=== PATIENT | male | born 1940 | race Caucasian/White ===

== ENCOUNTER 2018-06-17 09:58 | Inpatient (IN) ==
[2018-06-17] MEDS ORDERED: IPRATROPIUM/ALBUTEROL 3 ML AMPUL.NEB NEB ONE (10:28)
[2018-06-17] MEDS ORDERED: methylPREDNISolone SOD SUCC 125 MG/2 ML VIAL IV ONE (10:29)
[2018-06-17] MEDS ORDERED: PIPERACILLIN SODIUM/TAZOBACTAM 3.375 GM in DEXTROSE 5% IN WATER 50 ML IV ONE (10:29)
--- NOTE | 2018-06-17 10:46 | XRay Report ---
HISTORY: Shortness of breath, hypoxia and fever FINDINGS: Right diaphragm is moderately elevated. There is an ill-defined alveolar opacity in the lower half of the right lung. The pulmonary vessels are mildly engorged. The heart is moderately enlarged. There has been a prior sternotomy performed in the patient has a prosthetic cardiac valve. No pleural effusion is present. Comparison with the prior exam from 02/03/18 shows the pulmonary vessels, best seen in the left lung are less engorged today. The infiltrate above the right diaphragm is slightly worse. IMPRESSION: Chronic or recurrent congestive heart failure Possible superimposed pneumonia in the right lower lobe Interpreted and Authenticated by: Rickey Cota 06/17/18
[2018-06-17] MEDS ORDERED: 0.9 % SODIUM CHLORIDE 1,000 ML IV ONE (10:55)
[2018-06-17 10:57] LABS: Basophils # (Auto) 0 K/mcL (0.0-0.3); Basophils % (Auto) 0.4 % (0.0-2.0); Eosinophils # (Auto) 0.3 K/mcL (0.0-0.7); Eosinophils % (Auto) 2.8 % (0.0-7.0); Granulocytes % (Auto) 71.2 % (38.0-78.0); Lymphocytes % (Auto) 18.2 % (15.5-49.0); Mean Cell Volume 93.3 fL (80.0-100.0); Mean Corpuscular HGB Conc 31.2 g/dL (31.0-36.0); Monocytes # (Auto) 0.8 K/mcL (0.1-0.9); Monocytes % (Auto) 7.4 % (1.0-12.0); Platelet Count 222 K/mcL (140-440); RBC 3.89 M/mcL (4.50-5.90); Red Cell Distribution Width 15.5 % (11.5-14.5)
--- NOTE | 2018-06-17 11:03 | Emergency Department Note ---
SOB HPI - General Chief Complaint: Shortness of Breath/Dyspnea Stated Complaint: short of breath,weakness, fever Time Seen by Provider: 06/17/18 10:09 Source: patient Mode of arrival: ambulatory Limitations: no limitations - History of Present Illness 78-year-old male with a several day history of worsening shortness of breath chills but no fever. 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 he is wheezing and requiring significant amount of oxygen. He is on 4 L now to keep sats above 90 whereas at home he is normally on 2 L [id number]. He does have swelling in his feet which is chronic. Denies belly pain nausea vomiting diarrhea. No chest pain. Reports feeling shaky and weak - Related Data Home Medications Medication Instructions Recorded Confirmed Furosemide [Lasix] 40 mg PO DAILY 03/30/15 06/17/18 HYDROcodone/APAP 10/325MG [[place] 1 tab PO BID 03/30/15 06/17/18 10/325Mg] sitaGLIPtin PHOS/metFORMIN HCL 1 tab PO BID 03/30/15 06/17/18 [Janumet 50-1,000 mg Tablet] Diltiazem HCl [Diltiazem 24Hr Cd] 120 mg PO HS 06/17/18 06/17/18 Fluticasone Propionate [Flonase] 1 spray MANUEL DAILY 06/17/18 06/17/18 Spironolactone 50 mg PO DAILY 06/17/18 06/17/18 Allergies Allergy/AdvReac Type Severity Reaction Status Date / Time No Known Intolerances Allergy Unknown NKA Verified 02/03/18 15:02 [NO KNOWN INTOLERANCES] Review of Systems All systems ED: reviewed and negative except as stated. Past Medical History - Past Medical History Attestation: Yes: The following information was validated with the patient. Medical history: Reports: aortic aneurysm, atrial fibrillation, CHF, COPD, coronary artery disease, DM, hyperlipidemia, hypertension, valvular heart disease Surgical history ED: Reports: angioplasty/stent, coronary bypass (CABG), orthopedic, other, vascular surgery - Social History smoking status: Former smoker Alcohol use: Reports: Recent (has a shot of whiskey every night) Physical Exam Working hard to breathe. Normocephalic atraumatic. Conjunctive are mildly injected bilaterally without icterus. No nasal discharge or congestion but he is wearing nasal cannula oxygen. Oropharynx is pink and moist. Posterior pharynx is clear. Neck is supple without lymphadenopathy thyromegaly or carotid bruit. Heart is tachycardic. Lungs with significant bilateral wheezes but some rales lower right lung field. Abdomen is protuberant but soft nontender nondistended. +1-2 pedal edema bilaterally with chronic skin changes. +2 radial pulse. Alert oriented. Able to answer questions appropriately and cooperate for exam Limitations: no limitations Course Vital Signs Temperature 98.7 F 06/17/18 10:01 Pulse Rate 80 06/17/18 10:01 Respiratory Rate 26 H 06/17/18 10:01 Blood Pressure 180/80 06/17/18 10:01 Pulse Oximetry (%) 84 L 06/17/18 10:01 Temperature 99.6 F H 06/17/18 13:01 Pulse Rate 78 06/17/18 14:06 Respiratory Rate 25 H 06/17/18 14:06 Blood Pressure 146/71 06/17/18 14:06 Pulse Oximetry (%) 93 06/17/18 14:06 Shortness of Breath/Dyspnea - Lab Data Lab results reviewed: Yes I reviewed the patient's lab results. Result diagrams: 06/17/18 10:22 06/17/18 10:22 Lab Results 06/17/18 06/17/18 06/17/18 Range/Units 10:22 10:22 10:22 WBC 11.0 (4.5-11.0) K/mcL RBC 3.89 L (4.50-5.90) M/mcL Hgb 11.3 L (13.5-16.5) g/dL Hct 36.3 L (41.0-55.0) % POC Hct 38.0 L (41.0-55.0) % MCV 93.3 (80.0-100.0) fL MCH 29.1 (26.0-34.0) pg MCHC 31.2 (31.0-36.0) g/dL RDW 15.5 H (11.5-14.5) % Plt Count 222 (140-440) K/mcL MPV 8.6 (7.4-10.4) fL Gran % 71.2 (38.0-78.0) % Lymph % (Auto) 18.2 (15.5-49.0) % Laurel % (Auto) 7.4 (1.0-12.0) % Eos % (Auto) 2.8 (0.0-7.0) % Baso % (Auto) 0.4 (0.0-2.0) % Gran # 7.9 (1.8-8.0) K/mcL Lymph # (Auto) 2.0 (1.5-4.8) K/mcL Laurel # (Auto) 0.8 (0.1-0.9) K/mcL Eos # (Auto) 0.3 (0.0-0.7) K/mcL Baso # (Auto) 0 (0.0-0.3) K/mcL D-Dimer 1.12 H (0.00-0.40) ug/ml VBG Lactic Acid (0.5-2.0) mmol/L POC Sodium 142 (133-145) mmol/L Sodium 141 (133-145) mmol/L POC Potassium 4.6 (3.3-5.1) mmol/L Potassium 4.8 (3.3-5.1) mmol/L POC Chloride 96 (96-108) mmol/L Chloride 97 (96-108) mmol/L Carbon Dioxide 41 H* (22-30) mmol/L POC Total CO2 36 H (22-30) mmol/L Anion Gap 3.0 L (8-16) POC BUN 21 (8-23) mg/dl BUN 19 (8-23) mg/dl Creatinine 0.8 (0.7-1.2) mg/dl POC Creatinine 0.8 (0.7-1.2) mg/dl GFR Calculation 85 Glucose 125 H (70-105) mg/dL POC Glucose 129 H (70-105) mg/dL Calcium 9.4 (8.6-10.4) mg/dl POC WB Ioniz Calcium 1.20 (1.16-1.32) mmol/L Magnesium 2.1 (1.6-2.5) mg/dL Total Bilirubin 0.5 (0.0-1.0) mg/dL AST 21 (0-37) U/l ALT 20 (0-40) U/l Alkaline Phosphatase 67 (39-117) U/L Troponin T (0-0.03) ng/ml NT-Pro-B Natriuret Pep 261.6 (0-450) pg/ml Total Protein 7.1 (5.9-8.4) gm/dL Albumin 4.1 (3.2-5.2) gm/dL Globulin 3.0 (2.2-3.7) gm/dL Albumin/Globulin Ratio 1.4 (1.0-2.3) Lipase 26 (7-60) U/L Procalcitonin (<0.10) ng/mL TSH (0.27-5.01) uIU/ml 06/17/18 06/17/18 06/17/18 Range/Units 10:22 10:22 10:23 WBC (4.5-11.0) K/mcL RBC (4.50-5.90) M/mcL Hgb (13.5-16.5) g/dL Hct (41.0-55.0) % POC Hct (41.0-55.0) % MCV (80.0-100.0) fL MCH (26.0-34.0) pg MCHC (31.0-36.0) g/dL RDW (11.5-14.5) % Plt Count (140-440) K/mcL MPV (7.4-10.4) fL Gran % (38.0-78.0) % Lymph % (Auto) (15.5-49.0) % Laurel % (Auto) (1.0-12.0) % Eos % (Auto) (0.0-7.0) % Baso % (Auto) (0.0-2.0) % Gran # (1.8-8.0) K/mcL Lymph # (Auto) (1.5-4.8) K/mcL Laurel # (Auto) (0.1-0.9) K/mcL Eos # (Auto) (0.0-0.7) K/mcL Baso # (Auto) (0.0-0.3) K/mcL D-Dimer (0.00-0.40) ug/ml VBG Lactic Acid 1.0 (0.5-2.0) mmol/L POC Sodium (133-145) mmol/L Sodium (133-145) mmol/L POC Potassium (3.3-5.1) mmol/L Potassium (3.3-5.1) mmol/L POC Chloride (96-108) mmol/L Chloride (96-108) mmol/L Carbon Dioxide (22-30) mmol/L POC Total CO2 (22-30) mmol/L Anion Gap (8-16) POC BUN (8-23) mg/dl BUN (8-23) mg/dl Creatinine (0.7-1.2) mg/dl POC Creatinine (0.7-1.2) mg/dl GFR Calculation Glucose (70-105) mg/dL POC Glucose (70-105) mg/dL Calcium (8.6-10.4) mg/dl POC WB Ioniz Calcium (1.16-1.32) mmol/L Magnesium (1.6-2.5) mg/dL Total Bilirubin (0.0-1.0) mg/dL AST (0-37) U/l ALT (0-40) U/l Alkaline Phosphatase (39-117) U/L Troponin T < 0.01 (0-0.03) ng/ml NT-Pro-B Natriuret Pep (0-450) pg/ml Total Protein (5.9-8.4) gm/dL Albumin (3.2-5.2) gm/dL Globulin (2.2-3.7) gm/dL Albumin/Globulin Ratio (1.0-2.3) Lipase (7-60) U/L Procalcitonin < 0.05 (<0.10) ng/mL TSH (0.27-5.01) uIU/ml 06/17/18 Range/Units 10:40 WBC (4.5-11.0) K/mcL RBC (4.50-5.90) M/mcL Hgb (13.5-16.5) g/dL Hct (41.0-55.0) % POC Hct (41.0-55.0) % MCV (80.0-100.0) fL MCH (26.0-34.0) pg MCHC (31.0-36.0) g/dL RDW (11.5-14.5) % Plt Count (140-440) K/mcL MPV (7.4-10.4) fL Gran % (38.0-78.0) % Lymph % (Auto) (15.5-49.0) % Laurel % (Auto) (1.0-12.0) % Eos % (Auto) (0.0-7.0) % Baso % (Auto) (0.0-2.0) % Gran # (1.8-8.0) K/mcL Lymph # (Auto) (1.5-4.8) K/mcL Laurel # (Auto) (0.1-0.9) K/mcL Eos # (Auto) (0.0-0.7) K/mcL Baso # (Auto) (0.0-0.3) K/mcL D-Dimer (0.00-0.40) ug/ml VBG Lactic Acid (0.5-2.0) mmol/L POC Sodium (133-145) mmol/L Sodium (133-145) mmol/L POC Potassium (3.3-5.1) mmol/L Potassium (3.3-5.1) mmol/L POC Chloride (96-108) mmol/L Chloride (96-108) mmol/L Carbon Dioxide (22-30) mmol/L POC Total CO2 (22-30) mmol/L Anion Gap (8-16) POC BUN (8-23) mg/dl BUN (8-23) mg/dl Creatinine (0.7-1.2) mg/dl POC Creatinine (0.7-1.2) mg/dl GFR Calculation Glucose (70-105) mg/dL POC Glucose (70-105) mg/dL Calcium (8.6-10.4) mg/dl POC WB Ioniz Calcium (1.16-1.32) mmol/L Magnesium (1.6-2.5) mg/dL Total Bilirubin (0.0-1.0) mg/dL AST (0-37) U/l ALT (0-40) U/l Alkaline Phosphatase (39-117) U/L Troponin T (0-0.03) ng/ml NT-Pro-B Natriuret Pep (0-450) pg/ml Total Protein (5.9-8.4) gm/dL Albumin (3.2-5.2) gm/dL Globulin (2.2-3.7) gm/dL Albumin/Globulin Ratio (1.0-2.3) Lipase (7-60) U/L Procalcitonin (<0.10) ng/mL TSH 0.69 (0.27-5.01) uIU/ml Arterial blood gas shows pH 7.25 PCO2 104 PO2 of 75 - Radiology Data Radiology results reviewed: Yes I reviewed the patient's radiology results. Chest x-ray shows right lower lobe pneumonia with chronically elevated right hemidiaphragm. Pulmonary vascular congestion also noted consistent with history of CHF. On comparison to previous chest x-ray right lower lobe infiltrate is new - EKG Data EKG attestation: Yes I reviewed and interpreted this EKG. EKG results narrative: EKG shows a rate of 78 with PVCs. Long AL. Q waves in V1 and V2. No evidence of current ischemia. Disposition Pt seen by LEGAL EDITOR/PA only: No Clinical Impression: Congestive heart failure Qualifiers: Heart failure type: unspecified Heart failure chronicity: unspecified Qualified Code(s): I50.9 - Heart failure, unspecified Pneumonia Qualifiers: Pneumonia type: due to unspecified organism Laterality: right Lung location: lower lobe of lung Qualified Code(s): J18.1 - Lobar pneumonia, unspecified organism Sepsis Qualifiers: Sepsis type: sepsis due to unspecified organism Qualified Code(s): A41.9 - Sepsis, unspecified organism Respiratory failure with hypoxia and hypercapnia Qualifiers: Chronicity: acute Qualified Code(s): J96.01 - Acute respiratory failure with hypoxia Summary: Seen and evaluated. Found to have right lower lobe pneumonia on chest x-ray with possible superimposed CHF. Acidotic hypoxic and hypercarbic with respiratory failure. Did breathing treatment with DuoNeb start Solu-Medrol and Zosyn after blood cultures. Then transition to BiPAP Patient will need an ICU bed for sepsis from pneumonia with respiratory failure. I discussed the case with Dr. Mon, our hospitalist, who agreed to accept the patient for further care and evaluation in the hospital Disposition: Xfer As Inpt ([facility]) Condition: Fair
[2018-06-17 11:14] LABS: proBNP 261.6 pg/ml (0-450)
[2018-06-17 11:18] LABS: ALT/SGPT 20 U/l (0-40); Albumin 4.1 gm/dL (3.2-5.2); Albumin/Globulin Ratio 1.4 (1.0-2.3); Alkaline Phosphatase 67 U/L (39-117); Blood Urea Nitrogen 19 mg/dl (8-23); Lipase 26 U/L (7-60)
--- NOTE | 2018-06-17 11:58 | Internal Med History&Physical ---
Medical - H&P: HPI Patient information: Note initiated : 06/17/18 at 11:53 am Service Date, if different from initiated Date: [] Patient: Owen Van a 78 y/o M admitted on for short of breath,weakness, fever. Chief Complaint: [] History of present illness: Mr. Van is a 78 year old M with history of COPD, congestive heart failure presents to the hospital today for evaluation of shortness of breath. The patient at baseline has COPD, use 3 L of oxygen. The patient notes for the last 2-3 days he has not been feeling well, he gives been feeling shaky chills no fever he has cough with brownish expectoration, denies any hemoptysis. There has been progressive worsening in his shortness of breath. At baseline he is able to carry out activities of daily living but now he is short of breath at rest. He admits to having some increased swelling in his lower extremity as well as shortness of breath when lying down flat he has to sleep on his side or propped up. Given his symptoms are getting progressive worse he decided to come to the hospital for further evaluation. He denies any sick contacts. The patient denies any headache changes in vision difficulty in swallowing, admits to cough shortness of breath denies any chest pain no GI complaints no complaints no new joint pains, or skin rashes. He does have some chronic wounds on his lower extremity. On presentation to the hospital by EMS, he was hypoxic requiring 4 L of oxygen to 5 L of oxygen to maintain his oxygen saturation more than 90%, he was afebrile with a temperature of 98.7 heart rate 79 blood pressure 180 x 80 respirations 26. Labs show a hemoglobin of 13.3, WBC count 11,000, platelets 222, lactic acid 1.0. Sodium 141 potassium 4.8 bicarbonate 41 creatinine 0.8 glucose 125 troponin was negative d-dimer mildly elevated at 1.12. Chest x-ray shows right hemidiaphragm elevation, right basilar pneumonia, chronic versus acute CHF. ABG was done which showed pH of 7.25 PCO2 of 104 PO2 75.4 0.5 L of oxygen. EKG shows sinus rhythm, ectopic atrial beats, QS pattern in V1 to V3 old anteroseptal infarct. Patient was given IV antibiotics after cultures, bronchodilator and Solu-Medrol and patient was placed on BiPAP and admitted to the hospital for further management. Last echo that I can see was in 2017 which showed his left ventricular ejection fraction around 50%, grade 2 diastolic dysfunction, moderate mitral stenosis and moderate aortic stenosis All systems: reviewed and no additional remarkable complaints except as stated Medical - H&P: PMH Medical history: Medical History Acute exacerbation of chronic obstructive airways disease (Acute) Orthostatic hypotension (Acute) DM HTN HLD CAD s/p CABG COPD Chr resp failure on 3 L oxygen Mitral stenosis Aortic stenosis Surgical history: s/p CABG Prostethic Mitral valve repair Pertinent family history: cardiac issues on mothers side Social history: lives at home ex smoker quit 7-8 yrs ago denies heavy etoh use denies recreational drug use. Medical - H&P: Meds Home Medications Medication Instructions Recorded Confirmed Type Furosemide [Lasix] 40 mg PO DAILY 03/30/15 06/17/18 History HYDROcodone/APAP 10/325MG [[place] 1 tab PO BID 03/30/15 06/17/18 History 10/325Mg] sitaGLIPtin PHOS/metFORMIN HCL 1 tab PO BID 03/30/15 06/17/18 History [Janumet 50-1,000 mg Tablet] Diltiazem HCl [Diltiazem 24Hr Cd] 120 mg PO HS 06/17/18 06/17/18 History Fluticasone Propionate [Flonase] 1 spray MANUEL DAILY 06/17/18 06/17/18 History Spironolactone 50 mg PO DAILY 06/17/18 06/17/18 History Allergies Allergy/AdvReac Type Severity Reaction Status Date / Time No Known Intolerances Allergy Unknown NKA Verified 02/03/18 15:02 [NO KNOWN INTOLERANCES] Medical - H&P: Exam - Constitutional Vitals: Temp Pulse Resp BP Pulse Ox 98.7 F 79 23 H 152/62 91 06/17/18 10:01 06/17/18 11:03 06/17/18 11:03 06/17/18 10:31 06/17/18 11:03 Exam: GENERAL: The patient is a well-developed, well-nourished in mild respiratory distress, on bipap. Is alert and oriented x3. Morbidly obese individual VITAL SIGNS: Reviewed and as noted elsewhere. HEENT: Head is normocephalic and atraumatic. Extraocular muscles are intact. Pupils are equal, round, and reactive to light. Nares appeared normal. Mouth appears any without lesions. Mucous membranes are moist. NECK: Normal to inspection, Supple, No lymphadenopathy or thyromegaly. LUNGS: Air entry equal on both sides, no wheezing on my exam, had bibasilar crackles. on bipap. HEART: Regular rate and rhythm normal, S1 and S2 heard, no Gallop, S3 or Rub Noted, systolic murmur aortic and mitral region. ABDOMEN: Soft, nontender, and obese abdomen Positive bowel sounds. No obvious hepatosplenomegaly was noted. EXTREMITIES: No cyanosis, clubbing, rash, lesions, edema ++ NEUROLOGIC: Cranial nerves II through XII are grossly intact. Motor and Sensory System Grossly Intact PSYCHIATRIC: Normal affect, Normal Mood. Appropriate Behavior. SKIN: No ulceratio, left leg wound noted, not infected, No jaundice, No rash noted. Medical - H&P: Reslt - Labs CBC & Chem 7: 06/17/18 10:22 06/17/18 10:22 Labs: Short CBC 06/17/18 Range/Units 10:22 WBC 11.0 (4.5-11.0) K/mcL Hgb 11.3 L (13.5-16.5) g/dL Hct 36.3 L (41.0-55.0) % Plt Count 222 (140-440) K/mcL BMP 06/17/18 10:22 Sodium 141 Potassium 4.8 Chloride 97 Carbon Dioxide 41 H* BUN 19 Creatinine 0.8 Glucose 125 H Calcium 9.4 Cardiac Enzymes 06/17/18 Range/Units 10:22 Troponin T < 0.01 (0-0.03) ng/ml Liver Function 06/17/18 Range/Units 10:22 Total Bilirubin 0.5 (0.0-1.0) mg/dL AST 21 (0-37) U/l ALT 20 (0-40) U/l Alkaline Phosphatase 67 (39-117) U/L Albumin 4.1 (3.2-5.2) gm/dL Medical - H&P: A/P - Narrative A/P Narrative: A/P Acute on chr resp failure, hypercapnic and hypoxic -due to pna/chf/copd, and baseline patient is on 3 L of oxygen, presently requiring BiPAP to maintain oxygen saturation as well as to maintain adequate ventilation. PCO2 was 104 on admission ABG. His bicarb is 41 so I believe he i s a chronic CO2 retainer Pneumonia -Community acquired versus aspiration, on Zosyn as well as azithromycin for now, culture sent get sputum cultures mycoplasma urine strep as well as Legionella antigen de-escalate antibiotics per microbiology Congestive heart failure -Reported on chest x-ray, clinically has crackles and lower extremity edema however his BNP is normal. He received 700 cc of fluid in the ED I am not giving any IV Lasix at this time we will get an echocardiogram, will resume home dose of Lasix and Aldactone. Consider IV Lasix if blood pressure remains stable Aortic stenosis & mitral stenosis -Previous echo shows moderate aortic and mitral stenosis, repeat echocardiogram ordered Diabetes -On oral medications, sliding scale insulin for now hold oral medications while inpatient Hypertension -Resume diuretic regimen for now, monitor blood pressure, will resume Cardi zem blood pressure remained stable over 24 hours DVT hep sq Diet Cardiac/ Carb consistent Full code.
--- NOTE | 2018-06-17 13:18 | Internal Med Progress Note ---
Medical - PN: Subj Patient information: Note initiated : 06/17/18 at 1:12 pm Service Date, if different from initiated Date: [] Patient: Owen Van a 78 y/o M admitted on 06/17/18 for short of breath,weakness, fever. Chief Complaint: [] Interval history: Mr. Van is a 78 year old M with history of COPD, congestive heart failure presents to the hospital today for evaluation of shortness of breath. The patient at baseline has COPD, use 3 L of oxygen. The patient notes for the last 2-3 days he has not been feeling well, he gives been feeling shaky chills no fever he has cough with brownish expectoration, denies any hemoptysis. There has been progressive worsening in his shortness of breath. At baseline he is able to carry out activities of daily living but now he is short of breath at rest. He admits to having some increased swelling in his lower extremity as well as shortness of breath when lying down flat he has to sleep on his side or propped up. Given his symptoms are getting progressive worse he decided to come to the hospital for further evaluation. He denies any sick contacts. The patient denies any headache changes in vision difficulty in swallowing, admits to cough shortness of breath denies any chest pain no GI complaints no complaints no new joint pains, or skin rashes. He does have some chronic wounds on his lower extremity. On presentation to the hospital by EMS, he was hypoxic requiring 4 L of oxygen to 5 L of oxygen to maintain his oxygen saturation more than 90%, he was afebrile with a temperature of 98.7 heart rate 79 blood pressure 180 x 80 respirations 26. Labs show a hemoglobin of 13.3, WBC count 11,000, platelets 222, lactic acid 1.0. Sodium 141 potassium 4.8 bicarbonate 41 creatinine 0.8 glucose 125 troponin was negative d-dimer mildly elevated at 1.12. Chest x-ray shows right hemidiaphragm elevation, right basilar pneumonia, chronic versus acute CHF. ABG was done which showed pH of 7.25 PCO2 of 104 PO2 75.4 0.5 L of oxygen. EKG shows sinus rhythm, ectopic atrial beats, QS pattern in V1 to V3 old anteroseptal infarct. Patient was given IV antibiotics after cultures, bronchodilator and Solu-Medrol and patient was placed on BiPAP and admitted to the hospital for further management. Last echo that I can see was in 2017 which showed his left ventricular ejection fraction around 50%, grade 2 diastolic dysfunction, moderate mitral stenosis and moderate aortic stenosis 06/18 - Constitutional Vitals: Vital Signs Temp Pulse Resp BP Pulse Ox 98.7 F 79 23 H 152/62 91 06/17/18 10:01 06/17/18 11:03 06/17/18 11:03 06/17/18 10:31 06/17/18 11:03 Period Temp Pulse Resp BP Sys/Rodriguez Pulse Ox Last 24 Hr 98.7 F 78-82 20-30 152-180/62-80 84-93 Intake and Output 06/16/18 06/17/18 06/17/18 21:59 05:59 13:59 Intake Total 417 Balance 417 Weight 127.006 kg Patient Weight 06/18/18 05:59 Weight 127.006 kg Intake & Output: Intake & Output 06/16/18 06/17/18 06/17/18 21:59 05:59 13:59 Intake Total 417 Balance 417 Weight 127.006 kg Intake: IV 417 Sodium Chloride 0.9% 1,000 ml @ 417 Wide Open IV BOLUS ONE Rx#: [id number] Exam: General: Alert, Awake, No acute Distress, obese Eyes/N/T: EOMI, Head/Neck: neck supple CV: RRR, Pulm: bibase rales, no wheezing Abd: soft, nontender, +BS x4 Ext: no clubbing/cyanosis, b/l LE edema 2+ Neuro: Alert, no focal deficits, moves all extremities, Skin: warm/dry Medical - PN: Obj Da - Labs CBC & Chem 7: 06/17/18 10:22 06/17/18 10:22 Labs: Abnormal Lab Results 06/17/18 06/17/18 06/17/18 10:22 10:22 10:22 RBC 3.89 L Hgb 11.3 L Hct 36.3 L POC Hct 38.0 L RDW 15.5 H D-Dimer 1.12 H Carbon Dioxide 41 H* POC Total CO2 36 H Anion Gap 3.0 L Glucose 125 H POC Glucose 129 H Medical - PN: A/P - Time Spent With Patient Total time spent is greater than 50% in coordination of care (as documented) at patient's floor/unit and/or counseling patient: - Narrative A/P Narrative: A: *Acute on chronic hypercapnic/hypoxic respiratory failure: -2/2 pna/chf/copd, and baseline patient is on 3 L of oxygen -presently requiring BiPAP to maintain oxygen saturation as well as to maintain adequate ventilation *PNA, CAP vs Aspiration: -viral panel neg *COPD (3L NC@home): as above *Acute on Chronic systolic/diastolic CHF: -echo EF 50-55%, *Aortic stenosis & mitral stenosis: Previous echo shows moderate aortic and mitral stenosis, repeat echocardiogram ordered -mild MS on updated echo, moderate *DM *HTN: * P: -O2 support, wean -Zosyn/Azithromycin for now -pending BC/SC/mycoplasma/urine strep/Legionella. de-escalate antibiotics per microbiology -will resume home dose of Lasix and Aldactone. Consider IV Lasix if blood pressure remains stable -pending echo -cont coreg - -SSI and lantus -pt/ot -ppx: heparin Full code
[2018-06-17] MEDS ORDERED: ACETAMINOPHEN 325 MG TABLET PO PRN (13:21)
[2018-06-17] MEDS ORDERED: HYDROmorphone 2 MG/ML VIAL IV PRN (13:21)
[2018-06-17] MEDS ORDERED: DEXTROSE 31 GM ORAL.SUSP PO PRN (13:21)
[2018-06-17] MEDS ORDERED: ONDANSETRON 4 MG/2 ML VIAL IV PRN (13:21)
[2018-06-17] MEDS ORDERED: DEXTROSE 50% 50 ML VIAL IV PRN (13:21)
[2018-06-17] MEDS ORDERED: NALOXONE HCL 0.4 MG/ML VIAL IV PRN (13:21)
[2018-06-17] MEDS: AZITHROMYCIN 500 MG in DEXTROSE 5% IN WATER 250 ML IV SCH (13:44)
[2018-06-17] MEDS: IPRATROPIUM/ALBUTEROL 3 ML AMPUL.NEB NEB SCH ×3 (15:14→23:16)
[2018-06-17] MEDS: 0.9 % SODIUM CHLORIDE 10 ML SYRINGE IV SCH ×2 (15:59→22:00)
[2018-06-17] MEDS: INSULIN LISPRO 1 UNIT/0.01 ML UNIT SQ SCH ×2 (17:26→21:29)
[2018-06-17] MEDS: PIPERACILLIN SODIUM/TAZOBACTAM 3.375 GM in DEXTROSE 5% IN WATER 50 ML IV SCH (18:07)
[2018-06-17] MEDS ORDERED: LORazepam 2 MG/ML VIAL ONE (20:33)
[2018-06-17] MEDS: LORazepam 2 MG/ML VIAL IV PRN (20:36)
[2018-06-17] MEDS: HEPARIN 5,000 UNIT/ML VIAL SQ SCH (21:07)
[2018-06-17] MEDS: FAMOTIDINE/PF 20 MG/2 ML VIAL IV SCH (21:08)
[2018-06-17] MEDS ORDERED: LORazepam 2 MG/ML VIAL IV ONE (22:40)
[2018-06-17] MEDS ORDERED: DILTIAZEM 120 MG CAP.XL.24H PO ONE (22:47)
[2018-06-17] MEDS: DILTIAZEM 120 MG CAP.XL.24H PO SCH (22:59)
[2018-06-18] MEDS: PIPERACILLIN SODIUM/TAZOBACTAM 3.375 GM in DEXTROSE 5% IN WATER 50 ML IV SCH ×4 (00:27→17:35)
[2018-06-18] MEDS: IPRATROPIUM/ALBUTEROL 3 ML AMPUL.NEB NEB SCH ×6 (03:00→22:59)
[2018-06-18 05:41] LABS: Basophils # (Auto) 0 K/mcL (0.0-0.3); Basophils % (Auto) 0 % (0.0-2.0); Eosinophils # (Auto) 0 K/mcL (0.0-0.7); Eosinophils % (Auto) 0 % (0.0-7.0); Granulocytes % (Auto) 83.2 % (38.0-78.0); Lymphocytes # (Auto) 1.1 K/mcL (1.5-4.8); Lymphocytes % (Auto) 10.9 % (15.5-49.0); Mean Cell Volume 92.8 fL (80.0-100.0); Mean Corpuscular HGB Conc 31.7 g/dL (31.0-36.0); Monocytes # (Auto) 0.6 K/mcL (0.1-0.9); Monocytes % (Auto) 5.9 % (1.0-12.0); Platelet Count 213 K/mcL (140-440); Red Cell Distribution Width 15.9 % (11.5-14.5)
[2018-06-18] MEDS: 0.9 % SODIUM CHLORIDE 10 ML SYRINGE IV SCH ×4 (06:01→17:35)
[2018-06-18 06:09] LABS: ALT/SGPT 17 U/l (0-40); Albumin 3.8 gm/dL (3.2-5.2); Albumin/Globulin Ratio 1.3 (1.0-2.3); Alkaline Phosphatase 59 U/L (39-117); Bilirubin,Direct < 0.2 mg/dL (0.0-0.3); Blood Urea Nitrogen 21 mg/dl (8-23); Gamma Glutamyl Transpeptidase 48 U/L (8-61); Uric Acid 4.3 mg/dL (2.5-8.0)
--- NOTE | 2018-06-18 07:17 | Internal Med Progress Note ---
Medical - PN: Subj Patient information: Note initiated : 06/18/18 at 7:10 am Service Date, if different from initiated Date: [] Patient: Owen Van a 78 y/o M admitted on 06/17/18 for short of breath,weakness, fever. Chief Complaint: [] Interval history: Mr. Van is a 78 year old M with history of COPD, congestive heart failure presents to the hospital today for evaluation of shortness of breath. The patient at baseline has COPD, use 3 L of oxygen. The patient notes for the last 2-3 days he has not been feeling well, he gives been feeling shaky chills no fever he has cough with brownish expectoration, denies any hemoptysis. There has been progressive worsening in his shortness of breath. At baseline he is able to carry out activities of daily living but now he is short of breath at rest. He admits to having some increased swelling in his lower extremity as well as shortness of breath when lying down flat he has to sleep on his side or propped up. Given his symptoms are getting progressive worse he decided to come to the hospital for further evaluation. He denies any sick contacts. The patient denies any headache changes in vision difficulty in swallowing, admits to cough shortness of breath denies any chest pain no GI complaints no complaints no new joint pains, or skin rashes. He does have some chronic wounds on his lower extremity. On presentation to the hospital by EMS, he was hypoxic requiring 4 L of oxygen to 5 L of oxygen to maintain his oxygen saturation more than 90%, he was afebrile with a temperature of 98.7 heart rate 79 blood pressure 180 x 80 respirations 26. Labs show a hemoglobin of 13.3, WBC count 11,000, platelets 222, lactic acid 1.0. Sodium 141 potassium 4.8 bicarbonate 41 creatinine 0.8 glucose 125 troponin was negative d-dimer mildly elevated at 1.12. Chest x-ray shows right hemidiaphragm elevation, right basilar pneumonia, chronic versus acute CHF. ABG was done which showed pH of 7.25 PCO2 of 104 PO2 75.4 0.5 L of oxygen. EKG shows sinus rhythm, ectopic atrial beats, QS pattern in V1 to V3 old anteroseptal infarct. Patient was given IV antibiotics after cultures, bronchodilator and Solu-Medrol and patient was placed on BiPAP and admitted to the hospital for further management. Last echo that I can see was in 2017 which showed his left ventricular ejection fraction around 50%, grade 2 diastolic dysfunction, moderate mitral stenosis and moderate aortic stenosis 06/18 Did have some agitation on the BiPAP yesterday with the subsequent air going into his belly causing him some nausea and vomiting last night. Finally was able to get some rest and comfortable on the BiPAP. States he drinks 2 drinks of black velvet daily. Clarify home medication started on diltiazem. States he does not have a cough this morning no shortness of breath is improved from yesterday. Improved ABG this morning Review of Systems: denies headache/fever/chills/nausea/vomiting/chest or abdominal pain/diarrhea. Otherwise see above. - Constitutional Vitals: Vital Signs Temp Pulse Resp BP Pulse Ox 99.3 F H 81 25 H 142/70 93 06/18/18 04:00 06/18/18 06:01 06/18/18 06:01 06/18/18 06:01 06/18/18 06:01 Period Temp Pulse Resp BP Sys/Rodriguez Pulse Ox Last 24 Hr 98.6 F-100.3 F 52-92 19-38 126-180/62-104 84-98 Intake and Output 06/17/18 06/18/18 06/18/18 21:59 05:59 13:59 Intake Total 420 440 50 Output Total 1005 464 39 Balance -585 -24 11 Weight 98.792 kg Intake & Output: Intake & Output 06/17/18 06/18/18 06/18/18 21:59 05:59 13:59 Intake Total 420 440 50 Output Total 1005 464 39 Balance -585 -24 11 Weight 98.792 kg Intake: IV 300 50 50 Zithromax 500 mg In Dextrose 5% 250 in Water 250 ml @ 250 mls/hr IV DAILY [facility] Rx#:[id number] Zosyn 3.375 gm In Dextrose 5% 50 50 50 in Water 50 ml @ 100 mls/hr IV Q6H [facility] Rx#:[id number] Oral 120 390 Output: Urine Catheter Amount 1005 314 39 Emesis 150 Other: Meal Dinner Percent of Meal Consumed Bites 0% Feeding Ability Independent Urine Appearance Clear Cloudy Cloudy Uretheral (Lay) Cloudy Urine Color Straw Dark Yellow Dark Yellow Uretheral (Lay) Dark Yellow Urine Odor Normal Normal Exam: General: Alert, Awake, No acute Distress, obese Eyes/N/T: EOMI, Head/Neck: neck supple CV: RRR, Pulm: bibase rales/rhonchi, no wheezing Abd: soft, nontender, +BS x4 Ext: no clubbing/cyanosis, b/l LE edema 1+ Neuro: Alert, no focal deficits, moves all extremities, Skin: warm/dry Medical - PN: Obj Da - Labs CBC & Chem 7: 06/18/18 03:41 06/18/18 03:41 Labs: Abnormal Lab Results 06/18/18 06/18/18 06/17/18 03:41 03:41 10:22 RBC 3.60 L Hgb 10.6 L Hct 33.4 L POC Hct 38.0 L RDW 15.9 H Gran % 83.2 H Lymph % (Auto) 10.9 L Gran # 8.5 H Lymph # (Auto) 1.1 L D-Dimer Carbon Dioxide 39 H 41 H* POC Total CO2 36 H Anion Gap 4.0 L 3.0 L Glucose 187 H 125 H POC Glucose 129 H 06/17/18 06/17/18 10:22 10:22 RBC 3.89 L Hgb 11.3 L Hct 36.3 L POC Hct RDW 15.5 H Gran % Lymph % (Auto) Gran # Lymph # (Auto) D-Dimer 1.12 H Carbon Dioxide POC Total CO2 Anion Gap Glucose POC Glucose Meds: Medications Acetaminophen (Tylenol) 650 mg PO Q4-6HP PRN PRN Reason: PAIN/FEVER > 101 Hydrocodone Bitart/Acetaminophen ([place] 10/325mg) 1 tab PO BIDP PRN PRN Reason: PAIN LEVEL 3-6 Albuterol/Ipratropium (Duoneb) 3 ml NEB Q4HRT [facility] Last Admin: 06/18/18 03:00 Dose: 3 ml Documented by: Dextrose (Dextrose 50%) 0 ml IV UD PRN PRN Reason: Hypoglycemia Diagnostic Test (Pha) (Accu-Chek) 1 each FS ACHS [facility] Last Admin: 06/17/18 21:21 Dose: 1 each Documented by: Diltiazem HCl (Cardizem Cd) 120 mg PO HS [facility] Last Admin: 06/17/18 22:59 Dose: 120 mg Documented by: Famotidine (Pepcid) 20 mg IV Q12 [facility] Last Admin: 06/17/18 21:08 Dose: 20 mg Documented by: Furosemide (Lasix) 40 mg PO DAILY [facility] Glucose (Insta-Glucose) 15 gm PO PRN PRN PRN Reason: Hypoglycemia Heparin Sodium (Porcine) (Heparin) 5,000 unit SQ Q12 [facility] Last Admin: 06/17/18 21:07 Dose: 5,000 unit Documented by: Hydromorphone HCl (Dilaudid) 0.5 mg IV Q2HP PRN PRN Reason: PAIN LEVEL > 6 Azithromycin 500 mg/ Dextrose 250 mls @ 250 mls/hr IV DAILY [facility] Stop: 06/19/18 09:59 Last Infusion: 06/17/18 15:58 Dose: Infused Documented by: Piperacillin Sod/Tazobactam (Sod 3.375 gm/ Dextrose) 50 mls @ 100 mls/hr IV Q6H [facility] Last Infusion: 06/18/18 06:40 Dose: Infused Documented by: Insulin Glargine (Lantus) 26 unit SQ 0900 [facility] Insulin Human Lispro (Humalog) 0 unit SQ ACHS [facility]; Protocol Last Admin: 06/17/18 21:29 Dose: 3 units Documented by: Lorazepam (Ativan) 0.5 mg IV Q6HP PRN PRN Reason: ANXIETY/SEDATION Last Admin: 06/17/18 20:36 Dose: 0.5 mg Documented by: Naloxone HCl (Narcan) 0.1 mg IV Q2MIN PRN PRN Reason: Opiate Reversal Ondansetron HCl (Zofran) 4 mg IV Q4-6HP PRN PRN Reason: Nausea And Vomiting Last Admin: 06/17/18 21:08 Dose: 4 mg Documented by: Prednisone (Prednisone) 60 mg PO [facility] Sodium Chloride (Saline Flush) 10 ml IV Q8 [facility] Last Admin: 06/18/18 06:01 Dose: 10 ml Documented by: Spironolactone (Aldactone) 50 mg PO DAILY [facility] Medical - PN: A/P - Time Spent With Patient Total time spent is greater than 50% in coordination of care (as documented) at patient's floor/unit and/or counseling patient: - Narrative A/P Narrative: A: *Acute on chronic hypercapnic/hypoxic respiratory failure: improving -2/2 pna/chf/copd, and baseline patient is on 3 L of oxygen -presently requiring BiPAP to maintain oxygen saturation as well as to maintain adequate ventilation *PNA, CAP vs Aspiration: -viral panel neg, myco/strep ur neg *COPD (3L NC@home): as above *Acute on Chronic systolic/diastolic CHF: -echo EF 50-55%, *Aortic stenosis & Prosthetic Mitral valve: Previous echo shows moderate aortic and mitral stenosis -updated Echo with mild MS & moderate *CAD s/cabg: do not see ASA/statin on home meds, is on dilt *DM: *HTN: on diltiazem, lasix/aldactone *Oropharyngeal Dysphagia, mild: P: -bipap O2 support, wean. f/u ABG -Zosyn/Azithromycin for now -pending BC/SC /Legionella. de-escalate antibiotics per microbiology -steroids (wean), IS/Acapella -will resume home dose of Lasix and Aldactone. Consider IV Lasix if blood pressure remains stable -cont diltiazem, start ASA/statin -dysphagia diet per ST -SSI and dre -LYNN -pt/ot -PCP records -ppx: heparin Full code Medical - PN: Qual - Stroke Symptom Onset Unknown: No - VTE Deep Vein Thrombosis/Pulmonary Embolism Present on Admission: No
[2018-06-18] MEDS: INSULIN LISPRO 1 UNIT/0.01 ML UNIT SQ SCH ×4 (07:31→21:28)
[2018-06-18] MEDS: predniSONE 20 MG TABLET PO SCH (08:21)
[2018-06-18] MEDS: INSULIN GLARGINE, HUMAN 1 UNIT/0.01 ML SQ SCH (08:21)
[2018-06-18] MEDS: HEPARIN 5,000 UNIT/ML VIAL SQ SCH ×2 (08:21→21:28)
[2018-06-18] MEDS: AZITHROMYCIN 500 MG in DEXTROSE 5% IN WATER 250 ML IV SCH (08:22)
[2018-06-18] MEDS: FAMOTIDINE/PF 20 MG/2 ML VIAL IV SCH ×2 (08:22→21:27)
--- NOTE | 2018-06-18 08:35 | XRay Report ---
HISTORY: Shortness of breath fever and weakness FINDINGS: Right diaphragm is moderately elevated. This causing crowding of the pulmonary vascular markings in the right lung base. This is a chronic finding, unchanged from the prior chest CT done on 02/03/18. The left lung is clear. The heart remains mild to moderately enlarged. There is a prosthetic mitral valve and sternal wires. No pleural effusion is present. Comparison with recent chest x-ray done on 06/17/18 shows improved aeration of the right lower lobe and the pulmonary vascular congestion has resolved. IMPRESSION: Resolved congestive heart failure. Resolving small infiltrate at the right lung base which could have been related to the congestive heart failure or a superimposed pneumonia Interpreted and Authenticated by: Rickey Cota 06/18/18
[2018-06-18] MEDS ORDERED: SPIRONOLACTONE 25 MG TABLET PO SCH (09:00)
[2018-06-18] MEDS ORDERED: FUROSEMIDE 40 MG TABLET PO SCH (09:00)
[2018-06-18] MEDS: ASPIRIN 81 MG TAB.CHEW PO SCH (10:21)
[2018-06-18] MEDS ORDERED: POLYETHYLENE GLYCOL 3350 17 GM PACKET PO PRN (14:50)
[2018-06-18] MEDS ORDERED: SENNOSIDES 1 TABLET PO PRN (14:50)
[2018-06-18] MEDS ORDERED: BISACODYL 10 MG SUPP.RECT PR PRN (14:51)
[2018-06-18] MEDS: HYDROcodone/APAP 10/325MG TABLET PO PRN (14:54)
[2018-06-18] MEDS: MAGNESIUM HYDROXIDE 30 ML ORAL.SUSP PO PRN (15:15)
[2018-06-18] MEDS ORDERED: DILTIAZEM 120 MG CAP.XL.24H PO SCH ×2 (21:00)
[2018-06-18] MEDS ORDERED: ATORVASTATIN 20 MG TABLET PO SCH (21:00)
[2018-06-18] MEDS: ATORVASTATIN 20 MG TABLET PO SCH (21:26)
[2018-06-18] MEDS: DILTIAZEM 120 MG CAP.XL.24H PO SCH (21:27)
[2018-06-19] MEDS: PIPERACILLIN SODIUM/TAZOBACTAM 3.375 GM in DEXTROSE 5% IN WATER 50 ML IV SCH ×4 (00:21→17:52)
[2018-06-19] MEDS: 0.9 % SODIUM CHLORIDE 10 ML SYRINGE IV SCH ×4 (00:55→20:45)
[2018-06-19] MEDS: IPRATROPIUM/ALBUTEROL 3 ML AMPUL.NEB NEB SCH ×6 (03:41→22:37)
[2018-06-19 06:56] LABS: ALT/SGPT 16 U/l (0-40); Albumin 3.5 gm/dL (3.2-5.2); Albumin/Globulin Ratio 1.1 (1.0-2.3); Alkaline Phosphatase 57 U/L (39-117); Bilirubin,Direct < 0.2 mg/dL (0.0-0.3); Blood Urea Nitrogen 19 mg/dl (8-23); Gamma Glutamyl Transpeptidase 44 U/L (8-61); Uric Acid 3.3 mg/dL (2.5-8.0)
--- NOTE | 2018-06-19 07:20 | Internal Med Progress Note ---
Medical - PN: Subj Patient information: Note initiated : 06/19/18 at 7:14 am Service Date, if different from initiated Date: [] Patient: Owen Van a 78 y/o M admitted on 06/17/18 for short of breath,weakness, fever. Chief Complaint: [] Interval history: Mr. Van is a 78 year old M with history of COPD, congestive heart failure presents to the hospital today for evaluation of shortness of breath. The patient at baseline has COPD, use 3 L of oxygen. The patient notes for the last 2-3 days he has not been feeling well, he gives been feeling shaky chills no fever he has cough with brownish expectoration, denies any hemoptysis. There has been progressive worsening in his shortness of breath. At baseline he is able to carry out activities of daily living but now he is short of breath at rest. He admits to having some increased swelling in his lower extremity as well as shortness of breath when lying down flat he has to sleep on his side or propped up. Given his symptoms are getting progressive worse he decided to come to the hospital for further evaluation. He denies any sick contacts. The patient denies any headache changes in vision difficulty in swallowing, admits to cough shortness of breath denies any chest pain no GI complaints no complaints no new joint pains, or skin rashes. He does have some chronic wounds on his lower extremity. On presentation to the hospital by EMS, he was hypoxic requiring 4 L of oxygen to 5 L of oxygen to maintain his oxygen saturation more than 90%, he was afebrile with a temperature of 98.7 heart rate 79 blood pressure 180 x 80 respirations 26. Labs show a hemoglobin of 13.3, WBC count 11,000, platelets 222, lactic acid 1.0. Sodium 141 potassium 4.8 bicarbonate 41 creatinine 0.8 glucose 125 troponin was negative d-dimer mildly elevated at 1.12. Chest x-ray shows right hemidiaphragm elevation, right basilar pneumonia, chronic versus acute CHF. ABG was done which showed pH of 7.25 PCO2 of 104 PO2 75.4 0.5 L of oxygen. EKG shows sinus rhythm, ectopic atrial beats, QS pattern in V1 to V3 old anteroseptal infarct. Patient was given IV antibiotics after cultures, bronchodilator and Solu-Medrol and patient was placed on BiPAP and admitted to the hospital for further management. Last echo that I can see was in 2017 which showed his left ventricular ejection fraction around 50%, grade 2 diastolic dysfunction, moderate mitral stenosis and moderate aortic stenosis 06/18 Did have some agitation on the BiPAP yesterday with the subsequent air going into his belly causing him some nausea and vomiting last night. Finally was able to get some rest and comfortable on the BiPAP. States he drinks 2 drinks of black velvet daily. Clarify home medication started on diltiazem. States he does not have a cough this morning no shortness of breath is improved from yesterday. Improved ABG this morning 06/19 Was put on BiPAP last night just for short period of time. Tolerating nasal cannula otherwise. Does have a cough but not really productive at this point. Does have shortness of breath but says it is much improved and states hannah roximately 60% back to baseline. Says he needs a follow-up with cardiology after I talked to him about the TAVR and anticoagulation, still just wants to stay on aspirin and follow-up with cardiology. Poor sleep at night, patient states he takes melatonin and meclizine for sleep at night At home. Review of Systems: denies headache/fever/chills/nausea/vomiting/chest or abdominal pain/diarrhea. Otherwise see above. - Constitutional Vitals: Vital Signs Temp Pulse Resp BP Pulse Ox 98.8 F 85 27 H 127/86 96 06/19/18 04:00 06/19/18 06:01 06/19/18 06:01 06/19/18 06:01 06/19/18 06:01 Period Temp Pulse Resp BP Sys/Rodriguez Pulse Ox Last 24 Hr 98.2 F-99.4 F 71-100 18-38 106-153/52-86 84-98 Intake and Output 06/18/18 06/19/18 06/19/18 21:59 05:59 13:59 Intake Total 950 370 50 Output Total 884 553 40 Balance 66 -183 10 Weight 97.114 kg Intake & Output: Intake & Output 06/18/18 06/19/18 06/19/18 21:59 05:59 13:59 Intake Total 950 370 50 Output Total 884 553 40 Balance 66 -183 10 Weight 97.114 kg Intake: Nourishment/Supplement quantity 240 (ml) IV 50 50 50 Zosyn 3.375 gm In Dextrose 5% 50 50 50 in Water 50 ml @ 100 mls/hr IV Q6H [facility] Rx#:[id number] Oral 660 320 Output: Urine Catheter Amount 884 453 40 Void Amount 100 Other: Meal Dinner Percent of Meal Consumed 100% Feeding Ability Assist with Tray Set Up Nourishment/Supplement name Glucerna Urine Appearance Clear Clear Clear Uretheral (Lay) Clear Clear Urine Color Dark Yellow Blood Tinged Blood Tinged Uretheral (Lay) Dark Yellow Blood Tinged Blood Tinged Urine Odor Normal Exam: General: Alert, Awake, No acute Distress, obese Eyes/N/T: EOMI, Head/Neck: neck supple CV: RRR, 2/6 SM Pulm: milf fine rales right base, mild diminshed b/l, a few scattered wheezes b/l Abd: soft, nontender, +BS x4 Ext: no clubbing/cyanosis, b/l LE trace edema Neuro: Alert, no focal deficits, moves all extremities, Skin: warm/dry Medical - PN: Obj Da - Labs CBC & Chem 7: 06/18/18 03:41 06/19/18 04:17 Labs: Abnormal Lab Results 06/19/18 06/18/18 06/18/18 04:17 03:41 03:41 RBC 3.60 L Hgb 10.6 L Hct 33.4 L POC Hct RDW 15.9 H Gran % 83.2 H Lymph % (Auto) 10.9 L Gran # 8.5 H Lymph # (Auto) 1.1 L D-Dimer Chloride 93 L Carbon Dioxide 40 H 39 H POC Total CO2 Anion Gap 6.0 L 4.0 L Glucose 136 H 187 H POC Glucose Phosphorus 2.3 L 06/17/18 06/17/18 06/17/18 10:22 10:22 10:22 RBC 3.89 L Hgb 11.3 L Hct 36.3 L POC Hct 38.0 L RDW 15.5 H Gran % Lymph % (Auto) Gran # Lymph # (Auto) D-Dimer 1.12 H Chloride Carbon Dioxide 41 H* POC Total CO2 36 H Anion Gap 3.0 L Glucose 125 H POC Glucose 129 H Phosphorus Meds: Medications Acetaminophen (Tylenol) 650 mg PO Q4-6HP PRN PRN Reason: PAIN/FEVER > 101 Hydrocodone Bitart/Acetaminophen ([place] 10/325mg) 1 tab PO BIDP PRN PRN Reason: PAIN LEVEL 3-6 Last Admin: 06/18/18 14:54 Dose: 1 tab Documented by: Albuterol/Ipratropium (Duoneb) 3 ml NEB Q4HRT [facility] Last Admin: 06/19/18 03:41 Dose: 3 ml Documented by: Aspirin (Aspirin) 81 mg PO DAILY [facility] Last Admin: 06/18/18 10:21 Dose: 81 mg Documented by: Atorvastatin Calcium (Lipitor) 20 mg PO HS [facility] Last Admin: 06/18/18 21:26 Dose: 20 mg Documented by: Bisacodyl (Dulcolax) 10 mg OH DAILYP PRN PRN Reason: Constipation Dextrose (Dextrose 50%) 0 ml IV UD PRN PRN Reason: Hypoglycemia Diagnostic Test (Pha) (Accu-Chek) 1 each FS ACHS [facility] Last Admin: 06/18/18 20:30 Dose: 1 each Documented by: Diltiazem HCl (Cardizem Cd) 120 mg PO HS [facility] Last Admin: 06/18/18 21:27 Dose: 120 mg Documented by: Famotidine (Pepcid) 20 mg IV Q12 [facility] Last Admin: 06/18/18 21:27 Dose: 20 mg Documented by: Furosemide (Lasix) 40 mg PO DAILY [facility] Last Admin: 06/18/18 08:29 Dose: 40 mg Documented by: Glucose (Insta-Glucose) 15 gm PO PRN PRN PRN Reason: Hypoglycemia Heparin Sodium (Porcine) (Heparin) 5,000 unit SQ Q12 [facility] Last Admin: 06/18/18 21:28 Dose: 5,000 unit Documented by: Hydromorphone HCl (Dilaudid) 0.5 mg IV Q2HP PRN PRN Reason: PAIN LEVEL > 6 Azithromycin 500 mg/ Dextrose 250 mls @ 250 mls/hr IV DAILY [facility] Stop: 06/19/18 09:59 Last Infusion: 06/18/18 10:30 Dose: Infused Documented by: Piperacillin Sod/Tazobactam (Sod 3.375 gm/ Dextrose) 50 mls @ 100 mls/hr IV Q6H [facility] Last Infusion: 06/19/18 06:46 Dose: Infused Documented by: Insulin Glargine (Lantus) 26 unit SQ 0900 [facility] Last Admin: 06/18/18 08:21 Dose: 26 units Documented by: Insulin Human Lispro (Humalog) 0 unit SQ [facility]; Protocol Last Admin: 06/18/18 21:28 Dose: 4 units Documented by: Lorazepam (Ativan) 0.5 mg IV Q6HP PRN PRN Reason: ANXIETY/SEDATION Last Admin: 06/17/18 20:36 Dose: 0.5 mg Documented by: Magnesium Hydroxide (Milk Of Magnesia) 30 ml PO DAILYP PRN PRN Reason: Constipation Last Admin: 06/18/18 15:15 Dose: 30 ml Documented by: Naloxone HCl (Narcan) 0.1 mg IV Q2MIN PRN PRN Reason: Opiate Reversal Ondansetron HCl (Zofran) 4 mg IV Q4-6HP PRN PRN Reason: Nausea And Vomiting Last Admin: 06/17/18 21:08 Dose: 4 mg Documented by: Polyethylene Glycol (Miralax) 17 gm PO DAILYP PRN PRN Reason: Constipation Last Admin: 06/18/18 22:39 Dose: 17 gm Documented by: Prednisone (Prednisone) 60 mg PO [facility] Last Admin: 06/18/18 08:21 Dose: 60 mg Documented by: Senna (Senokot) 1 tab PO HSP PRN PRN Reason: Constipation Sodium Chloride (Saline Flush) 10 ml IV Q8 [facility] Last Admin: 06/19/18 06:10 Dose: 10 ml Documented by: Spironolactone (Aldactone) 50 mg PO DAILY [facility] Last Admin: 06/18/18 08:21 Dose: 50 mg Documented by: Medical - PN: A/P - Time Spent With Patient Total time spent is greater than 50% in coordination of care (as documented) at patient's floor/unit and/or counseling patient: - Narrative A/P Narrative: A: *Acute on chronic hypercapnic/hypoxic respiratory failure: improving -2/2 pna/chf/copd, and baseline patient is on 3L of oxygen -initially required BiPAP to maintain oxygen saturation as well as to maintain adequate ventilation now only intermittent at night -f/u VBG with good pH and CO2 *PNA, CAP vs Aspiration: -viral panel neg, myco/strep ur neg *COPD (3L NC@home): as above *Acute on Chronic systolic/diastolic CHF: -echo EF 50%, -f/u CXR improved *Aortic stenosis & Prosthetic Mitral valve: Previous echo shows moderate aortic and mitral stenosis -updated Echo with mild MS & moderate -has been following with [facility], discussion regarding referral for TAVR evaluation took place but pt not interested at that time. *CAD w/cabg: do not see ASA/statin on home meds, is on dilt *PAF: old records from [facility] state he is on ASA and did not want to consider Anticoagulation as discussed on several occasions. *DM: *HTN: on diltiazem, lasix/aldactone *Oropharyngeal Dysphagia, mild: P: -prn bipap O2 support, wean. f/u ABG -Zosyn/Azithromycin for now -pending BC/SC /Legionella. de-escalate antibiotics per microbiology -steroids (wean), IS/Acapella -cont Lasix and Aldactone (held today). Consider IV Lasix if blood pressure remains stable -cont diltiazem, ASA/statin -dysphagia diet per ST -SSI and lantus -CIWA -pt/ot -ppx: heparin Full code Medical - PN: Qual - Stroke Symptom Onset Unknown: No - VTE Deep Vein Thrombosis/Pulmonary Embolism Present on Admission: No
[2018-06-19] MEDS: predniSONE 20 MG TABLET PO SCH (07:58)
[2018-06-19] MEDS: HEPARIN 5,000 UNIT/ML VIAL SQ SCH ×2 (07:58→20:43)
[2018-06-19] MEDS: ASPIRIN 81 MG TAB.CHEW PO SCH (07:58)
[2018-06-19] MEDS: FAMOTIDINE/PF 20 MG/2 ML VIAL IV SCH ×2 (07:58→20:43)
[2018-06-19] MEDS: INSULIN LISPRO 1 UNIT/0.01 ML UNIT SQ SCH ×4 (07:58→20:44)
[2018-06-19] MEDS: INSULIN GLARGINE, HUMAN 1 UNIT/0.01 ML SQ SCH (07:59)
[2018-06-19] MEDS: AZITHROMYCIN 500 MG in DEXTROSE 5% IN WATER 250 ML IV SCH (09:47)
[2018-06-19] MEDS ORDERED: diphenhydrAMINE 25 MG CAPSULE PO PRN (11:12)
[2018-06-19] MEDS ORDERED: MELATONIN 3 MG TABLET PO SCH (11:15)
[2018-06-19] MEDS: HYDROcodone/APAP 10/325MG TABLET PO PRN (19:43)
[2018-06-19] MEDS: ATORVASTATIN 20 MG TABLET PO SCH (20:43)
[2018-06-19] MEDS: DILTIAZEM 120 MG CAP.XL.24H PO SCH (20:45)
[2018-06-20] MEDS: LORazepam 2 MG/ML VIAL IV PRN ×2 (00:03→06:46)
[2018-06-20] MEDS: PIPERACILLIN SODIUM/TAZOBACTAM 3.375 GM in DEXTROSE 5% IN WATER 50 ML IV SCH ×5 (00:03→23:59)
[2018-06-20] MEDS: IPRATROPIUM/ALBUTEROL 3 ML AMPUL.NEB NEB SCH ×6 (02:27→23:23)
[2018-06-20] MEDS ORDERED: HALOPERIDOL LACTATE 5 MG/ML VIAL ONE ×2 (03:13→04:05)
[2018-06-20] MEDS ORDERED: HALOPERIDOL LACTATE 5 MG/ML VIAL IV ONE ×2 (03:14→04:09)
[2018-06-20] MEDS ORDERED: hydrOXYzine 25 MG TABLET PO ONE (03:14)
[2018-06-20] MEDS: 0.9 % SODIUM CHLORIDE 10 ML SYRINGE IV SCH ×3 (05:37→21:15)
[2018-06-20 06:18] LABS: ALT/SGPT 19 U/l (0-40); Albumin 3.9 gm/dL (3.2-5.2); Albumin/Globulin Ratio 1.2 (1.0-2.3); Alkaline Phosphatase 58 U/L (39-117); Bilirubin,Direct 0.2 mg/dL (0.0-0.3); Blood Urea Nitrogen 18 mg/dl (8-23); Gamma Glutamyl Transpeptidase 45 U/L (8-61); Uric Acid 2.5 mg/dL (2.5-8.0)
--- NOTE | 2018-06-20 07:01 | Internal Med Progress Note ---
Medical - PN: Subj Patient information: Note initiated : 06/20/18 at 6:59 am Service Date, if different from initiated Date: [] Patient: Owen Van a 78 y/o M admitted on 06/17/18 for short of breath,weakness, fever. Chief Complaint: [] Interval history: Mr. Van is a 78 year old M with history of COPD, congestive heart failure presents to the hospital today for evaluation of shortness of breath. The patient at baseline has COPD, use 3 L of oxygen. The patient notes for the last 2-3 days he has not been feeling well, he gives been feeling shaky chills no fever he has cough with brownish expectoration, denies any hemoptysis. There has been progressive worsening in his shortness of breath. At baseline he is able to carry out activities of daily living but now he is short of breath at rest. He admits to having some increased swelling in his lower extremity as well as shortness of breath when lying down flat he has to sleep on his side or propped up. Given his symptoms are getting progressive worse he decided to come to the hospital for further evaluation. He denies any sick contacts. The patient denies any headache changes in vision difficulty in swallowing, admits to cough shortness of breath denies any chest pain no GI complaints no complaints no new joint pains, or skin rashes. He does have some chronic wounds on his lower extremity. On presentation to the hospital by EMS, he was hypoxic requiring 4 L of oxygen to 5 L of oxygen to maintain his oxygen saturation more than 90%, he was afebrile with a temperature of 98.7 heart rate 79 blood pressure 180 x 80 respirations 26. Labs show a hemoglobin of 13.3, WBC count 11,000, platelets 222, lactic acid 1.0. Sodium 141 potassium 4.8 bicarbonate 41 creatinine 0.8 glucose 125 troponin was negative d-dimer mildly elevated at 1.12. Chest x-ray shows right hemidiaphragm elevation, right basilar pneumonia, chronic versus acute CHF. ABG was done which showed pH of 7.25 PCO2 of 104 PO2 75.4 0.5 L of oxygen. EKG shows sinus rhythm, ectopic atrial beats, QS pattern in V1 to V3 old anteroseptal infarct. Patient was given IV antibiotics after cultures, bronchodilator and Solu-Medrol and patient was placed on BiPAP and admitted to the hospital for further management. Last echo that I can see was in 2017 which showed his left ventricular ejection fraction around 50%, grade 2 diastolic dysfunction, moderate mitral stenosis and moderate aortic stenosis 06/18 Did have some agitation on the BiPAP yesterday with the subsequent air going into his belly causing him some nausea and vomiting last night. Finally was able to get some rest and comfortable on the BiPAP. States he drinks 2 drinks of black velvet daily. Clarify home medication started on diltiazem. States he does not have a cough this morning no shortness of breath is improved from yesterday. Improved ABG this morning 06/19 Was put on BiPAP last night just for short period of time. Tolerating nasal cannula otherwise. Does have a cough but not really productive at this point. Does have shortness of breath but says it is much improved and states hannah roximately 60% back to baseline. Says he needs a follow-up with cardiology after I talked to him about the TAVR and anticoagulation, still just wants to stay on aspirin and follow-up with cardiology. Poor sleep at night, patient states he takes melatonin and meclizine for sleep at night At home. 06/20 Becomes quite agitated in the evenings, with confusion, especially last night. Last night needed to give Haldol. Darby was removed yesterday day and had to be put back in last night for retention. Now sleeping after given some sedation for CT brain. Review of Systems: Unable to obtain as patient is sleeping - Constitutional Vitals: Vital Signs Temp Pulse Resp BP Pulse Ox 98.8 F 99 H 24 H 159/85 96 06/19/18 20:00 06/20/18 05:00 06/20/18 06:01 06/20/18 06:01 06/20/18 06:01 Period Temp Pulse Resp BP Sys/Rodriguez Pulse Ox Last 24 Hr 98.2 F-98.8 F 70-99 2-38 133-184/71-115 88-98 Intake and Output 06/19/18 06/20/18 06/20/18 21:59 05:59 13:59 Intake Total 770 560 50 Output Total 1525 810 80 Balance -755 -250 -30 Weight 96.615 kg Intake & Output: Intake & Output 06/19/18 06/20/1806/20/19 21:59 05:59 13:59 Intake Total 770 560 50 Output Total 1525 810 80 Balance -755 -250 -30 Weight 96.615 kg Intake: IV 50 50 50 Zosyn 3.375 gm In Dextrose 5% 50 50 50 in Water 50 ml @ 100 mls/hr IV Q6H [facility] Rx#:[id number] Oral 720 510 Output: Urine Catheter Amount 1285 810 80 Void Amount 240 0 Other: Meal Nourishment/Supplement Percent of Meal Consumed 100% Feeding Ability Assist with Tray Set Up Urine Appearance Small Blood Clots Small Blood Clots Uretheral (Darby) Hematuria Clear Small Blood Clots Small Blood Clots Urine Color Blood Tinged [place] Blood Tinged Blood Tinged [place] Uretheral (Darby) [place] Dup[place]er Blood Tinged Blood Tinged Exam: General: Sleeping, No acute Distress, obese Eyes/N/T: Pupils pinpoint but reactive to light, Head/Neck: neck supple CV: RRR, 236 SM Pulm: mild diminshed b/l, no wheezes today and clear laterally. Abd: soft, protuberant, +BS x4 Ext: no clubbing/cyanosis, b/l LE trace edema Neuro: Alert, no focal deficits, moves all extremities, Skin: warm/dry Medical - PN: Obj Da - Labs CBC & Chem 7: 06/18/18 03:41 06/20/18 04:06 Labs: Abnormal Lab Results 06/20/18 06/19/18 06/18/18 04:06 04:17 03:41 RBC Hgb Hct POC Hct RDW Gran % Lymph % (Auto) Gran # Lymph # (Auto) D-Dimer Chloride 93 L Carbon Dioxide 34 H 40 H 39 H POC Total CO2 Anion Gap 6.0 L 4.0 L Glucose 117 H 136 H 187 H POC Glucose Phosphorus 2.3 L 06/18/18 06/17/18 06/17/18 03:41 10:22 10:22 RBC 3.60 L Hgb 10.6 L Hct 33.4 L POC Hct 38.0 L RDW 15.9 H Gran % 83.2 H Lymph % (Auto) 10.9 L Gran # 8.5 H Lymph # (Auto) 1.1 L D-Dimer 1.12 H Chloride Carbon Dioxide 41 H* POC Total CO2 36 H Anion Gap 3.0 L Glucose 125 H POC Glucose 129 H Phosphorus 06/17/18 10:22 RBC 3.89 L Hgb 11.3 L Hct 36.3 L POC Hct RDW 15.5 H Gran % Lymph % (Auto) Gran # Lymph # (Auto) D-Dimer Chloride Carbon Dioxide POC Total CO2 Anion Gap Glucose POC Glucose Phosphorus Meds: Medications Acetaminophen (Tylenol) 650 mg PO Q4-6HP PRN PRN Reason: PAIN/FEVER > 101 Hydrocodone Bitart/Acetaminophen ([place] 10/325mg) 1 tab PO BIDP PRN PRN Reason: PAIN LEVEL 3-6 Last Admin: 06/19/18 19:43 Dose: 1 tab Documented by: Albuterol/Ipratropium (Duoneb) 3 ml NEB Q4HRT [facility] Last Admin: 06/20/18 02:27 Dose: 3 ml Documented by: Aspirin (Aspirin) 81 mg PO DAILY [facility] Last Admin: 06/19/18 07:58 Dose: 81 mg Documented by: Atorvastatin Calcium (Lipitor) 20 mg PO HS [facility] Last Admin: 06/19/18 20:43 Dose: 20 mg Documented by: Bisacodyl (Dulcolax) 10 mg CO DAILYP PRN PRN Reason: Constipation Dextrose (Dextrose 50%) 0 ml IV UD PRN PRN Reason: Hypoglycemia Diagnostic Test (Pha) (Accu-Chek) 1 each FS ACHS [facility] Last Admin: 06/19/18 20:44 Dose: 1 each Documented by: Diltiazem HCl (Cardizem Cd) 120 mg PO HS [facility] Last Admin: 06/19/18 20:45 Dose: 120 mg Documented by: Diphenhydramine HCl (Benadryl) 25 mg PO HSP PRN PRN Reason: Insomnia Last Admin: 06/20/18 02:26 Dose: 25 mg Documented by: Famotidine (Pepcid) 20 mg IV Q12 [facility] Last Admin: 06/19/18 20:43 Dose: 20 mg Documented by: Furosemide (Lasix) 40 mg PO DAILY [facility] Glucose (Insta-Glucose) 15 gm PO PRN PRN PRN Reason: Hypoglycemia Heparin Sodium (Porcine) (Heparin) 5,000 unit SQ Q12 [facility] Last Admin: 06/19/18 20:43 Dose: 5,000 unit Documented by: Hydromorphone HCl (Dilaudid) 0.5 mg IV Q2HP PRN PRN Reason: PAIN LEVEL > 6 Piperacillin Sod/Tazobactam (Sod 3.375 gm/ Dextrose) 50 mls @ 100 mls/hr IV Q6H [facility] Last Infusion: 06/20/18 06:10 Dose: Infused Documented by: Insulin Glargine (Lantus) 26 unit SQ 0900 [facility] Last Admin: 06/19/18 07:59 Dose: 26 units Documented by: Insulin Human Lispro (Humalog) 0 unit SQ ACHS [facility]; Protocol Last Admin: 06/19/18 20:44 Dose: 4 units Documented by: Lorazepam (Ativan) 0.5 mg IV Q6HP PRN PRN Reason: ANXIETY/SEDATION Last Admin: 06/20/18 06:46 Dose: 0.5 mg Documented by: Magnesium Hydroxide (Milk Of Magnesia) 30 ml PO DAILYP PRN PRN Reason: Constipation Last Admin: 06/18/18 15:15 Dose: 30 ml Documented by: Melatonin (Melatonin 3mg Tablet) 3 mg PO [facility] Naloxone HCl (Narcan) 0.1 mg IV Q2MIN PRN PRN Reason: Opiate Reversal Ondansetron HCl (Zofran) 4 mg IV Q4-6HP PRN PRN Reason: Nausea And Vomiting Last Admin: 06/17/18 21:08 Dose: 4 mg Documented by: Polyethylene Glycol (Miralax) 17 gm PO DAILYP PRN PRN Reason: Constipation Last Admin: 06/18/18 22:39 Dose: 17 gm Documented by: Prednisone (Prednisone) 60 mg PO [facility] Last Admin: 06/19/18 07:58 Dose: 60 mg Documented by: Senna (Senokot) 1 tab PO HSP PRN PRN Reason: Constipation Sodium Chloride (Saline Flush) 10 ml IV Q8 [facility] Last Admin: 06/20/18 05:37 Dose: 10 ml Documented by: Spironolactone (Aldactone) 50 mg PO DAILY [facility] Medical - PN: A/P - Time Spent With Patient Total time spent is greater than 50% in coordination of care (as documented) at patient's floor/unit and/or counseling patient: - Narrative A/P Narrative: A: *Acute on chronic hypercapnic/hypoxic respiratory failure: improving -2/2 copd/chf/?pna, and baseline patient is on 3L of oxygen -initially required BiPAP to maintain oxygen saturation as well as to maintain adequate ventilation now only intermittent at night -f/u VBG with good pH and CO2 *?PNA, CAP vs Aspiration: -viral panel neg, myco/strep ur neg *AECOPD (3L NC@home): as above *Acute on Chronic systolic/diastolic CHF: -echo EF 50%, -f/u CXR improved s/p IV lasix *Aortic stenosis & Prosthetic Mitral valve: Previous echo shows moderate aortic and mitral stenosis -updated Echo with mild MS & moderate -has been following with [facility] Cardiology, discussion regarding referral for TAVR evaluation took place but pt not interested at that time. *CAD w/cabg: do not see ASA/statin on home meds, is on dilt *PAF: old records from communication spec state he is on ASA and did not want to consider Anticoagulation as discussed on several occasions. *DM: *HTN: on diltiazem, lasix/aldactone *Oropharyngeal Dysphagia, mild: *Urinary retention: *Agitation/Confusion @ night: Likely has some underlying dementia w/ =/- ?etoh (a couple of "stiff" drinks/night per nursing): P: -O2 support, wean. f/u ABG -Zosyn/Azithromycin for now -steroids (wean), IS/Acapella -cont Lasix and Aldactone (held today). Consider IV Lasix if blood pressure remains stable -cont diltiazem, ASA/statin -dysphagia diet per ST -SSI and lantus -CIWA -pt/ot -f/u with Cardio outpt -darby, removed yesterday yesterday and replaced last night, flomax, f/u with urology -CM for placement -ppx: heparin Full code Medical - PN: Qual - Stroke Symptom Onset Unknown: No - VTE Deep Vein Thrombosis/Pulmonary Embolism Present on Admission: No
[2018-06-20] MEDS: FAMOTIDINE/PF 20 MG/2 ML VIAL IV SCH ×2 (08:25→21:14)
--- NOTE | 2018-06-20 09:14 | Cat Scan Report ---
CLINICAL INFORMATION: Confusion and decreased mental status and agitation and fever COMPARISON: None. TECHNIQUE: 2.5 mm helical slices were obtained in the skull base to vertex. Following reconstruction, axial reformatted images were reviewed at bone and parenchymal windows. The exam was performed using radiation dose optimization techniques including, but not limited to, automated exposure control, adjustment of the mA and/or kV according to patient size and use of iterative reconstruction technique. FINDINGS: The ventricles, sulci, fissures, and cisterns are symmetrically large compatible with mild age-related atrophy - no extra-axial fluid collection or masses appreciated. Mild patchy chronic ischemic changes in the cerebral white matter are expected for age. There is no intracerebral hemorrhage, mass effect, edema or other acute finding. Bone windows show no osseous abnormality. IMPRESSION: Mild atrophy and chronic ischemic changes in the the cerebral white matter - expected for age. No acute findings. Interpreted and Authenticated by: Abner Weems 06/20/18
[2018-06-20] MEDS: SPIRONOLACTONE 25 MG TABLET PO SCH (11:00)
[2018-06-20] MEDS: INSULIN LISPRO 1 UNIT/0.01 ML UNIT SQ SCH ×4 (11:00→21:15)
[2018-06-20] MEDS: predniSONE 20 MG TABLET PO SCH (11:00)
[2018-06-20] MEDS: ASPIRIN 81 MG TAB.CHEW PO SCH (11:00)
[2018-06-20] MEDS: HEPARIN 5,000 UNIT/ML VIAL SQ SCH ×2 (11:01→21:14)
[2018-06-20] MEDS: INSULIN GLARGINE, HUMAN 1 UNIT/0.01 ML SQ SCH (11:01)
[2018-06-20] MEDS: FUROSEMIDE 40 MG TABLET PO SCH (11:02)
[2018-06-20] MEDS ORDERED: OLANZapine 5 MG TABLET PO SCH (21:00)
[2018-06-20] MEDS ORDERED: TAMSULOSIN 0.4 MG CAPSULE PO SCH (21:00)
[2018-06-20] MEDS: ATORVASTATIN 20 MG TABLET PO SCH (21:14)
[2018-06-20] MEDS: DILTIAZEM 120 MG CAP.XL.24H PO SCH (21:14)
[2018-06-21] MEDS: IPRATROPIUM/ALBUTEROL 3 ML AMPUL.NEB NEB SCH ×6 (03:06→23:08)
[2018-06-21] MEDS: 0.9 % SODIUM CHLORIDE 10 ML SYRINGE IV SCH ×3 (05:18→21:05)
[2018-06-21] MEDS: PIPERACILLIN SODIUM/TAZOBACTAM 3.375 GM in DEXTROSE 5% IN WATER 50 ML IV SCH ×3 (05:18→16:57)
[2018-06-21 05:44] LABS: Basophils # (Auto) 0 K/mcL (0.0-0.3); Basophils % (Auto) 0.1 % (0.0-2.0); Eosinophils # (Auto) 0.6 K/mcL (0.0-0.7); Eosinophils % (Auto) 7.2 % (0.0-7.0); Lymphocytes # (Auto) 1.8 K/mcL (1.5-4.8); Lymphocytes % (Auto) 19.8 % (15.5-49.0); Mean Cell Volume 92.3 fL (80.0-100.0); Mean Corpuscular HGB Conc 32.1 g/dL (31.0-36.0); Monocytes # (Auto) 0.8 K/mcL (0.1-0.9); Monocytes % (Auto) 8.9 % (1.0-12.0); Platelet Count 199 K/mcL (140-440); RBC 3.77 M/mcL (4.50-5.90); Red Cell Distribution Width 15.9 % (11.5-14.5)
[2018-06-21 06:08] LABS: ALT/SGPT 22 U/l (0-40); Albumin 3.5 gm/dL (3.2-5.2); Albumin/Globulin Ratio 1.1 (1.0-2.3); Alkaline Phosphatase 59 U/L (39-117); Bilirubin,Direct 0.3 mg/dL (0.0-0.3); Blood Urea Nitrogen 18 mg/dl (8-23); Gamma Glutamyl Transpeptidase 43 U/L (8-61); Uric Acid 3.1 mg/dL (2.5-8.0)
[2018-06-21] MEDS: INSULIN LISPRO 1 UNIT/0.01 ML UNIT SQ SCH ×4 (07:25→23:09)
[2018-06-21] MEDS: MAGNESIUM HYDROXIDE 30 ML ORAL.SUSP PO PRN (07:30)
[2018-06-21] MEDS: predniSONE 20 MG TABLET PO SCH (07:31)
--- NOTE | 2018-06-21 07:48 | Internal Med Progress Note ---
Medical - PN: Subj Patient information: Note initiated : 06/21/18 at 7:43 am Service Date, if different from initiated Date: [] Patient: Owen Van a 78 y/o M admitted on 06/17/18 for short of breath,weakness, fever. Chief Complaint: [] Interval history: Mr. Van is a 78 year old M with history of COPD, congestive heart failure presents to the hospital today for evaluation of shortness of breath. The patient at baseline has COPD, use 3 L of oxygen. The patient notes for the last 2-3 days he has not been feeling well, he gives been feeling shaky chills no fever he has cough with brownish expectoration, denies any hemoptysis. There has been progressive worsening in his shortness of breath. At baseline he is able to carry out activities of daily living but now he is short of breath at rest. He admits to having some increased swelling in his lower extremity as well as shortness of breath when lying down flat he has to sleep on his side or propped up. Given his symptoms are getting progressive worse he decided to come to the hospital for further evaluation. He denies any sick contacts. The patient denies any headache changes in vision difficulty in swallowing, admits to cough shortness of breath denies any chest pain no GI complaints no complaints no new joint pains, or skin rashes. He does have some chronic wounds on his lower extremity. On presentation to the hospital by EMS, he was hypoxic requiring 4 L of oxygen to 5 L of oxygen to maintain his oxygen saturation more than 90%, he was afebrile with a temperature of 98.7 heart rate 79 blood pressure 180 x 80 respirations 26. Labs show a hemoglobin of 13.3, WBC count 11,000, platelets 222, lactic acid 1.0. Sodium 141 potassium 4.8 bicarbonate 41 creatinine 0.8 glucose 125 troponin was negative d-dimer mildly elevated at 1.12. Chest x-ray shows right hemidiaphragm elevation, right basilar pneumonia, chronic versus acute CHF. ABG was done which showed pH of 7.25 PCO2 of 104 PO2 75.4 0.5 L of oxygen. EKG shows sinus rhythm, ectopic atrial beats, QS pattern in V1 to V3 old anteroseptal infarct. Patient was given IV antibiotics after cultures, bronchodilator and Solu-Medrol and patient was placed on BiPAP and admitted to the hospital for further management. Last echo that I can see was in 2016 which showed his left ventricular ejection fraction around 50%, grade 2 diastolic dysfunction, moderate mitral stenosis and moderate aortic stenosis 06/18 Did have some agitation on the BiPAP yesterday with the subsequent air going into his belly causing him some nausea and vomiting last night. Finally was able to get some rest and comfortable on the BiPAP. States he drinks 2 drinks of black velvet daily. Clarify home medication started on diltiazem. States he does not have a cough this morning no shortness of breath is improved from yesterday. Improved ABG this morning 06/19 Was put on BiPAP last night just for short period of time. Tolerating nasal cannula otherwise. Does have a cough but not really productive at this point. Does have shortness of breath but says it is much improved and states hannah roximately 60% back to baseline. Says he needs a follow-up with cardiology after I talked to him about the TAVR and anticoagulation, still just wants to stay on aspirin and follow-up with cardiology. Poor sleep at night, patient states he takes melatonin and meclizine for sleep at night At home. 06/20 Becomes quite agitated in the evenings, with confusion, especially last night. Last night needed to give Haldol. Darby was removed yesterday day and had to be put back in last night for retention. Now sleeping after given some sedation for CT brain. 06/21 slept well last night, no agitation. given zyprexa at bedtime last night. After he got up with nursing this morning went back to bed and has been drowsy since then. I am able to wake him and is able to answer questions but definite ly appears drowsy. Has a cough and shortness of breath which he states is improving. No other new complaints Review of Systems: denies headache/fever/chills/nausea/vomiting/chest or abdominal pain/diarrhea. Otherwise see above. - Constitutional Vitals: Vital Signs Temp Pulse Resp BP Pulse Ox 98.3 F 80 25 H 119/67 94 06/21/18 07:01 06/21/18 07:01 06/21/18 07:02 06/21/18 07:01 06/21/18 07:01 Period Temp Pulse Resp BP Sys/Rodriguez Pulse Ox Last 24 Hr 98.2 F-98.9 F 65-101 7-32 98-221/60-130 90-98 Intake and Output 06/20/18 06/21/18 06/21/18 21:59 05:59 13:59 Intake Total 350 150 Output Total 830 750 120 Balance -480 -600 -120 Weight 93.213 kg Intake & Output: Intake & Output 06/20/18 06/21/18 06/21/18 21:59 05:59 13:59 Intake Total 350 150 Output Total 830 750 120 Balance -480 -600 -120 Weight 93.213 kg Intake: IV 50 50 Zosyn 3.375 gm In Dextrose 5% 50 50 in Water 50 ml @ 100 mls/hr IV Q6H [facility] Rx#:[id number] Oral 300 100 Output: Urine Catheter Amount 830 750 120 Other: Meal Dinner Percent of Meal Consumed 75% Urine Appearance Clear Clear Clear Uretheral (Darby) Clear Clear Clear Small Blood Clots Small Blood Clots Urine Color Bright Yellow Dark Yellow Dark Yellow Uretheral (Darby) Bright Yellow Bright Yellow Dark Yellow Blood Tinged Blood Tinged Urine Odor Normal Exam: General: Sleeping but awakens, No acute Distress, obese Eyes/N/T: Pupils pinpoint but reactive to light, Head/Neck: neck supple CV: RRR, 2/6 SM Pulm: mild diminshed b/l, no wheezing Abd: soft, protuberant, +BS x4 Ext: no clubbing/cyanosis, b/l LE trace edema Neuro: sleeping but awakens, drowsy, no focal deficits, moves all extremities, follows commands Skin: warm/dry Medical - PN: Obj Da - Labs CBC & Chem 7: 06/21/18 04:00 06/21/18 04:00 Labs: Abnormal Lab Results 06/21/18 06/21/18 06/20/18 04:00 04:00 04:06 RBC 3.77 L Hgb 11.2 L Hct 34.8 L RDW 15.9 H Eos % (Auto) 7.2 H Chloride Carbon Dioxide 34 H 34 H Anion Gap 7.0 L Glucose 120 H 117 H Phosphorus 06/19/18 04:17 RBC Hgb Hct RDW Eos % (Auto) Chloride 93 L Carbon Dioxide 40 H Anion Gap 6.0 L Glucose 136 H Phosphorus 2.3 L Meds: Medications Acetaminophen (Tylenol) 650 mg PO Q4-6HP PRN PRN Reason: PAIN/FEVER > 101 Hydrocodone Bitart/Acetaminophen ([place] 10/325mg) 1 tab PO BIDP PRN PRN Reason: PAIN LEVEL 3-6 Last Admin: 06/19/18 19:43 Dose: 1 tab Documented by: Albuterol/Ipratropium (Duoneb) 3 ml NEB Q4HRT [facility] Last Admin: 06/21/18 03:06 Dose: 3 ml Documented by: Aspirin (Aspirin) 81 mg PO DAILY [facility] Last Admin: 06/20/18 11:00 Dose: Not Given Documented by: Atorvastatin Calcium (Lipitor) 20 mg PO HS [facility] Last Admin: 06/20/18 21:14 Dose: 20 mg Documented by: Bisacodyl (Dulcolax) 10 mg ME DAILYP PRN PRN Reason: Constipation Dextrose (Dextrose 50%) 0 ml IV UD PRN PRN Reason: Hypoglycemia Diagnostic Test (Pha) (Accu-Chek) 1 each FS ACHS [facility] Last Admin: 06/21/18 07:24 Dose: 1 each Documented by: Diltiazem HCl (Cardizem Cd) 120 mg PO HS [facility] Last Admin: 06/20/18 21:14 Dose: 120 mg Documented by: Diphenhydramine HCl (Benadryl) 25 mg PO HSP PRN PRN Reason: Insomnia Last Admin: 06/20/18 02:26 Dose: 25 mg Documented by: Famotidine (Pepcid) 20 mg IV Q12 [facility] Last Admin: 06/20/18 21:14 Dose: 20 mg Documented by: Furosemide (Lasix) 40 mg PO DAILY [facility] Last Admin: 06/20/18 11:02 Dose: Not Given Documented by: Glucose (Insta-Glucose) 15 gm PO PRN PRN PRN Reason: Hypoglycemia Heparin Sodium (Porcine) (Heparin) 5,000 unit SQ Q12 [facility] Last Admin: 06/20/18 21:14 Dose: 5,000 unit Documented by: Hydromorphone HCl (Dilaudid) 0.5 mg IV Q2HP PRN PRN Reason: PAIN LEVEL > 6 Last Admin: 06/20/18 08:24 Dose: 0.5 mg Documented by: Piperacillin Sod/Tazobactam (Sod 3.375 gm/ Dextrose) 50 mls @ 100 mls/hr IV Q6H [facility] Last Admin: 06/21/18 05:18 Dose: 100 mls/hr Documented by: Insulin Glargine (Lantus) 26 unit SQ 0900 [facility] Last Admin: 06/20/18 11:01 Dose: Not Given Documented by: Insulin Human Lispro (Humalog) 0 unit SQ ACHS [facility]; Protocol Last Admin: 06/21/18 07:25 Dose: Not Given Documented by: Lorazepam (Ativan) 0.5 mg IV Q6HP PRN PRN Reason: ANXIETY/SEDATION Last Admin: 06/20/18 06:46 Dose: 0.5 mg Documented by: Magnesium Hydroxide (Milk Of Magnesia) 30 ml PO DAILYP PRN PRN Reason: Constipation Last Admin: 06/21/18 07:30 Dose: 30 ml Documented by: Melatonin (Melatonin 3mg Tablet) 3 mg PO [facility] Naloxone HCl (Narcan) 0.1 mg IV Q2MIN PRN PRN Reason: Opiate Reversal Olanzapine (Zyprexa) 5 mg PO [facility] Last Admin: 06/20/18 21:14 Dose: 5 mg Documented by: Ondansetron HCl (Zofran) 4 mg IV Q4-6HP PRN PRN Reason: Nausea And Vomiting Last Admin: 06/17/18 21:08 Dose: 4 mg Documented by: Polyethylene Glycol (Miralax) 17 gm PO DAILYP PRN PRN Reason: Constipation Last Admin: 06/18/18 22:39 Dose: 17 gm Documented by: Prednisone (Prednisone) 60 mg PO [facility] Last Admin: 06/21/18 07:31 Dose: 60 mg Documented by: Renetta (Senokot) 1 tab PO HSP PRN PRN Reason: Constipation Last Admin: 06/21/18 07:30 Dose: 1 tab Documented by: Sodium Chloride (Saline Flush) 10 ml IV Q8 [facility] Last Admin: 06/21/18 05:18 Dose: 10 ml Documented by: Spironolactone (Aldactone) 50 mg PO DAILY [facility] Last Admin: 06/20/18 11:00 Dose: Not Given Documented by: Tamsulosin HCl (Flomax) 0.4 mg PO [facility] Last Admin: 06/20/18 21:14 Dose: 0.4 mg Documented by: Medical - PN: A/P - Time Spent With Patient Total time spent is greater than 50% in coordination of care (as documented) at patient's floor/unit and/or counseling patient: - Narrative A/P Narrative: A: *Acute on chronic hypercapnic/hypoxic respiratory failure: improving -2/2 copd/chf/?pna, and baseline patient is on 3L of oxygen -initially required BiPAP to maintain oxygen saturation as well as to maintain adequate ventilation now only intermittent at night -f/u VBG with good pH and CO2 *?PNA, CAP vs Aspiration: -viral panel neg, myco/strep ur neg *AECOPD (3L NC@home): as above, improving *Acute on Chronic systolic/diastolic CHF: resolved -echo EF 50%, -f/u CXR improved s/p IV lasix *Aortic stenosis & Prosthetic Mitral valve: Previous echo shows moderate aortic and mitral stenosis -updated Echo with mild MS & moderate -has been following with [facility] Cardiology, discussion regarding referral for TAVR evaluation took place but pt not interested at that time. *CAD w/cabg: do not see ASA/statin on home meds, is on dilt *PAF: old records from [employer] state he is on ASA and did not want to consider Anticoagulation as discussed on several occasions. *DM: *HTN: on diltiazem, lasix/aldactone *Oropharyngeal Dysphagia, mild: *Urinary retention: *Agitation/Confusion @ night: Likely has some underlying dementia w/ =/- ?etoh (a couple of "stiff" drinks/night per nursing): -better night last night with zyprexa P: -check ABG -Zosyn/Azithromycin -steroids (wean), IS/Acapella -cont home Lasix and Aldactone -cont diltiazem, ASA/statin -dysphagia diet per ST -SSI and lantus -CIWA -pt/ot -f/u with Cardio outpt -darby, flomichi, f/u with urology -CM for placement -ppx: heparin Full code Medical - PN: Qual - Stroke Symptom Onset Unknown: No - VTE Deep Vein Thrombosis/Pulmonary Embolism Present on Admission: No
[2018-06-21] MEDS ORDERED: predniSONE 20 MG TABLET PO SCH (08:00)
[2018-06-21] MEDS: INSULIN GLARGINE, HUMAN 1 UNIT/0.01 ML SQ SCH ×2 (08:39→21:04)
[2018-06-21] MEDS: FUROSEMIDE 40 MG TABLET PO SCH (08:40)
[2018-06-21] MEDS: SPIRONOLACTONE 25 MG TABLET PO SCH (08:40)
[2018-06-21] MEDS: FAMOTIDINE/PF 20 MG/2 ML VIAL IV SCH ×2 (08:40→21:04)
[2018-06-21] MEDS: HEPARIN 5,000 UNIT/ML VIAL SQ SCH ×2 (08:41→21:05)
[2018-06-21] MEDS: ASPIRIN 81 MG TAB.CHEW PO SCH (08:41)
[2018-06-21] MEDS ORDERED: DEXTROSE 50% 50 ML VIAL IV PRN ×2 (15:10→17:16)
[2018-06-21] MEDS ORDERED: LORazepam 2 MG/ML VIAL IV PRN (15:10)
[2018-06-21] MEDS ORDERED: ACETAMINOPHEN 325 MG TABLET PO PRN (15:10)
[2018-06-21] MEDS ORDERED: ONDANSETRON 4 MG/2 ML VIAL IV PRN (15:10)
[2018-06-21] MEDS ORDERED: BISACODYL 10 MG SUPP.RECT PR PRN (15:10)
[2018-06-21] MEDS ORDERED: HYDROcodone/APAP 10/325MG TABLET PO PRN (15:10)
[2018-06-21] MEDS ORDERED: HYDROmorphone 2 MG/ML VIAL IV PRN (15:10)
[2018-06-21] MEDS ORDERED: DEXTROSE 31 GM ORAL.SUSP PO PRN ×2 (15:10→17:16)
[2018-06-21] MEDS ORDERED: MAGNESIUM HYDROXIDE 30 ML ORAL.SUSP PO PRN (15:10)
[2018-06-21] MEDS ORDERED: POLYETHYLENE GLYCOL 3350 17 GM PACKET PO PRN (15:10)
[2018-06-21] MEDS ORDERED: NALOXONE HCL 0.4 MG/ML VIAL IV PRN (15:10)
[2018-06-21] MEDS ORDERED: INSULIN LISPRO 1 UNIT/0.01 ML UNIT SQ SCH ×2 (17:00→20:00)
[2018-06-21] MEDS ORDERED: SENNOSIDES 1 TABLET PO PRN (21:00)
[2018-06-21] MEDS ORDERED: diphenhydrAMINE 25 MG CAPSULE PO PRN (21:00)
[2018-06-21] MEDS ORDERED: MELATONIN 3 MG TABLET PO SCH (21:00)
[2018-06-21] MEDS: ATORVASTATIN 20 MG TABLET PO SCH (21:03)
[2018-06-21] MEDS: TAMSULOSIN 0.4 MG CAPSULE PO SCH (21:03)
[2018-06-21] MEDS: OLANZapine 5 MG TABLET PO SCH (21:03)
[2018-06-21] MEDS: DILTIAZEM 120 MG CAP.XL.24H PO SCH (21:04)
[2018-06-22] MEDS: PIPERACILLIN SODIUM/TAZOBACTAM 3.375 GM in DEXTROSE 5% IN WATER 50 ML IV SCH ×5 (00:31→23:52)
[2018-06-22] MEDS: INSULIN LISPRO 1 UNIT/0.01 ML UNIT SQ SCH ×6 (02:31→21:05)
[2018-06-22] MEDS: IPRATROPIUM/ALBUTEROL 3 ML AMPUL.NEB NEB SCH ×6 (04:08→23:14)
[2018-06-22 05:50] LABS: Mean Cell Volume 92.1 fL (80.0-100.0); Mean Corpuscular HGB Conc 31.8 g/dL (31.0-36.0); Platelet Count 202 K/mcL (140-440); RBC 3.81 M/mcL (4.50-5.90); Red Cell Distribution Width 15.3 % (11.5-14.5)
[2018-06-22] MEDS: 0.9 % SODIUM CHLORIDE 10 ML SYRINGE IV SCH ×3 (05:57→21:05)
[2018-06-22 05:58] LABS: ALT/SGPT 21 U/l (0-40); Albumin 3.6 gm/dL (3.2-5.2); Albumin/Globulin Ratio 1.2 (1.0-2.3); Alkaline Phosphatase 67 U/L (39-117); Bilirubin,Direct < 0.2 mg/dL (0.0-0.3); Blood Urea Nitrogen 28 mg/dl (8-23); Gamma Glutamyl Transpeptidase 48 U/L (8-61); Uric Acid 3.6 mg/dL (2.5-8.0)
[2018-06-22 06:15] LABS: Eosinophils % (Manual) 1 % (0-7); Lymphocytes % 16 % (15-49); Monocytes % (Manual) 10 % (1-12); Platelet Estimate NORMAL (NORMAL); RBC Morphology NORMAL (NORMAL); Segmented Neutrophils % 71 % (38-78)
[2018-06-22] MEDS ORDERED: predniSONE 20 MG TABLET PO SCH (08:00)
[2018-06-22] MEDS: INSULIN GLARGINE, HUMAN 1 UNIT/0.01 ML SQ SCH ×2 (09:18→21:05)
[2018-06-22] MEDS: predniSONE 20 MG TABLET PO SCH (09:19)
[2018-06-22] MEDS: SPIRONOLACTONE 25 MG TABLET PO SCH (09:19)
[2018-06-22] MEDS: FAMOTIDINE/PF 20 MG/2 ML VIAL IV SCH ×2 (09:19→21:04)
[2018-06-22] MEDS: HEPARIN 5,000 UNIT/ML VIAL SQ SCH ×2 (09:19→21:04)
[2018-06-22] MEDS: ASPIRIN 81 MG TAB.CHEW PO SCH (09:19)
[2018-06-22] MEDS: FUROSEMIDE 40 MG TABLET PO SCH (09:25)
--- NOTE | 2018-06-22 10:27 | Internal Med Progress Note ---
Medical - PN: Subj Patient information: Note initiated : 06/22/18 at 10:25 am Service Date, if different from initiated Date: [] Patient: Owen Van a 78 y/o M admitted on 06/17/18 for short of breath,weakness, fever. Chief Complaint: [] Interval history: Mr. Van is a 78 year old M with history of COPD, congestive heart failure presents to the hospital today for evaluation of shortness of breath. The patient at baseline has COPD, use 3 L of oxygen. The patient notes for the last 2-3 days he has not been feeling well, he gives been feeling shaky chills no fever he has cough with brownish expectoration, denies any hemoptysis. There has been progressive worsening in his shortness of breath. At baseline he is able to carry out activities of daily living but now he is short of breath at rest. He admits to having some increased swelling in his lower extremity as well as shortness of breath when lying down flat he has to sleep on his side or propped up. Given his symptoms are getting progressive worse he decided to come to the hospital for further evaluation. He denies any sick contacts. The patient denies any headache changes in vision difficulty in swallowing, admits to cough shortness of breath denies any chest pain no GI complaints no complaints no new joint pains, or skin rashes. He does have some chronic wounds on his lower extremity. On presentation to the hospital by EMS, he was hypoxic requiring 4 L of oxygen to 5 L of oxygen to maintain his oxygen saturation more than 90%, he was afebrile with a temperature of 98.7 heart rate 79 blood pressure 180 x 80 respirations 26. Labs show a hemoglobin of 13.3, WBC count 11,000, platelets 222, lactic acid 1.0. Sodium 141 potassium 4.8 bicarbonate 41 creatinine 0.8 glucose 125 troponin was negative d-dimer mildly elevated at 1.12. Chest x-ray shows right hemidiaphragm elevation, right basilar pneumonia, chronic versus acute CHF. ABG was done which showed pH of 7.25 PCO2 of 104 PO2 75.4 0.5 L of oxygen. EKG shows sinus rhythm, ectopic atrial beats, QS pattern in V1 to V3 old anteroseptal infarct. Patient was given IV antibiotics after cultures, bronchodilator and Solu-Medrol and patient was placed on BiPAP and admitted to the hospital for further management. Last echo that I can see was in 2016 which showed his left ventricular ejection fraction around 50%, grade 2 diastolic dysfunction, moderate mitral stenosis and moderate aortic stenosis 06/18 Did have some agitation on the BiPAP yesterday with the subsequent air going into his belly causing him some nausea and vomiting last night. Finally was able to get some rest and comfortable on the BiPAP. States he drinks 2 drinks of black velvet daily. Clarify home medication started on diltiazem. States he does not have a cough this morning no shortness of breath is improved from yesterday. Improved ABG this morning 06/19 Was put on BiPAP last night just for short period of time. Tolerating nasal cannula otherwise. Does have a cough but not really productive at this point. Does have shortness of breath but says it is much improved and states a pproximately 60% back to baseline. Says he needs a follow-up with cardiology after I talked to him about the TAVR and anticoagulation, still just wants to stay on aspirin and follow-up with cardiology. Poor sleep at night, patient states he takes melatonin and meclizine for sleep at night At home. 06/20 Becomes quite agitated in the evenings, with confusion, especially last night. Last night needed to give Haldol. Lay was removed yesterday day and had to be put back in last night for retention. Now sleeping after given some sedation for CT brain. 06/21 slept well last night, no agitation. given zyprexa at bedtime last night. After he got up with nursing this morning went back to bed and has been drowsy since then. I am able to wake him and is able to answer questions but ellen prater appears drowsy. 06/22-patient doing well. Much alert. Sitting on chair. Complains of no bowel movement since admission. Discontinue Lay's catheter today. No significant telemetry events. Stable labs. Currently on 2.5 L home oxygen, afebrile - Constitutional Vitals: Vital Signs Temp Pulse Resp BP Pulse Ox 99.1 F H 70 20 120/72 96 06/22/18 04:00 06/22/18 07:36 06/22/18 07:36 06/22/18 04:00 06/22/18 04:00 Period Temp Pulse Resp BP Sys/Rodriguez Pulse Ox Last 24 Hr 98.5 F-99.2 F 68-99 18-29 120-157/59-91 91-98 Intake and Output 06/21/18 06/22/18 06/22/18 21:59 05:59 13:59 Intake Total 970 770 50 Output Total 770 600 Balance 200 170 50 Weight 202 lb Intake & Output: Intake & Output 06/21/18 06/22/18 06/22/18 21:59 05:59 13:59 Intake Total 970 770 50 Output Total 770 600 Balance 200 170 50 Weight 202 lb Intake: IV 50 50 50 Zosyn 3.375 gm In Dextrose 5% 50 50 50 in Water 50 ml @ 100 mls/hr IV Q6H [facility] Rx#:[id number] Oral 920 720 Output: Urine Catheter Amount 770 600 Other: Meal Dinner Percent of Meal Consumed 100% Urine Appearance Clear Uretheral (Lay) Clear Urine Color Pale Bright Yellow Uretheral (Lay) Pale Urine Odor Strong General appearance: no acute distress Exam: Alert and nondistressed No anxiety Nonlabored breathing on 2.5 L oxygen Foleys draining clear urine Lymphedema Medical - PN: Obj Da - Labs CBC & Chem 7: 06/22/18 03:48 06/22/18 03:48 Labs: Abnormal Lab Results 06/22/18 06/22/18 06/21/18 03:48 03:48 04:00 RBC 3.81 L 3.77 L Hgb 11.2 L 11.2 L Hct 35.1 L 34.8 L RDW 15.3 H 15.9 H Eos % (Auto) 7.2 H Carbon Dioxide 34 H Anion Gap BUN 28 H Glucose Phosphorus 4.8 H Lactate Dehydrogenase 267 H 06/21/18 06/20/18 04:00 04:06 RBC Hgb Hct RDW Eos % (Auto) Carbon Dioxide 34 H 34 H Anion Gap 7.0 L BUN Glucose 120 H 117 H Phosphorus Lactate Dehydrogenase Meds: Medications Acetaminophen (Tylenol) 650 mg PO Q4-6HP PRN PRN Reason: PAIN/FEVER > 101 Hydrocodone Bitart/Acetaminophen ([place] 10/325mg) 1 tab PO BIDP PRN PRN Reason: PAIN LEVEL 3-6 Albuterol/Ipratropium (Duoneb) 3 ml NEB Q4HRT YOU Last Admin: 06/22/18 07:36 Dose: 3 ml Documented by: Aspirin (Aspirin) 81 mg PO DAILY [facility] Last Admin: 06/22/18 09:19 Dose: 81 mg Documented by: Atorvastatin Calcium (Lipitor) 20 mg PO HS [facility] Last Admin: 06/21/18 21:03 Dose: 20 mg Documented by: Bisacodyl (Dulcolax) 10 mg NE DAILYP PRN PRN Reason: Constipation Dextrose (Dextrose 50%) 0 ml IV UD PRN PRN Reason: Hypoglycemia Dextrose (Dextrose 50%) 0 ml IV UD PRN PRN Reason: Hypoglycemia Diagnostic Test (Pha) (Accu-Chek) 1 each FS ACHS [facility] Last Admin: 06/22/18 08:21 Dose: 1 each Documented by: Diltiazem HCl (Cardizem Cd) 120 mg PO HS [facility] Last Admin: 06/21/18 21:04 Dose: 120 mg Documented by: Diphenhydramine HCl (Benadryl) 25 mg PO HSP PRN PRN Reason: Insomnia Famotidine (Pepcid) 20 mg IV Q12 [facility] Last Admin: 06/22/18 09:19 Dose: 20 mg Documented by: Furosemide (Lasix) 40 mg PO DAILY [facility] Last Admin: 06/22/18 09:25 Dose: 40 mg Documented by: Glucose (Insta-Glucose) 15 gm PO PRN PRN PRN Reason: Hypoglycemia Glucose (Insta-Glucose) 15 gm PO PRN PRN PRN Reason: Hypoglycemia Heparin Sodium (Porcine) (Heparin) 5,000 unit SQ Q12 [facility] Last Admin: 06/22/18 09:19 Dose: 5,000 unit Documented by: Hydromorphone HCl (Dilaudid) 0.5 mg IV Q2HP PRN PRN Reason: PAIN LEVEL > 6 Piperacillin Sod/Tazobactam (Sod 3.375 gm/ Dextrose) 50 mls @ 100 mls/hr IV Q6H [facility] Last Infusion: 06/22/18 06:30 Dose: Infused Documented by: Insulin Glargine (Lantus) 26 unit SQ 0900 [facility] Last Admin: 06/22/18 09:18 Dose: 26 unit Documented by: Insulin Glargine (Lantus) 30 unit SQ [facility] Last Admin: 06/21/18 21:04 Dose: 30 unit Documented by: Insulin Human Lispro (Humalog) 0 unit SQ Q3H [facility]; Protocol Last Admin: 06/22/18 08:21 Dose: Not Given Documented by: Lorazepam (Ativan) 0.5 mg IV Q6HP PRN PRN Reason: ANXIETY/SEDATION Magnesium Hydroxide (Milk Of Magnesia) 30 ml PO DAILYP PRN PRN Reason: Constipation Last Admin: 06/22/18 09:58 Dose: 30 ml Documented by: Melatonin (Melatonin 3mg Tablet) 3 mg PO [facility] Naloxone HCl (Narcan) 0.1 mg IV Q2MIN PRN PRN Reason: Opiate Reversal Olanzapine (Zyprexa) 5 mg PO [facility] Last Admin: 06/21/18 21:03 Dose: 5 mg Documented by: Ondansetron HCl (Zofran) 4 mg IV Q4-6HP PRN PRN Reason: Nausea And Vomiting Polyethylene Glycol (Miralax) 17 gm PO DAILYP PRN PRN Reason: Constipation Last Admin: 06/22/18 09:58 Dose: 17 gm Documented by: Prednisone (Prednisone) 40 mg PO [facility] Last Admin: 06/22/18 09:19 Dose: 40 mg Documented by: Senna (Senokot) 1 tab PO [facility] PRN PRN Reason: Constipation Sodium Chloride (Saline Flush) 10 ml IV Q8 [facility] Last Admin: 06/22/18 05:57 Dose: 10 ml Documented by: Spironolactone (Aldactone) 50 mg PO DAILY [facility] Last Admin: 06/22/18 09:19 Dose: 50 mg Documented by: Tamsulosin HCl (Flomax) 0.4 mg PO [facility] Last Admin: 06/21/18 21:03 Dose: 0.4 mg Documented by: Medical - PN: A/P - Time Spent With Patient Total time spent is greater than 50% in coordination of care (as documented) at patient's floor/unit and/or counseling patient: 25 - 35 minutes (1) Respiratory failure with hypoxia and hypercapnia Status: Acute Assessment and plan: * Acute respiratory failure with hypoxia and hypercapnia secondary to COPD exacerbation. Clinically improved. Off noninvasive ventilation. Now on home oxygen * Acute decompensated heart failure clinically resolved.-EF 50% on echo. Chest x-ray improved. * Basilar pneumonia possibly aspiration on Zosyn. Transition to oral antibiotics through 06/25 * COPD exacerbation greatly improved. Now on home oxygen. Continue bronchod ilators /prednisone for additional 24 hours * History of a stenosis/posterior mitral valve-continue follow-up outpatient with [facility] * History of CAD/CABG-continue statin/aspirin * Paroxysmal atrial fibrillation-patient is on aspirin but has refused anticoagulation on several occasions per documentation * History of hypertension on diltiazem/Lasix/Aldactone * DM type II on basal prandial insulin * Urinary retention-discontinued Foleys catheter today. Voiding trials, continue tamsulosin * Full code * Prophylaxis heparin Plan * Continue PT OT/nutrition support * Bronchodilators * DC prednisone and 24 hours * Antibiotics through 06/25 * DC Lay's cathete * URO f/u OP * Discharge planning Current Visit: Yes Medical - PN: Qual - Stroke Symptom Onset Unknown: No - VTE Deep Vein Thrombosis/Pulmonary Embolism Present on Admission: No
[2018-06-22] MEDS: OLANZapine 5 MG TABLET PO SCH (21:04)
[2018-06-22] MEDS: ATORVASTATIN 20 MG TABLET PO SCH (21:04)
[2018-06-22] MEDS: DILTIAZEM 120 MG CAP.XL.24H PO SCH (21:04)
[2018-06-22] MEDS: TAMSULOSIN 0.4 MG CAPSULE PO SCH (21:04)
[2018-06-23] MEDS: IPRATROPIUM/ALBUTEROL 3 ML AMPUL.NEB NEB SCH ×3 (03:42→12:04)
[2018-06-23 05:07] LABS: Mean Cell Volume 92.6 fL (80.0-100.0); Mean Corpuscular HGB Conc 31.9 g/dL (31.0-36.0); Platelet Count 217 K/mcL (140-440); RBC 3.86 M/mcL (4.50-5.90)
[2018-06-23 05:23] LABS: ALT/SGPT 24 U/l (0-40); Albumin 3.6 gm/dL (3.2-5.2); Albumin/Globulin Ratio 1.2 (1.0-2.3); Alkaline Phosphatase 59 U/L (39-117); Bilirubin,Direct < 0.2 mg/dL (0.0-0.3); Blood Urea Nitrogen 32 mg/dl (8-23); Gamma Glutamyl Transpeptidase 51 U/L (8-61); Uric Acid 3.5 mg/dL (2.5-8.0)
[2018-06-23] MEDS: PIPERACILLIN SODIUM/TAZOBACTAM 3.375 GM in DEXTROSE 5% IN WATER 50 ML IV SCH (05:48)
[2018-06-23 05:49] LABS: Eosinophils % (Manual) 1 % (0-7); Lymphocytes % 18 % (15-49); Monocytes % (Manual) 7 % (1-12); Platelet Estimate NORMAL (NORMAL); RBC Morphology NORMAL (NORMAL); Segmented Neutrophils % 74 % (38-78)
[2018-06-23] MEDS: 0.9 % SODIUM CHLORIDE 10 ML SYRINGE IV SCH (05:49)
[2018-06-23] MEDS: INSULIN LISPRO 1 UNIT/0.01 ML UNIT SQ SCH ×2 (08:15→11:27)
[2018-06-23] MEDS: INSULIN GLARGINE, HUMAN 1 UNIT/0.01 ML SQ SCH (08:16)
[2018-06-23] MEDS: SPIRONOLACTONE 25 MG TABLET PO SCH (08:26)
[2018-06-23] MEDS: FAMOTIDINE/PF 20 MG/2 ML VIAL IV SCH (08:26)
[2018-06-23] MEDS: ASPIRIN 81 MG TAB.CHEW PO SCH (08:26)
[2018-06-23] MEDS: HEPARIN 5,000 UNIT/ML VIAL SQ SCH (08:26)
[2018-06-23] MEDS: predniSONE 20 MG TABLET PO SCH (08:27)
[2018-06-23] MEDS: FUROSEMIDE 40 MG TABLET PO SCH (08:29)
--- NOTE | 2018-06-23 09:18 | Discharge Summary ---
Medical - DS: Prov Patient information: Note initiated : 06/23/18 at 9:16 am Service Date, if different from initiated Date: [] Patient: Owen Van 78 y/o M admitted on 06/17/18 for short of breath,weakness, fever. Chief Complaint: [] Date of admission: 06/17/18 13:02 Discharge date: 06/23/18 Primary care physician: Radha Braun Consults: 06/18/18 08:01 Consult to Physician [CONS] Routine Comment: Consulting Provider: Carlo Mon Reason For Exam: Physician to Consult Medical - DS: Meds - Discharge Medications Prescriptions: Amoxicillin/Potassium Clav [Augmentin] 875 mg PO Q12H #6 tablet Tamsulosin [Flomax] 0.4 mg PO HS #14 capsule Active and Home Medications: Home Medications Furosemide [Lasix] 40 mg PO BID 03/30/15 [History Confirmed 06/18/18 Last Taken 06/16/18 10:00] HYDROcodone/APAP 10/325MG [[place] 10-325Mg] 1 tab PO TIDP PRN 03/30/15 [History Confirmed 06/17/18 Last Taken 06/16/18 10:00] Diltiazem HCl [Diltiazem 24Hr Cd] 120 mg PO HS 06/17/18 [History Confirmed 06/17/18 Last Taken 06/16/18 10:00] Fluticasone Propionate [Flonase] 1 spray MANUEL DAILY 06/17/18 [History Confirmed 06/17/18 Last Taken 06/16/18 10:00] Insulin Glargine, Human [Lantus] 26 unit SQ 0900 06/17/18 [History Confirmed 06/17/18 Last Taken 06/16/18 10:00] Insulin Glargine, Human [Lantus] 40 unit SQ HS 06/17/18 [History Confirmed 06/17/18 Last Taken 06/16/18 21:00] Meclizine [Antivert] 25 mg PO QIDP PRN 06/17/18 [History Confirmed 06/17/18 Last Taken Unknown] Spironolactone 50 mg PO DAILY 06/17/18 [History Confirmed 06/17/18 Last Taken Unknown] Aspirin [Lo-Dose Aspirin EC] 81 mg PO DAILY 06/18/18 [History Confirmed 06/18/18 Last Taken Unknown] Atorvastatin [Lipitor] 40 mg PO HS 06/18/18 [History Confirmed 06/18/18 Last Ta inocente Unknown] Gabapentin [Neurontin] 600 mg PO TID 06/18/18 [History Confirmed 06/18/18 Last Taken Unknown] Icosapent Ethyl [Vascepa] 2 cap PO BID 06/18/18 [History Confirmed 06/18/18 Last Taken Unknown] Janumet 50-1,000 mg Tablet 50 - 1,000 mg PO BID 06/18/18 [History Confirmed 06/18/18 Last Taken Unknown] Magnesium Oxide [Mag-Oxide Magnesium] 400 mg PO DAILY 06/18/18 [History Confirmed 06/18/18 Last Taken Unknown] Multivitamin with Minerals/Lut [Pub Multivitamin 50 Plus Tab] 1 tab PO DAILY 06/18/18 [History Confirmed 06/18/18 Last Taken Unknown] Pramipexole [Mirapex] 0.25 mg PO DAILYP PRN 06/18/18 [History Confirmed 06/18/18 Last Taken Unknown] Ramipril [Altace] 10 mg PO BID 06/18/18 [History Confirmed 06/18/18 Last Taken Unknown] Amoxicillin/Potassium Clav [Augmentin] 875 mg PO Q12H #6 tablet 06/23/18 [Rx Last Taken Unknown] Medical - DS: Hosp Hospital course: Discharge diagnosis * Acute respiratory failure with hypoxia and hypercapnia secondary to COPD exacerbation. Clinically resolved off noninvasive ventilation. Now on home oxygen * Acute decompensated heart failure clinically resolved.-EF 50% on echo. * Basilar pneumonia possibly aspiration. Continue Augmentin through 06/25 * COPD exacerbation greatly improved. Now on home oxygen. * History of a aortic stenosis/prostatic mitral valve-continue follow-up outpatient with [facility] cardiology * History of CAD/CABG-continue statin/aspirin * Paroxysmal atrial fibrillation-patient is on aspirin but has refused anticoagulation on several occasions per documentation * History of hypertension on diltiazem/Lasix/Aldactone * DM type II on basal prandial insulin * Urinary retention-continue tamsulosin Brief hospital course Mr. Van is a 78 year old M with history of COPD, congestive heart failure presents to the hospital today for evaluation of shortness of breath. The patient at baseline has COPD, use 3 L of oxygen. The patient notes for the last 2-3 days he has not been feeling well, he gives been feeling shaky chills no fever he has cough with brownish expectoration, denies any hemoptysis. There has been progressive worsening in his shortness of breath. At baseline he is able to carry out activities of daily living but now he is short of breath at rest. He admits to having some increased swelling in his lower extremity as well as shortness of breath when lying down flat he has to sleep on his side or propped up. Given his symptoms are getting progressive worse he decided to come to the hospital for further evaluation. He denies any sick contacts. The patient denies any headache changes in vision difficulty in swallowing, admits to cough shortness of breath denies any chest pain no GI complaints no complaints no new joint pains, or skin rashes. He does have some chronic wounds on his lower extremity. On presentation to the hospital by EMS, he was hypoxic requiring 4 L of oxygen to 5 L of oxygen to maintain his oxygen saturation more than 90%, he was afebrile with a temperature of 98.7 heart rate 79 blood pressure 180 x 80 respirations 26. Labs show a hemoglobin of 13.3, WBC count 11,000, platelets 222, lactic acid 1.0. Sodium 141 potassium 4.8 bicarbonate 41 creatinine 0.8 glucose 125 troponin was negative d-dimer mildly elevated at 1.12. Chest x-ray shows right hemidiaphragm elevation, right basilar pneumonia, chronic versus acute CHF. ABG was done which showed pH of 7.25 PCO2 of 104 PO2 75.4 0.5 L of oxygen. EKG shows sinus rhythm, ectopic atrial beats, QS pattern in V1 to V3 old anteroseptal infarct. Patient was given IV antibiotics after cultures, bronchodilator and Solu-Medrol and patient was placed on BiPAP and admitted to the hospital for further management. Last echo that I can see was in 2017 which showed his left ventricular ejection fraction around 50%, grade 2 diastolic dysfunction, moderate mitral stenosis and moderate aortic stenosis 06/18 Did have some agitation on the BiPAP yesterday with the subsequent air going into his belly causing him some nausea and vomiting last night. Finally was able to get some rest and comfortable on the BiPAP. States he drinks 2 drinks of black velvet daily. Clarify home medication started on diltiazem. States he does not have a cough this morning no shortness of breath is improved from yesterday. Improved ABG this morning 06/19 Was put on BiPAP last night just for short period of time. Tolerating nasal cannula otherwise. Does have a cough but not really productive at this point. Does have shortness of breath but says it is much improved and states approximately 60% back to baseline. Says he needs a follow-up with cardiology after I talked to him about the TAVR and anticoagulation, still just wants to stay on aspirin and follow-up with cardiology. Poor sleep at night, patient states he takes melatonin and meclizine for sleep at night At home. 06/20 Becomes quite agitated in the evenings, with confusion, especially last night. Last night needed to give Haldol. Lay was removed yesterday day and had to be put back in last night for retention. Now sleeping after given some sedation for CT brain. 06/21 slept well last night, no agitation. given zyprexa at bedtime last night. After he got up with nursing this morning went back to bed and has been drowsy since then. I am able to wake him and is able to answer questions but definitely appears drowsy. 06/22-patient doing well. Much alert. Sitting on chair. Complains of no bowel movement since admission. Discontinue Lay's catheter today. No significant telemetry events. Stable labs. Currently on 2.5 L home oxygen, afebrile 06/23-patient doing well. No overnight events. No concerns per staff. Patient baseline. Discharging an additional 3 days oral antibiotics. Follow with primary care physician in 5 days. Discharge instructions as below Discharge diagnosis: . - Time Spent with Patient Total time spent providing and/or coordinating discharge services: Greater than 30 minutes Medical - DS: Exam - Constitutional Vitals: Vital Signs Temp Pulse Pulse Resp BP Pulse Ox 06/23/18 07:54 71 20 06/23/18 04:00 98.8 F 78 18 128/66 94 06/23/18 00:00 97.4 F 87 18 95 06/22/18 23:15 88 18 06/22/18 20:00 97.8 F 90 20 94 06/22/18 19:52 96 H 20 94 06/22/18 19:15 99 H 20 06/22/18 16:00 97.3 F 89 20 152/82 95 06/22/18 15:15 78 20 06/22/18 12:00 97.3 F 82 19 141/82 95 06/22/18 11:22 73 20 Intake and Output 06/22/18 06/23/18 06/23/18 21:59 05:59 13:59 Intake Total 50 50 Balance 50 50 Intake: IV 50 50 Zosyn 3.375 gm In Dextrose 5% 50 50 in Water 50 ml @ 100 mls/hr IV Q6H [facility] Rx#:[id number] Other: # Voids 2 1 # Bowel Movements 1 Weight 200 lb Medical - DS: Data Labs on day of discharge: Labs from last 24 hours 06/23/18 06/23/18 03:24 03:24 WBC 11.7 H RBC 3.86 L Hgb 11.4 L Hct 35.7 L MCV 92.6 MCH 29.5 MCHC 31.9 RDW 16.0 H Plt Count 217 MPV 8.8 Total Counted 100 Seg Neutrophils % 74 Band Neutrophils % Not Reportable Lymphocytes % 18 Monocytes % (Manual) 7 Eosinophils % (Manual) 1 Platelet Estimate Normal RBC Morphology Normal Sodium 143 Potassium 4.3 Chloride 100 Carbon Dioxide 34 H Anion Gap 9.0 BUN 32 H Creatinine 1.2 GFR Calculation 57 Glucose 178 H Uric Acid 3.5 Calcium 9.6 Phosphorus 4.4 Magnesium 2.3 Total Bilirubin 0.4 Direct Bilirubin < 0.2 GGT 51 AST 21 ALT 24 Alkaline Phosphatase 59 Lactate Dehydrogenase 207 Total Protein 6.6 Albumin 3.6 Globulin 3.0 Albumin/Globulin Ratio 1.2 Triglycerides 89 Medical - DS: A/P - Patient/Caregiver Discharge Instructions Activity: increase activity as tolerated Diet: Regular Diet Additional Instructions: Follow-up PCP in 5 days Continue antibiotics for additional 3 days Return to ER if worsening shortness of breath fever chills noted Prescriptions: Amoxicillin/Potassium Clav [Augmentin] 875 mg PO Q12H #6 tablet Tamsulosin [Flomax] 0.4 mg PO HS #14 capsule - Follow up Plan Follow up with: Rdaha Braun ARNP [Primary Care Provider] - Disposition: Home, Self-Care Prognosis: Fair Rehab Potential: Fair I certify that the patient requires SNF services: No Overall status at discharge: patient is progressing back to baseline Medical - DS: Qual - VTE Deep Vein Thrombosis/Pulmonary Embolism Present on Admission: No
== END 2018-06-23 12:30 | disposition home or self-care (01) | DRG 190 ==
LOC: ED 09:58 → ICU 13:02
PROVIDERS: ADMIT Internal Medicine; ATTEND Internal Medicine

== ENCOUNTER 2019-05-17 22:18 | Observation (INO) ==
[2019-05-17] MEDS ORDERED: LACTATED RINGERS 1,000 ML IV ONE (22:48)
[2019-05-17] MEDS ORDERED: ONDANSETRON 4 MG/2 ML VIAL IV ONE (22:48)
--- NOTE | 2019-05-17 22:50 | Emergency Department Note ---
Abdominal Pain HPI - General Chief Complaint: Abdominal Pain Stated Complaint: RLQ abd pain Time Seen by Provider: 05/17/19 22:44 Mode of arrival: ambulatory - History of Present Illness HPI Narrative: This patient has had lower right lower quadrant pain for 2 days. He does have signs of peritoneal irritation with pain with cough and sneeze coming over bumps in the road and trying to move his legs around. No nausea but has lost his appetite. - Related Data Home Medications Medication Instructions Recorded Confirmed Furosemide [Lasix] 40 mg PO DAILY 03/30/15 05/18/19 Diltiazem HCl [Diltiazem 24Hr Cd] 120 mg PO HS 06/17/18 05/18/19 Spironolactone 50 mg PO DAILY 06/17/18 05/18/19 Aspirin [Lo-Dose Aspirin EC] 162 mg PO DAILY 06/18/18 05/18/19 Multivit with Minerals/Lutein [Pub 1 tab PO DAILY 06/18/18 05/18/19 Multivitamin 50 Plus Tab] 4 wheeled walker MISCELLANE 11/01/18 05/15/19 albuterol sulfate 90 mcg/actuation 2 puff INHALATION Q4-6HP PRN 11/01/18 05/18/19 aerosol inhaler atorvastatin 40 mg tablet 40 mg PO HS 11/01/18 05/18/19 icosapent ethyl 1 gram capsule 2 g PO BID 11/01/18 05/18/19 magnesium oxide 400 mg PO HS tab 11/01/18 05/18/19 metformin 500 mg tablet,extended 1,000 mg PO BID tab 11/01/18 05/18/19 release 24 hr ramipril 10 mg capsule 10 mg PO BID 11/01/18 05/18/19 Fluticasone Propionate [Flonase] 1 spray NARES DAILY 05/18/19 05/18/19 Gabapentin [Neurontin] 600 mg PO BID 05/18/19 05/18/19 HYDROcodone/ACETAMINOPHEN [Seltzer 1 tab PO Q6HP PRN 05/18/19 05/18/19 5-325 Tablet] Insulin Glargine, Human [Lantus] 40 units SUBCUT HS 05/18/19 05/18/19 Insulin Glargine,Hum.rec.anlog 26 unit SUBCUT DAILY 05/18/19 05/18/19 [Lantus Solostar U-100 Insulin] Meclizine [Antivert] 25 mg PO QIDP PRN 05/18/19 05/18/19 [place]-3 Acid Ethyl Esters [Triklo] 1 gm PO TID 05/18/19 05/18/19 Pramipexole [Mirapex] 0.25 mg PO HS 05/18/19 05/18/19 Trelegy Ellipta 100-62.5-25 Mcg/Inh 1 puff INH DAILY 05/18/19 05/18/19 Zolpidem [Ambien] 5 mg PO HSP PRN 05/18/19 05/18/19 Previous Rx's Medication Instructions Recorded pen needle, diabetic 31 gauge x See Rx Instructions .ROUTE 04/03/1909/05" .MEDSUPPLY #90 each Allergies Allergy/AdvReac Type Severity Reaction Status Date / Time No Known Drug Allergies Allergy Verified 05/17/19 22:25 Review of Systems All systems ED: reviewed and negative except as stated. 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) Back pain (Chronic) AAA (abdominal aortic aneurysm) (Chronic) Restless leg syndrome (Chronic) Vertigo (Chronic) Diabetic neuropathy (Chronic) Heart murmur (Chronic) Acute exacerbation of chronic obstructive airways disease (Chronic) COPD (chronic obstructive pulmonary disease) (Chronic) Erectile dysfunction (Chronic) CHF (congestive heart failure) (Chronic) Atrial flutter (Chronic) Mitral valve prolapse (Chronic) Rhinorrhea (Chronic) Dizziness (Chronic) Chronic radicular pain of lower back (Chronic) Neck pain (Chronic) Shoulder pain, right (Chronic) CAD (coronary artery disease) (Chronic) Other hypertrophic cardiomyopathy (Chronic) Cellulitis (Chronic) Foot callus (Chronic) Constipation (Chronic) Anemia (Chronic) Cervical radiculopathy (Chronic) Seborrheic keratosis (Chronic) Obstructive sleep apnea of adult (Chronic) Diastolic dysfunction (Chronic) Peripheral edema (Chronic) Other specified metabolic disorders (Chronic) Daytime somnolence (Chronic) Insomnia (Chronic) Acute exacerbation of chronic obstructive airways disease (Acute) Orthostatic hypotension (Chronic) Past Surgical History (Last Reviewed 05/15/19 @ 11:00 by Wander Saucedo CMA) History of mitral valve repair (Chronic) History of surgery (Chronic ~06/2013) Family History (Last Reviewed 05/15/19 @ 11:00 by Wander Saucedo CMA) Mother Heart disease Coronary heart disease Heart attack Daughter Drug abuse Type I diabetes mellitus Father Elevated PSA Medical history: Reports: aortic aneurysm, atrial fibrillation, CHF, COPD, CAD ( coronary artery disease), DM, hyperlipidemia, hypertension, valvular heart disease - Social History Smoking status: Former smoker Alcohol use: Reports: Recent (has a shot of whiskey every night) Physical Exam Limitations: no limitations General appearance: alert Head: atraumatic Eye: Present: normal appearance ENT: Present: normal exam Neck: Present: normal inspection Chest: Present: normal inspection Respiratory: Present: normal lung sounds bilaterally Cardiovascular: Present: regular rate, normal rhythm, normal heart sounds Abdominal: Present: soft, tenderness, guarding, rebound, diminished bowel sounds. Absent: distention Abdominal tenderness: Present: RLQ, moderate Neurological: Present: alert Psychiatric: Present: normal affect Skin: Present: warm, dry Course Vital Signs Temperature 102.5 F H 05/17/19 22:20 Pulse Rate 111 H 05/17/19 22:20 Respiratory Rate 22 05/17/19 22:20 Blood Pressure 104/61 05/17/19 22:20 Pulse Oximetry (%) 90 05/17/19 22:20 Temperature 100.4 F H 05/18/19 06:11 Pulse Rate 73 05/18/19 07:25 Respiratory Rate 26 H 05/18/19 07:25 Blood Pressure 117/66 05/18/19 06:11 Pulse Oximetry (%) 92 05/18/19 07:25 Abdominal Pain - MDM Narrative Medical decision making narrative: CT scan confirmed appendicitis and he was admitted to the hospital for Dr. Braun. - Lab Data Lab results reviewed: Yes I reviewed the patient's lab results. Result diagrams: 05/17/19 23:00 05/17/19 23:00 Lab Results 05/17/19 05/17/19 05/18/19 Range/Units 23:00 23:00 01:35 WBC 14.8 H (4.50-11.00) K/mcL RBC 3.95 L (4.63-6.08) M/mcL Hgb 9.8 L (13.7-17.5) g/dL Hct 32.8 L (40.1-51.0) % MCV 83.0 (80.0-100.0) fL MCH 24.8 L (26.0-34.0) pg MCHC 29.9 L (31.0-36.0) g/dL RDW 17.2 H (11.5-14.5) % Plt Count 285 (140-440) K/mcL MPV 10.2 (7.4-10.4) fL Gran % 87.9 H (38.0-78.0) % Lymph % (Auto) 5.3 L (15.5-49.0) % Hill % (Auto) 6.5 (1.0-12.0) % Eos % (Auto) 0.1 (0.0-7.0) % Baso % (Auto) 0.2 (0.0-2.0) % Gran # 12.98 H (1.80-8.00) K/mcL Lymph # (Auto) 0.79 L (1.50-4.80) K/mcL Hill # (Auto) 0.96 H (0.10-0.90) K/mcL Eos # (Auto) 0.01 (0.00-0.70) K/mcL Baso # (Auto) 0.03 (0.00-0.30) K/mcL Sodium 139 (133-145) mmol/L Potassium 4.4 (3.3-5.1) mmol/L Chloride 98 (96-108) mmol/L Carbon Dioxide 30 (22-30) mmol/L Anion Gap 11.0 (8-16) BUN 24 H (8-23) mg/dl Creatinine 1.0 (0.7-1.2) mg/dl GFR Calculation 71 Glucose 241 H (70-105) mg/dL Calcium 10.5 H (8.6-10.4) mg/dl Total Bilirubin 0.7 (0.0-1.0) mg/dL AST 14 (0-37) U/l ALT 13 (0-40) U/l Alkaline Phosphatase 78 (39-117) U/L Total Protein 7.7 (5.9-8.4) gm/dL Albumin 3.9 (3.2-5.2) gm/dL Globulin 3.8 H (2.2-3.7) gm/dL Albumin/Globulin Ratio 1.0 (1.0-2.3) Urine Color Yellow Urine Appearance Clear Urine pH 5.0 (5.0-9.0) Ur Specific [place] 1.021 (1.000-1.035) Urine Protein 100 A (NEG) mg/dL Urine Glucose (UA) >=500 A (NEG) mg/dL Urine Ketones Neg (NEG) mg/dL Urine Occult Blood Neg (<0.03) mg/dL Urine Nitrate Neg (NEG) Urine Bilirubin Neg (NEG) mg/dL Urine Urobilinogen Neg (NEG) mg/dL Ur Leukocyte Esterase Neg (NEG) /uL Urine RBC 1 (0-1) /hpf Urine WBC 1 (0-4) /hpf Ur Squamous Epith Cells < 1 (0-4) /hpf Urine Bacteria 0 (0) /hpf Hyaline Casts 18 H (0-2) /lpf Urine Mucus Few (0) /hpf Ur Culture Indicated? No - Radiology Data Radiology results reviewed: Yes I reviewed the patient's radiology results. Disposition Pt seen by SOFT METALS ENGRAVER HAND/PA only: No Clinical Impression: Acute appendicitis Disposition: Xfer As Outpt/Obs ([facility]) Time of Disposition: 03:23
[2019-05-17] MEDS ORDERED: HYDROmorphone 2 MG/ML VIAL IV SCH (23:00)
[2019-05-17 23:47] LABS: Basophils # (Auto) 0.03 K/mcL (0.00-0.30); Basophils % (Auto) 0.2 % (0.0-2.0); Eosinophils # (Auto) 0.01 K/mcL (0.00-0.70); Eosinophils % (Auto) 0.1 % (0.0-7.0); Granulocytes % (Auto) 87.9 % (38.0-78.0); Hematocrit 32.8 % (40.1-51.0); Hemoglobin 9.8 g/dL (13.7-17.5); Lymphocytes # (Auto) 0.79 K/mcL (1.50-4.80); Lymphocytes % (Auto) 5.3 % (15.5-49.0); Mean Corpuscular HGB Conc 29.9 g/dL (31.0-36.0); Mean Platelet Volume 10.2 fL (7.4-10.4); Monocytes # (Auto) 0.96 K/mcL (0.10-0.90); Monocytes % (Auto) 6.5 % (1.0-12.0); Platelet Count 285 K/mcL (140-440); RBC 3.95 M/mcL (4.63-6.08); Red Cell Distribution Width 17.2 % (11.5-14.5); WBC 14.8 K/mcL (4.50-11.00)
[2019-05-18 00:01] LABS: ALT/SGPT 13 U/l (0-40); AST/SGOT 14 U/l (0-37); Albumin 3.9 gm/dL (3.2-5.2); Alkaline Phosphatase 78 U/L (39-117); Bilirubin,Total 0.7 mg/dL (0.0-1.0); Blood Urea Nitrogen 24 mg/dl (8-23); Calcium 10.5 mg/dl (8.6-10.4); Carbon Dioxide 30 mmol/L (22-30); Chloride 98 mmol/L (96-108); Globulin 3.8 gm/dL (2.2-3.7); Glomerular Filtration Rate 71; Glucose 241 mg/dL (70-105)
[2019-05-18 01:57] LABS: Appearance,Urine CLEAR; Bacteria,Urine 0 /hpf (0); Bilirubin,Urine NEG (NEG); Color,Urine YELLOW; Culture Indicated,Urine NO; Glucose,Urine (UA) >=500 mg/dL (NEG); Ketones,Urine NEG (NEG); Leukocyte Esterase,Urine NEG /uL (NEG); Mucus,Urine FEW /hpf (0); Nitrate,Urine NEG (NEG); Protein,Urine 100 mg/dL (NEG); Specific Gravity,Urine 1.021 (1.000-1.035); Urine Blood NEG mg/dL (<0.03); Urine Hyaline Cast 18 /lpf (0-2); Urine RBC 1 /hpf (0-1); Urine Squamous Epithelial Cell < 1 /hpf (0-4); Urine WBC 1 /hpf (0-4); Urobilinogen,Urine NEG (NEG)
[2019-05-18] MEDS ORDERED: PIPERACILLIN SODIUM/TAZOBACTAM 3.375 GM in DEXTROSE 5% IN WATER 50 ML IV ONE (03:22)
[2019-05-18] MEDS ORDERED: PROMETHAZINE 25 MG/ML VIAL IM PRN (03:23)
--- NOTE | 2019-05-18 07:44 | Cat Scan Report ---
CLINICAL INFORMATION: Right lower quadrant pain COMPARISON: Chest CT 02/03/2018 TECHNIQUE: Following enteric contrast, 80 cc of Isovue-370 were injected intravenously, and 60 seconds later, 0.625 mm helical slices were obtained from the mid heart through the subtrochanteric regions. Following reconstruction, 2.5 mm sagittal, coronal and axial reformatted images were processed and reviewed at bone, lung and soft tissue windows. Five minutes later, 0.625 mm helical slices were obtained from the mid heart through the kidneys and viewed at soft tissue windows.The exam was performed using radiation dose optimization techniques including, but not limited to, automated exposure control, adjustment of the mA and/or kV according to patient size and use of iterative reconstruction technique. FINDINGS: Moderate chronic elevation right diaphragm is unchanged. Moderate patchy airspace disease in the inferior right lower and middle lobes has progressed and likely represents a combination of scarring and atelectasis. No effusions. Heart is moderately enlarged with calcification in aortic and mitral valves. There is also calcification in coronary arteries - as previously seen Abdominal images show the liver is normal in size and configuration. 3-4 small stones, ranging up to 6 mm, layer dependently within the gallbladder - as previously seen. The intrahepatic and common bile ducts are normal: CBD is 6 mm. The pancreas, both adrenal glands, and spleen are normal in size, configuration and attenuation without focal lesion. Scattered simple cysts seen in both kidneys ranging up to 23 mm in the mid left kidney appreciated - no significant renal lesion. 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 The dissection commences below the renal artery orifices which be unaffected. The CHRIS originates from the false lumen and is not opacified. Pelvic images show mild prostate enlargement. The seminal vesicles and urinary bladder are normal. The appendix, located in the lateral pericecal region, is moderately dilated: 12 mm with wall thickening and inflammation in the adjacent mesenteric fat compatible with appendicitis. A 4.1 cm thin-walled fluid collection in the lateral paracolic gutter may represent a developing abscess. No free air or adenopathy. There is abrupt narrowing of the distal ileum on coronal image 70 and axial image 129. This may merely represent focal spasm rather than a stricture: The small bowel above this region is only mildly dilated and there is normal amount of stool within the colon. Bone windows show grade 1 L5 spondylolisthesis with facet hypertrophy and broad disc protrusion resulting in moderate central canal and severe bilateral IV foraminal narrowing. There is also severe central canal IV foraminal narrowing L3-4 and L4-5 disc protrusion with facet arthropathy. No focal osseous lesions IMPRESSION: 1. Appendicitis. The appendix is located in the lateral pericecal region. A 4.1 cm thin-walled fluid collection in the adjacent paracolic gutter may represent a early, developing abscess. Mild inflammation is seen in surrounding mesenteric fat and adjacent Gerotas' fascia. 2. 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 Maximal diameter 3.1 cm. This commences below the renal and mesenteric arteries which are unaffected. 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 3. Cholelithiasis unchanged from [address] Gallbladder and bile ducts are, otherwise, unremarkable 4. Moderate chronic elevation right diaphragm. Moderate patchy airspace disease in the inferior right middle and both lower lobes is likely a combination of atelectasis and fibrosis rather than developing infiltrate. 5. Moderate cardiomegaly with calcific plaque in the coronary arteries and also calcification aortic and mitral valves. 6. Severe central canal IV foraminal stenosis at L2-3, L3-4 and L4-5 due to generation. There is impingement of the L2 L3 L4 and L5 nerve roots. Interpreted and Authenticated by: Abner Weems 05/18/19
--- NOTE | 2019-05-18 11:35 | General Surg History&Physical ---
History of Present Illness Patient information: Note initiated : 05/18/19 at 11:29 am Service Date, if different from initiated Date: [] Patient: Owen Van a 79 y/o M admitted on 05/18/19 for RLQ abd pain. Chief Complaint: [] HPI: Mr. Van is a 79 year old M admitted with acute appendicitis. The patient has a 2 day history of pain in his right lower quadrant. He had fever but no chills or sweats. He denies nausea, vomiting. He came to the emergency room for evaluation because of progressive abdominal pain. CT of the abdomen and pelvis confirms an acutely inflamed appendicitis with. Appendiceal tissue edema and possibly an early lateral fluid collection suggestive of abscess. Patient is admitted and is counseled for appendectomy. However, review of his chart shows that he has extensive medical disease. He has poorly compensated chronic obstructive lung disease and is oxygen dependent at 5 L. He has valvular heart disease and is status post mitral valve replacement in 2013. He also has aortic stenosis with aortic valvular cross-sectional area of 0.93. He is scheduled for TAVR by Dr. Ximena Lozada at [facility] on 12 June. I discussed this with our anesthesia staff and it is their opinion that the patient is too risky to be done at this facility because of lack of specialty support and should be transferred to the hospital for his biophysics teacher, cardiac surgeon are scheduling his valvular replacement. Discussed this with the patient and he is agreeable. Review of Systems - Constitutional fatigue, lethargy, malaise, weakness - EENT Nose, mouth and throat: abnormal hearing - Cardiovascular dyspnea, dyspnea on exertion, irregular heart rhythm, lightheadedness, palpatations, rapid heart rate - Respiratory cough, dyspnea on exertion, snoring, other (shortness of breath) - Gastrointestinal constipation, heartburn - Musculoskeletal arthralgias, stiffness - Neurological dizziness, restless legs, tremor(s) - Psychiatric depression - Endocrine fatigue - Hematologic/Lymphatic no easy bleeding, no easy bruising, no lymphadenopathy - Allergic/Immunologic no tongue swelling, no throat swelling, no uticaria, no wheezing, no lip swelling Past History Past medical history: Aortic stenosis with valvular cross-sectional area of 0.93 cm Chronic atrial fibrillation. Chronic obstructive lung disease, oxygen dependent at 4-5 L. Atherosclerotic heart disease status post two-vessel coronary artery bypass graft, status post two-vessel stenting. Hypertension. Diabetes mellitus with peripheral flow neuropathy. Abdominal aortic aneurysm. Congestive heart failure. Chronic obstructive sleep apnea Past surgical history: Mitral valve replacement and coronary artery bypass graft 2 in 2013 Past family history: Mother due to coronary artery disease and myocardial infarction. Daughter due to drug abuse. She also had diabetes. Father , cause unknown Past social history: Former smoker. Drinks alcohol on a daily basis Medications and Allergies Home Medications Medication Instructions Recorded Confirmed Type Furosemide [Lasix] 40 mg PO DAILY 03/30/15 05/18/19 History Diltiazem HCl [Diltiazem 24Hr Cd] 120 mg PO HS 06/17/18 05/18/19 History Spironolactone 50 mg PO DAILY 06/17/18 05/18/19 History Aspirin [Lo-Dose Aspirin EC] 162 mg PO DAILY 06/18/18 05/18/19 History Multivit with Minerals/Lutein [Pub 1 tab PO DAILY 06/18/18 05/18/19 History Multivitamin 50 Plus Tab] 4 wheeled walker MISCELLANE 11/01/18 05/15/19 History albuterol sulfate 90 mcg/actuation 2 puff INHALATION Q4-6HP PRN 11/01/18 05/18/19 History aerosol inhaler atorvastatin 40 mg tablet 40 mg PO HS 11/01/18 05/18/19 History icosapent ethyl 1 gram capsule 2 g PO BID 11/01/18 05/18/19 History magnesium oxide 400 mg PO HS tab 11/01/18 05/18/19 History metformin 500 mg tablet,extended 1,000 mg PO BID tab 11/01/18 05/18/19 History release 24 hr ramipril 10 mg capsule 10 mg PO BID 11/01/18 05/18/19 History pen needle, diabetic 31 gauge x See Rx Instructions .ROUTE 04/03/19 05/18/19 Rx 5/16" .MEDSUPPLY #90 each Fluticasone Propionate [Flonase] 1 spray NARES DAILY 05/18/19 05/18/19 History Gabapentin [Neurontin] 600 mg PO BID 05/18/19 05/18/19 History HYDROcodone/ACETAMINOPHEN [[place] 1 tab PO Q6HP PRN 05/18/19 05/18/19 History 5-325 Tablet] Insulin Glargine, Human [Lantus] 40 units SUBCUT HS 05/18/19 05/18/19 History Insulin Glargine,Hum.rec.anlog 26 unit SUBCUT DAILY 05/18/19 05/18/19 History [Lantus Solostar U-100 Insulin] Meclizine [Antivert] 25 mg PO QIDP PRN 05/18/19 05/18/19 History [place]-3 Acid Ethyl Esters [Triklo] 1 gm PO TID 05/18/19 05/18/19 History Pramipexole [Mirapex] 0.25 mg PO HS 05/18/19 05/18/19 History Trelegy Ellipta 100-62.5-25 Mcg/Inh 1 puff INH DAILY 05/18/19 05/18/19 History Zolpidem [Ambien] 5 mg PO HSP PRN 05/18/19 05/18/19 History Allergies Allergy/AdvReac Type Severity Reaction Status Date / Time No Known Drug Allergies Allergy Verified 05/17/19 22:25 Exam Temp Pulse Resp BP Pulse Ox 99.2 F H 97 H 22 132/72 96 05/18/19 08:00 05/18/19 08:00 05/18/19 08:00 05/18/19 08:00 05/18/19 08:00 - General physical appearance well developed, well nourished, no distress, moderate pain, chronically ill, obese - Eyes PERRL, normal ocular movement - ENT normal pinna, normal nares, normal mucosa, no congestion, decreased hearing - Head Head exam IM: Present: atraumatic, normocephalic - Neck no masses, no bruits, trachea midline, no lymphadenopathy, no venous distension - Cardiovascular Cardiovascular exam IM: Present: diastolic murmur, irregular rhythm, JVD, +S1, +S2, systolic murmur Type of murmur IM: Present: systolic Intensity IM: 3/6 - Respiratory normal expansion, normal respiratory effort, clear to percussion, clear to auscultation - Abdomen Abdomen: Present: soft, tender (tenderness with guarding in right lower quadrant), bowel sounds, distended (distended with tympany) Hernia: Present: none - Genitourinary Present: normal penis with no external lesions - Integumentary Present: no rash, no growths, no abnormal pigmentation, other (chronic stasis edema bilaterally) - Neurologic Present: normal coordination, normal sensation - Musculoskeletal Present: normal gait, normal posture - Psychiatric Present: oriented to time, oriented to person, oriented to place, speech is normal, memory intact Assessment and Plan (1) Acute appendicitis Patient needs to have laparoscopic appendectomy but because of his aortic stenosis. It is felt that he needs to be done at the facility with cardiology cardiac surgery back up. Status: Acute (2) Aortic stenosis, severe Patient is to have TAVR June 12 Status: Acute (3) Hypertension, essential, benign Status: Chronic (4) Type 2 diabetes mellitus with polyneuropathy Status: Chronic (5) COPD (chronic obstructive pulmonary disease) Status: Chronic (6) Obstructive sleep apnea of adult Status: Chronic (7) Congestive heart failure Status: Acute Qualifiers: Heart failure type: unspecified Heart failure chronicity: unspecified Qualified Code(s): I50.9 - Heart failure, unspecified
--- NOTE | 2019-05-18 13:38 | Discharge Summary ---
Providers - Providers Patient information: Note initiated : 05/18/19 at 1:36 pm Service Date, if different from initiated Date: [] Patient: Owen Van 79 y/o M admitted on 05/18/19 for RLQ abd pain. Chief Complaint: [] Date of admission: 05/17/19 Discharge date: 05/18/19 Attending physician: Jolynn Braun Hospitalization Hospital Course: Mr. Van is a 79 year old M admitted with acute appendicitis. The patient has a 2 day history of pain in his right lower quadrant. He had fever but no chills or sweats. He denies nausea, vomiting. He came to the emergency room for evaluation because of progressive abdominal pain. CT of the abdomen and pelvis confirms an acutely inflamed appendicitis with. Appendiceal tissue edema and possibly an early lateral fluid collection suggestive of abscess. Patient is admitted and is counseled for appendectomy. However, review of his chart shows that he has extensive medical disease. He has poorly compensated chronic obstructive lung disease and is oxygen dependent at 5 L. He has valvular heart disease and is status post mitral valve replacement in 2013. He also has aortic stenosis with aortic valvular cross-sectional area of 0.93. He is scheduled for TAVR by Dr. Ximena Lozada at [facility] on 12 June. I discussed this with our anesthesia staff and it is their opinion that the patient is too risky to be done at this facility because of lack of specialty support and should be transferred to the hospital for his public health technologist, cardiac surgeon are scheduling his valvular replacement. Discussed this with the patient and he is agreeable. Discharge diagnosis: acute appendicitis Secondary discharge diagnosis: Aortic stenosis, moderately severe. Chronic obstructive lung disease, oxygen dependent. Chronic obstructive sleep apnea, moderately severe. Congestive heart failure. Chronic kidney disease stage III Reason for admission: acute appendicitis Procedures: None Pertinent studies/significant findings: CT of abdomen and pelvis with IV contrast Complications: None Exam Temp Pulse Resp BP Pulse Ox 100.2 F H 95 H 22 111/63 90 05/18/19 11:52 05/18/19 11:52 05/18/19 11:52 05/18/19 11:52 05/18/19 11:52 - General physical appearance well developed, well nourished, moderate distress, moderate pain, chronically ill - Eyes PERRL, normal ocular movement - ENT normal pinna, normal nares, normal mucosa, no hearing loss, no congestion - Head Head exam IM: Present: atraumatic, normocephalic - Neck no masses, no bruits, trachea midline, no lymphadenopathy, no venous distension - Cardiovascular Cardiovascular exam IM: Present: normal rate and rhythm, irregular rhythm, JVD, +S1, +S2, systolic murmur. Absent: tachycardia Intensity IM: 3/6 - Respiratory normal expansion, normal respiratory effort, clear to percussion, clear to auscultation - Abdomen Abdomen: Present: soft, non tender, bowel sounds Hernia: Present: none - Genitourinary Present: normal penis with no external lesions - Integumentary Present: no rash, no growths, other (bilateral stasis dermatitis with edema) - Neurologic Present: normal coordination, normal sensation - Musculoskeletal Present: normal gait, normal posture - Psychiatric Present: oriented to time, oriented to person, oriented to place, speech is normal, memory intact Discharge Plan - Patient/Caregiver Discharge Instructions Activity: wear oxygen at all times, wear oxygen at night Diet: NPO - Follow up Plan Follow up with: Radha Bruan ARNP [Primary Care Provider] - Disposition: [facility] Prognosis: Fair Rehab Potential: Fair I certify that the patient requires SNF services.: No Overall status at discharge: patient is not back to baseline Pending Studies Resuscitation Status Full Code
== END 2019-05-18 14:40 | disposition short-term general hospital (02) ==
LOC: MEDSUR 22:18 → ED 22:18 → MEDSUR 05-18 04:59
PROVIDERS: ADMIT Family Medicine Adult Medicine; ATTEND Family Medicine Adult Medicine

== ENCOUNTER 2020-08-09 23:11 | Observation (INO) ==
[2020-08-09] MEDS ORDERED: IOPAMIDOL 100 ML BOTTLE IV ONE (23:12)
[2020-08-10] MEDS ORDERED: LACTATED RINGERS 1,000 ML IV ONE (00:05)
[2020-08-10] MEDS ORDERED: ONDANSETRON 4 MG/2 ML VIAL IV ONE (00:05)
[2020-08-10] MEDS ORDERED: morphine 4 MG/ML VIAL IV ONE ×2 (00:05→00:45)
--- NOTE | 2020-08-10 00:11 | Emergency Department Note ---
Abdominal Pain HPI General Chief Complaint: Abdominal Pain Stated Complaint: RLQ pain Time Seen by Provider: 08/10/20 00:05 Source: patient Mode of arrival: ambulatory Limitations: no limitations History of Present Illness HPI Narrative: Patient is an 80-year-old gentleman who arrives emergency department complaining of abdominal pain. Patient says he has been having gradual onset abdominal pain since early this morning. Is been associated with multiple episodes of nausea and vomiting. He said a few episodes of diarrhea and has been passing gas. He denies any associated fever or chills. Nothing seemed to make his symptoms any better or worse. His history is somewhat limited due to his current level of discomfort providing him from communicating at times. Related Data Home Medications Medication Instructions Recorded Confirmed magnesium oxide 400 mg PO HS tab 11/01/18 08/10/20 meclizine 25 mg PO QIDP PRN 05/18/19 08/10/20 aspirin 162 mg PO QDAY 08/10/20 08/10/20 ik-[id number]-[id number]-ginkgo-S.gins-hrbs 1 tab PO DAILY 08/10/20 08/10/20 [Achieve Mature Adult] sertraline 50 mg PO QDAY 08/10/20 08/10/20 Previous Rx's Medication Instructions Recorded atorvastatin 40 mg tablet 40 mg PO HS #90 tab 05/25/20 furosemide 40 mg tablet 40 mg PO DAILY #30 tab 05/25/20 gabapentin 300 mg capsule 600 mg PO TID #540 cap 05/25/20 icosapent ethyl 1 gram capsule 2 g PO BID #360 cap 05/25/20 ipratropium 0.5 mg-albuterol 3 mg 3 ml INHALATION Q4HP PRN #30 05/25/20 (2.5 mg base)/3 mL nebulization ampul.neb soln metformin 500 mg tablet,extended 1,000 mg PO BID #360 tab 05/25/20 release 24 hr potassium chloride 10 mEq 10 meq PO QAMCC #7 tab 05/25/20 tablet,extended release ramipril 10 mg capsule 10 mg PO BID #180 cap 05/25/20 spironolactone 50 mg tablet 50 mg PO DAILY #90 tab 05/25/20 insulin glargine 100 unit/mL (3 See Rx Instructions SUB-Q QDAY #15 07/13/20 mL) subcutaneous pen ml hydrocodone 5 mg-acetaminophen 325 1 tab PO Q6HP PRN #120 tab 07/14/20 mg tablet diltiazem HCl 300 mg capsule,24 300 mg PO QAM #90 cap 07/28/20 hr,extended release Allergies Allergy/AdvReac Type Severity Reaction Status Date / Time No Known Drug Allergies Allergy Verified 08/09/20 23:12 Review of Systems ROS ROS Narrative: Narrative: All systems ED: reviewed and negative except as stated. Constitutional: Denies fever Neurological: Denies headache PFSH Narrative Patient History Narrative: Patient lives with his . 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) Aortic stenosis, severe (Acute) COPD with exacerbation (Chronic) Shortness of breath (Chronic) Infiltrate of lower lobe of right lung present on imaging study (Chronic ~08/2018) Pulmonary congestion (Chronic ~08/2018) Heart failure (Chronic ~08/2018) PNA (pneumonia) (Chronic) Fatigue (Chronic) Hyperlipidemia, mixed (Chronic) Atherosclerotic cardiovascular disease (Chronic) Hypertension, essential, benign (Chronic) 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) Back pain (Chronic) AAA (abdominal aortic aneurysm) (Chronic) Restless leg syndrome (Chronic) Vertigo (Chronic) Diabetic neuropathy (Chronic) Heart murmur (Chronic) Acute exacerbation of chronic obstructive airways disease (Chronic) COPD (chronic obstructive pulmonary disease) (Chronic) Erectile dysfunction (Chronic) CHF (congestive heart failure) (Chronic) Atrial flutter (Chronic) Mitral valve prolapse (Chronic) Rhinorrhea (Chronic) Dizziness (Chronic) Chronic radicular pain of lower back (Chronic) Neck pain (Chronic) Shoulder pain, right (Chronic) CAD (coronary artery disease) (Chronic) Other hypertrophic cardiomyopathy (Chronic) Cellulitis (Chronic) Foot callus (Chronic) Constipation (Chronic) Anemia (Chronic) Cervical radiculopathy (Chronic) Seborrheic keratosis (Chronic) Obstructive sleep apnea of adult (Chronic) Diastolic dysfunction (Chronic) Peripheral edema (Chronic) Other specified metabolic disorders (Chronic) Daytime somnolence (Chronic) Insomnia (Chronic) Acute exacerbation of chronic obstructive airways disease (Acute) Orthostatic hypotension (Chronic) Community acquired pneumonia (Acute) Congestive heart failure (Acute) Pneumonia (Acute) Sepsis (Acute) Respiratory failure with hypoxia and hypercapnia (Acute) Cervical radiculopathy (Acute) Cervicalgia (Acute) Medical History (Updated 08/10/20 @ 06:06 by Jovanni Ha DO) AAA (abdominal aortic aneurysm) Acute exacerbation of chronic obstructive airways disease Acute exacerbation of chronic obstructive airways disease Anemia Appendicitis (~04/2019) Atherosclerotic cardiovascular disease Atrial flutter Back pain CAD (coronary artery disease) Cellulitis Cervical radiculopathy CHF (congestive heart failure) Chronic radicular pain of lower back Constipation COPD (chronic obstructive pulmonary disease) COPD with exacerbation Daytime somnolence Diabetic neuropathy Diastolic dysfunction Dizziness Erectile dysfunction Fatigue Foot callus Heart failure (~08/2018) Heart murmur Hyperlipidemia, mixed Hypertension, essential, benign Infiltrate of lower lobe of right lung present on imaging study (~08/2018) Insomnia Mitral valve prolapse Neck pain Obstructive sleep apnea of adult Orthostatic hypotension Other hypertrophic cardiomyopathy Other specified metabolic disorders Peripheral edema PNA (pneumonia) Pulmonary congestion (~08/2018) Restless leg syndrome Rhinorrhea Seborrheic keratosis Shortness of breath Shoulder pain, right Type 2 diabetes mellitus with polyneuropathy Vertigo Surgical History History of appendectomy 04/2019 History of mitral valve repair History of surgery (~06/2013) 2 way bypass Family History Mother Heart disease Coronary heart disease Heart attack Daughter Drug abuse Type I diabetes mellitus Father Elevated PSA Social History Smoking Status: Former smoker Alcohol Intake Frequency: a few times a month Exam Narrative Narrative: Gen -patient is awake and alert and appears quite uncomfortable. HEENT -head is atraumatic. There is no conjunctival pallor or scleral icterus. CV -S1-S2 regular rate and rhythm. Peripheral pulses are palpable. Resp -breathing is nonlabored. Lungs are clear to auscultation bilaterally. There is no cyanosis. GI - Abdomen is distended and diffusely tender to palpation. There is moderate guarding without significant rebound tenderness. Patient is actively vomiting bilious emesis. Derm -skin is warm and dry. MSK -present extremities are atraumatic. Psych -patient has appropriate affect. Neuro -patient answers questions appropriately with fluent speech. Patient moves all present extremities equally. General Limitations: no limitations Course Vital Signs Vital signs: Vital Signs Temperature 99.2 F H 08/09/20 23:12 Pulse Rate 90 08/09/20 23:12 Respiratory Rate 16 08/09/20 23:12 Blood Pressure 160/81 08/09/20 23:12 Pulse Oximetry (%) 91 08/09/20 23:12 Temperature 99.2 F H 08/10/20 03:13 Pulse Rate 91 H 08/10/20 03:13 Respiratory Rate 16 08/10/20 03:13 Blood Pressure 137/62 08/10/20 03:13 Pulse Oximetry (%) 95 08/10/20 03:13 MDM MDM Narrative Medical decision making narrative: Patient presents with vomiting and abdominal pain. CT scan was interpreted by the overnight radiologist as demonstrating findings consistent with acute appendicitis with possible pending perforation a nd no abscess. I discussed the patient's previous course with Dr. Braun. He confirmed that the patient was treated for ruptured appendicitis but was lost to follow-up and never had an appendectomy. I discussed patient's history examination and diagnostic findings with Dr. Barcenas. He would like the patient admitted to his service and request a consultation with medicine for medical management. I discussed the patient's history examination and diagnostic findings with Dr. Salamanca who will follow in consultation for medical management. I discussed the diagnosis and plan for admission and likely surgery with the patient. He is agreeable with the plan. With his permission I also discussed this with his granddaughter on the phone. Lab Data Result diagrams: 08/10/20 00:01 08/10/20 00:01 Labs: Lab Results 08/10/20 08/10/20 Range/Units 00:01 00:01 WBC 10.3 (4.5-11.0) K/mcL RBC 4.10 L (4.50-5.90) M/mcL Hgb 12.5 L (13.5-16.5) g/dL Hct 39.5 L (41.0-55.0) % POC Hct 40 L (41-55) % MCV 96.3 (80.0-100.0) fL MCH 30.5 (26.0-34.0) pg MCHC 31.6 (31.0-36.0) g/dL RDW 12.8 (11.5-14.5) % Plt Count 157 (140-440) K/mcL MPV 10.5 H (7.4-10.4) fL Neut % (Auto) 84.1 H (38.0-78.0) % Lymph % (Auto) 9.6 L (15.0-49.0) % [place] % (Auto) 4.8 (1.0-12.0) % Eos % (Auto) 1.2 (0.0-7.0) % Baso % (Auto) 0.3 (0.0-2.0) % Lymph # (Auto) 0.98 L (1.50-4.80) K/mcL [place] # (Auto) 0.49 (0.10-0.90) K/mcL Eos # (Auto) 0.12 (0.00-0.70) K/mcL Baso # (Auto) 0.03 (0.00-0.20) K/mcL Absolute Neutrophils 8.64 H (1.80-8.00) K/mcL POC Sodium 136 (133-145) mEq/L Sodium 132 L (133-145) mmol/L POC Potassium 4.9 (3.3-5.1) mEql/L Potassium 4.8 (3.3-5.1) mmol/L POC Chloride 96 (96-108) mEq/L Chloride 97 (96-108) mmol/L Carbon Dioxide 30 (22-30) mmol/L POC Total CO2 33 H (22-30) mmol/L Anion Gap 5.0 L (8.0-16.0) POC BUN 19 (6-20) mg/dL BUN 16 (8-23) mg/dL Creatinine 0.9 (0.7-1.2) mg/dL POC Creatinine 0.8 (0.6-1.2) mg/dL GFR Calculation 80 Glucose 287 H (70-105) mg/dL POC Glucose 285 H (70-105) mg/dL Calcium 10.6 H (8.6-10.4) mg/dL POC WB Ioniz Calcium 1.35 H (1.16-1.32) mmEq/L Total Bilirubin 0.5 (0.1-1.0) mg/dL AST 19 (<40) U/L ALT 17 (<40) U/L Alkaline Phosphatase 57 (39-117) U/L Total Protein 7.3 (5.9-8.4) gm/dL Albumin 4.2 (3.2-5.2) gm/dL Globulin 3.1 (2.2-3.7) gm/dL Albumin/Globulin Ratio 1.4 (1.0-2.3) Lipase 18 (7-60) U/L ED POC Tests ED POC Tests: [id number] - SARS Antigen Negative Discharge Plan Patient/Caregiver Discharge Instructions Pt seen by INFORMATION ASSURANCE/PA only: No Clinical Impression: Acute appendicitis Patient Disposition: Xfer As Inpt ([facility]) Condition: Fair Discharge Date/Time: 08/10/20 03:02
[2020-08-10 00:20] LABS: POC Blood Urea Nitrogen 19 mg/dL (6-20); POC CO2 33 mmol/L (22-30); POC Calcium, Ionized 1.35 mmEq/L (1.16-1.32); POC Chloride 96 mEq/L (96-108); POC Creatinine 0.8 mg/dL (0.6-1.2); POC Glucose, Random 285 mg/dL (70-105); POC Hematocrit 40 % (41-55); POC Potassium 4.9 mEql/L (3.3-5.1); POC Sodium 136 mEq/L (133-145)
[2020-08-10 00:50] LABS: Basophils # (Auto) 0.03 K/mcL (0.00-0.20); Basophils % (Auto) 0.3 % (0.0-2.0); Eosinophils # (Auto) 0.12 K/mcL (0.00-0.70); Eosinophils % (Auto) 1.2 % (0.0-7.0); Hematocrit 39.5 % (41.0-55.0); Hemoglobin 12.5 g/dL (13.5-16.5); Lymphocytes # (Auto) 0.98 K/mcL (1.50-4.80); Lymphocytes % (Auto) 9.6 % (15.0-49.0); Mean Cell Volume 96.3 fL (80.0-100.0); Mean Corpuscular HGB Conc 31.6 g/dL (31.0-36.0); Mean Platelet Volume 10.5 fL (7.4-10.4); Monocytes # (Auto) 0.49 K/mcL (0.10-0.90); Monocytes % (Auto) 4.8 % (1.0-12.0); Neutrophils % (Auto) 84.1 % (38.0-78.0); Platelet Count 157 K/mcL (140-440); Red Cell Distribution Width 12.8 % (11.5-14.5); WBC 10.3 K/mcL (4.5-11.0)
[2020-08-10 01:07] LABS: ALT/SGPT 17 U/L (<40); AST/SGOT 19 U/L (<40); Albumin 4.2 gm/dL (3.2-5.2); Albumin/Globulin Ratio 1.4 (1.0-2.3); Alkaline Phosphatase 57 U/L (39-117); Bilirubin,Total 0.5 mg/dL (0.1-1.0); Blood Urea Nitrogen 16 mg/dL (8-23); Calcium 10.6 mg/dL (8.6-10.4); Carbon Dioxide 30 mmol/L (22-30); Chloride 97 mmol/L (96-108); Globulin 3.1 gm/dL (2.2-3.7); Glomerular Filtration Rate 80; Glucose 287 mg/dL (70-105)
[2020-08-10] MEDS ORDERED: cefTRIAXone 1 GM VIAL IV ONE (01:58)
[2020-08-10] MEDS ORDERED: metroNIDAZOLE 500 MG/100 ML BAG IV ONE (01:58)
[2020-08-10] MEDS ORDERED: ONDANSETRON 4 MG/2 ML VIAL IV PRN ×4 (02:06→16:29)
[2020-08-10] MEDS ORDERED: morphine 2 MG/ML VIAL IV PRN ×2 (02:06→07:46)
[2020-08-10] MEDS: 0.9 % SODIUM CHLORIDE 1,000 ML IV SCH ×2 (03:17→16:58)
[2020-08-10] MEDS ORDERED: HYDROcodone/APAP 5/325MG TABLET PO PRN (07:53)
[2020-08-10] MEDS ORDERED: IPRATROPIUM/ALBUTEROL 3 ML AMPUL.NEB NEB PRN ×4 (07:53→16:29)
[2020-08-10] MEDS ORDERED: DEXTROSE 50% 50 ML VIAL IV PRN (07:55)
[2020-08-10] MEDS ORDERED: DEXTROSE 31 GM ORAL.SUSP PO PRN (07:55)
[2020-08-10] MEDS ORDERED: MECLIZINE 25 MG TABLET PO PRN ×2 (07:58→16:29)
[2020-08-10] MEDS ORDERED: POTASSIUM CHLORIDE 10 MEQ TABLET PO SCH (08:00)
[2020-08-10] MEDS ORDERED: ACETAMINOPHEN 325 MG TABLET PO PRN (08:08)
--- NOTE | 2020-08-10 08:27 | Internal Medicine Consult Note ---
HPI Data of Consult Primary Care Provider: Radha Braun Consult Narrative Patient Information: Note initiated : 08/10/20 at 8:14 am Service Date, if different from initiated Date: [] Patient: Owen Van 80 y/o M admitted on 08/10/20 for RLQ pain. Chief Complaint: [Abdominal pain] Patient is a 80 years old gentleman history of AAA, type 2 diabetes mellitus on insulin replacement therapy, essential hypertension, mixed dyslipidemia, CHF, history of heart valve replacement, obstructive sleep apnea not on CPAP, presenting with 2-day history of acute onset abdominal pain. He had a similar episode 1 years ago and at that point of time he was being diagnosed with acute appendicitis. He was lost to follow-up enhanced no appendectomy was performed at that time. His symptoms finally resolved until yesterday in the morning when he developed acute onset right lower quadrant abdominal pain with radiations to the left lower quadrants. The pain was graded 9 out of 10 at onset and currently it is 7 out of 10. The pain is to be described as constant and sore in nature. Alleviating factors including hydrocodone p.o., and there is no exacerbating factors. Associated symptoms include nausea, vomiting, diarrhea, and fever with shaking chills. Because of his symptoms, he decided to come to our ED for evaluations and CT of the abdomen and pelvis showed signs of acute appendicitis proved early perforations. cc:: CC: Lev Barcenas MD Constitutional Constitutional: Absent chills, excessive sweating, fatigue, fever(s) and weakness EENT Eyes: Absent blurry vision, change in vision, loss of vision and other visual disturbances Ears: Absent decreased hearing and tinnitus Nose, mouth and throat: Absent abnormal hearing, dry mouth, headache(s), nasal congestion and sore throat Cardiovascular Cardiovascular: Absent chest pain, chest pain at rest, edema, irregular heart rhythm and palpatations Respiratory Respiratory: Absent cough, dyspnea and wheezing Gastrointestinal Gastrointestinal: Present abdominal pain, diarrhea, nausea and vomiting; Absent constipation Musculoskeletal Musculoskeletal: Absent back pain, deformity, limited range of motion, muscle cramps, muscle weakness and numbness Integumentary Integumentary: Absent lesions, rash and wounds Neurological Neurological: Absent focal weakness, headache(s) and numbness Psychiatric Psychiatric: Absent anxiety, depression and hallucinations PFSH PFSH All Active Problems (Updated 08/10/20 @ 06:06 by Jovanni Ha DO) Acute appendicitis (Acute) Depression (Acute) Erectile dysfunction (Acute) Head injury (Acute) Acute appendicitis (Acute) 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) Aortic stenosis, severe (Acute) COPD with exacerbation (Chronic) Shortness of breath (Chronic) Infiltrate of lower lobe of right lung present on imaging study (Chronic ~08/2018) Pulmonary congestion (Chronic ~08/2018) Heart failure (Chronic ~08/2018) PNA (pneumonia) (Chronic) Fatigue (Chronic) Hyperlipidemia, mixed (Chronic) Atherosclerotic cardiovascular disease (Chronic) Hypertension, essential, benign (Chronic) 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) Back pain (Chronic) AAA (abdominal aortic aneurysm) (Chronic) Restless leg syndrome (Chronic) Vertigo (Chronic) Diabetic neuropathy (Chronic) Heart murmur (Chronic) Acute exacerbation of chronic obstructive airways disease (Chronic) COPD (chronic obstructive pulmonary disease) (Chronic) Erectile dysfunction (Chronic) CHF (congestive heart failure) (Chronic) Atrial flutter (Chronic) Mitral valve prolapse (Chronic) Rhinorrhea (Chronic) Dizziness (Chronic) Chronic radicular pain of lower back (Chronic) Neck pain (Chronic) Shoulder pain, right (Chronic) CAD (coronary artery disease) (Chronic) Other hypertrophic cardiomyopathy (Chronic) Cellulitis (Chronic) Foot callus (Chronic) Constipation (Chronic) Anemia (Chronic) Cervical radiculopathy (Chronic) Seborrheic keratosis (Chronic) Obstructive sleep apnea of adult (Chronic) Diastolic dysfunction (Chronic) Peripheral edema (Chronic) Other specified metabolic disorders (Chronic) Daytime somnolence (Chronic) Insomnia (Chronic) Acute exacerbation of chronic obstructive airways disease (Acute) Orthostatic hypotension (Chronic) Community acquired pneumonia (Acute) Congestive heart failure (Acute) Pneumonia (Acute) Sepsis (Acute) Respiratory failure with hypoxia and hypercapnia (Acute) Cervical radiculopathy (Acute) Cervicalgia (Acute) Medical History (Updated 08/10/20 @ 06:06 by Jovanni Ha DO) AAA (abdominal aortic aneurysm) Acute exacerbation of chronic obstructive airways disease Acute exacerbation of chronic obstructive airways disease Anemia Appendicitis (~04/2019) Atherosclerotic cardiovascular disease Atrial flutter Back pain CAD (coronary artery disease) Cellulitis Cervical radiculopathy CHF (congestive heart failure) Chronic radicular pain of lower back Constipation COPD (chronic obstructive pulmonary disease) COPD with exacerbation Daytime somnolence Diabetic neuropathy Diastolic dysfunction Dizziness Erectile dysfunction Fatigue Foot callus Heart failure (~08/2018) Heart murmur Hyperlipidemia, mixed Hypertension, essential, benign Infiltrate of lower lobe of right lung present on imaging study (~08/2018) Insomnia Mitral valve prolapse Neck pain Obstructive sleep apnea of adult Orthostatic hypotension Other hypertrophic cardiomyopathy Other specified metabolic disorders Peripheral edema PNA (pneumonia) Pulmonary congestion (~08/2018) Restless leg syndrome Rhinorrhea Seborrheic keratosis Shortness of breath Shoulder pain, right Type 2 diabetes mellitus with polyneuropathy Vertigo Surgical History History of appendectomy 04/2019 History of mitral valve repair History of surgery (~06/2013) [address] way bypass Family History Mother Heart disease Coronary heart disease Heart attack Daughter Drug abuse Type I diabetes mellitus Father Elevated PSA Social History marital status: alcohol intake frequency: a few times a month seatbelt use: always MEDS/ALLERGIES Home Medications and Allergies Home Medications Medication Instructions Recorded Confirmed Type magnesium oxide 400 mg PO HS tab 11/01/18 08/10/20 History meclizine 25 mg PO QIDP PRN 05/18/19 08/10/20 History atorvastatin 40 mg tablet 40 mg PO HS #90 tab 05/25/20 08/10/20 Rx furosemide 40 mg tablet 40 mg PO DAILY #30 tab 05/25/20 08/10/20 Rx gabapentin 300 mg capsule 600 mg PO TID #540 cap 05/25/20 08/10/20 Rx icosapent ethyl 1 gram capsule 2 g PO BID #360 cap 05/25/20 08/10/20 Rx ipratropium 0.5 mg-albuterol 3 mg 3 ml INHALATION Q4HP PRN #30 05/25/20 08/10/20 Rx (2.5 mg base)/3 mL nebulization ampul.neb soln metformin 500 mg tablet,extended 1,000 mg PO BID #360 tab 05/25/20 08/10/20 Rx release 24 hr potassium chloride 10 mEq 10 meq PO QAMCC #7 tab 05/25/20 08/10/20 Rx tablet,extended release ramipril 10 mg capsule 10 mg PO BID #180 cap 05/25/20 08/10/20 Rx spironolactone 50 mg tablet 50 mg PO DAILY #90 tab 05/25/20 08/10/20 Rx insulin glargine 100 unit/mL (3 See Rx Instructions SUB-Q QDAY #15 07/13/20 08/10/20 Rx mL) subcutaneous pen ml hydrocodone 5 mg-acetaminophen 325 1 tab PO Q6HP PRN #120 tab 07/14/20 08/10/20 Rx mg tablet diltiazem HCl 300 mg capsule,24 300 mg PO QAM #90 cap 07/28/20 08/10/20 Rx hr,extended release aspirin 162 mg PO QDAY 08/10/20 08/10/20 History ky-ewpf-wxj-ginkgo-S.gins-hrbs 1 tab PO DAILY 08/10/20 08/10/20 History [Achieve Mature Adult] sertraline 50 mg PO QDAY 08/10/20 08/10/20 History Allergies Allergy/AdvReac Type Severity Reaction Status Date / Time No Known Drug Allergies Allergy Verified 08/09/20 23:12 EXAM Constitutional Vitals: Temp Pulse Resp BP Pulse Ox 38.4 C H 92 H 22 106/59 92 08/10/20 07:14 08/10/20 07:14 08/10/20 07:14 08/10/20 07:14 08/10/20 07:14 General appearance: cooperative and no acute distress Head Head exam: Present atraumatic and normocephalic Eye Eye exam: Present EOMI and PERRL ENT ENT exam: Present mucous membranes moist, normal exam and normal external ear exam Neck Neck exam: Present normal inspection; Absent lymphadenopathy, tenderness and thyromegaly Respiratory Respiratory exam: Absent accessory muscle use, respiratory distress and wheezes Cardiovascular Cardiovascular exam: Present normal rate and rhythm; Absent JVD GI/Abdominal GI/Abdominal exam: Present normal bowel sounds, soft, guarding and tenderness; Absent distended, organomegaly and rebound Rectal Rectal exam: Present deferred Extremities Exam Extremities exam: Present full ROM, normal capillary refill and normal inspecti on; Absent tenderness Neurological Exam Neurological exam: Present alert, CN II-XII intact and oriented X3; Absent motor sensory deficit Psychiatric Psychiatric exam: Present normal affect and normal mood; Absent anxious and depressed Skin Skin exam: Present dry and intact DATA Data Completed and Pending Labs: Labs from last 24 hours 08/10/20 08/10/20 00:01 00:01 WBC 10.3 RBC 4.10 L Hgb 12.5 L Hct 39.5 L POC Hct 40 L MCV 96.3 MCH 30.5 MCHC 31.6 RDW 12.8 Plt Count 157 MPV 10.5 H Neut % (Auto) 84.1 H Lymph % (Auto) 9.6 L [place] % (Auto) 4.8 Eos % (Auto) 1.2 Baso % (Auto) 0.3 Lymph # (Auto) 0.98 L [place] # (Auto) 0.49 Eos # (Auto) 0.12 Baso # (Auto) 0.03 Absolute Neutrophils 8.64 H POC Sodium 136 Sodium 132 L POC Potassium 4.9 Potassium 4.8 POC Chloride 96 Chloride 97 Carbon Dioxide 30 POC Total CO2 33 H Anion Gap 5.0 L POC BUN 19 BUN 16 Creatinine 0.9 POC Creatinine 0.8 GFR Calculation 80 Glucose 287 H POC Glucose 285 H Calcium 10.6 H POC WB Ioniz Calcium 1.35 H Total Bilirubin 0.5 AST 19 ALT 17 Alkaline Phosphatase 57 Total Protein 7.3 Albumin 4.2 Globulin 3.1 Albumin/Globulin Ratio 1.4 Lipase 18 A/P Narrative A/P Narrative: Assessment and Plans: 1. Acute appendicitis with likely early perforation: Admit to inpatient med surg service attendign Dr. Barcenas, potential appendectomy NPO NS@100cc/hr Serial lactic acid Procalcitonin Blood cultures X2 s/p Rocephin and Flagyl in the ED, to be followed by Zosyn cbc w/ auto diff daily to trend WBC level Tylenol PRN fever Morphine 2mg IV q2hr PRN severe pain [place] PRN moderate pain 2. T2DM: HgA1c Hold oral hypogycemics Hold Scheduled insulin due to NPO status High dose sliding scale insulin Accu Chek AC HS Hypoglycemia protocol NPO status with NS@100cc/hr 3. Essential HTN: Currently normotensive Continue home regimen of oral antihypertensives 4. AAA: Currently normotensive Continue home regimen of oral antihypertensives 5. Mixed dyslipidemia: Continue statin therapy 6. c/o CHF: Continue antihypertensives, JOSE JUAN-i, diuretics 7. PHOEBE not on CPAP: Supplemental oxygen titrate to acheive O2 sat >=92% 8. Anemia, macrocytic: cbc w/ auto diff daily to trend hemoglobin level, pRBC transfusion if hemoglobin <7.0, active bleeding, or symptomatic Thank you for the consultation, I will continue to follow the patient daily. Time Spent With Patient Time: Total time spent is greater than 50% in coordination of care (as documented) at patient's floor/unit and/or counseling patient:
--- NOTE | 2020-08-10 08:59 | Cat Scan Report ---
History: Right lower quadrant pain, nausea, vomiting and status post prior percutaneous drainage of a periappendiceal abscess TECHNIQUE: The patient was imaged following injection of intravenous nonionic contrast scanning during the portal venous phase from the diaphragm through the symphysis pubis. Sagittal and coronal reformats were created. Radiation exposure was limited using dose reduction technology. FINDINGS: The heart is mildly enlarged. There is prosthetic aortic valve. Large amount calcified plaque is present in the coronary arteries. There are bands of scar tissue in both lung bases. No pleural effusion is present. The graft the liver and spleen are normal in size and homogeneous. There is a cluster of small stones layering posteriorly in the fundus of the gallbladder. Gallbladder [place] not thickened or inflamed. Bile ducts are normal in caliber. There is no mass or inflammation the pancreas. The adrenals are normal and symmetric. There are couple simple cysts in both kidneys. Kidneys are otherwise normal without evidence of stone, solid mass or hydronephrosis. 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 There is aneurysmal dilatation at this level and it measures 3.4 x 3.8 cm. This is unchanged from the prior CT done on 06/30/19. The appendix is dilated and inflamed. There is significant inflammation of the surrounding fat. There is fluid, probably pus within the lumen. It measures 2.4 x 2.8 cm in transverse diameter. There may be a small appendicolith. No periappendiceal abscess is present. Small amount of free fluid is seen inferior to the appendix and cecum. Associated with this is a mild ileus in the small intestine. Comparison with the post drainage CT done on 06/30/19 shows the recurrent appendicitis is much worse today than it had been previously. Few scattered noninflamed diverticula are present in the descending and sigmoid colon. No bowel obstruction is present. Prostate is moderately enlarged. Seminal vesicles are asymmetric. Left is larger than the right. Urinary bladder appears normal. 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 No lytic or blastic lesion are seen. IMPRESSION: Severe recurrent appendicitis, but without evidence of an abscess Interpreted and Authenticated by: Rickey Cota 08/10/20
[2020-08-10] MEDS ORDERED: DOCUSATE SODIUM 100 MG CAPSULE PO SCH (09:00)
[2020-08-10] MEDS ORDERED: DILTIAZEM 120 MG CAP.XL.24H PO SCH (09:00)
[2020-08-10] MEDS ORDERED: RAMIPRIL 2.5 MG CAPSULE PO SCH (09:00)
[2020-08-10] MEDS ORDERED: SERTRALINE 50 MG TABLET PO SCH (09:00)
[2020-08-10] MEDS ORDERED: DILTIAZEM 180 MG CAP.XL.24H PO SCH (09:00)
[2020-08-10] MEDS ORDERED: FUROSEMIDE 40 MG TABLET PO SCH (09:00)
[2020-08-10] MEDS ORDERED: MULTIVIT,THER IRON,CA,FA & MIN 1 TABLET PO SCH (09:00)
[2020-08-10] MEDS ORDERED: SPIRONOLACTONE 25 MG TABLET PO SCH (09:00)
[2020-08-10] MEDS: GABAPENTIN 300 MG CAPSULE PO SCH ×3 (11:04→20:10)
[2020-08-10] MEDS: PIPERACILLIN SODIUM/TAZOBACTAM 3.375 GM in DEXTROSE 5% IN WATER 50 ML IV SCH ×4 (11:10→22:45)
[2020-08-10] MEDS ORDERED: INSULIN LISPRO 1 UNIT/0.01 ML UNIT SQ SCH (12:00)
--- NOTE | 2020-08-10 13:44 | General Surg History&Physical ---
HPI History of Present Illness Patient information: Note initiated : 08/10/20 at 1:41 pm Service Date, if different from initiated Date: [] Patient: Owen Van a 80 y/o M admitted on 08/10/20 for RLQ pain. Chief Complaint: [] Chief complaint: Lower quadrant abdominal pain History of present illness: Mr. Van is a 80 year old M who presents with 1 day history of periumbilical pain which localized to the right lower quadrant. Patient has a significant past history of having a perforated appendicitis, he was transferred to [place] where he underwent a percutaneous drainage and followed up here for drain removal. Recommendation at that time was to have a appendectomy, however secondary to Covid that never happened and he really presents with a CT scan done in the emergency room and signs and symptoms most consistent with acute appendicitis. He denies any fevers or chills. He does have mild nausea and right lower quadrant abdominal pain. 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) Aortic stenosis, severe (Acute) COPD with exacerbation (Chronic) Shortness of breath (Chronic) Infiltrate of lower lobe of right lung present on imaging study (Chronic ~08/2018) Pulmonary congestion (Chronic ~08/2018) Heart failure (Chronic ~08/2018) PNA (pneumonia) (Chronic) Fatigue (Chronic) Hyperlipidemia, mixed (Chronic) Atherosclerotic cardiovascular disease (Chronic) Hypertension, essential, benign (Chronic) 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) Back pain (Chronic) AAA (abdominal aortic aneurysm) (Chronic) Restless leg syndrome (Chronic) Vertigo (Chronic) Diabetic neuropathy (Chronic) Heart murmur (Chronic) Acute exacerbation of chronic obstructive airways disease (Chronic) COPD (chronic obstructive pulmonary disease) (Chronic) Erectile dysfunction (Chronic) CHF (congestive heart failure) (Chronic) Atrial flutter (Chronic) Mitral valve prolapse (Chronic) Rhinorrhea (Chronic) Dizziness (Chronic) Chronic radicular pain of lower back (Chronic) Neck pain (Chronic) Shoulder pain, right (Chronic) CAD (coronary artery disease) (Chronic) Other hypertrophic cardiomyopathy (Chronic) Cellulitis (Chronic) Foot callus (Chronic) Constipation (Chronic) Anemia (Chronic) Cervical radiculopathy (Chronic) Seborrheic keratosis (Chronic) Obstructive sleep apnea of adult (Chronic) Diastolic dysfunction (Chronic) Peripheral edema (Chronic) Other specified metabolic disorders (Chronic) Daytime somnolence (Chronic) Insomnia (Chronic) Acute exacerbation of chronic obstructive airways disease (Acute) Orthostatic hypotension (Chronic) Community acquired pneumonia (Acute) Congestive heart failure (Acute) Pneumonia (Acute) Sepsis (Acute) Respiratory failure with hypoxia and hypercapnia (Acute) Cervical radiculopathy (Acute) Cervicalgia (Acute) Medical History AAA (abdominal aortic aneurysm) Acute exacerbation of chronic obstructive airways disease Acute exacerbation of chronic obstructive airways disease Anemia Appendicitis (~04/2019) Atherosclerotic cardiovascular disease Atrial flutter Back pain CAD (coronary artery disease) Cellulitis Cervical radiculopathy CHF (congestive heart failure) Chronic radicular pain of lower back Constipation COPD (chronic obstructive pulmonary disease) COPD with exacerbation Daytime somnolence Diabetic neuropathy Diastolic dysfunction Dizziness Erectile dysfunction Fatigue Foot callus Heart failure (~08/2018) Heart murmur Hyperlipidemia, mixed Hypertension, essential, benign Infiltrate of lower lobe of right lung present on imaging study (~08/2018) Insomnia Mitral valve prolapse Neck pain Obstructive sleep apnea of adult Orthostatic hypotension Other hypertrophic cardiomyopathy Other specified metabolic disorders Peripheral edema PNA (pneumonia) Pulmonary congestion (~08/2018) Restless leg syndrome Rhinorrhea Seborrheic keratosis Shortness of breath Shoulder pain, right Type 2 diabetes mellitus with polyneuropathy Vertigo Surgical History History of appendectomy 04/2019 History of mitral valve repair History of surgery (~06/2013) 2 way bypass Family History Mother Heart disease Coronary heart disease Heart attack Daughter Drug abuse Type I diabetes mellitus Father Elevated PSA Social History marital status: alcohol intake frequency: a few times a month seatbelt use: always MEDS/ALLERGIES Home Medications and Allergies Home Medications Medication Instructions Recorded Confirmed Type magnesium oxide 400 mg PO HS tab 11/01/18 08/10/20 History meclizine 25 mg PO QIDP PRN 05/18/19 08/10/20 History atorvastatin 40 mg tablet 40 mg PO HS #90 tab 05/25/20 08/10/20 Rx furosemide 40 mg tablet 40 mg PO DAILY #30 tab 05/25/20 08/10/20 Rx gabapentin 300 mg capsule 600 mg PO TID #540 cap 05/25/20 08/10/20 Rx icosapent ethyl 1 gram capsule 2 g PO BID #360 cap 05/25/20 08/10/20 Rx ipratropium 0.5 mg-albuterol 3 mg 3 ml INHALATION Q4HP PRN #30 05/25/20 08/10/20 Rx (2.5 mg base)/3 mL nebulization ampul.neb soln metformin 500 mg tablet,extended 1,000 mg PO BID #360 tab 05/25/20 08/10/20 Rx release 24 hr potassium chloride 10 mEq 10 meq PO QAMCC #7 tab 05/25/20 08/10/20 Rx tablet,extended release ramipril 10 mg capsule 10 mg PO BID #180 cap 05/25/20 08/10/20 Rx spironolactone 50 mg tablet 50 mg PO DAILY #90 tab 05/25/20 08/10/20 Rx insulin glargine 100 unit/mL (3 See Rx Instructions SUB-Q QDAY #15 07/13/20 08/10/20 Rx mL) subcutaneous pen ml hydrocodone 5 mg-acetaminophen 325 1 tab PO Q6HP PRN #120 tab 07/14/20 08/10/20 Rx mg tablet diltiazem HCl 300 mg capsule,24 300 mg PO QAM #90 cap 07/28/20 08/10/20 Rx hr,extended release aspirin 162 mg PO QDAY 08/10/20 08/10/20 History qf-mncn-tbu-ginkgo-S.gins-hrbs 1 tab PO DAILY 08/10/20 08/10/20 History [Achieve Mature Adult] sertraline 50 mg PO QDAY 08/10/20 08/10/20 History Allergies Allergy/AdvReac Type Severity Reaction Status Date / Time No Known Drug Allergies Allergy Verified 08/09/20 23:12 Physical Examination Vital Signs Vital signs: Temp Pulse Resp BP Pulse Ox 99.6 F H 87 24 H 134/61 93 08/10/20 12:00 08/10/20 12:00 08/10/20 12:00 08/10/20 12:00 08/10/20 12:00 General physical appearance General physical exam: well developed, well nourished and no distress Eyes Eye exam: PERRL and normal ocular movement ENT ENT exam: normal pinna, normal nares, normal mucosa, no hearing loss and no congestion Head Head exam IM: Present atraumatic and normocephalic Neck Neck exam: no masses, no bruits, trachea midline, no lymphadenopathy and no venous distension Cardiovascular Cardiovascular exam IM: Present normal rate and rhythm Respiratory Respiratory exam: normal expansion, normal respiratory effort, clear to percussion and clear to auscultation Abdomen Abdomen: Present soft, tender (RLQ) and bowel sounds; Absent guarding, rigid and rebound Hernia: Present none; Absent epigastric Genitourinary Genitourinary (Male): Present normal penis with no external lesions Rectum Rectum: Present normal sphincter tone, no hemorrhoids, no tenderness, no masses and no bleeding Integumentary Integumentary: Present no rash, no growths and no abnormal pigmentation Neurologic Neurologic: Present normal coordination and normal sensation Musculoskeletal Musculoskeletal: Present normal gait and normal posture Psychiatric Psychiatric: Present oriented to time, oriented to person, oriented to place, speech is normal and memory intact Results Labs Result diagrams: 08/10/20 00:01 08/10/20 00:01 Labs: Abnormal lab results 08/10/20 08/10/20 08/10/20 Range/Units 00:01 00:01 08:17 RBC 4.10 L (4.50-5.90) M/mcL Hgb 12.5 L (13.5-16.5) g/dL Hct 39.5 L (41.0-55.0) % POC Hct 40 L (41-55) % MPV 10.5 H (7.4-10.4) fL Neut % (Auto) 84.1 H (38.0-78.0) % Lymph % (Auto) 9.6 L (15.0-49.0) % Lymph # (Auto) 0.98 L (1.50-4.80) K/mcL Absolute Neutrophils 8.64 H (1.80-8.00) K/mcL Sodium 132 L (133-145) mmol/L POC Total CO2 33 H (22-30) mmol/L Anion Gap 5.0 L (8.0-16.0) Glucose 287 H (70-105) mg/dL POC Glucose 285 H (70-105) mg/dL Calcium 10.6 H (8.6-10.4) mg/dL POC WB Ioniz Calcium 1.35 H (1.16-1.32) mmEq/L Procalcitonin 1.23 H (<0.10) ng/mL Diabetes panel 08/10/20 Range/Units 00:01 Sodium 132 L (133-145) mmol/L Potassium 4.8 (3.3-5.1) mmol/L Chloride 97 (96-108) mmol/L Carbon Dioxide 30 (22-30) mmol/L BUN 16 (8-23) mg/dL Creatinine 0.9 (0.7-1.2) mg/dL Glucose 287 H (70-105) mg/dL Calcium 10.6 H (8.6-10.4) mg/dL AST 19 (<40) U/L ALT 17 (<40) U/L Alkaline Phosphatase 57 (39-117) U/L Total Protein 7.3 (5.9-8.4) gm/dL Albumin 4.2 (3.2-5.2) gm/dL Calcium panel 08/10/20 Range/Units 00:01 Calcium 10.6 H (8.6-10.4) mg/dL Albumin 4.2 (3.2-5.2) gm/dL Pituitary panel 08/10/20 Range/Units 00:01 Sodium 132 L (133-145) mmol/L Potassium 4.8 (3.3-5.1) mmol/L Chloride 97 (96-108) mmol/L Carbon Dioxide 30 (22-30) mmol/L BUN 16 (8-23) mg/dL Creatinine 0.9 (0.7-1.2) mg/dL Glucose 287 H (70-105) mg/dL Calcium 10.6 H (8.6-10.4) mg/dL Adrenal panel 08/10/20 Range/Units 00:01 Sodium 132 L (133-145) mmol/L Potassium 4.8 (3.3-5.1) mmol/L Chloride 97 (96-108) mmol/L Carbon Dioxide 30 (22-30) mmol/L BUN 16 (8-23) mg/dL Creatinine 0.9 (0.7-1.2) mg/dL Glucose 287 H (70-105) mg/dL Calcium 10.6 H (8.6-10.4) mg/dL Total Bilirubin 0.5 (0.1-1.0) mg/dL AST 19 (<40) U/L ALT 17 (<40) U/L Alkaline Phosphatase 57 (39-117) U/L Total Protein 7.3 (5.9-8.4) gm/dL Albumin 4.2 (3.2-5.2) gm/dL All other labs normal. A/P Narrative A/P Narrative: This is a pleasant 80-year-old gentleman with significant past medical history of COPD, coronary artery disease who presents with signs and symptoms most consistent with acute appendicitis. Risk, benefits, alternatives to procedure including nonoperative management discussed with the patient at length, he verbalizes understanding and desires to continue with surgical repair. Plan: Laparoscopic appendectomy Time Spent With Patient Time: Total time spent is greater than 50% in coordination of care (as documented) at patient's floor/unit and/or counseling patient:
[2020-08-10] MEDS ORDERED: 0.9 % SODIUM CHLORIDE 10 ML SYRINGE IV SCH (14:00)
[2020-08-10] MEDS ORDERED: LIDOCAINE HCL/PF 100 MG/5 ML SYRINGE IV ONE (14:08)
[2020-08-10] MEDS ORDERED: PHENYLEPHRINE 10 MG/ML VIAL ONE (14:08)
[2020-08-10] MEDS ORDERED: DEXAMETHASONE 10 MG/ML VIAL ONE (14:08)
[2020-08-10] MEDS ORDERED: MAGNESIUM SULFATE 2 GM/50 ML BAG IV ONE (14:08)
[2020-08-10] MEDS ORDERED: PROPOFOL 200 MG/20 ML VIAL IV ONE (14:08)
[2020-08-10] MEDS ORDERED: KETAMINE 50 MG/ML ML ONE (14:08)
[2020-08-10] MEDS ORDERED: SUGAMMADEX SODIUM 200 MG/2 ML VIAL IV ONE (14:08)
[2020-08-10] MEDS ORDERED: ROCURONIUM 10 MG/ML ML IV ONE (14:08)
[2020-08-10] MEDS ORDERED: DOXAPRAM HCL 20 MG/ML IV ONE (14:08)
[2020-08-10] MEDS ORDERED: LIDOCAINE W/EPI 1% 20 ML VIAL IJ ONE (14:30)
[2020-08-10] MEDS ORDERED: BUPIVACAINE 0.5% 50 ML VIAL IJ ONE (14:30)
[2020-08-10] MEDS ORDERED: LABETALOL 5 MG/ML ML IV PRN ×2 (15:07→16:29)
[2020-08-10] MEDS ORDERED: fentaNYL 100 MCG/2 ML VIAL IV PRN ×2 (15:07→16:29)
[2020-08-10] MEDS ORDERED: MEPERIDINE 25 MG/ML VIAL IV PRN (15:07)
[2020-08-10] MEDS ORDERED: LACTATED RINGERS 1,000 ML IV SCH (15:15)
--- NOTE | 2020-08-10 15:37 | Operative Note ---
Brief Operative Note Date of procedure: 08/10/20 Pre-op diagnosis: Acute appendicitis Post-op diagnosis: same Procedure: Laparoscopic appendectomy Anesthesia: GETA Findings: Acute on chronic appendicitis Complications: none Surgeon: Lev Barcenas Estimated blood loss (cc): 10 Specimens Removed/Pathology: other (Appendix) Condition: stable Disposition: PACU Operative Note Operative Note: After risk benefits and alternatives to the procedure were discussed with the patient at length he verbalized understanding and desire to continue with the procedure. Patient was taken main operating room placed supine operative table. General anesthesia was induced over endotracheal tube. Patient's prepped and draped in standard sterile surgical fashion. Surgical timeout was taken to verify patient and procedure being performed. 1% lidocaine half percent Marcaine was used for local anesthesia. Left side incision was made and the abdominal cavity was entered under direct vision using a 5 mm Optiview trocar. Abdominal cavity was insufflated with carbon dioxide and visual inspection revealed no injuries. 12 mm supraumbilical and a 5 mm left lower quadrant trochars were then placed under direct vision. Attention was turned to the right lower quadrant where there was small amount of lidya pus identified. This was suctioned free from the abdominal cavity. There was a large amount of chronic inflammation in the right lower quadrant and the appendix was difficult to identify it therefore the white line of Toldt was taken down to mobilize the cecum once this is done a densely adherent chronically inflamed appendix was identified and this was carefully dissected free of the cecum with blunt dissection. The mesoappendix was taken down with a LigaSure device. The appendix was then transected at its base using Endo YANA stapler. Once appendix was fully transected and dissected free it was placed in Endo Catch bag removed through the upper midline incision and passed off the field for surgical pathology. Attention was turned back to the staple lines which were inspected for hemostasis. The right lower quadrant was copiously irrigated and all irrigant was suctioned free from the abdominal cavity. The upper midline fascial defect was then reapproximated with interrupted 0 Vicryl suture. The CO2 and trochars were removed under direct vision. Trocar sites were inspected for hemostasis. The skin incisions were closed with interrupted 4 Monocryl sutures and skin glue dressings were applied. Patient was then awakened from general anesthesia transferred postanesthesia care unit awake alert in good condition.
[2020-08-10] MEDS: HYDROcodone/APAP 5/325MG TABLET PO PRN (17:44)
[2020-08-10] MEDS: morphine 2 MG/ML VIAL IV PRN ×2 (18:43→21:05)
[2020-08-10] MEDS: 0.9 % SODIUM CHLORIDE 10 ML SYRINGE IV SCH ×3 (18:44→22:40)
[2020-08-10] MEDS: ACETAMINOPHEN 325 MG TABLET PO PRN (20:15)
[2020-08-10] MEDS ORDERED: MAGNESIUM OXIDE 400 MG TABLET PO SCH ×2 (21:00)
[2020-08-10] MEDS ORDERED: SENNOSIDES 1 TABLET PO SCH (21:00)
[2020-08-10] MEDS ORDERED: ATORVASTATIN 40 MG TABLET PO SCH ×2 (21:00)
[2020-08-11] MEDS: 0.9 % SODIUM CHLORIDE 10 ML SYRINGE IV SCH ×3 (05:28→18:16)
[2020-08-11] MEDS: PIPERACILLIN SODIUM/TAZOBACTAM 3.375 GM in DEXTROSE 5% IN WATER 50 ML IV SCH ×2 (05:29→14:58)
[2020-08-11] MEDS: HYDROcodone/APAP 5/325MG TABLET PO PRN ×2 (07:32→13:01)
[2020-08-11] MEDS: ACETAMINOPHEN 325 MG TABLET PO PRN ×2 (07:32→13:01)
--- NOTE | 2020-08-11 08:08 | General Surgery Progress Note ---
SUBJECTIVE Subjective Patient information: Note initiated : 08/11/20 at 8:06 am Service Date, if different from initiated Date: [] Patient: Owen Van 80 y/o M admitted on 08/10/20 for RLQ pain. Chief Complaint: [] Interval history: Postop day #1 status post laparoscopic appendectomy, did well overnight, tolerating regular diet and his pain is controlled. Constitutional Vitals: Vital Signs Temp Pulse Resp BP Pulse Ox 97.5 F 84 20 121/70 92 08/11/20 03:40 08/11/20 07:48 08/11/20 07:48 08/11/20 03:40 08/11/20 07:48 Period Temp Pulse Resp BP Sys/Rodriguez Pulse Ox Last 24 Hr 97.5 F-99.6 F 68-102 18-28 121-170/56-75 90-100 Intake and Output 08/10/20 08/11/20 08/11/20 21:59 05:59 13:59 Intake Total 2950 490 50 Output Total 715 25 600 Balance 2235 465 -550 Weight 211 lb 8 oz Intake & Output: Intake & Output 08/10/20 08/11/20 08/11/20 21:59 05:59 13:59 Intake Total 2950 490 50 Output Total 715 25 600 Balance 2235 465 -550 Weight 211 lb 8 oz Intake: IV 1050 50 50 Sodium Chloride 0.9% 1,000 ml @ 1000 100 mls/hr IV .Q10H YOU Rx#: [id number] Zosyn 3.375 gm In Dextrose 5% 50 50 50 in Water 50 ml @ 100 mls/hr IV Q8H YOU Rx#:[id number] Oral 440 IV - Manual Only 1900 Output: Urine Catheter Amount 700 600 Void Amount 25 Estimated Blood Loss 15 Other: Urine Appearance Clear Clear Clear Urine Color Dark Yellow Dark Yellow Dark Yellow Urine Odor Strong General appearance: cooperative and no acute distress GI/Abdominal GI/Abdominal exam: Present soft; Absent distended and tenderness Additional comments: Incisions are clean dry and intact A/P Narrative A/P Narrative: Doing well. Home today. Follow-up with me in 2 to 3 weeks. Time Spent With Patient Time: Total time spent is greater than 50% in coordination of care (as documented) at patient's floor/unit and/or counseling patient:
--- NOTE | 2020-08-11 08:13 | Discharge Plan ---
Discharge Plan Patient/Caregiver Discharge Instructions Activity: increase activity as tolerated Diet: Regular Diet Activity Restrictions/Additional Instructions: Resume normal activity as tolerated. No lifting restrictions Follow-up with me in 2 to 3 weeks. May shower as normal. Prescriptions: New ibuprofen 800 mg tablet 800 mg PO TID PRN (Reason: pain) Qty: 60 RF: 0 oxycodone 5 mg tablet 5 mg PO Q6H PRN (Reason: pain) Qty: 5 RF: 0 acetaminophen [Tylenol 8 Hour] 650 mg tablet extended release 650 mg PO Q8H PRN (Reason: pain) Qty: 60 RF: 0 Continued atorvastatin [Lipitor] 40 mg tablet 40 mg PO HS Qty: 90 RF: 0 furosemide 40 mg tablet 40 mg PO DAILY Qty: 30 RF: 3 gabapentin 300 mg capsule 600 mg PO TID Qty: 540 RF: 3 Vascepa 1 gram capsule 2 g PO BID Qty: 360 RF: 3 metformin 500 mg tablet extended release 24 hr 1,000 mg PO BID Qty: 360 RF: 2 ipratropium-albuterol 0.5 mg-3 mg(2.5 mg base)/3 mL solution for nebulization 3 ml inhalation Q4HP PRN (Reason: Wheezing) Qty: 30 RF: 2 potassium chloride 10 mEq tablet extended release 10 meq PO QAMCC Qty: 7 RF: 0 ramipril [Altace] 10 mg capsule 10 mg PO BID Qty: 180 RF: 2 spironolactone 50 mg tablet 50 mg PO DAILY Qty: 90 RF: 3 Lantus Solostar U-100 Insulin 100 unit/mL (3 mL) insulin pen See Rx Instructions SUB-Q QDAY Qty: 15 RF: 10 magnesium oxide 400 mg magnesium tablet 400 mg PO HS RF: 0 hydrocodone-acetaminophen 5-325 mg tablet 1 tab PO Q6HP PRN (Reason: Pain) Qty: 120 RF: 0 diltiazem HCl 300 mg capsule,extended release 24 hr 300 mg PO QAM Qty: 90 RF: 3 meclizine 25 MG tablet 25 mg PO QIDP PRN (Reason: Vertigo) RF: 0 sertraline 50 mg tablet 50 mg PO QDAY RF: 0 yk-voab-pjs-ginkgo-S.gins-hrbs Tablet 1 tab PO DAILY RF: 0 aspirin 162 mg Tablet,Delayed Release (Dr/Ec) 162 mg PO QDAY RF: 0 Follow Up Plan Follow up with: Lev Barcenas MD [Physician] - Patient Disposition: Home, Self-Care Prognosis: Fair Overall status at discharge: patient is progressing back to baseline Discharge Orders: Discharge Order (Routine); Ordered 08/11/20 Ordered By: Lev Barcenas
--- NOTE | 2020-08-11 08:39 | Internal Med Progress Note ---
SUBJECTIVE Subjective Patient information: Note initiated : 08/11/20 at 8:34 am Service Date, if different from initiated Date: [] Patient: Owen Van 80 y/o M admitted on 08/10/20 for RLQ pain. Chief Complaint: [Perforated appendicitis] Overnight: Passing gas, no bowel movement yet. Afebrile. Tolerating regular diet. Subjective: Moderate sharp constant RLQ abdominal pain. Denies nausea or vomiting. Tolerating regular diet. Constitutional Vitals: Vital Signs Temp Pulse Resp BP Pulse Ox 36.4 C 84 20 121/70 92 08/11/20 03:40 08/11/20 07:48 08/11/20 07:48 08/11/20 03:40 08/11/20 08:16 Period Temp Pulse Resp BP Sys/Rodriguez Pulse Ox Last 24 Hr 36.4 C-37.6 C 68-102 18-28 121-170/56-75 90-100 Intake and Output 08/10/20 08/11/20 08/11/20 21:59 05:59 13:59 Intake Total 2950 490 50 Output Total 715 25 600 Balance 2235 465 -550 Weight 95.935 kg Intake & Output: Intake & Output 08/10/20 08/11/20 08/11/20 21:59 05:59 13:59 Intake Total 2950 490 50 Output Total 715 25 600 Balance 2235 465 -550 Weight 95.935 kg Intake: IV 1050 50 50 Sodium Chloride 0.9% 1,000 ml @ 1000 100 mls/hr IV .Q10H YOU Rx#: [id number] Zosyn 3.375 gm In Dextrose 5% 50 50 50 in Water 50 ml @ 100 mls/hr IV Q8H YOU Rx#:[id number] Oral 440 IV - Manual Only 1900 Output: Urine Catheter Amount 700 600 Void Amount 25 Estimated Blood Loss 15 Other: Urine Appearance Clear Clear Clear Urine Color Dark Yellow Dark Yellow Dark Yellow Urine Odor Strong General appearance: cooperative and no acute distress Head Head exam: Present atraumatic and normocephalic Eye Eye exam: Present EOMI and PERRL ENT ENT exam: Present mucous membranes moist, normal exam and normal external ear exam Additional comments: Nasal cannula oxygen in place. Neck Neck exam: Present normal inspection; Absent lymphadenopathy, tenderness and thyromegaly Respiratory Respiratory exam: Absent accessory muscle use, respiratory distress and wheezes Cardiovascular Cardiovascular exam: Present normal rate and rhythm; Absent JVD GI/Abdominal GI/Abdominal exam: Present normal bowel sounds and soft; Absent organomegaly and tenderness Additional comments: Multiple laparoscopic surgical wounds in place. Rectal Rectal exam: Present deferred Extremities Exam Extremities exam: Present full ROM, normal capillary refill and normal inspection; Absent tenderness Neurological Exam Neurological exam: Present alert, CN II-XII intact and oriented X3; Absent motor sensory deficit Psychiatric Psychiatric exam: Present normal affect and normal mood; Absent anxious and depressed Skin Skin exam: Present dry and intact OBJ DATA Labs CBC & Chem 7: 08/10/20 00:01 08/10/20 00:01 Labs: Abnormal Lab Results 08/10/20 08/10/20 08/10/20 08:17 00:01 00:01 RBC 4.10 L Hgb 12.5 L Hct 39.5 L POC Hct 40 L MPV 10.5 H Neut % (Auto) 84.1 H Lymph % (Auto) 9.6 L Lymph # (Auto) 0.98 L Absolute Neutrophils 8.64 H Sodium 132 L POC Total CO2 33 H Anion Gap 5.0 L Glucose 287 H POC Glucose 285 H Calcium 10.6 H POC WB Ioniz Calcium 1.35 H Procalcitonin 1.23 H Meds: Medications Acetaminophen (Acetaminophen 325 Mg Tablet) 650 mg PO Q6HP PRN; Protocol PRN Reason: Per Pain Protocol/Fever > 101 Last Admin: 08/11/20 07:32 Dose: 325 mg Documented by: Hydrocodone Bitart/Acetaminophen (Hydrocodone/Apap 5/325mg Tablet) 1 tab PO Q6HP PRN; Protocol PRN Reason: Pain Last Admin: 08/11/20 07:32 Dose: 1 tab Documented by: Albuterol/Ipratropium (Ipratropium/Albuterol 3 Ml Ampul.Neb) 3 ml NEB Q4HP PRN PRN Reason: Wheezing Last Admin: 08/11/20 07:46 Dose: 3 ml Documented by: Atorvastatin Calcium (Atorvastatin 40 Mg Tablet) 40 mg PO HS YUO Last Admin: 08/10/20 20:09 Dose: 40 mg Documented by: Furosemide (Furosemide 40 Mg Tablet) 40 mg PO DAILY YOU Gabapentin (Gabapentin 300 Mg Capsule) 600 mg PO TID YOU Last Admin: 08/10/20 20:10 Dose: 600 mg Documented by: Piperacillin Sod/Tazobactam (Sod 3.375 gm/ Dextrose) 50 mls @ 100 mls/hr IV Q8H [facility]; Protocol Last Infusion: 08/11/20 06:11 Dose: Infused Documented by: Magnesium Oxide (Magnesium Oxide 400 Mg Tablet) 400 mg PO HS [facility] Last Admin: 08/10/20 20:09 Dose: 400 mg Documented by: Meclizine HCl (Meclizine 25 Mg Tablet) 25 mg PO QIDP PRN PRN Reason: Vertigo Morphine Sulfate (Morphine 2 Mg/Ml Vial) 2 mg IV Q2HP PRN; Protocol PRN Reason: Per Pain Protocol Last Admin: 08/10/20 21:05 Dose: 2 mg Documented by: Ondansetron HCl (Ondansetron 4 Mg/2 Ml Vial) 4 mg IV Q4HP PRN; Protocol PRN Reason: Nausea And Vomiting Icosapent Ethyl [ Vascepa] 1 Gram Capsule 2 dose PO BID [facility] Last Admin: 08/10/20 22:42 Dose: Not Given Documented by: Sertraline HCl (Sertraline 50 Mg Tablet) 50 mg PO QDAY [facility] Sodium Chloride (0.9 % Sodium Chloride 10 Ml Syringe) 10 ml IV Q8 [facility] Last Admin: 08/11/20 06:11 Dose: 10 ml Documented by: Spironolactone (Spironolactone 25 Mg Tablet) 50 mg PO DAILY [facility] A/P Narrative A/P Narrative: Assessment and Plans: 1. Acute appendicitis with likely early perforation: POD#[address] Barcenas Saline lock, tolerating regular diet Okay to discharge home today with Rx Augmentin, narcotics, Tylenol, Zofran, Colace. Follow up with Dr. Barcenas 2-3 week Follow up with PCP in 2 week 2. T2DM: HgA1c Hold oral hypogycemics Hold Scheduled insulin due to NPO status High dose sliding scale insulin Accu Chek [facility] Hypoglycemia protocol Diabetic diet 3. Essential HTN: Currently normotensive Continue home regimen of oral antihypertensives 4. AAA: Currently normotensive Continue home regimen of oral antihypertensives 5. Mixed dyslipidemia: Continue statin therapy 6. c/o CHF: Continue antihypertensives, JOSE JUAN-i, diuretics 7. PHOEBE not on CPAP: Supplemental oxygen titrate to acheive O2 sat >=92% 8. Anemia, macrocytic: cbc w/ auto diff daily to trend hemoglobin level, pRBC transfusion if hemoglobin <7.0, active bleeding, or symptomatic Time Spent With Patient Time: Total time spent is greater than 50% in coordination of care (as documented) at patient's floor/unit and/or counseling patient: QUALITY Stroke Symptom Onset Unknown: No VTE Deep Vein Thrombosis/Pulmonary Embolism Present on Admission: No
[2020-08-11] MEDS ORDERED: FUROSEMIDE 40 MG TABLET PO SCH (09:00)
[2020-08-11] MEDS ORDERED: SERTRALINE 50 MG TABLET PO SCH (09:00)
[2020-08-11] MEDS ORDERED: SPIRONOLACTONE 25 MG TABLET PO SCH (09:00)
[2020-08-11] MEDS: GABAPENTIN 300 MG CAPSULE PO SCH ×2 (09:50→17:41)
--- NOTE | 2020-08-12 13:17 | Surgical Pathology Report ---
Histology Microscopic Diagnosis Specimen A- APPENDIX, APPENDECTOMY: --- ACUTE APPENDICITIS WITH ACUTE SEROSITIS. (RLF) Procedural Impression Acute appendicitis. Gross Description Received in formalin labeled appendix, is a hatfield-banuelos appendix measuring 4.7 cm in length x 1.2 cm in diameter with up to 2 cm of banuelos attached fat. The margin is stapled; this is inked black. The serosa is hatfield-banuelos with possible hatfield-banuelos exudate. Approximately 1.8 cm from the margin there is an area of possible perforation. Esthetician sections are submitted in three cassettes: A1 - margin and random section; A2 - areas of possible perforation; A3 - sales and marketing representative section of tip. (SCB:adj) Electronically Signed Gisela Arriaga MD, FCAP Electronically Signed 08/12/2020 13:15
== END 2020-08-11 15:50 | disposition home or self-care (01) ==
LOC: MEDSUR 23:11 → ED 23:11 → MEDSUR 08-10 03:02
PROVIDERS: ADMIT Surgery; ATTEND Surgery

== ENCOUNTER 2021-04-27 23:20 | Inpatient (IN) ==
[2021-04-27] MEDS ORDERED: IOPAMIDOL 100 ML BOTTLE IV ONE (23:21)
[2021-04-27] MEDS ORDERED: 0.9 % SODIUM CHLORIDE 1,000 ML IV ONE (23:54)
[2021-04-28] MEDS ORDERED: PANTOPRAZOLE 40 MG VIAL IV ONE (00:09)
[2021-04-28] MEDS ORDERED: 0.9 % SODIUM CHLORIDE 250 ML IV SCH ×3 (00:15→08:45)
[2021-04-28] MEDS ORDERED: ALBUTEROL SULFATE 5 MG/ML NEB SOLUTION BOTTLE NEB ONE (00:18)
[2021-04-28] MEDS ORDERED: INSULIN REGULAR, HUMAN 1 UNIT/0.01 ML UNIT IV ONE (00:18)
[2021-04-28] MEDS ORDERED: DEXTROSE 50% 50 ML VIAL IV ONE (00:18)
[2021-04-28] MEDS ORDERED: CALCIUM GLUCONATE 13.95 MEQ in DEXTROSE 5% IN WATER 50 ML IV ONE (00:18)
[2021-04-28 00:20] LABS: POC Blood Urea Nitrogen 89 mg/dL (6-20); POC CO2 24 mmol/L (22-30); POC Calcium, Ionized 1.19 mmEq/L (1.16-1.32); POC Chloride 98 mEq/L (96-108); POC Creatinine 2.6 mg/dL (0.6-1.2); POC Glucose, Random 157 mg/dL (70-105); POC Hematocrit 19 % (41-55); POC Potassium 5.9 mEql/L (3.3-5.1); POC Sodium 135 mEq/L (133-145)
[2021-04-28] MEDS ORDERED: CALCIUM GLUCONATE 4.65 MEQ in DEXTROSE 5% IN WATER 50 ML IV ONE ×2 (00:23→01:40)
[2021-04-28] MEDS ORDERED: DEXTROSE 50% 50 ML SYRINGE IV ONE (00:58)
[2021-04-28] MEDS ORDERED: fentaNYL 100 MCG/2 ML VIAL IV ONE ×2 (01:05→01:25)
[2021-04-28] MEDS ORDERED: 0.9 % SODIUM CHLORIDE 500 ML IV ONE (01:12)
--- NOTE | 2021-04-28 01:24 | Emergency Department Note ---
HPI General Chief complaint: Fall Stated complaint: fall/blood thinners Time Seen by Provider: 04/27/21 23:25 Source: patient Mode of arrival: ambulatory Limitations: no limitations History of Present Illness HPI Narrative: Narrative: 81-year-old male history of CHF, diabetes, AAA, restless leg, COPD, A-flutter, heart disease presenting to the ED following an episode of possible orthostasis? He was at his nursing facility he was getting up out of his chair when he felt lightheaded and fell. Denies syncope. He had no preceding symptoms other than feeling lightheaded no chest pain no shortness of breath no palpitations no abdominal pain no nausea no vomiting no diarrhea no focal neurologic complaints. Has small contusion to his forehead but has no injuries following the fall has no new pain anywhere. Has some chronic pain and restlessness to his right foot at baseline. Does takes aspirin and Plavix. He does confirm that he is DNR. Of note he says his just this morning of dementia. Has some generalized weakness but no other acute complaints at this time. Does endorse he has had some black tarry stools recently but not today no history of GI bleed no hematemesis and again no abdominal pain Related Data Home Medications Medication Instructions Recorded Confirmed aspirin 162 mg tablet,delayed 162 mg PO QDAY 08/10/20 10/12/20 release Previous Rx's Medication Instructions Recorded hydrocodone 5 mg-acetaminophen 325 1 tab PO Q6HP PRN #120 tab 12/15/20 mg tablet acetaminophen 650 mg See Rx Instructions .ROUTE 04/11/21 tablet,extended release .COMPLEX #90 each atorvastatin 40 mg tablet (Lipitor) 40 mg PO HS #90 tab 04/11/21 clopidogrel 75 mg tablet 75 mg PO QDAY #90 tab 04/11/21 diltiazem HCl 300 mg capsule,24 300 mg PO QAM #90 cap 04/11/21 hr,extended release docusate sodium 100 mg capsule See Rx Instructions .ROUTE 04/11/21 .COMPLEX #60 each furosemide 40 mg tablet 40 mg PO DAILY #30 tab 04/11/21 gabapentin 300 mg capsule 600 mg PO TID #540 cap 04/11/21 ibuprofen 800 mg tablet See Rx Instructions .ROUTE 04/11/21 .COMPLEX #90 each icosapent ethyl 1 gram capsule 2 g PO BID #360 cap 04/11/21 (Vascepa) insulin glargine 100 unit/mL (3 See Rx Instructions SUB-Q QDAY #60 04/11/21 mL) subcutaneous pen (Lantus ml Solostar U-100 Insulin) magnesium oxide 400 mg (241.3 mg See Rx Instructions .ROUTE 04/11/21 magnesium) tablet .COMPLEX #30 each meclizine 25 mg chewable tablet See Rx Instructions .ROUTE 04/11/21 .COMPLEX #60 each metformin 500 mg tablet,extended 1,000 mg PO BID #360 tab 04/11/21 release 24 hr multivitamin-iron 9 mg-folic acid See Rx Instructions .ROUTE 04/11/21 400 mcg-calcium and minerals .COMPLEX #30 each tablet (Therems-M) ondansetron HCl 4 mg tablet See Rx Instructions .ROUTE 04/11/21 .COMPLEX #30 each pen needle, diabetic 31 gauge x #100 ea 04/11/21 3/16" (Unifine Pentips) potassium chloride 10 mEq See Rx Instructions .ROUTE 04/11/21 tablet,extended release(part/cryst) .COMPLEX #30 each sertraline 50 mg tablet See Rx Instructions .ROUTE 04/11/21 .COMPLEX #90 tab spironolactone 50 mg tablet See Rx Instructions .ROUTE 04/11/21 .COMPLEX #90 tab ramipril 10 mg capsule See Rx Instructions .ROUTE 04/25/21 .COMPLEX #180 cap Allergies Allergy/AdvReac Type Severity Reaction Status Date / Time No Known Drug Allergies Allergy Verified 04/27/21 23:21 Review of Systems ROS ROS Narrative: Narrative: At least 10 systems reviewed and otherwise acutely negative except as in the HPI PFSH Narrative Patient History Narrative: Narrative: Medical/Surgical/Family History All Active Problems (Updated 04/28/21 @ 05:13 by Landon Britt DO) GIB (gastrointestinal bleeding) (Acute) Acute blood loss anemia (Acute) MYA (acute kidney injury) (Acute) Acute hyperkalemia (Acute) Arrhythmia (Acute) Near syncope (Acute) Left atrial enlargement (Acute) Bronchitis (Acute) Acute appendicitis (Acute) Depression (Acute) Erectile dysfunction (Acute) Head injury (Acute) Acute appendicitis (Acute) 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) Aortic stenosis, severe (Acute) COPD with exacerbation (Chronic) Shortness of breath (Chronic) Infiltrate of lower lobe of right lung present on imaging study (Chronic ~08/2018) Pulmonary congestion (Chronic ~08/2018) Heart failure (Chronic ~08/2018) PNA (pneumonia) (Chronic) Fatigue (Chronic) Hyperlipidemia, mixed (Chronic) Atherosclerotic cardiovascular disease (Chronic) Hypertension, essential, benign (Chronic) 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) Back pain (Chronic) AAA (abdominal aortic aneurysm) (Chronic) Restless leg syndrome (Chronic) Vertigo (Chronic) Diabetic neuropathy (Chronic) Heart murmur (Chronic) Acute exacerbation of chronic obstructive airways disease (Chronic) COPD (chronic obstructive pulmonary disease) (Chronic) Erectile dysfunction (Chronic) CHF (congestive heart failure) (Chronic) Atrial flutter (Chronic) Mitral valve prolapse (Chronic) Rhinorrhea (Chronic) Dizziness (Chronic) Chronic radicular pain of lower back (Chronic) Neck pain (Chronic) Shoulder pain, right (Chronic) CAD (coronary artery disease) (Chronic) Other hypertrophic cardiomyopathy (Chronic) Cellulitis (Chronic) Foot callus (Chronic) Constipation (Chronic) Anemia (Chronic) Cervical radiculopathy (Chronic) Seborrheic keratosis (Chronic) Obstructive sleep apnea of adult (Chronic) Diastolic dysfunction (Chronic) Peripheral edema (Chronic) Other specified metabolic disorders (Chronic) Daytime somnolence (Chronic) Insomnia (Chronic) Acute exacerbation of chronic obstructive airways disease (Acute) Orthostatic hypotension (Chronic) Community acquired pneumonia (Acute) Congestive heart failure (Acute) Pneumonia (Acute) Sepsis (Acute) Respiratory failure with hypoxia and hypercapnia (Acute) Cervical radiculopathy (Acute) Cervicalgia (Acute) Medical History AAA (abdominal aortic aneurysm) Acute exacerbation of chronic obstructive airways disease Acute exacerbation of chronic obstructive airways disease Anemia Appendicitis (~04/2019) Atherosclerotic cardiovascular disease Atrial flutter Back pain CAD (coronary artery disease) Cellulitis Cervical radiculopathy CHF (congestive heart failure) Chronic radicular pain of lower back Constipation COPD (chronic obstructive pulmonary disease) COPD with exacerbation Daytime somnolence Diabetic neuropathy Diastolic dysfunction Dizziness Erectile dysfunction Fatigue Foot callus Heart failure (~08/2018) Heart murmur Hyperlipidemia, mixed Hypertension, essential, benign Infiltrate of lower lobe of right lung present on imaging study (~08/2018) Insomnia Mitral valve prolapse Neck pain Obstructive sleep apnea of adult Orthostatic hypotension Other hypertrophic cardiomyopathy Other specified metabolic disorders Peripheral edema PNA (pneumonia) Pulmonary congestion (~08/2018) Restless leg syndrome Rhinorrhea Seborrheic keratosis Shortness of breath Shoulder pain, right Type 2 diabetes mellitus with polyneuropathy Vertigo Surgical History History of appendectomy 04/2019 History of laparoscopic appendectomy 08/10/2020 History of mitral valve repair History of surgery (~06/2013) 2 way bypass Family History Mother Heart disease Coronary heart disease Heart attack Daughter Drug abuse Type I diabetes mellitus Father Elevated PSA Social History Smoking Status: Former smoker Alcohol Intake Frequency: a few times a month Exam Narrative Narrative: Narrative: Constitutional: Ill-appearing nondistressed, pale Head: Normocephalic, small contusion to forehead, Eyes: No Icterus,, pallorous conjunctiva ENT: Dry mucus membranes, Neck: Supple, no midline tenderness Cardiac: Bradycardic heart sounds, palpable but diminished peripheral pulses, trace pedal edema Pulmonary: Normal respiratory effort. Breath sounds clear, no wheeze, rhonchi, rales, Gastrointestinal: Abdomen soft, non-distended, non-tender, Musculoskeletal: No gross deformities, atraumatic, nontender, no cyanosis Skin: warm, dry Neuro: Alert and orientedx3. General Limitations: no limitations Course Vital Signs Vital signs: Vital Signs Temperature 36.7 C 04/27/21 23:24 Pulse Rate 45 L 04/27/21 23:24 Respiratory Rate 21 04/27/21 23:24 Blood Pressure 108/35 04/27/21 23:24 Pulse Oximetry (%) 4 L 04/27/21 23:24 Temperature 36.7 C 04/27/21 23:24 Pulse Rate 64 04/28/21 05:03 Respiratory Rate 28 H 04/28/21 05:18 Blood Pressure 118/59 04/28/21 05:16 Pulse Oximetry (%) 96 04/28/21 05:03 [facility] Narrative Medical decision making narrative: Patient presents bradycardic hypotensive ill-appearing after near syncopal event. Work-up initiated Twelve-lead EKG appears to show a bradycardic slightly irregular narrow complex rhythm somewhat difficult to determine as he has diminished P waves throughout, concern for sinus arrhythmia, fib/flutter, heart block. Questionably peaked T waves in V4 V5 V6 Patient was placed on cardiac pads, no indication for immediate pacing at this time as his map is stable will monitor closely, and await electrolytes We will obtain CT of the head C-spine and CT angio chest abdomen pelvis, labs currently pending but given patient's critical status will scan now Concern for GI bleed he is given 80 mg Protonix, crossed for blood. [id number] hematocrit low 19, sodium 135 potassium 5.9 bicarb is 24 BUN of 89 and a new kidney failure creatinine 2.6 baseline 1.0 in February, glucose 157 magnesium within normal 2.5 Given his hyperkalemia and bradycardia/possible heart block we did immediately give him calcium, insulin, D50, albuterol and IV fluids. Reevaluation:awaiting blood, map is around 65, no new complaints was given 500 cc further IV fluid. Awaiting further diagnostic results CT head/c-spine: No acute traumatic injury CTA chest abdomen pelvis shows no acute findings, does show an unchanged infrarenal AAA 3.6 cm CBC: acute anemia hemoglobin 5.7, platelets normal CMP shows a potassium of 6.1, normal bicarb, BUN of 78, creatinine 2.3, glucose 150s Bilirubin AST ALT normal Troponin 0.05, and lactate 3.3. Given overall picture as well as lack of chest pain I suspect these are both secondary to acute blood loss anemia, secondary demand and hypotension, will trend with following resuscitative measures 0130: Appears to have converted into a sinus rhythm after hyperkalemia Tx: HR 80s, BP improved; rpt EKG, K. Repeat twelve-lead EKG appears regular there appears to be consistent P waves before QRS suspect sinus with a mild first-degree AV block and partial right bundle branch block, no STEMI criteria Repeat potassium corrected now normal 5.1. Reevaluation patient is feeling much better, he is receiving his second unit PRBC, blood pressure markedly improved, VSS. I suspect underlying cause of acute GI bleed likely causing hypotension/near syncope with acute kidney injury & secondary hyperkalemia, we will trend electrolytes/lactate/hgb after second unit. Patient is markedly improved, no emergent or surgical process noted on CT, he is DNR, and additionally his just earlier today, he would very much like to stay here and continue with conservative medical management, as opposed to transfer to higher level of care. I have spoken with live in housekeeper, hospitalist, and Dr. Braun surgeon who are all agreeable to this plan, will be admitted to PCU under [facility], Dr. Braun likely plan for endoscopy this morning. Requested Protonix drip which will be started. 0600: transferred to PCU, VSS, feels much better, making urine, finishing 2nd uPRBC, then will rpt labs on the floor Critical Care Time Total CriticalCare time was at least 60 minutes, excluding separately reportable procedures. There was a high probability of clinically significant/life threatening deterioration in the patient's condition which required my urgent intervention. Lab Data Result diagrams: 04/27/21 23:54 04/28/21 23:56 Labs: Lab Results 04/27/21 04/27/21 04/27/21 Range/Units 23:50 23:52 23:53 WBC (4.5-11.0) K/mcL RBC (4.63-6.08) M/mcL Hgb (13.7-17.5) g/dL Hct (40.1-51.0) % POC Hct 19 L* (41-55) % MCV (80.0-100.0) fL MCH (26.0-34.0) pg MCHC (31.0-36.0) g/dL RDW (11.5-14.5) % Plt Count (140-440) K/mcL MPV (7.4-10.4) fL Neut % (Auto) (38.0-78.0) % Lymph % (Auto) (15.5-49.0) % [place] % (Auto) (1.0-12.0) % Eos % (Auto) (0.0-7.0) % Baso % (Auto) (0.0-2.0) % Lymph # (Auto) (1.50-4.80) K/mcL [place] # (Auto) (0.10-0.90) K/mcL Eos # (Auto) (0.00-0.70) K/mcL Baso # (Auto) (0.00-0.30) K/mcL Absolute Neutrophils (1.80-8.00) K/mcL VBG Lactic Acid (0.5-2.0) mmol/L POC Sodium 135 (133-145) mEq/L Sodium 135 (133-145) mmol/L POC Potassium 5.9 H* (3.3-5.1) mEql/L Potassium 6.1 H* (3.3-5.1) mmol/L POC Chloride 98 (96-108) mEq/L Chloride 96 (96-108) mmol/L Carbon Dioxide 26 (22-30) mmol/L POC Total CO2 24 (22-30) mmol/L Anion Gap 13.0 (8.0-16.0) POC BUN 89 H (6-20) mg/dL BUN 78 H (8-23) mg/dL Creatinine 2.3 H (0.7-1.2) mg/dL POC Creatinine 2.6 H (0.6-1.2) mg/dL GFR Calculation 25 Glucose 155 H (70-105) mg/dL POC Glucose 157 H (70-105) mg/dL Calcium 9.1 (8.6-10.4) mg/dL POC WB Ioniz Calcium 1.19 (1.16-1.32) mmEq/L Magnesium 2.5 (1.6-2.5) mg/dL Total Bilirubin < 0.2 (0.1-1.0) mg/dL AST 13 (<40) U/L ALT 9 (<40) U/L Alkaline Phosphatase 48 (39-117) U/L Troponin T 0.05 H* (<0.03) ng/mL Total Protein 6.2 (5.9-8.4) gm/dL Albumin 3.7 (3.2-5.2) gm/dL Globulin 2.5 (2.2-3.7) gm/dL Albumin/Globulin Ratio 1.5 (1.0-2.3) 04/27/21 04/28/21 04/28/21 Range/Units 23:54 01:39 23:56 WBC 10.8 (4.5-11.0) K/mcL RBC 2.26 L (4.63-6.08) M/mcL Hgb 5.7 L* (13.7-17.5) g/dL Hct 19.0 L* (40.1-51.0) % POC Hct (41-55) % MCV 84.1 (80.0-100.0) fL MCH 25.2 L (26.0-34.0) pg MCHC 30.0 L (31.0-36.0) g/dL RDW 19.0 H (11.5-14.5) % Plt Count 259 (140-440) K/mcL MPV 10.9 H (7.4-10.4) fL Neut % (Auto) 74.2 (38.0-78.0) % Lymph % (Auto) 16.0 (15.5-49.0) % [place] % (Auto) 8.9 (1.0-12.0) % Eos % (Auto) 0.6 (0.0-7.0) % Baso % (Auto) 0.3 (0.0-2.0) % Lymph # (Auto) 1.73 (1.50-4.80) K/mcL [place] # (Auto) 0.97 H (0.10-0.90) K/mcL Eos # (Auto) 0.07 (0.00-0.70) K/mcL Baso # (Auto) 0.03 (0.00-0.30) K/mcL Absolute Neutrophils 8.04 H (1.80-8.00) K/mcL VBG Lactic Acid 3.3 H (0.5-2.0) mmol/L POC Sodium (133-145) mEq/L Sodium (133-145) mmol/L POC Potassium (3.3-5.1) mEql/L Potassium 5.1 (3.3-5.1) mmol/L POC Chloride (96-108) mEq/L Chloride (96-108) mmol/L Carbon Dioxide (22-30) mmol/L POC Total CO2 (22-30) mmol/L Anion Gap (8.0-16.0) POC BUN (6-20) mg/dL BUN (8-23) mg/dL Creatinine (0.7-1.2) mg/dL POC Creatinine (0.6-1.2) mg/dL GFR Calculation Glucose (70-105) mg/dL POC Glucose (70-105) mg/dL Calcium (8.6-10.4) mg/dL POC WB Ioniz Calcium (1.16-1.32) mmEq/L Magnesium (1.6-2.5) mg/dL Total Bilirubin (0.1-1.0) mg/dL AST (<40) U/L ALT (<40) U/L Alkaline Phosphatase (39-117) U/L Troponin T (<0.03) ng/mL Total Protein (5.9-8.4) gm/dL Albumin (3.2-5.2) gm/dL Globulin (2.2-3.7) gm/dL Albumin/Globulin Ratio (1.0-2.3) ED POC Tests ED POC Tests: [id number] - SARS Antigen Negative Discharge Plan Patient/Caregiver Discharge Instructions Pt seen by [employer] REP/PA only: No Clinical Impression: GIB (gastrointestinal bleeding), Acute blood loss anemia, MYA (acute kidney injury), Acute hyperkalemia, Arrhythmia, Near syncope Patient Disposition: Xfer As Inpt ([facility]) Condition: Critical Follow up with: Radha Braun ARNP [Primary Care Provider] - Prescriptions: No Action hydrocodone-acetaminophen 5-325 mg tablet 1 tab PO Q6HP PRN (Reason: Pain) Qty: 120 0RF Rx Instructions: can fill sertraline 50 mg tablet See Rx Instructions .ROUTE .COMPLEX Qty: 90 3RF Dose Instruction: TAKE 1 TABLET BY MOUTH EVERY DAY Rx Instructions: TAKE 1 TABLET BY MOUTH EVERY DAY spironolactone 50 mg tablet See Rx Instructions .ROUTE .COMPLEX Qty: 90 3RF Dose Instruction: TAKE 1 TABLET BY MOUTH DAILY Rx Instructions: TAKE 1 TABLET BY MOUTH DAILY metformin 500 mg tablet extended release 24 hr 1,000 mg PO BID Qty: 360 3RF atorvastatin [Lipitor] 40 mg tablet 40 mg PO HS Qty: 90 3RF clopidogrel 75 mg tablet 75 mg PO QDAY Qty: 90 3RF diltiazem HCl 300 mg capsule,extended release 24 hr 300 mg PO QAM Qty: 90 3RF Lantus Solostar U-100 Insulin 100 unit/mL (3 mL) insulin pen See Rx Instructions SUB-Q QDAY Qty: 60 10RF Rx Instructions: 26 units in am and 40 units at night subcut daily; PLEASE PROVIDE 90 DAY SUPPLY AT A TIME. Vascepa 1 gram capsule 2 g PO BID Qty: 360 3RF gabapentin 300 mg capsule 600 mg PO TID Qty: 540 3RF furosemide 40 mg tablet 40 mg PO DAILY Qty: 30 3RF magnesium oxide 400 mg (241.3 mg magnesium) tablet See Rx Instructions .ROUTE .COMPLEX Qty: 30 10RF Dose Instruction: TAKE ONE TABLET BY MOUTH EVERY DAY AT BEDTIME Rx Instructions: TAKE ONE TABLET BY MOUTH EVERY DAY AT BEDTIME (DME) pen needle, diabetic [Unifine Pentips] 31 gauge x 3/16" needle See Rx Instructions .ROUTE .COMPLEX Qty: 100 10RF Dose Instruction: USE WITH LANTUS PEN Rx Instructions: USE WITH LANTUS PEN potassium chloride 10 mEq tablet,ER particles/crystals See Rx Instructions .ROUTE .COMPLEX Qty: 30 10RF Dose Instruction: TAKE ONE TABLET BY MOUTH EVERY DAY IN THE MORNING WITH FOOD Rx Instructions: TAKE ONE TABLET BY MOUTH EVERY DAY IN THE MORNING WITH FOOD acetaminophen 650 mg tablet extended release See Rx Instructions .ROUTE .COMPLEX Qty: 90 10RF Dose Instruction: TAKE ONE TABLET BY MOUTH EVERY 8 HOURS NEEDED * DO NOT EXCEED 3000MG T YLENOL/24HRS Rx Instructions: TAKE ONE TABLET BY MOUTH EVERY 8 HOURS NEEDED * DO NOT EXCEED 3000MG TYLENOL/24HRS docusate sodium 100 mg capsule See Rx Instructions .ROUTE .COMPLEX Qty: 60 10RF Dose Instruction: TAKE ONE CAPSULE BY MOUTH TWO TIMES A DAY Rx Instructions: TAKE ONE CAPSULE BY MOUTH TWO TIMES A DAY ondansetron HCl 4 mg tablet See Rx Instructions .ROUTE .COMPLEX Qty: 30 10RF Dose Instruction: TAKE ONE TABLET BY MOUTH EVERY 8 HOURS NEEDED FOR NAUSEA/VOMITING Rx Instructions: TAKE ONE TABLET BY MOUTH EVERY 8 HOURS NEEDED FOR NAUSEA/VOMITING meclizine 25 mg tablet,chewable See Rx Instructions .ROUTE .COMPLEX Qty: 60 10RF Dose Instruction: TAKE ONE TABLET BY MOUTH FOUR TIMES PER DAY NEEDED VERTIGO Rx Instructions: TAKE ONE TABLET BY MOUTH FOUR TIMES PER DAY NEEDED VERTIGO ibuprofen 800 mg tablet See Rx Instructions .ROUTE .COMPLEX Qty: 90 10RF Dose Instruction: TAKE ONE TABLET BY MOUTH THREE TIMES PER DAY NEEDED FOR PAIN *TAKE WITH FOOD Rx Instructions: TAKE ONE TABLET BY MOUTH THREE TIMES PER DAY NEEDED FOR PAIN *TAKE WITH FOOD Therems-M 9 mg iron-400 mcg tablet See Rx Instructions .ROUTE .COMPLEX Qty: 30 10RF Dose Instruction: TAKE ONE TABLET BY MOUTH EVERY DAY IN THE MORNING WITH FOOD Rx Instructions: TAKE ONE TABLET BY MOUTH EVERY DAY IN THE MORNING WITH FOOD ramipril 10 mg capsule See Rx Instructions .ROUTE .COMPLEX Qty: 180 0RF Dose Instruction: TAKE 1 CAPSULE BY MOUTH TWICE DAILY. GENERIC EQUIVALENT FOR ALTACE Rx Instructions: TAKE 1 CAPSULE BY MOUTH TWICE DAILY. GENERIC EQUIVALENT FOR ALTACE aspirin 162 mg Tablet,Delayed Release (Dr/Ec) 162.5 mg PO QDAY 0RF
[2021-04-28 01:40] LABS: Basophils # (Auto) 0.03 K/mcL (0.00-0.30); Basophils % (Auto) 0.3 % (0.0-2.0); Eosinophils # (Auto) 0.07 K/mcL (0.00-0.70); Eosinophils % (Auto) 0.6 % (0.0-7.0); Hemoglobin 5.7 g/dL (13.7-17.5); Lymphocytes # (Auto) 1.73 K/mcL (1.50-4.80); Mean Cell Volume 84.1 fL (80.0-100.0); Mean Platelet Volume 10.9 fL (7.4-10.4); Monocytes # (Auto) 0.97 K/mcL (0.10-0.90); Monocytes % (Auto) 8.9 % (1.0-12.0); Neutrophils % (Auto) 74.2 % (38.0-78.0); Platelet Count 259 K/mcL (140-440); RBC 2.26 M/mcL (4.63-6.08); WBC 10.8 K/mcL (4.5-11.0)
[2021-04-28 01:41] LABS: ALT/SGPT 9 U/L (<40); AST/SGOT 13 U/L (<40); Albumin 3.7 gm/dL (3.2-5.2); Albumin/Globulin Ratio 1.5 (1.0-2.3); Alkaline Phosphatase 48 U/L (39-117); Bilirubin,Total < 0.2 mg/dL (0.1-1.0); Blood Urea Nitrogen 78 mg/dL (8-23); Calcium 9.1 mg/dL (8.6-10.4); Carbon Dioxide 26 mmol/L (22-30); Chloride 96 mmol/L (96-108); Globulin 2.5 gm/dL (2.2-3.7); Glomerular Filtration Rate 25; Glucose 155 mg/dL (70-105)
[2021-04-28] MEDS ORDERED: LIDOCAINE PATCH TOPICAL ONE (02:25)
[2021-04-28] MEDS ORDERED: morphine 2 MG/ML VIAL IV PRN (04:03)
[2021-04-28] MEDS ORDERED: ONDANSETRON 4 MG/2 ML VIAL IV PRN ×2 (04:03→11:24)
[2021-04-28] MEDS ORDERED: NALOXONE HCL 0.4 MG/ML VIAL IV PRN (04:03)
[2021-04-28] MEDS: PANTOPRAZOLE 80 MG in 0.9 % SODIUM CHLORIDE 100 ML IV SCH ×2 (05:50→15:19)
[2021-04-28 07:39] LABS: Blood Urea Nitrogen 74 mg/dL (8-23); Calcium 9.3 mg/dL (8.6-10.4); Carbon Dioxide 24 mmol/L (22-30); Chloride 99 mmol/L (96-108); Glomerular Filtration Rate 28; Glucose 125 mg/dL (70-105)
--- NOTE | 2021-04-28 07:56 | Internal Med History&Physical ---
HPI History of Present Illness Patient information: Note initiated : 04/28/21 at 7:31 am Service Date, if different from initiated Date: [] Patient: Owen Van 81 y/o M admitted on 04/28/21 for fall/blood thinners. Chief Complaint: [] History of present illness: Mr. Van is a 81 year old M Presented to the ED from care facility because he was nauseous and was weak dizzy lightheaded and fell to the floor. Said some dark tarry stools. Patient with history of CHF diabetes COPD a flutter. Patient did hit his head and is on aspirin and her Plavix. His just yesterday. He had some dark tarry stools, no hematemesis. No abdominal pain. Patient found to have hyperkalemia with peaked T waves and what appeared to be heart block. His hyperkalemia was treated with calcium insulin glucose albuterol IV fluids. With resolution of the hyperkalemia has rhythm returned to sinus. She denies chest pain or shortness of breath. Case discussed with surgeon Dr. Braun as well as myself hospitalist. Patient will undergo endoscopy for evaluation of GI bleed. Patient did get 2 units of blood in the ED as well as 1.5 L of fluid. Review of Systems: Pertinent positives as above. Denies headache/fever/chills/vomiting/chest or abdominal pain/cough/dyspnea/diarrhea. Remaining 10 point review of system reviewed negative PFSH PFSH All Active Problems (Updated 04/28/21 @ 05:13 by Landon Britt DO) GIB (gastrointestinal bleeding) (Acute) Acute blood loss anemia (Acute) MYA (acute kidney injury) (Acute) Acute hyperkalemia (Acute) Arrhythmia (Acute) Near syncope (Acute) Left atrial enlargement (Acute) Bronchitis (Acute) Acute appendicitis (Acute) Depression (Acute) Erectile dysfunction (Acute) Head injury (Acute) Acute appendicitis (Acute) 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) Aortic stenosis, severe (Acute) COPD with exacerbation (Chronic) Shortness of breath (Chronic) Infiltrate of lower lobe of right lung present on imaging study (Chronic ~08/2018) Pulmonary congestion (Chronic ~08/2018) Heart failure (Chronic ~08/2018) PNA (pneumonia) (Chronic) Fatigue (Chronic) Hyperlipidemia, mixed (Chronic) Atherosclerotic cardiovascular disease (Chronic) Hypertension, essential, benign (Chronic) 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) Back pain (Chronic) AAA (abdominal aortic aneurysm) (Chronic) Restless leg syndrome (Chronic) Vertigo (Chronic) Diabetic neuropathy (Chronic) Heart murmur (Chronic) Acute exacerbation of chronic obstructive airways disease (Chronic) COPD (chronic obstructive pulmonary disease) (Chronic) Erectile dysfunction (Chronic) CHF (congestive heart failure) (Chronic) Atrial flutter (Chronic) Mitral valve prolapse (Chronic) Rhinorrhea (Chronic) Dizziness (Chronic) Chronic radicular pain of lower back (Chronic) Neck pain (Chronic) Shoulder pain, right (Chronic) CAD (coronary artery disease) (Chronic) Other hypertrophic cardiomyopathy (Chronic) Cellulitis (Chronic) Foot callus (Chronic) Constipation (Chronic) Anemia (Chronic) Cervical radiculopathy (Chronic) Seborrheic keratosis (Chronic) Obstructive sleep apnea of adult (Chronic) Diastolic dysfunction (Chronic) Peripheral edema (Chronic) Other specified metabolic disorders (Chronic) Daytime somnolence (Chronic) Insomnia (Chronic) Acute exacerbation of chronic obstructive airways disease (Acute) Orthostatic hypotension (Chronic) Community acquired pneumonia (Acute) Congestive heart failure (Acute) Pneumonia (Acute) Sepsis (Acute) Respiratory failure with hypoxia and hypercapnia (Acute) Cervical radiculopathy (Acute) Cervicalgia (Acute) Medical History AAA (abdominal aortic aneurysm) Acute exacerbation of chronic obstructive airways disease Acute exacerbation of chronic obstructive airways disease Anemia Appendicitis (~04/2019) Atherosclerotic cardiovascular disease Atrial flutter Back pain CAD (coronary artery disease) Cellulitis Cervical radiculopathy CHF (congestive heart failure) Chronic radicular pain of lower back Constipation COPD (chronic obstructive pulmonary disease) COPD with exacerbation Daytime somnolence Diabetic neuropathy Diastolic dysfunction Dizziness Erectile dysfunction Fatigue Foot callus Heart failure (~08/2018) Heart murmur Hyperlipidemia, mixed Hypertension, essential, benign Infiltrate of lower lobe of right lung present on imaging study (~08/2018) Insomnia Mitral valve prolapse Neck pain Obstructive sleep apnea of adult Orthostatic hypotension Other hypertrophic cardiomyopathy Other specified metabolic disorders Peripheral edema PNA (pneumonia) Pulmonary congestion (~08/2018) Restless leg syndrome Rhinorrhea Seborrheic keratosis Shortness of breath Shoulder pain, right Type 2 diabetes mellitus with polyneuropathy Vertigo Surgical History History of appendectomy 04/2019 History of laparoscopic appendectomy 08/10/2020 History of mitral valve repair History of surgery (~06/2013) 2 way bypass Family History Mother Heart disease Coronary heart disease Heart attack Daughter Drug abuse Type I diabetes mellitus Father Elevated PSA Social History marital status: alcohol intake frequency: a few times a month seatbelt use: always MEDS/ALLERGIES Home Medications and Allergies Home Medications Medication Instructions Recorded Confirmed Type aspirin 162 mg tablet,delayed 162.5 mg PO QDAY 08/10/20 04/28/21 History release hydrocodone 5 mg-acetaminophen 325 1 tab PO Q6HP PRN #120 tab 12/15/20 04/28/21 Rx mg tablet acetaminophen 650 mg See Rx Instructions .ROUTE 04/11/21 04/28/21 Rx tablet,extended release .COMPLEX #90 each atorvastatin 40 mg tablet (Lipitor) 40 mg PO HS #90 tab 04/11/21 04/28/21 Rx clopidogrel 75 mg tablet 75 mg PO QDAY #90 tab 04/11/21 04/28/21 Rx diltiazem HCl 300 mg capsule,24 300 mg PO QAM #90 cap 04/11/21 04/28/21 Rx hr,extended release docusate sodium 100 mg capsule See Rx Instructions .ROUTE 04/11/21 04/28/21 Rx .COMPLEX #60 each furosemide 40 mg tablet 40 mg PO DAILY #30 tab 04/11/21 04/28/21 Rx gabapentin 300 mg capsule 600 mg PO TID #540 cap 04/11/21 04/28/21 Rx ibuprofen 800 mg tablet See Rx Instructions .ROUTE 04/11/21 04/28/21 Rx .COMPLEX #90 each icosapent ethyl 1 gram capsule 2 g PO BID #360 cap 04/11/21 04/28/21 Rx (Vascepa) insulin glargine 100 unit/mL (3 See Rx Instructions SUB-Q QDAY #60 04/11/21 04/28/21 Rx mL) subcutaneous pen (Lantus ml Solostar U-100 Insulin) magnesium oxide 400 mg (241.3 mg See Rx Instructions .ROUTE 04/11/21 04/28/21 Rx magnesium) tablet .COMPLEX #30 each meclizine 25 mg chewable tablet See Rx Instructions .ROUTE 04/11/21 04/28/21 Rx .COMPLEX #60 each metformin 500 mg tablet,extended 1,000 mg PO BID #360 tab 04/11/21 04/28/21 Rx release 24 hr multivitamin-iron 9 mg-folic acid See Rx Instructions .ROUTE 04/11/21 04/28/21 Rx 400 mcg-calcium and minerals .COMPLEX #30 each tablet (Therems-M) ondansetron HCl 4 mg tablet See Rx Instructions .ROUTE 04/11/21 04/28/21 Rx .COMPLEX #30 each pen needle, diabetic 31 gauge x #100 ea 04/11/21 04/28/21 Rx 3/16" (Unifine Pentips) potassium chloride 10 mEq See Rx Instructions .ROUTE 04/11/21 04/28/21 Rx tablet,extended release(part/cryst) .COMPLEX #30 each sertraline 50 mg tablet See Rx Instructions .ROUTE 04/11/21 04/28/21 Rx .COMPLEX #90 tab spironolactone 50 mg tablet See Rx Instructions .ROUTE 04/11/21 04/28/21 Rx .COMPLEX #90 tab ramipril 10 mg capsule See Rx Instructions .ROUTE 04/25/21 04/28/21 Rx .COMPLEX #180 cap Allergies Allergy/AdvReac Type Severity Reaction Status Date / Time No Known Drug Allergies Allergy Verified 04/27/21 23:21 EXAM Constitutional Vitals: Temp Pulse Resp BP Pulse Ox 98.1 F 64 28 H 106/47 96 04/28/21 06:15 04/28/21 06:15 04/28/21 06:15 04/28/21 06:15 04/28/21 06:15 Exam: General: Alert, Awake, No acute Distress Eyes/N/T: EOMI, PERRL, Head/Neck: neck supple, normocephalic atraumatic CV: RRR, 2-3/6 SM, normal s1/s2 Pulm: Clear b/l, no wheezing/rhonchi/rales Abd: soft, nontender, +BS x4 Ext: no clubbing/cyanosis/edema Neuro: Alert, no focal deficits, moves all extremities, CN 2-12 grossly intact, symmetrical strength b/l upper/lower, sensations intact b/l upper/lower Skin: warm/dry, pale DATA Data Completed and Pending Labs: Labs from last 24 hours 04/28/21 04/28/21 04/28/21 23:56 06:15 06:15 WBC RBC Hgb Hct POC Hct MCV MCH MCHC RDW Plt Count MPV Neut % (Auto) Lymph % (Auto) [place] % (Auto) Eos % (Auto) Baso % (Auto) Lymph # (Auto) [place] # (Auto) Eos # (Auto) Baso # (Auto) Absolute Neutrophils VBG Lactic Acid 2.8 H POC Sodium Sodium POC Potassium Potassium 5.1 POC Chloride Chloride Carbon Dioxide POC Total CO2 Anion Gap POC BUN BUN Creatinine POC Creatinine GFR Calculation Glucose POC Glucose Calcium POC WB Ioniz Calcium Magnesium Total Bilirubin AST ALT Alkaline Phosphatase Troponin T Pending Total Protein Albumin Globulin Albumin/Globulin Ratio 04/28/21 04/28/21 04/28/21 06:15 06:15 01:39 WBC RBC Hgb 6.9 L* Hct POC Hct MCV MCH MCHC RDW Plt Count MPV Neut % (Auto) Lymph % (Auto) [place] % (Auto) Eos % (Auto) Baso % (Auto) Lymph # (Auto) [place] # (Auto) Eos # (Auto) Baso # (Auto) Absolute Neutrophils VBG Lactic Acid 3.3 H POC Sodium Sodium Pending POC Potassium Potassium Pending POC Chloride Chloride Pending Carbon Dioxide Pending POC Total CO2 Anion Gap Pending POC BUN BUN Pending Creatinine Pending POC Creatinine GFR Calculation Pending Glucose Pending POC Glucose Calcium Pending POC WB Ioniz Calcium Magnesium Total Bilirubin AST ALT Alkaline Phosphatase Troponin T Total Protein Albumin Globulin Albumin/Globulin Ratio 04/27/21 04/27/21 04/27/21 23:54 23:53 23:52 WBC 10.8 RBC 2.26 L Hgb 5.7 L* Hct 19.0 L* POC Hct 19 L* MCV 84.1 MCH 25.2 L MCHC 30.0 L RDW 19.0 H Plt Count 259 MPV 10.9 H Neut % (Auto) 74.2 Lymph % (Auto) 16.0 Pre[place] % (Auto) 8.9 Eos % (Auto) 0.6 Baso % (Auto) 0.3 Lymph # (Auto) 1.73 [place] # (Auto) 0.97 H Eos # (Auto) 0.07 Baso # (Auto) 0.03 Absolute Neutrophils 8.04 H VBG Lactic Acid POC Sodium 135 Sodium POC Potassium 5.9 H* Potassium POC Chloride 98 Chloride Carbon Dioxide POC Total CO2 24 Anion Gap POC BUN 89 H BUN Creatinine POC Creatinine 2.6 H GFR Calculation Glucose POC Glucose 157 H Calcium POC WB Ioniz Calcium 1.19 Magnesium 2.5 Total Bilirubin AST ALT Alkaline Phosphatase Troponin T 0.05 H* Total Protein Albumin Globulin Albumin/Globulin Ratio 04/27/21 23:50 WBC RBC Hgb Hct POC Hct MCV MCH MCHC RDW Plt Count MPV Neut % (Auto) Lymph % (Auto) [place] % (Auto) Eos % (Auto) Baso % (Auto) Lymph # (Auto) [place] # (Auto) Eos # (Auto) Baso # (Auto) Absolute Neutrophils VBG Lactic Acid POC Sodium Sodium 135 POC Potassium Potassium 6.1 H* POC Chloride Chloride 96 Carbon Dioxide 26 POC Total CO2 Anion Gap 13.0 POC BUN BUN 78 H Creatinine 2.3 H POC Creatinine GFR Calculation 25 Glucose 155 H POC Glucose Calcium 9.1 POC WB Ioniz Calcium Magnesium Total Bilirubin < 0.2 AST 13 ALT 9 Alkaline Phosphatase 48 Troponin T Total Protein 6.2 Albumin 3.7 Globulin 2.5 Albumin/Globulin Ratio 1.5 A/P Narrative A/P Narrative: A: *GI bleed: *Acute blood loss anemia on chronic anemia: -4PRBC on admit *Hypotension from volume loss primarily blood loss: resolved my EMS *Lactic 2/2 hypoperfusion from hypotension/blood loss *Hyperkalemia w/associated Arrhythmia(resolved): Resolved, pt on potassium raising meds + 2/2 MYA *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 -pt on ASA/Plavix/Dilt *h/o systolic(50%)/diastolic CHF: on lasix/Aldactone/ACEI *h/o & Prosthetic Mitral valve: -follows at [facility] Cardiology, has had discussion regarding TAVR, pt was not interested *CAD w/cabg: *DM: *HTN/HLD: *COPD (3L@home): *PHOEBE: not on cpap *Oropharyngeal Dysphagia, mild: *Dementia: *Depression: P: -Endoscopy per surgery -s/p IVF and PRBC;s, hold on further IVF given h/o CHF/, monitor fluid balance closely -Hold ASA/Plavix, cont statin -Monitor electrolytes, especially potassium -cont Dilt -stop home potassium supp and aldactone -Hold ACEI for low BP and MYA -restart lasix in morning -bladder scan given h/o UR -SSI, hold metformin -ST eval -pt/ot -ppx: SCD DNR Time Spent With Patient Time: Total time spent is greater than 50% in coordination of care (as documented) at patient's floor/unit and/or counseling patient:
--- NOTE | 2021-04-28 08:06 | Cat Scan Report ---
History: Fell, hit forehead, anticoagulated TECHNIQUE: The brain was imaged without contrast in axial plane at 2.5 mm intervals. Some of the images had to be repeated due to the patient's inability to remain motionless. Radiation exposure was limited using dose reduction technology. FINDINGS: There are couple small old lacunar infarct with encephalomalacia. One is in the head of the left caudate nucleus and measures 3 x 4 mm. There are others along the inferior border of both left and right putamen. These measure approximately 5 mm in size. These are chronic findings, unchanged from 06/20/18. No new infarct has developed. There is no hemorrhage or cerebral edema. Mild generalized atrophy is present. Ventricles are normal in size. No abnormal extra-axial fluid collection is present. Bone windows show no skull fracture. Mucosal thickening is seen along the tomlinson of many of the ethmoid air cells and in the inferior recesses of both frontal sinuses. Visualized portions of the orbits are normal. 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
--- NOTE | 2021-04-28 08:13 | Cat Scan Report ---
History: Fell, neck injury, anticoagulated TECHNIQUE: The neck was imaged without contrast in axial plane at 2.5 mm intervals. Sagittal, coronal and reformatted axial images were created. The radiation exposure was limited using dose reduction technology. FINDINGS: The cervico-occipital junction is normal. There is no fracture. 4 mm grade 1 spondylolisthesis is present at C4-5 there is a moderate size posterior bulge at that level. There is severe arthritis in the right facet. These degenerative changes are causing moderate central canal stenosis. There is severe stenosis of the right-side neural foramen. There is severe disc space narrowing is present at C5-6 and C6-7 and there are medium-size spurs along the posterior borders of the posterior disc space, causing mild to moderate spinal canal stenosis. There is severe stenosis of the neural foramina bilaterally at those two levels. Moderate disc space narrowing is present at C3-4 and there is also severe disc space narrowing at C7-T1 No paraspinal hematoma or mass are present. Large densely calcified plaques are present in the carotid bifurcations bilaterally. Patient's had a prior sternotomy. Allowing for differences in technique there has been little change from the prior cervical MRI done on 09/20/18. IMPRESSION: No fracture Chronic severe degenerative disc disease and arthritis at multiple levels causing spinal canal and neural foraminal stenosis Interpreted and Authenticated by: Rickey Cota 04/28/21
--- NOTE | 2021-04-28 08:25 | Cat Scan Report ---
History: Fell, chest abdomen and pelvic injuries, anticoagulated TECHNIQUE: Following injection of intravenous nonionic contrast the patient was imaged from the thoracic inlet through the symphysis pubis. Sagittal and coronal reformats were created along with MIPS images of the chest. Dose reduction technology. FINDINGS: CHEST: The heart is mildly enlarged. There has been a prior sternotomy. Patient has a prosthetic aortic valve. Densely calcified plaques are present in the coronary arteries. No pericardial or pleural effusion are present. There is no pneumothorax. Mild centrilobular emphysema is present in both upper lobes. There are several bands of scar atelectasis in the lung bases, predominantly on the right side. There is no consolidating infiltrate. No enlarged lymph nodes are present. Bone windows show no fracture.1 Abdomen and pelvis: The abdominal organs are normal without evidence of laceration. There is no intra-abdominal hemorrhage. The liver and spleen are normal in size. The gallbladder contains two calcified stones. The larger is 8 mm. Gallbladder tomlinson not thickened or inflamed and the bile ducts are nondilated. The pancreas is normal. The adrenals are normal and symmetric. There is an exophytic 2 cm cyst along the medial side of left kidney. Laterally in the upper third of left kidney there is an exophytic 6 x 7 mm high attenuation nodule. This is probably a complex cyst containing proteinaceous debris. This is unchanged from 08/10/20. The bowel pattern is normal. No enlarged lymph nodes or ascites are present. There is severe atherosclerotic disease throughout the abdomen pelvis and upper thighs. There is a 3.6 cm aneurysm in the mid to distal abdominal aorta. There is an old dissection at this level. No retroperitoneal hemorrhage is present. 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 Left common femoral artery is also dilated and there is evidence of an old dissection at this level. The aneurysm measures 2.1 cm. Prostate is mildly enlarged and contains multiple calcifications. The bladder is unopacified but appears normal. Bone windows show no spinal or pelvic fracture. There is severe degenerative disc disease and arthritis from T12-L1 through L5-S1. Grade 1 spondylolisthesis is present at L4-5. Severe spinal canal stenosis is present at L3-4 and L4-5 and there is moderate central canal stenosis at L2-3. 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 These are unchanged from 08/10/20. Scar versus atelectasis in the lung bases Cholelithiasis Interpreted and Authenticated by: Rickey Cota 04/28/21
[2021-04-28 10:23] LABS: Appearance,Urine Clear (Clear); Bilirubin,Urine Negative (Negative); Color,Urine Yellow; Culture Indicated,Urine No; Glucose,Urine (UA) Negative (Negative); Ketones,Urine Negative (Negative); Leukocyte Esterase,Urine Negative /uL (Negative); Nitrate,Urine Negative (Negative); PH,Urine 5.5 (5.0-9.0); Protein,Urine Negative (Negative); Specific Gravity,Urine 1.015 (1.000-1.035); Urine Blood Negative ery/mcL (Negative); Urobilinogen,Urine Normal
[2021-04-28] MEDS ORDERED: FUROSEMIDE 20 MG/2 ML VIAL IV ONE (10:28)
[2021-04-28] MEDS ORDERED: MAGNESIUM SULFATE 2 GM/50 ML BAG IV PRN (11:24)
[2021-04-28] MEDS ORDERED: POLYETHYLENE GLYCOL 3350 17 GM PACKET PO PRN (11:24)
[2021-04-28] MEDS ORDERED: IPRATROPIUM/ALBUTEROL 3 ML AMPUL.NEB NEB PRN (11:24)
[2021-04-28] MEDS ORDERED: POTASSIUM CHLORIDE 40 MEQ in DEXTROSE 5% IN WATER 500 ML IV PRN (11:24)
[2021-04-28] MEDS ORDERED: POTASSIUM CHLORIDE 20 MEQ TABLET PO PRN ×2 (11:24)
[2021-04-28] MEDS ORDERED: METOCLOPRAMIDE 10 MG/2 ML VIAL IV PRN (11:24)
[2021-04-28] MEDS ORDERED: METOPROLOL TARTRATE 5 MG/5 ML VIAL IV PRN (11:30)
[2021-04-28] MEDS ORDERED: DEXTROSE 31 GM ORAL.SUSP PO PRN (11:30)
[2021-04-28] MEDS ORDERED: DEXTROSE 50% 50 ML VIAL IV PRN (11:30)
--- NOTE | 2021-04-28 11:35 | General Surgery Consult Note ---
HPI Data of Consult Patient: new to practice Consult date: 04/28/21 Requesting physician: Gildardo Ozuna Primary Care Provider: Radha Braun Consult Narrative Patient Information: Note initiated : 04/28/21 at 11:32 am Service Date, if different from initiated Date: [] Patient: Owen Van 81 y/o M admitted on 04/28/21 for fall/blood thinners. Chief Complaint: [] Chief complaint: Rectal bleeding with melena and syncope Reason for consult: Rectal bleeding probably from upper GI source cc:: CC: Gildardo Ozuna 81-year-old male was admitted from the emergency room for severe anemia with history of black stools. Patient resides in a nursing care facility and has had black stools for possibly the past 2 to 3days. He has significant dementia and cannot remember the actual length of time. He was transferred to our facility because of a syncopal episode at the nursing care facility. He states that he felt weak and fell when he stood up. He has not had any abdominal pain that he can remember and he has not had any nausea and vomiting. When seen in the emergency room he had mild hypotension and evidence of black stools. His hemoglobin is 5.7. There is no known history of prior GI bleed. The patient is not taking any nonsteroidal anti-inflammatory drugs by history however his medication list ibuprofen 3 times daily as needed it is not known how much of this he has been taking. He has also been on Plavix. Patient is clinically stable at this time however his hemoglobin is only 6.9. He will be transfused 2 units of packed red cells with plan for hemoglobin of at least 9 prior to taking to have upper endoscopy. Constitutional Constitutional: Present fatigue, lethargy, malaise and weakness EENT Eyes: Present pain Ears: Present decreased hearing Nose, mouth and throat: Present abnormal hearing, disequilibrium, dysphagia, neck pain and sore throat Cardiovascular Cardiovascular: Present dyspnea on exertion, lightheadedness, orthopnea, palpatations, rapid heart rate and syncope; Absent chest pain, chest pain with activity or claudication Respiratory Respiratory: Present dyspnea on exertion; Absent cough or chest congestion Gastrointestinal Gastrointestinal: Present change in bowel habits, change in stool character, constipation, loose stools, melena and nausea; Absent abdominal pain Genitourinary Genitourinary: change in urinary stream, difficulty urinating, urinary frequency, urinary hesitancy and urinary urgency Musculoskeletal Musculoskeletal: Present arthralgias, back pain, muscle weakness, myalgias and neck pain Neurological Neurological: Present abnormal gait, abnormal hearing, dizziness, focal weakness, frequent falls, numbness, restless legs, syncope and tingling Psychiatric Psychiatric: Present confusion, depression, irritability and memory loss Endocrine Endocrine: Present fatigue Hematologic/Lymphatic Hematologic/Lymphatic: Present easy bleeding and easy bruising; Absent lymphadenopathy Allergic/Immunologic Allergic/Immunologic: Absent tongue swelling, throat swelling, uticaria, wheezing or lip swelling PFSH PFSH All Active Problems (Updated 04/28/21 @ 05:13 by Landon Britt DO) GIB (gastrointestinal bleeding) (Acute) Acute blood loss anemia (Acute) MYA (acute kidney injury) (Acute) Acute hyperkalemia (Acute) Arrhythmia (Acute) Near syncope (Acute) Left atrial enlargement (Acute) Bronchitis (Acute) Acute appendicitis (Acute) Depression (Acute) Erectile dysfunction (Acute) Head injury (Acute) Acute appendicitis (Acute) 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) Aortic stenosis, severe (Acute) COPD with exacerbation (Chronic) Shortness of breath (Chronic) Infiltrate of lower lobe of right lung present on imaging study (Chronic ~08/2018) Pulmonary congestion (Chronic ~08/2018) Heart failure (Chronic ~08/2018) PNA (pneumonia) (Chronic) Fatigue (Chronic) Hyperlipidemia, mixed (Chronic) Atherosclerotic cardiovascular disease (Chronic) Hypertension, essential, benign (Chronic) 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) Back pain (Chronic) AAA (abdominal aortic aneurysm) (Chronic) Restless leg syndrome (Chronic) Vertigo (Chronic) Diabetic neuropathy (Chronic) Heart murmur (Chronic) Acute exacerbation of chronic obstructive airways disease (Chronic) COPD (chronic obstructive pulmonary disease) (Chronic) Erectile dysfunction (Chronic) CHF (congestive heart failure) (Chronic) Atrial flutter (Chronic) Mitral valve prolapse (Chronic) Rhinorrhea (Chronic) Dizziness (Chronic) Chronic radicular pain of lower back (Chronic) Neck pain (Chronic) Shoulder pain, right (Chronic) CAD (coronary artery disease) (Chronic) Other hypertrophic cardiomyopathy (Chronic) Cellulitis (Chronic) Foot callus (Chronic) Constipation (Chronic) Anemia (Chronic) Cervical radiculopathy (Chronic) Seborrheic keratosis (Chronic) Obstructive sleep apnea of adult (Chronic) Diastolic dysfunction (Chronic) Peripheral edema (Chronic) Other specified metabolic disorders (Chronic) Daytime somnolence (Chronic) Insomnia (Chronic) Acute exacerbation of chronic obstructive airways disease (Acute) Orthostatic hypotension (Chronic) Community acquired pneumonia (Acute) Congestive heart failure (Acute) Pneumonia (Acute) Sepsis (Acute) Respiratory failure with hypoxia and hypercapnia (Acute) Cervical radiculopathy (Acute) Cervicalgia (Acute) Medical History AAA (abdominal aortic aneurysm) Acute exacerbation of chronic obstructive airways disease Acute exacerbation of chronic obstructive airways disease Anemia Appendicitis (~04/2019) Atherosclerotic cardiovascular disease Atrial flutter Back pain CAD (coronary artery disease) Cellulitis Cervical radiculopathy CHF (congestive heart failure) Chronic radicular pain of lower back Constipation COPD (chronic obstructive pulmonary disease) COPD with exacerbation Daytime somnolence Diabetic neuropathy Diastolic dysfunction Dizziness Erectile dysfunction Fatigue Foot callus Heart failure (~08/2018) Heart murmur Hyperlipidemia, mixed Hypertension, essential, benign Infiltrate of lower lobe of right lung present on imaging study (~08/2018) Insomnia Mitral valve prolapse Neck pain Obstructive sleep apnea of adult Orthostatic hypotension Other hypertrophic cardiomyopathy Other specified metabolic disorders Peripheral edema PNA (pneumonia) Pulmonary congestion (~08/2018) Restless leg syndrome Rhinorrhea Seborrheic keratosis Shortness of breath Shoulder pain, right Type 2 diabetes mellitus with polyneuropathy Vertigo Surgical History History of appendectomy 04/2019 History of laparoscopic appendectomy 08/10/2020 History of mitral valve repair History of surgery (~06/2013) 2 way bypass Family History Mother Heart disease Coronary heart disease Heart attack Daughter Drug abuse Type I diabetes mellitus Father Elevated PSA Social History marital status: alcohol intake frequency: a few times a month seatbelt use: always MEDS/ALLERGIES Home Medications and Allergies Home Medications Medication Instructions Recorded Confirmed Type aspirin 162 mg tablet,delayed 162.5 mg PO QDAY 08/10/20 04/28/21 History release hydrocodone 5 mg-acetaminophen 325 1 tab PO Q6HP PRN #120 tab 12/15/20 04/28/21 Rx mg tablet acetaminophen 650 mg See Rx Instructions .ROUTE 04/11/21 04/28/21 Rx tablet,extended release .COMPLEX #90 each atorvastatin 40 mg tablet (Lipitor) 40 mg PO HS #90 tab 04/11/21 04/28/21 Rx clopidogrel 75 mg tablet 75 mg PO QDAY #90 tab 04/11/21 04/28/21 Rx diltiazem HCl 300 mg capsule,24 300 mg PO QAM #90 cap 04/11/21 04/28/21 Rx hr,extended release docusate sodium 100 mg capsule See Rx Instructions .ROUTE 04/11/21 04/28/21 Rx .COMPLEX #60 each furosemide 40 mg tablet 40 mg PO DAILY #30 tab 04/11/21 04/28/21 Rx gabapentin 300 mg capsule 600 mg PO TID #540 cap 04/11/21 04/28/21 Rx ibuprofen 800 mg tablet See Rx Instructions .ROUTE 04/11/21 04/28/21 Rx .COMPLEX #90 each icosapent ethyl 1 gram capsule 2 g PO BID #360 cap 04/11/21 04/28/21 Rx (Vascepa) insulin glargine 100 unit/mL (3 See Rx Instructions SUB-Q QDAY #60 04/11/21 04/28/21 Rx mL) subcutaneous pen (Lantus ml Solostar U-100 Insulin) magnesium oxide 400 mg (241.3 mg See Rx Instructions .ROUTE 04/11/21 04/28/21 Rx magnesium) tablet .COMPLEX #30 each meclizine 25 mg chewable tablet See Rx Instructions .ROUTE 04/11/21 04/28/21 Rx .COMPLEX #60 each metformin 500 mg tablet,extended 1,000 mg PO BID #360 tab 04/11/21 04/28/21 Rx release 24 hr multivitamin-iron 9 mg-folic acid See Rx Instructions .ROUTE 04/11/21 04/28/21 Rx 400 mcg-calcium and minerals .COMPLEX #30 each tablet (Therems-M) ondansetron HCl 4 mg tablet See Rx Instructions .ROUTE 04/11/21 04/28/21 Rx .COMPLEX #30 each pen needle, diabetic 31 gauge x #100 ea 04/11/21 04/28/21 Rx 3/16" (Unifine Pentips) potassium chloride 10 mEq See Rx Instructions .ROUTE 04/11/21 04/28/21 Rx tablet,extended release(part/cryst) .COMPLEX #30 each sertraline 50 mg tablet See Rx Instructions .ROUTE 04/11/21 04/28/21 Rx .COMPLEX #90 tab spironolactone 50 mg tablet See Rx Instructions .ROUTE 04/11/21 04/28/21 Rx .COMPLEX #90 tab ramipril 10 mg capsule See Rx Instructions .ROUTE 04/25/21 04/28/21 Rx .COMPLEX #180 cap Allergies Allergy/AdvReac Type Severity Reaction Status Date / Time No Known Drug Allergies Allergy Verified 04/27/21 23:21 Physical Examination Vital Signs Vital signs: Temp Pulse Resp BP Pulse Ox 97.2 F 64 15 131/48 97 04/28/21 08:32 04/28/21 08:53 04/28/21 08:53 04/28/21 08:53 04/28/21 08:53 General physical appearance General physical exam: well developed, well nourished, no distress, no pain and obese Eyes Eye exam: PERRL and normal ocular movement ENT ENT exam: normal mucosa and decreased hearing Head Head exam IM: Present atraumatic, normal inspection and normocephalic Neck Neck exam: no masses, no bruits, trachea midline, no lymphadenopathy and no venous distension Cardiovascular Cardiovascular exam IM: Present normal rate and rhythm, RRR, +S1 and +S2; Absent JVD or systolic murmur Type of murmur IM: Present systolic Intensity IM: 3/6 Respiratory Respiratory exam: normal expansion, normal respiratory effort and clear to auscultation Abdomen Abdomen: Present soft and non tender; Absent bowel sounds or organomegaly Rectum Rectum: Present normal sphincter tone, no hemorrhoids, no tenderness and no masses Hemorrhoids: Present mild Integumentary Integumentary: Present no rash, no growths and no abnormal pigmentation Neurologic Neurologic: Present normal coordination and normal sensation Musculoskeletal Musculoskeletal: Present normal gait and normal posture Psychiatric Psychiatric: Present oriented to person and speech is normal; Absent oriented to time or oriented to place Results Labs Result diagrams: 04/28/21 06:15 04/28/21 23:56 Labs: Abnormal lab results 04/27/21 04/27/21 04/27/21 Range/Units 23:50 23:52 23:53 RBC (4.63-6.08) M/mcL Hgb (13.7-17.5) g/dL Hct (40.1-51.0) % POC Hct 19 L* (41-55) % MCH (26.0-34.0) pg MCHC (31.0-36.0) g/dL RDW (11.5-14.5) % MPV (7.4-10.4) fL [place] # (Auto) (0.10-0.90) K/mcL Absolute Neutrophils (1.80-8.00) K/mcL VBG Lactic Acid (0.5-2.0) mmol/L POC Potassium 5.9 H* (3.3-5.1) mEql/L Potassium 6.1 H* (3.3-5.1) mmol/L POC BUN 89 H (6-20) mg/dL BUN 78 H (8-23) mg/dL Creatinine 2.3 H (0.7-1.2) mg/dL POC Creatinine 2.6 H (0.6-1.2) mg/dL Glucose 155 H (70-105) mg/dL POC Glucose 157 H (70-105) mg/dL Troponin T 0.05 H* (<0.03) ng/mL 04/27/21 04/28/21 04/28/21 Range/Units 23:54 01:39 06:15 RBC 2.26 L (4.63-6.08) M/mcL Hgb 5.7 L* 6.9 L* (13.7-17.5) g/dL Hct 19.0 L* (40.1-51.0) % POC Hct (41-55) % MCH 25.2 L (26.0-34.0) pg MCHC 30.0 L (31.0-36.0) g/dL RDW 19.0 H (11.5-14.5) % MPV 10.9 H (7.4-10.4) fL [place] # (Auto) 0.97 H (0.10-0.90) K/mcL Absolute Neutrophils 8.04 H (1.80-8.00) K/mcL VBG Lactic Acid 3.3 H (0.5-2.0) mmol/L POC Potassium (3.3-5.1) mEql/L Potassium (3.3-5.1) mmol/L POC BUN (6-20) mg/dL BUN (8-23) mg/dL Creatinine (0.7-1.2) mg/dL POC Creatinine (0.6-1.2) mg/dL Glucose (70-105) mg/dL POC Glucose (70-105) mg/dL Troponin T (<0.03) ng/mL 04/28/21 04/28/21 04/28/21 Range/Units 06:15 06:15 06:15 RBC (4.63-6.08) M/mcL Hgb (13.7-17.5) g/dL Hct (40.1-51.0) % POC Hct (41-55) % MCH (26.0-34.0) pg MCHC (31.0-36.0) g/dL RDW (11.5-14.5) % MPV (7.4-10.4) fL [place] # (Auto) (0.10-0.90) K/mcL Absolute Neutrophils (1.80-8.00) K/mcL VBG Lactic Acid 2.8 H (0.5-2.0) mmol/L POC Potassium (3.3-5.1) mEql/L Potassium 5.7 H (3.3-5.1) mmol/L POC BUN (6-20) mg/dL BUN 74 H (8-23) mg/dL Creatinine 2.1 H (0.7-1.2) mg/dL POC Creatinine (0.6-1.2) mg/dL Glucose 125 H (70-105) mg/dL POC Glucose (70-105) mg/dL Troponin T 0.03 H (<0.03) ng/mL Diabetes panel 04/27/21 04/28/21 04/28/21 Range/Units 23:50 06:15 23:56 Sodium 135 136 (133-145) mmol/L Potassium 6.1 H* 5.7 H 5.1 (3.3-5.1) mmol/L Chloride 96 99 (96-108) mmol/L Carbon Dioxide 26 24 (22-30) mmol/L BUN 78 H 74 H (8-23) mg/dL Creatinine 2.3 H 2.1 H (0.7-1.2) mg/dL Glucose 155 H 125 H (70-105) mg/dL Calcium 9.1 9.3 (8.6-10.4) mg/dL AST 13 (<40) U/L ALT 9 (<40) U/L Alkaline Phosphatase 48 (39-117) U/L Total Protein 6.2 (5.9-8.4) gm/dL Albumin 3.7 (3.2-5.2) gm/dL Calcium panel 04/27/21 04/28/21 04/28/21 Range/Units 23:50 06:15 06:15 Calcium 9.1 9.3 (8.6-10.4) mg/dL Phosphorus 4.4 (2.5-4.5) mg/dL Albumin 3.7 (3.2-5.2) gm/dL Pituitary panel 04/27/21 04/28/21 04/28/21 Range/Units 23:50 06:15 23:56 Sodium 135 136 (133-145) mmol/L Potassium 6.1 H* 5.7 H 5.1 (3.3-5.1) mmol/L Chloride 96 99 (96-108) mmol/L Carbon Dioxide 26 24 (22-30) mmol/L BUN 78 H 74 H (8-23) mg/dL Creatinine 2.3 H 2.1 H (0.7-1.2) mg/dL Glucose 155 H 125 H (70-105) mg/dL Calcium 9.1 9.3 (8.6-10.4) mg/dL Adrenal panel 04/27/21 04/28/21 04/28/21 Range/Units 23:50 06:15 23:56 Sodium 135 136 (133-145) mmol/L Potassium 6.1 H* 5.7 H 5.1 (3.3-5.1) mmol/L Chloride 96 99 (96-108) mmol/L Carbon Dioxide 26 24 (22-30) mmol/L BUN 78 H 74 H (8-23) mg/dL Creatinine 2.3 H 2.1 H (0.7-1.2) mg/dL Glucose 155 H 125 H (70-105) mg/dL Calcium 9.1 9.3 (8.6-10.4) mg/dL Total Bilirubin < 0.2 (0.1-1.0) mg/dL AST 13 (<40) U/L ALT 9 (<40) U/L Alkaline Phosphatase 48 (39-117) U/L Total Protein 6.2 (5.9-8.4) gm/dL Albumin 3.7 (3.2-5.2) gm/dL All other labs normal. A/P Assessment and plan (1) GIB (gastrointestinal bleeding): Status: Acute (2) Acute blood loss anemia: Status: Acute (3) MYA (acute kidney injury): Status: Acute (4) Near syncope: Status: Acute (5) Aortic stenosis, severe: Status: Acute (6) COPD with exacerbation: Status: Chronic (7) Hypertension, essential, benign: Status: Chronic (8) Type 2 diabetes mellitus with polyneuropathy: Status: Chronic (9) AAA (abdominal aortic aneurysm): Status: Chronic (10) Restless leg syndrome: Status: Chronic (11) Acute exacerbation of chronic obstructive airways disease: Status: Chronic Narrative A/P Narrative: Pantoprazole continuous infusion Sucralfate 1 g 4 times daily Transfuse to hemoglobin above 9 Scheduled for upper endoscopy tomorrow Serial hemoglobin and hematocrit levels Time Spent With Patient Time: Total time spent is greater than 50% in coordination of care (as documented) at patient's floor/unit and/or counseling patient:
[2021-04-28] MEDS ORDERED: HYDROcodone/APAP 5/325MG TABLET PO PRN (11:40)
[2021-04-28] MEDS ORDERED: MECLIZINE 25 MG TABLET PO PRN (11:45)
[2021-04-28] MEDS: INSULIN LISPRO 1 UNIT/0.01 ML UNIT SQ SCH ×3 (12:13→21:10)
[2021-04-28] MEDS: SUCRALFATE 1 GM/10 ML ORAL.SUSP PO SCH ×2 (12:27→17:27)
--- NOTE | 2021-04-28 12:31 | EKG ---
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 Measurements Intervals [place] Rate: 45 P: 0 DC: 244 QRS: 38 QRSD: 104 T: 15 QT: 462 QTc: 400 Interpretive Statements ATRIAL FIBRILLATION RATE, V RATE=45 bpm Electronically Signed On 04-28-2021 12:31:06 PST by Abner Cota M.D. /store/[id number]
--- NOTE | 2021-04-28 12:33 | EKG ---
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 Measurements Intervals [place] Rate: 85 P: 262 [place]: 215 QRS: 42 QRSD: 119 T: -30 QT: 399 QTc: 475 Interpretive Statements Sinus or ectopic atrial rhythm Borderline prolonged [place] interval Incomplete right bundle branch block Lateral ST abnormality Electronically Signed On 04-28-2021 12:32:51 PST by Abner Cota M.D. /store/[email or web address]/[id number]
--- NOTE | 2021-04-28 12:34 | EKG ---
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 Measurements Intervals [place] Rate: 85 P: 266 [place]: 224 QRS: 38 QRSD: 112 T: -19 QT: 400 QTc: 476 Interpretive Statements Sinus or ectopic atrial rhythm Prolonged [place] interval Consider right atrial enlargement Incomplete right bundle branch block ST depr, consider ischemia, anterolateral lds Electronically Signed On 04-28-2021 12:34:10 PST by Abner Cota M.D. [place] [email or web address]/[id number]
[2021-04-28 14:57] LABS: Basophils # (Auto) 0.07 K/mcL (0.00-0.30); Basophils % (Auto) 0.6 % (0.0-2.0); Eosinophils # (Auto) 0.14 K/mcL (0.00-0.70); Eosinophils % (Auto) 1.2 % (0.0-7.0); Hematocrit 29.3 % (40.1-51.0); Hemoglobin 9.4 g/dL (13.7-17.5); Lymphocytes # (Auto) 1.55 K/mcL (1.50-4.80); Lymphocytes % (Auto) 12.9 % (15.5-49.0); Mean Cell Volume 84.9 fL (80.0-100.0); Mean Corpuscular HGB Conc 32.1 g/dL (31.0-36.0); Monocytes # (Auto) 1.18 K/mcL (0.10-0.90); Monocytes % (Auto) 9.8 % (1.0-12.0); Neutrophils % (Auto) 75.5 % (38.0-78.0); Platelet Count 211 K/mcL (140-440); RBC 3.45 M/mcL (4.63-6.08); Red Cell Distribution Width 17.1 % (11.5-14.5)
[2021-04-28 15:08] LABS: ALT/SGPT 9 U/L (<40); AST/SGOT 18 U/L (<40); Albumin 3.8 gm/dL (3.2-5.2); Albumin/Globulin Ratio 1.5 (1.0-2.3); Alkaline Phosphatase 49 U/L (39-117); Bilirubin,Direct 0.2 mg/dL (<0.3); Bilirubin,Total 0.8 mg/dL (0.1-1.0); Blood Urea Nitrogen 61 mg/dL (8-23); Carbon Dioxide 25 mmol/L (22-30); Chloride 96 mmol/L (96-108); Globulin 2.6 gm/dL (2.2-3.7); Glomerular Filtration Rate 32; Glucose 118 mg/dL (70-105); Lactate Dehydrogenase 226 U/L (135-225); Phosphorous 3.9 mg/dL (2.5-4.5); Triglycerides 127 mg/dL (<150); Uric Acid 8.5 mg/dL (2.5-8.0)
[2021-04-28] MEDS: 0.9 % SODIUM CHLORIDE 10 ML SYRINGE IV SCH ×3 (16:31→22:25)
[2021-04-28] MEDS: GABAPENTIN 300 MG CAPSULE PO SCH ×2 (16:51→20:58)
[2021-04-28] MEDS ORDERED: ETHYL ALCOHOL 30 ML ORAL.SOL PO ONE (18:39)
[2021-04-28] MEDS: FOLIC ACID 1 MG TABLET PO SCH (20:58)
[2021-04-28] MEDS: ATORVASTATIN 40 MG TABLET PO SCH (20:58)
[2021-04-28] MEDS: chlordiazePOXIDE 25 MG CAPSULE PO PRN (20:58)
[2021-04-28] MEDS: THIAMINE 100 MG TABLET PO SCH (20:58)
[2021-04-28] MEDS: ACETAMINOPHEN 325 MG TABLET PO PRN (20:59)
[2021-04-28] MEDS ORDERED: INSULIN GLARGINE, HUMAN 1 UNIT/0.01 ML SQ SCH (21:00)
[2021-04-28] MEDS ORDERED: INSULIN GLARGINE, HUMAN 1 UNIT/0.01 ML SQ ONE (21:00)
[2021-04-29] MEDS: 0.9 % SODIUM CHLORIDE 10 ML SYRINGE IV SCH ×6 (00:21→22:08)
[2021-04-29] MEDS: SUCRALFATE 1 GM/10 ML ORAL.SUSP PO SCH ×4 (00:22→17:34)
[2021-04-29] MEDS: PANTOPRAZOLE 80 MG in 0.9 % SODIUM CHLORIDE 100 ML IV SCH ×2 (01:09→14:07)
[2021-04-29 07:06] LABS: Basophils # (Auto) 0.05 K/mcL (0.00-0.30); Basophils % (Auto) 0.6 % (0.0-2.0); Eosinophils # (Auto) 0.56 K/mcL (0.00-0.70); Eosinophils % (Auto) 6.2 % (0.0-7.0); Hematocrit 25.4 % (40.1-51.0); Hemoglobin 8.2 g/dL (13.7-17.5); Lymphocytes # (Auto) 1.94 K/mcL (1.50-4.80); Lymphocytes % (Auto) 21.4 % (15.5-49.0); Mean Cell Volume 86.1 fL (80.0-100.0); Mean Corpuscular HGB Conc 32.3 g/dL (31.0-36.0); Monocytes # (Auto) 1.11 K/mcL (0.10-0.90); Monocytes % (Auto) 12.3 % (1.0-12.0); Neutrophils % (Auto) 59.5 % (38.0-78.0); Platelet Count 204 K/mcL (140-440); RBC 2.95 M/mcL (4.63-6.08); Red Cell Distribution Width 17.5 % (11.5-14.5); WBC 9.1 K/mcL (4.5-11.0)
--- NOTE | 2021-04-29 07:32 | Internal Med Progress Note ---
SUBJECTIVE Subjective Patient information: Note initiated : 04/29/21 at 7:29 am Service Date, if different from initiated Date: [] Patient: Owen Van 81 y/o M admitted on 04/28/21 for fall/blood thinners. Chief Complaint: [] Interval history: History of present illness: Mr. Van is a 81 year old M Presented to the ED from care facility because he was nauseous and was weak dizzy lightheaded and fell to the floor. Said some dark tarry stools. Patient with history of CHF diabetes COPD a flutter. Patient did hit his head and is on aspirin and her Plavix. His just yesterday. He had some dark tarry stools, no hematemesis. No abdominal pain. Patient found to have hyperkalemia with peaked T waves and what appeared to be heart block. His hyperkalemia was treated with calcium insulin glucose albuterol IV fluids. With resolution of the hyperkalemia has rhythm returned to sinus. She denies chest pain or shortness of breath. Case discussed with surgeon Dr. Braun as well as myself hospitalist. Patient will undergo endoscopy for evaluation of GI bleed. Patient did get 2 units of blood in the ED as well as 1.5 L of fluid. 2 more prbc units on floor. 04/29 No overnight event or new complaints. Awaiting endoscopy. Creatinine significantly improved. Lecture lites within normal limits. Review of Systems: denies headache/fever/chills/nausea/vomiting/chest or abdominal pain/cough/dyspnea/diarrhea. Otherwise see above. Constitutional Vitals: Vital Signs Temp Pulse Resp BP Pulse Ox 96.3 F L 72 20 148/70 97 04/29/21 04:02 04/29/21 06:01 04/29/21 06:01 04/29/21 06:01 04/29/21 06:01 Period Temp Pulse Resp BP Sys/Rodriguez Pulse Ox Last 24 Hr 96.3 F-98.6 F 55-117 13-27 108-148/44-75 83-99 Intake and Output 04/28/21 04/29/21 04/29/21 21:59 05:59 13:59 Intake Total 1440 98 Output Total 775 1126 Balance 665 -1028 Weight 86.183 kg Intake & Output: Intake & Output 04/28/21 04/29/21 04/29/21 21:59 05:59 13:59 Intake Total 1440 98 Output Total 775 1126 Balance 665 -1028 Weight 86.183 kg Intake: IV 90 98 Sodium Chloride 0.9% 250 ml @ 0 20 mls/hr IV .[id number] YOU Rx#: [id number] Protonix 80 mg In Sodium 90 98 Chloride 0.9% 100 ml @ 8 MG/HR 10 mls/hr IV Q10H YOU Rx#: [id number] Oral 1350 Output: Void Amount 775 1125 # of times incontinent of urine 1 Other: Meal Dinner Percent of Meal Consumed 75% Feeding Ability Assist with Tray Set Up Urine Appearance Clear Clear Urine Color Bright Yellow Bright Yellow Urine Odor Normal Normal Exam: General: Alert, Awake, No acute Distress Eyes/N/T: EOMI, Head/Neck: neck supple, CV: RRR, 2-3/6 SM, Pulm: Clear b/l, no wheezing/rhonchi/rales Abd: soft, nontender, +BS x4 Ext: no clubbing/cyanosis/edema Neuro: Alert, no focal deficits, moves all extremities, Skin: warm/dry, pale OBJ DATA Labs CBC & Chem 7: 04/29/21 05:00 04/29/21 06:03 Labs: Abnormal Lab Results 04/29/21 04/28/21 04/28/21 05:00 13:45 13:45 WBC RBC 2.95 L Hgb 8.2 L Hct 25.4 L POC Hct MCH MCHC RDW 17.5 H MPV Lymph % (Auto) [place] % (Auto) 12.3 H [place] # (Auto) 1.11 H Absolute Neutrophils VBG Lactic Acid 2.1 H POC Potassium Potassium POC BUN BUN 61 H Creatinine 1.9 H POC Creatinine Glucose 118 H POC Glucose Uric Acid 8.5 H Lactate Dehydrogenase 226 H Troponin T 04/28/21 04/28/21 04/28/21 13:45 06:15 06:15 WBC 12.0 H RBC 3.45 L Hgb 9.4 L Hct 29.3 L POC Hct MCH MCHC RDW 17.1 H MPV Lymph % (Auto) 12.9 L [place] % (Auto) [place] # (Auto) 1.18 H Absolute Neutrophils 9.04 H VBG Lactic Acid 2.8 H POC Potassium Potassium POC BUN BUN Creatinine POC Creatinine Glucose POC Glucose Uric Acid Lactate Dehydrogenase Troponin T 0.03 H 04/28/21 04/28/21 04/28/21 06:15 06:15 01:39 WBC RBC Hgb 6.9 L* Hct POC Hct MCH MCHC RDW MPV Lymph % (Auto) [place] % (Auto) [place] # (Auto) Absolute Neutrophils VBG Lactic Acid 3.3 H POC Potassium Potassium 5.7 H POC BUN BUN 74 H Creatinine 2.1 H POC Creatinine Glucose 125 H POC Glucose Uric Acid Lactate Dehydrogenase Troponin T 04/27/21 04/27/21 04/27/21 23:54 23:53 23:52 WBC RBC 2.26 L Hgb 5.7 L* Hct 19.0 L* POC Hct 19 L* MCH 25.2 L MCHC 30.0 L RDW 19.0 H MPV 10.9 H Lymph % (Auto) [place] % (Auto) [place] # (Auto) 0.97 H Absolute Neutrophils 8.04 H VBG Lactic Acid POC Potassium 5.9 H* Potassium POC BUN 89 H BUN Creatinine POC Creatinine 2.6 H Glucose POC Glucose 157 H Uric Acid Lactate Dehydrogenase Troponin T 0.05 H* 04/27/21 23:50 WBC RBC Hgb Hct POC Hct MCH MCHC RDW MPV Lymph % (Auto) [place] % (Auto) [place] # (Auto) Absolute Neutrophils VBG Lactic Acid POC Potassium Potassium 6.1 H* POC BUN BUN 78 H Creatinine 2.3 H POC Creatinine Glucose 155 H POC Glucose Uric Acid Lactate Dehydrogenase Troponin T Meds: Medications Acetaminophen (Acetaminophen 325 Mg Tablet) 650 mg PO Q6HP PRN; Protocol PRN Reason: Per Pain Protocol/Fever > 101 Last Admin: 04/28/21 20:59 Dose: 650 mg Documented by: Hydrocodone Bitart/Acetaminophen (Hydrocodone/Apap 5/325mg Tablet) 1 tab PO Q6H P PRN PRN Reason: Pain Albuterol/Ipratropium (Ipratropium/Albuterol 3 Ml Ampul.Neb) 3 ml NEB Q4HP PRN PRN Reason: Shortness Of Breath Atorvastatin Calcium (Atorvastatin 40 Mg Tablet) 40 mg PO HS YOU Last Admin: 04/28/21 20:58 Dose: 40 mg Documented by: Chlordiazepoxide HCl (Chlordiazepoxide 25 Mg Capsule) 25 mg PO Q4HP PRN PRN Reason: Alcohol Withdrawal Last Admin: 04/28/21 20:58 Dose: 25 mg Documented by: Dextrose (Dextrose 50% 50 Ml Vial) 0 ml IV UD PRN PRN Reason: Hypoglycemia Diagnostic Test (Pha) (Accu-Chek 1 Each Strip) 1 each FS [facility] Last Admin: 04/28/21 20:57 Dose: 1 each Documented by: Diltiazem HCl (Diltiazem 120 Mg Cap.Xl.24h) 120 mg PO DAILY [facility] Diltiazem HCl (Diltiazem 180 Mg Cap.Xl.24h) 180 mg PO DAILY [facility] Folic Acid (Folic Acid 1 Mg Tablet) 1 mg PO DAILY [facility] Last Admin: 04/28/21 20:58 Dose: 1 mg Documented by: Furosemide (Furosemide 40 Mg Tablet) 40 mg PO DAILY [facility] Gabapentin (Gabapentin 300 Mg Capsule) 600 mg PO TID [facility] Last Admin: 04/28/21 20:58 Dose: 600 mg Documented by: Glucose (Dextrose 31 Gm Oral.Susp) 15 gm PO PRN PRN PRN Reason: Hypoglycemia Pantoprazole Sodium 80 mg/ (Sodium Chloride) 100 mls @ 10 mls/hr IV Q10H [facility] Last Admin: 04/29/21 01:09 Dose: 8 mg/hr, 10 mls/hr Documented by: Potassium Chloride 40 meq/ (Dextrose) 520 mls @ 130 mls/hr IV UD PRN PRN Reason: Potassium < 3 Magnesium Sulfate (Magnesium Sulfate) 2 gm in 50 mls @ 50 mls/hr IV UD PRN PRN Reason: Magnesium </= 1.6 Insulin Glargine (Insulin Glargine, Human 1 Unit/0.01 Ml) 26 unit SQ DAILY [facility] Insulin Glargine (Insulin Glargine, Human 1 Unit/0.01 Ml) 40 unit SQ [facility] Last Admin: 04/28/21 19:47 Dose: Not Given Documented by: Insulin Human Lispro (Insulin Lispro 1 Unit/0.01 Ml Unit) 0 unit SQ [facility]; Protocol Last Admin: 04/28/21 21:10 Dose: 4 unit Documented by: Iron Carb/Multivit/Fitter Helper/Folic Acid (Multivit,Ther Iron,Ca,Fa & Min 1 Tablet) 1 tab PO DAILY [facility] Meclizine HCl (Meclizine 25 Mg Tablet) 25 mg PO QIDP PRN PRN Reason: Vertigo Metoclopramide HCl (Metoclopramide 10 Mg/2 Ml Vial) 10 mg IV Q6HP PRN PRN Reason: Nausea And Vomiting Metoprolol Tartrate (Metoprolol Tartrate 5 Mg/5 Ml Vial) 5 mg IV Q2HP PRN PRN Reason: Tachyarrhythmias HR>110 Morphine Sulfate (Morphine 2 Mg/Ml Vial) 2 mg IV Q1HP PRN; Protocol PRN Reason: Per Pain Protocol Naloxone HCl (Naloxone Hcl 0.4 Mg/Ml Vial) 0.1 mg IV Q2MIN PRN PRN Reason: Opiate Reversal Ondansetron HCl (Ondansetron 4 Mg/2 Ml Vial) 4 mg IV Q4HP PRN PRN Reason: Nausea And Vomiting Icosapent Ethyl [ Vascepa] 1 Gram Capsule 2 dose PO BID [facility] Last Admin: 04/28/21 21:00 Dose: Not Given Documented by: Polyethylene Glycol (Polyethylene Glycol 3350 17 Gm Packet) 17 gm PO DAILYP PRN PRN Reason: Constipation Potassium Chloride (Potassium Chloride 20 Meq Tablet) 40 meq PO UD PRN PRN Reason: Potssium is 3-3.5 Potassium Chloride (Potassium Chloride 20 Meq Tablet) 40 meq PO UD PRN PRN Reason: Potassium < 3 Sertraline HCl (Sertraline 50 Mg Tablet) 50 mg PO DAILY [facility] Sodium Chloride (0.9 % Sodium Chloride 10 Ml Syringe) 10 ml IV Q8 [facility] Last Admin: 04/29/21 05:05 Dose: Not Given Documented by: Sodium Chloride (0.9 % Sodium Chloride 10 Ml Syringe) 10 ml IV Q8 [facility] Last Admin: 04/29/21 05:06 Dose: Not Given Documented by: Sucralfate (Sucralfate 1 Gm/10 Ml Oral.Susp) 1 gm PO Q6 [facility] Last Admin: 04/29/21 05:05 Dose: Not Given Documented by: Thiamine HCl (Thiamine 100 Mg Tablet) 100 mg PO QDAY [facility] Last Admin: 04/28/21 20:58 Dose: 100 mg Documented by: A/P Narrative A/P Narrative: A: *GI bleed: *Acute blood loss anemia on chronic anemia: -4PRBC on admit *Hypotension from volume loss primarily blood loss: resolved my EMS prior to arrival *Lactic 2/2 hypoperfusion from hypotension/blood loss, improved *Hyperkalemia w/associated Arrhythmia(resolved): Resolved, pt on potassium raising meds + 2/2 MYA *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 -improved *h/o PAF: old records from [facility] on ASA & did not want to consider Anticoagulation as discussed on several occasions. -pt on ASA/Plavix/Dilt *h/o systolic(50%)/diastolic CHF: on lasix/Aldactone/ACEI *h/o & Prosthetic Mitral valve: -follows at [facility] Cardiology, has had discussion regarding TAVR, pt was not interested *CAD w/cabg: *DM: *HTN/HLD: *COPD (3L@home): *PHOEBE: not on cpap *Oropharyngeal Dysphagia, mild: *Dementia: *Depression: *UR (h/o same): P: -Endoscopy per surgery -monitor H&H -Hold ASA/Plavix, cont statin -Monitor electrolytes, especially potassium -cont Dilt -stop home potassium supp and aldactone -Hold ACEI for low BP and MYA/k -restart lasix in morning -bladder scan & prn straight cath given h/o UR -basal (decrease while npo status) SSI, hold metformin -ST eval -pt/ot -ppx: SCD DNR Time Spent With Patient Time: Total time spent is greater than 50% in coordination of care (as documented) at patient's floor/unit and/or counseling patient:
[2021-04-29 07:58] LABS: ALT/SGPT 9 U/L (<40); AST/SGOT 17 U/L (<40); Albumin 3.5 gm/dL (3.2-5.2); Albumin/Globulin Ratio 1.5 (1.0-2.3); Alkaline Phosphatase 44 U/L (39-117); Bilirubin,Direct < 0.2 mg/dL (0-0.3); Bilirubin,Total 0.3 mg/dL (0.1-1.0); Blood Urea Nitrogen 66 mg/dL (8-23); Calcium 8.8 mg/dL (8.6-10.4); Carbon Dioxide 29 mmol/L (22-30); Chloride 103 mmol/L (96-108); Globulin 2.3 gm/dL (2.2-3.7); Glomerular Filtration Rate 56; Glucose 100 mg/dL (70-105); Lactate Dehydrogenase 201 U/L (135-225); Phosphorous 2.3 mg/dL (2.5-4.5); Triglycerides 131 mg/dL (<150); Uric Acid 6.9 mg/dL (2.5-8.0)
[2021-04-29] MEDS: INSULIN LISPRO 1 UNIT/0.01 ML UNIT SQ SCH ×4 (08:16→22:07)
[2021-04-29] MEDS ORDERED: NON FORMULARY MEDICATION 1 DOSE MISCELL (Insulin Glargine [Lantus Solostar U-100 Insulin] SUB-Q SCH (09:00)
[2021-04-29] MEDS ORDERED: INSULIN GLARGINE, HUMAN 1 UNIT/0.01 ML SQ SCH (09:00)
[2021-04-29 09:05] LABS: Prothrombin Time 13.7 sec (11.9-14.5)
[2021-04-29] MEDS ORDERED: LORazepam 2 MG/ML VIAL IV ONE (09:51)
[2021-04-29] MEDS ORDERED: FLU VACC QS2021-22(6MOS UP)/PF 60 MCG/0.5 ML SYRINGE IM ONE (10:00)
[2021-04-29] MEDS ORDERED: 0.9 % SODIUM CHLORIDE 250 ML IV SCH (10:30)
[2021-04-29] MEDS ORDERED: KETAMINE 50 MG/ML Syringe (ANEST) IV ONE (12:40)
[2021-04-29] MEDS ORDERED: PROPOFOL 200 MG/20 ML VIAL IV ONE (12:40)
--- NOTE | 2021-04-29 12:45 | Internal Med Progress Note ---
SUBJECTIVE Subjective Patient information: Note initiated : 04/30/21 at 12:39 pm Service Date, if different from initiated Date: [] Patient: Owen Van 81 y/o M admitted on 04/28/21 for fall/blood thinners. Chief Complaint: [] Interval history: History of present illness: Mr. Van is a 81 year old male who presented to the ED from a care facility because he fekt nauseous, weak, and had surffered a ground level fall. The patient reported some recent dark tarry stools but no abdominal pain. He has a history of CHF, diabetes mellitus, COPD, and atrial flutter. The patient did hit his head and was on aspirin and Plavix. His just the day prior to presenting to the ED. In the ED the patient was found to have hyperkale renae with peaked T waves and what appeared to be heart block. His hyperkalemia was treated with calcium insulin glucose albuterol IV fluids. With resolution of the hyperkalemia has rhythm returned to sinus. He denied chest pain or shortness of breath. The patient was discussed with surgeon Dr. Braun as well as hospital medicine and admitted for further workup and management. The patient did get 2 units of blood in the ED as well as 1.5 L of fluid. 2 more prbc units on floor. 04/29 No overnight event or new complaints. Awaiting endoscopy. Creatinine significantly improved. Electrolytes within normal limits.. 04/30 EGD showed a duodenal ulcer per report, continues on protonix infusion. Hemoglo bin stable, no evidence of further bleeding. Review of Systems: positive for fatigue, negative for shortness of breath or chest pain Physical exam Head: Atraumatic, normal inspection. Eyes: normal appearance, no scleral icterus. Neck: full ROM Respiratory: no respiratory distress. Cardiovascular: normal rate and rhythm, S1, S2. GI/Abdominal: soft, nontender, no guarding. Extremities: full range of motion, nontender. Neurological: CN II-XII intact, intact motor, intact sensation. Psychiatric: normal mood. Skin: warm, normal color Constitutional Vitals: Vital Signs Temp Pulse Resp BP Pulse Ox 96.6 F L 98 H 20 127/69 100 04/29/21 12:04/29/21 12:04/29/21 12:04/29/21 12:04/29/21 12:01 Period Temp Pulse Resp BP Sys/Rodriguez Pulse Ox Last 24 Hr 96.3 F-98.6 F 58-117 16-25 108-148/44-70 83-100 Intake and Output 04/28/21 04/29/21 04/29/21 21:59 05:59 13:59 Intake Total 1440 98 Output Total 775 1126 Balance 665 -1028 Weight 86.183 kg Intake & Output: Intake & Output 04/28/21 04/29/21 04/29/21 21:59 05:59 13:59 Intake Total 1440 98 Output Total 775 1126 Balance 665 -1028 Weight 86.183 kg Intake: IV 90 98 Sodium Chloride 0.9% 250 ml @ 0 20 mls/hr IV .[id number] YOU Rx#: [id number] Protonix 80 mg In Sodium 90 98 Chloride 0.9% 100 ml @ 8 MG/HR 10 mls/hr IV Q10H YOU Rx#: [id number] Oral 1350 Output: Void Amount 775 1125 # of times incontinent of urine 1 Other: Meal Dinner Percent of Meal Consumed 75% Feeding Ability Assist with Tray Set Up Urine Appearance Clear Clear Urine Color Bright Yellow Bright Yellow Urine Odor Normal Normal OBJ DATA Labs CBC & Chem 7: 04/30/21 05:48 04/30/21 05:48 Labs: Abnormal Lab Results 04/29/21 04/29/21 04/28/21 06:03 05:00 13:45 WBC RBC 2.95 L Hgb 8.2 L Hct 25.4 L POC Hct MCH MCHC RDW 17.5 H MPV Lymph % (Auto) [place] % (Auto) 12.3 H [place] # (Auto) 1.11 H Absolute Neutrophils VBG Lactic Acid 2.1 H POC Potassium Potassium Anion Gap 7.0 L POC BUN BUN 66 H Creatinine POC Creatinine Glucose POC Glucose Uric Acid Phosphorus 2.3 L Lactate Dehydrogenase Troponin T Total Protein 5.8 L 04/28/21 04/28/21 04/28/21 13:45 13:45 06:15 WBC 12.0 H RBC 3.45 L Hgb 9.4 L Hct 29.3 L POC Hct MCH MCHC RDW 17.1 H MPV Lymph % (Auto) 12.9 L [place] % (Auto) [place] # (Auto) 1.18 H Absolute Neutrophils 9.04 H VBG Lactic Acid POC Potassium Potassium Anion Gap POC BUN BUN 61 H Creatinine 1.9 H POC Creatinine Glucose 118 H POC Glucose Uric Acid 8.5 H Phosphorus Lactate Dehydrogenase 226 H Troponin T 0.03 H Total Protein 04/28/21 04/28/21 04/28/21 06:15 06:15 06:15 WBC RBC Hgb 6.9 L* Hct POC Hct MCH MCHC RDW MPV Lymph % (Auto) [place] % (Auto) [place] # (Auto) Absolute Neutrophils VBG Lactic Acid 2.8 H POC Potassium Potassium 5.7 H Anion Gap POC BUN BUN 74 H Creatinine 2.1 H POC Creatinine Glucose 125 H POC Glucose Uric Acid Phosphorus Lactate Dehydrogenase Troponin T Total Protein 04/28/21 04/27/21 04/27/21 01:39 23:54 23:53 WBC RBC 2.26 L Hgb 5.7 L* Hct 19.0 L* POC Hct MCH 25.2 L MCHC 30.0 L RDW 19.0 H MPV 10.9 H Lymph % (Auto) [place] % (Auto) [place] # (Auto) 0.97 H Absolute Neutrophils 8.04 H VBG Lactic Acid 3.3 H POC Potassium Potassium Anion Gap POC BUN BUN Creatinine POC Creatinine Glucose POC Glucose Uric Acid Phosphorus Lactate Dehydrogenase Troponin T 0.05 H* Total Protein 04/27/21 04/27/21 23:52 23:50 WBC RBC Hgb Hct POC Hct 19 L* MCH MCHC RDW MPV Lymph % (Auto) [place] % (Auto) [place] # (Auto) Absolute Neutrophils VBG Lactic Acid POC Potassium 5.9 H* Potassium 6.1 H* Anion Gap POC BUN 89 H BUN 78 H Creatinine 2.3 H POC Creatinine 2.6 H Glucose 155 H POC Glucose 157 H Uric Acid Phosphorus Lactate Dehydrogenase Troponin T Total Protein Meds: Medications Acetaminophen (Acetaminophen 325 Mg Tablet) 650 mg PO Q6HP PRN; Protocol PRN Reason: Per Pain Protocol/Fever > 101 Last Admin: 04/28/21 20:59 Dose: 650 mg Documented by: Hydrocodone Bitart/Acetaminophen (Hydrocodone/Apap 5/325mg Tablet) 1 tab PO Q6HP PRN PRN Reason: Pain Albuterol/Ipratropium (Ipratropium/Albuterol 3 Ml Ampul.Neb) 3 ml NEB Q4HP PRN PRN Reason: Shortness Of Breath Atorvastatin Calcium (Atorvastatin 40 Mg Tablet) 40 mg PO HS [facility] Last Admin: 04/28/21 20:58 Dose: 40 mg Documented by: Chlordiazepoxide HCl (Chlordiazepoxide 25 Mg Capsule) 25 mg PO Q4HP PRN PRN Reason: Alcohol Withdrawal Last Admin: 04/28/21 20:58 Dose: 25 mg Documented by: Dextrose (Dextrose 50% 50 Ml Vial) 0 ml IV UD PRN PRN Reason: Hypoglycemia Diagnostic Test (Pha) (Accu-Chek 1 Each Strip) 1 each FS ACHS [facility] Last Admin: 04/29/21 12:14 Dose: 1 each Documented by: Diltiazem HCl (Diltiazem 120 Mg Cap.Xl.24h) 120 mg PO DAILY [facility] Diltiazem HCl (Diltiazem 180 Mg Cap.Xl.24h) 180 mg PO DAILY [facility] Folic Acid (Folic Acid 1 Mg Tablet) 1 mg PO DAILY [facility] Last Admin: 04/28/21 20:58 Dose: 1 mg Documented by: Furosemide (Furosemide 40 Mg Tablet) 40 mg PO DAILY [facility] Gabapentin (Gabapentin 300 Mg Capsule) 600 mg PO TID [facility] Last Admin: 04/28/21 20:58 Dose: 600 mg Documented by: Glucose (Dextrose 31 Gm Oral.Susp) 15 gm PO PRN PRN PRN Reason: Hypoglycemia Pantoprazole Sodium 80 mg/ (Sodium Chloride) 100 mls @ 10 mls/hr IV Q10H [facility] Last Admin: 04/29/21 01:09 Dose: 8 mg/hr, 10 mls/hr Documented by: Potassium Chloride 40 meq/ (Dextrose) 520 mls @ 130 mls/hr IV UD PRN PRN Reason: Potassium < 3 Magnesium Sulfate (Magnesium Sulfate) 2 gm in 50 mls @ 50 mls/hr IV UD PRN PRN Reason: Magnesium </= 1.6 Sodium Chloride (Sodium Chloride 0.9%) 250 mls @ 20 mls/hr IV .[id number] [facility] Stop: 04/29/21 22:59 Insulin Glargine (Insulin Glargine, Human 1 Unit/0.01 Ml) 14 unit SQ DAILY [facility] Insulin Glargine (Insulin Glargine, Human 1 Unit/0.01 Ml) 20 unit SQ HS [facility] Insulin Human Lispro (Insulin Lispro 1 Unit/0.01 Ml Unit) 0 unit SQ ACHS [facility]; Protocol Last Admin: 04/29/21 08:16 Dose: Not Given Documented by: Iron Carb/Multivit/Roller Leveler/Folic Acid (Multivit,Ther Iron,Ca,Fa & Min 1 Tablet) 1 tab PO DAILY [facility] Meclizine HCl (Meclizine 25 Mg Tablet) 25 mg PO QIDP PRN PRN Reason: Vertigo Metoclopramide HCl (Metoclopramide 10 Mg/2 Ml Vial) 10 mg IV Q6HP PRN PRN Reason: Nausea And Vomiting Metoprolol Tartrate (Metoprolol Tartrate 5 Mg/5 Ml Vial) 5 mg IV Q2HP PRN PRN Reason: Tachyarrhythmias HR>110 Morphine Sulfate (Morphine 2 Mg/Ml Vial) 2 mg IV Q1HP PRN; Protocol PRN Reason: Per Pain Protocol Naloxone HCl (Naloxone Hcl 0.4 Mg/Ml Vial) 0.1 mg IV Q2MIN PRN PRN Reason: Opiate Reversal Ondansetron HCl (Ondansetron 4 Mg/2 Ml Vial) 4 mg IV Q4HP PRN PRN Reason: Nausea And Vomiting Icosapent Ethyl [ Vascepa] 1 Gram Capsule 2 dose PO BID [facility] Last Admin: 04/28/21 21:00 Dose: Not Given Documented by: Polyethylene Glycol (Polyethylene Glycol 3350 17 Gm Packet) 17 gm PO DAILYP PRN PRN Reason: Constipation Potassium Chloride (Potassium Chloride 20 Meq Tablet) 40 meq PO UD PRN PRN Reason: Potssium is 3-3.5 Potassium Chloride (Potassium Chloride 20 Meq Tablet) 40 meq PO UD PRN PRN Reason: Potassium < 3 Sertraline HCl (Sertraline 50 Mg Tablet) 50 mg PO DAILY [facility] Sodium Chloride (0.9 % Sodium Chloride 10 Ml Syringe) 10 ml IV Q8 [facility] Last Admin: 04/29/21 05:05 Dose: Not Given Documented by: Sodium Chloride (0.9 % Sodium Chloride 10 Ml Syringe) 10 ml IV Q8 [facility] Last Admin: 04/29/21 05:06 Dose: Not Given Documented by: Sucralfate (Sucralfate 1 Gm/10 Ml Oral.Susp) 1 gm PO Q6 [facility] Last Admin: 04/29/21 05:05 Dose: Not Given Documented by: Thiamine HCl (Thiamine 100 Mg Tablet) 100 mg PO QDAY [facility] Last Admin: 04/28/21 20:58 Dose: 100 mg Documented by: A/P Narrative A/P Narrative: A: *Upper GI bleed d/t duodenal ulcer *Acute blood loss anemia on chronic anemia: -4PRBC on admit *Resolved lactic acidosis *Resolved hyperkalemia w/associated Arrhythmia(resolved) *Resolved MYA on CKD *h/o PAF: [facility]SA & did not want to consider Anticoagulation as discussed on several occasions. *h/o systolic(50%)/diastolic CHF: on lasix/Aldactone/ACEI *h/o & Prosthetic Mitral valve: -follows at [facility] Cardiology, has had discussion regarding TAVR, pt was not interested *CAD w/cabg: *DM: *HTN/HLD: *COPD w/ chronic hypoxia (2-3L@home): *PHOEBE: not on cpap *Oropharyngeal Dysphagia, mild: *Dementia: *Depression: *UR (h/o same): P: -Protonix infusion x72 hrs then transition to oral PPI BID for 2-3 months. -Follow hemoglobin. -Hold ASA/Plavix for now, cont statin. -Anticipate resuming Plavix soon but will likely hold Aspirin longer. -Avoid NSAIDs. -Monitor electrolytes, especially potassium -cont Diltiazem -Holding home potassium supp and aldactone -Hold ACEI for low BP and MYA/k -Continue home lasix. -bladder scan & prn straight cath given h/o UR -Lantus and SSI, hold metformin -pt/ot -ppx: SCD DNR Time Spent With Patient Time: Total time spent is greater than 50% in coordination of care (as documented) at patient's floor/unit and/or counseling patient:
[2021-04-29] MEDS: INSULIN GLARGINE, HUMAN 1 UNIT/0.01 ML SQ SCH ×2 (13:25→22:07)
[2021-04-29] MEDS: DILTIAZEM 180 MG CAP.XL.24H PO SCH (13:55)
[2021-04-29] MEDS: THIAMINE 100 MG TABLET PO SCH (13:55)
[2021-04-29] MEDS: DILTIAZEM 120 MG CAP.XL.24H PO SCH (13:55)
[2021-04-29] MEDS: SERTRALINE 50 MG TABLET PO SCH (13:56)
[2021-04-29] MEDS: GABAPENTIN 300 MG CAPSULE PO SCH ×3 (13:56→21:27)
[2021-04-29] MEDS: FOLIC ACID 1 MG TABLET PO SCH (14:10)
[2021-04-29] MEDS: FUROSEMIDE 40 MG TABLET PO SCH (15:51)
[2021-04-29] MEDS: MULTIVIT,THER IRON,CA,FA & MIN 1 TABLET PO SCH (15:51)
[2021-04-29] MEDS: ACETAMINOPHEN 325 MG TABLET PO PRN (18:35)
[2021-04-29] MEDS: chlordiazePOXIDE 25 MG CAPSULE PO PRN (18:35)
[2021-04-29] MEDS: ATORVASTATIN 40 MG TABLET PO SCH (21:27)
[2021-04-30] MEDS: PANTOPRAZOLE 80 MG in 0.9 % SODIUM CHLORIDE 100 ML IV SCH ×4 (00:23→17:08)
[2021-04-30] MEDS: SUCRALFATE 1 GM/10 ML ORAL.SUSP PO SCH ×4 (00:23→17:05)
[2021-04-30] MEDS ORDERED: MAGNESIUM SULFATE 0 GM/0 ML BAG IV ONE (00:57)
[2021-04-30] MEDS: 0.9 % SODIUM CHLORIDE 10 ML SYRINGE IV SCH ×3 (05:42→20:15)
[2021-04-30 06:42] LABS: Basophils # (Auto) 0.08 K/mcL (0.00-0.30); Basophils % (Auto) 0.6 % (0.0-2.0); Eosinophils # (Auto) 0.41 K/mcL (0.00-0.70); Eosinophils % (Auto) 3.2 % (0.0-7.0); Hemoglobin 8.2 g/dL (13.7-17.5); Lymphocytes # (Auto) 2.03 K/mcL (1.50-4.80); Lymphocytes % (Auto) 15.9 % (15.5-49.0); Mean Cell Volume 86.5 fL (80.0-100.0); Mean Corpuscular HGB Conc 32.8 g/dL (31.0-36.0); Mean Platelet Volume 10.1 fL (7.4-10.4); Monocytes # (Auto) 1.39 K/mcL (0.10-0.90); Monocytes % (Auto) 10.9 % (1.0-12.0); Neutrophils % (Auto) 69.4 % (38.0-78.0); Platelet Count 211 K/mcL (140-440); RBC 2.89 M/mcL (4.63-6.08); Red Cell Distribution Width 17.3 % (11.5-14.5); WBC 12.7 K/mcL (4.5-11.0)
[2021-04-30] MEDS: INSULIN LISPRO 1 UNIT/0.01 ML UNIT SQ SCH ×4 (07:20→21:31)
[2021-04-30 07:46] LABS: Blood Urea Nitrogen 60 mg/dL (8-23); Calcium 9.4 mg/dL (8.6-10.4); Carbon Dioxide 28 mmol/L (22-30); Chloride 105 mmol/L (96-108); Glomerular Filtration Rate 56; Glucose 95 mg/dL (70-105)
[2021-04-30] MEDS: INSULIN GLARGINE, HUMAN 1 UNIT/0.01 ML SQ SCH ×2 (08:33→21:32)
[2021-04-30] MEDS: SERTRALINE 50 MG TABLET PO SCH (08:34)
[2021-04-30] MEDS: DILTIAZEM 180 MG CAP.XL.24H PO SCH (08:34)
[2021-04-30] MEDS: MULTIVIT,THER IRON,CA,FA & MIN 1 TABLET PO SCH (08:34)
[2021-04-30] MEDS: THIAMINE 100 MG TABLET PO SCH (08:34)
[2021-04-30] MEDS: GABAPENTIN 300 MG CAPSULE PO SCH ×3 (08:34→21:24)
[2021-04-30] MEDS: FUROSEMIDE 40 MG TABLET PO SCH (08:34)
[2021-04-30] MEDS: DILTIAZEM 120 MG CAP.XL.24H PO SCH (08:34)
[2021-04-30] MEDS: FOLIC ACID 1 MG TABLET PO SCH (08:35)
--- NOTE | 2021-04-30 10:21 | General Surgery Progress Note ---
SUBJECTIVE Subjective Patient information: Note initiated : 04/30/21 at 10:16 am Service Date, if different from initiated Date: [] Patient: Owen Van 81 y/o M admitted on 04/28/21 for fall/blood thinners. Chief Complaint: [] Principal diagnosis: Upper GI bleeding; duodenal ulcer; blood loss anemia Interval history: Patient continues to do well. He has not had any abdominal pain, tenderness,. He has not had any melena for the past 24hours. Hemoglobin is 8.2, white blood count 12.7, BUN 20. Constitutional Vitals: Vital Signs Temp Pulse Resp BP Pulse Ox 97.8 F 63 18 116/67 94 04/30/21 08:01 04/30/21 05:53 04/30/21 08:01 04/30/21 08:01 04/30/21 05:53 Period Temp Pulse Resp BP Sys/Rodriguez Pulse Ox Last 24 Hr 96.6 F-98.4 F 63-102 18-26 105-153/45-103 89-100 Intake and Output 04/29/21 04/30/21 04/30/21 21:59 05:59 13:59 Intake Total 840 340 98 Output Total 604 452 150 Balance 236 -112 -52 Weight 184 lb 14.4 oz Intake & Output: Intake & Output 04/29/21 04/30/21 04/30/21 21:59 05:59 13:59 Intake Total 840 340 98 Output Total 604 452 150 Balance 236 -112 -52 Weight 184 lb 14.4 oz Intake: IV 100 98 Protonix 80 mg In Sodium 100 98 Chloride 0.9% 100 ml @ 8 MG/HR 10 mls/hr IV Q10H [facility] Rx#: [id number] Oral 840 240 Output: Void Amount 600 450 150 # of times incontinent of urine 4 2 Other: Urine Appearance Clear Clear Cloudy Urine Color Bright Yellow Bright Yellow Bright Yellow Urine Odor Normal Normal Normal Stool Size Large Stool Color Black Stool Consistency Soft Formed Head Head exam: Present atraumatic (Mid forehead bruise), normal inspection and normocephalic Eye Eye exam: Present EOMI and PERRL; Absent periorbital swelling or periorbital tenderness ENT ENT exam: Present mucous membranes moist, normal exam and normal oropharynx Neck Neck exam: Present full ROM and normal inspection; Absent lymphadenopathy Respiratory Respiratory exam: Present normal respiratory exam and CTAB; Absent rhonchi or wheezes Cardiovascular Cardiovascular exam: Present normal rate and rhythm, RRR, +S1 and +S2; Absent gallop or JVD GI/Abdominal GI/Abdominal exam: Present normal bowel sounds and soft; Absent distended, guarding or tenderness Extremities Exam Extremities exam: Present full ROM, normal inspection and neurovascular intact Neurological Exam Neurological exam: Present motor sensory deficit Psychiatric Psychiatric exam: Present depressed and flat affect A/P Assessment and plan (1) GIB (gastrointestinal bleeding): Status: Acute (2) Acute duodenal ulcer: Status: Acute (3) Acute blood loss anemia: Status: Acute (4) MYA (acute kidney injury): Status: Acute Narrative A/P Narrative: Patient will be transfused 2 units of packed red cells today CBC and BMP will be checked in the a.m. Time Spent With Patient Time: Total time spent is greater than 50% in coordination of care (as documented) at patient's floor/unit and/or counseling patient:
[2021-04-30] MEDS ORDERED: 0.9 % SODIUM CHLORIDE 250 ML IV SCH (16:45)
[2021-04-30] MEDS: ATORVASTATIN 40 MG TABLET PO SCH (21:24)
[2021-04-30] MEDS: MELATONIN 3 MG TABLET PO PRN (21:32)
[2021-05-01] MEDS: PANTOPRAZOLE 80 MG in 0.9 % SODIUM CHLORIDE 100 ML IV SCH ×3 (01:12→12:49)
[2021-05-01] MEDS: SUCRALFATE 1 GM/10 ML ORAL.SUSP PO SCH ×4 (01:14→17:10)
[2021-05-01] MEDS: 0.9 % SODIUM CHLORIDE 10 ML SYRINGE IV SCH ×3 (05:52→20:01)
[2021-05-01 07:17] LABS: Basophils # (Auto) 0.04 K/mcL (0.00-0.30); Basophils % (Auto) 0.3 % (0.0-2.0); Eosinophils # (Auto) 0.54 K/mcL (0.00-0.70); Eosinophils % (Auto) 4.3 % (0.0-7.0); Hematocrit 27.7 % (40.1-51.0); Hemoglobin 8.9 g/dL (13.7-17.5); Lymphocytes # (Auto) 1.85 K/mcL (1.50-4.80); Lymphocytes % (Auto) 14.7 % (15.5-49.0); Mean Cell Volume 87.7 fL (80.0-100.0); Mean Corpuscular HGB Conc 32.1 g/dL (31.0-36.0); Mean Platelet Volume 10.2 fL (7.4-10.4); Monocytes # (Auto) 1.24 K/mcL (0.10-0.90); Monocytes % (Auto) 9.9 % (1.0-12.0); Neutrophils % (Auto) 70.8 % (38.0-78.0); Platelet Count 172 K/mcL (140-440); RBC 3.16 M/mcL (4.63-6.08); Red Cell Distribution Width 17.1 % (11.5-14.5); WBC 12.6 K/mcL (4.5-11.0)
[2021-05-01 07:32] LABS: ALT/SGPT 10 U/L (<40); AST/SGOT 15 U/L (<40); Albumin 3.4 gm/dL (3.2-5.2); Albumin/Globulin Ratio 1.5 (1.0-2.3); Alkaline Phosphatase 51 U/L (39-117); Bilirubin,Direct < 0.2 mg/dL (0-0.3); Bilirubin,Total 0.5 mg/dL (0.1-1.0); Blood Urea Nitrogen 42 mg/dL (8-23); Calcium 8.7 mg/dL (8.6-10.4); Carbon Dioxide 27 mmol/L (22-30); Chloride 99 mmol/L (96-108); Globulin 2.2 gm/dL (2.2-3.7); Glomerular Filtration Rate 56; Glucose 118 mg/dL (70-105); Lactate Dehydrogenase 247 U/L (135-225); Phosphorous 2.7 mg/dL (2.5-4.5); Triglycerides 118 mg/dL (<150); Uric Acid 6.2 mg/dL (2.5-8.0)
[2021-05-01] MEDS: THIAMINE 100 MG TABLET PO SCH (08:34)
[2021-05-01] MEDS: SERTRALINE 50 MG TABLET PO SCH (08:34)
[2021-05-01] MEDS: FUROSEMIDE 40 MG TABLET PO SCH (08:34)
[2021-05-01] MEDS: MULTIVIT,THER IRON,CA,FA & MIN 1 TABLET PO SCH (08:34)
[2021-05-01] MEDS: DILTIAZEM 180 MG CAP.XL.24H PO SCH (08:34)
[2021-05-01] MEDS: FOLIC ACID 1 MG TABLET PO SCH (08:34)
[2021-05-01] MEDS: GABAPENTIN 300 MG CAPSULE PO SCH ×3 (08:35→20:00)
[2021-05-01] MEDS: INSULIN GLARGINE, HUMAN 1 UNIT/0.01 ML SQ SCH ×2 (08:35→20:01)
[2021-05-01] MEDS: INSULIN LISPRO 1 UNIT/0.01 ML UNIT SQ SCH ×4 (08:36→20:00)
--- NOTE | 2021-05-01 13:45 | General Surgery Progress Note ---
SUBJECTIVE Subjective Patient information: Note initiated : 05/01/21 at 1:39 pm Service Date, if different from initiated Date: [] Patient: Owen Van 81 y/o M admitted on 04/28/21 for fall/blood thinners. Chief Complaint: [] Principal diagnosis: Upper GI bleeding; duodenal ulcer; blood loss anemia Interval history: Patient is clinically stable. Hemoglobin is stable at 8.9. He has not had any melena in the past 24 hours. BUN is trending down. He denies abdominal discomfort. Constitutional Vitals: Vital Signs Temp Pulse Resp BP Pulse Ox 98.2 F 75 20 137/75 95 05/01/21 12:01 05/01/21 12:01 05/01/21 12:01 05/01/21 12:01 05/01/21 12:01 Period Temp Pulse Resp BP Sys/Rodriguez Pulse Ox Last 24 Hr 97.2 F-98.7 F 57-75 16-26 103-145/53-78 92-100 Intake and Output 04/30/21 05/01/21 05/01/21 21:59 05:59 13:59 Intake Total 1079 271 339 Output Total 401 327 Balance 678 -56 339 Weight 188 lb 14.4 oz Intake & Output: Intake & Output 04/30/21 05/01/21 05/01/21 21:59 05:59 13:59 Intake Total 1079 271 339 Output Total 401 327 Balance 678 -56 339 Weight 188 lb 14.4 oz Intake: Nourishment/Supplement quantity 240 (ml) IV 69 31 339 Sodium Chloride 0.9% 250 ml @ 250 20 mls/hr IV .[id number] [facility] Rx#: [id number] Protonix 80 mg In Sodium 69 31 89 Chloride 0.9% 100 ml @ 8 MG/HR 10 mls/hr IV Q10H [facility] Rx#: [id number] Oral 120 240 Blood Product 650 Output: Void Amount 400 325 # of times incontinent of urine 1 2 Other: Meal Dinner Percent of Meal Consumed 100% Nourishment/Supplement name Ensure Urine Appearance Clear Clear Clear Urine Color Pale Bright Yellow Bright Yellow Urine Odor Normal Normal Normal Stool Size Smear Stool Color Dark Red Blood Stool Consistency Soft Liquid # Voids 1 ENT ENT exam: Present mucous membranes moist and normal oropharynx Neck Neck exam: Present full ROM and normal inspection; Absent tenderness Respiratory Respiratory exam: Present normal respiratory exam and CTAB; Absent rales or wheezes Cardiovascular Cardiovascular exam: Present normal rate and rhythm, RRR, +S1 and +S2; Absent JVD GI/Abdominal GI/Abdominal exam: Present normal bowel sounds and soft; Absent distended or tenderness Extremities Exam Extremities exam: Present full ROM and neurovascular intact Neurological Exam Neurological exam: Present alert; Absent motor sensory deficit A/P Assessment and plan (1) Acute duodenal ulcer: Status: Acute (2) GIB (gastrointestinal bleeding): Status: Acute (3) Acute blood loss anemia: Status: Acute (4) MYA (acute kidney injury): Status: Acute Narrative A/P Narrative: Patient is clinically stable If hemoglobin remains stable tomorrow we will consider transfer to [facility] facility Time Spent With Patient Time: Total time spent is greater than 50% in coordination of care (as documented) at patient's floor/unit and/or counseling patient:
--- NOTE | 2021-05-01 16:31 | Internal Med Progress Note ---
SUBJECTIVE Subjective Patient information: Note initiated : 05/01/21 at 4:29 pm Service Date, if different from initiated Date: [] Patient: Owen Van 81 y/o M admitted on 04/28/21 for fall/blood thinners. Chief Complaint: [] Principal diagnosis: Upper GI bleeding; duodenal ulcer; blood loss anemia Interval history: History of present illness: Mr. Van is a 81 year old male who presented to the ED from a care facility because he fekt nauseous, weak, and had surffered a ground level fall. The patient reported some recent dark tarry stools but no abdominal pain. He has a history of CHF, diabetes mellitus, COPD, and atrial flutter. The patient did hit his head and was on aspirin and Plavix. His just the day prior to presenting to the ED. In the ED the patient was found to have hyperkalemia with peaked T waves and what appeared to be heart block. His hyperkalemia was treated with calcium insulin glucose albuterol IV fluids. With resolution of the hyperkalemia has rhythm returned to sinus. He denied chest pain or shortness of breath. The patient was discussed with surgeon Dr. Braun as well as hospital medicine and admitted for further workup and management. The patient did get 2 units of blood in the ED as well as 1.5 L of fluid. 2 more prbc units on floor. 04/29 No overnight event or new complaints. Awaiting endoscopy. Creatinine significantly improved. Electrolytes within normal limits.. 04/30 EGD showed a duodenal ulcer per report, continues on protonix infusion. Received two more units RBC. 05/01 Hemoglobin stable. Started Protonix PO BID, discontinued Protonix infusion. On 1-2 L/min oxygen. Physical exam Head: Atraumatic, normal inspection. Eyes: normal appearance, no scleral icterus. Neck: full ROM Respiratory: nasal canula oxygen, no respiratory distress. Cardiovascular: normal rate and rhythm, S1, S2. GI/Abdominal: soft, nontender, no guarding. Extremities: full range of motion, nontender. Neurological: CN II-XII intact, intact motor, intact sensation. Psychiatric: normal mood. Skin: warm, normal color Constitutional Vitals: Vital Signs Temp Pulse Resp BP Pulse Ox 98.2 F 75 20 137/75 95 05/01/21 12:05/01/21 12:01 05/01/21 12:01 05/01/21 12:01 05/01/21 12:01 Period Temp Pulse Resp BP Sys/Rodriguez Pulse Ox Last 24 Hr 97.2 F-98.7 F 58-75 16-24 116-145/53-78 92-100 Intake and Output 05/01/21 05/01/21 05/01/21 05:59 13:59 21:59 Intake Total 271 339 Output Total 327 Balance -56 339 Intake & Output: Intake & Output 05/01/21 05/01/21 05/01/21 05:59 13:59 21:59 Intake Total 271 339 Output Total 327 Balance -56 339 Intake: IV 31 339 Sodium Chloride 0.9% 250 ml @ 250 20 mls/hr IV .[id number] [facility] Rx#: [id number] Protonix 80 mg In Sodium 31 89 Chloride 0.9% 100 ml @ 8 MG/HR 10 mls/hr IV Q10H [facility] Rx#: [id number] Oral 240 Output: Void Amount 325 # of times incontinent of urine 2 Other: Urine Appearance Clear Clear Urine Color Bright Yellow Bright Yellow Urine Odor Normal Normal Stool Size Smear Stool Color Dark Red Blood Stool Consistency Soft Liquid OBJ DATA Labs CBC & Chem 7: 05/01/21 13:53 05/01/21 06:18 Labs: Abnormal Lab Results 05/01/21 05/01/21 05/01/21 13:53 06:18 06:18 WBC 12.6 H RBC 3.16 L Hgb 9.4 L 8.9 L Hct 27.7 L RDW 17.1 H Lymph % (Auto) 14.7 L [place] % (Auto) [place] # (Auto) 1.24 H Absolute Neutrophils 8.90 H Anion Gap BUN 42 H Glucose 118 H Phosphorus Lactate Dehydrogenase 247 H Total Protein 5.6 L 04/30/21 04/30/21 04/29/21 05:48 05:48 06:03 WBC 12.7 H RBC 2.89 L Hgb 8.2 L Hct 25.0 L RDW 17.3 H Lymph % (Auto) [place] % (Auto) [place] # (Auto) 1.39 H Absolute Neutrophils 8.82 H Anion Gap 7.0 L BUN 60 H 66 H Glucose Phosphorus 2.3 L Lactate Dehydrogenase Total Protein 5.8 L 04/29/21 05:00 WBC RBC 2.95 L Hgb 8.2 L Hct 25.4 L RDW 17.5 H Lymph % (Auto) [place] % (Auto) 12.3 H [place] # (Auto) 1.11 H Absolute Neutrophils Anion Gap BUN Glucose Phosphorus Lactate Dehydrogenase Total Protein Meds: Medications Acetaminophen (Acetaminophen 325 Mg Tablet) 650 mg PO Q6HP PRN; Protocol PRN Reason: Per Pain Protocol/Fever > 101 Last Admin: 04/29/21 18:35 Dose: 650 mg Documented by: Hydrocodone Bitart/Acetaminophen (Hydrocodone/Apap 5/325mg Tablet) 1 tab PO Q6HP PRN PRN Reason: Pain Albuterol/Ipratropium (Ipratropium/Albuterol 3 Ml Ampul.Neb) 3 ml NEB Q4HP PRN PRN Reason: Shortness Of Breath Atorvastatin Calcium (Atorvastatin 40 Mg Tablet) [address] [facility] Last Admin: 04/30/21 21:24 Dose: 40 mg Documented by: Dextrose (Dextrose 50% 50 Ml Vial) 0 ml IV UD PRN PRN Reason: Hypoglycemia Diagnostic Test (Pha) (Accu-Chek 1 Each Strip) [address] [facility] Last Admin: 05/01/21 11:56 Dose: 1 each Documented by: Diltiazem HCl (Diltiazem 180 Mg Cap.Xl.24h) [address] [facility] Last Admin: 05/01/21 08:34 Dose: 180 mg Documented by: Folic Acid (Folic Acid 1 Mg Tablet) [address] [facility] Last Admin: 05/01/21 08:34 Dose: 1 mg Documented by: Furosemide (Furosemide 40 Mg Tablet) [address] [facility] Last Admin: 05/01/21 08:34 Dose: 40 mg Documented by: Gabapentin (Gabapentin 300 Mg Capsule) [address] [facility] Last Admin: 05/01/21 15:35 Dose: 600 mg Documented by: Glucose (Dextrose 31 Gm Oral.Susp) 15 gm PO PRN PRN PRN Reason: Hypoglycemia Pantoprazole Sodium 80 mg/ (Sodium Chloride) 100 mls @ 10 mls/hr IV Q10H [facility] Last Admin: 05/01/21 12:49 Dose: Not Given Documented by: Potassium Chloride 40 meq/ (Dextrose) 520 mls @ 130 mls/hr IV UD PRN PRN Reason: Potassium < 3 Magnesium Sulfate (Magnesium Sulfate) 2 gm in 50 mls @ 50 mls/hr IV UD PRN PRN Reason: Magnesium </= 1.6 Insulin Glargine (Insulin Glargine, Human 1 Unit/0.01 Ml) [address] [facility] Last Admin: 05/01/21 08:35 Dose: 14 units Documented by: Insulin Glargine (Insulin Glargine, Human 1 Unit/0.01 Ml) [address] [facility] Last Admin: 04/30/21 21:32 Dose: 20 unit Documented by: Insulin Human Lispro (Insulin Lispro 1 Unit/0.01 Ml Unit) [address] [facility]; Protocol Last Admin: 05/01/21 11:56 Dose: 10 unit Documented by: Iron Carb/Multivit/[employer]/Folic Acid (Multivit,Ther Iron,Ca,Fa & Min 1 Tablet) [address] [facility] Last Admin: 05/01/21 08:34 Dose: 1 tab Documented by: Meclizine HCl (Meclizine 25 Mg Tablet) 25 mg PO QIDP PRN PRN Reason: Vertigo Melatonin (Melatonin 3 Mg Tablet) 6 mg PO HSP PRN PRN Reason: Insomnia Last Admin: 04/30/21 21:32 Dose: 6 mg Documented by: Metoclopramide HCl (Metoclopramide 10 Mg/2 Ml Vial) 10 mg IV Q6HP PRN PRN Reason: Nausea And Vomiting Metoprolol Tartrate (Metoprolol Tartrate 5 Mg/5 Ml Vial) 5 mg IV Q2HP PRN PRN Reason: Tachyarrhythmias HR>110 Morphine Sulfate (Morphine 2 Mg/Ml Vial) 2 mg IV Q1HP PRN; Protocol PRN Reason: Per Pain Protocol Naloxone HCl (Naloxone Hcl 0.4 Mg/Ml Vial) 0.1 mg IV Q2MIN PRN PRN Reason: Opiate Reversal Ondansetron HCl (Ondansetron 4 Mg/2 Ml Vial) 4 mg IV Q4HP PRN PRN Reason: Nausea And Vomiting Icosapent Ethyl [ Vascepa] 1 Gram Capsule [address] [facility] Last Admin: 05/01/21 08:36 Dose: Not Given Documented by: Polyethylene Glycol (Polyethylene Glycol 3350 17 Gm Packet) 17 gm PO DAILYP PRN PRN Reason: Constipation Potassium Chloride (Potassium Chloride 20 Meq Tablet) 40 meq PO UD PRN PRN Reason: Potssium is 3-3.5 Potassium Chloride (Potassium Chloride 20 Meq Tablet) 40 meq PO UD PRN PRN Reason: Potassium < 3 Sertraline HCl (Sertraline 50 Mg Tablet) [address] [facility] Last Admin: 05/01/21 08:34 Dose: 50 mg Documented by: Sodium Chloride (0.9 % Sodium Chloride 10 Ml Syringe) [address] [facility] Last Admin: 05/01/21 12:49 Dose: Not Given Documented by: Sucralfate (Sucralfate 1 Gm/10 Ml Oral.Susp) [address] [facility] Last Admin: 05/01/21 11:56 Dose: 1 gm Documented by: Thiamine HCl (Thiamine 100 Mg Tablet) [address] 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 *h/o systolic(50%)/diastolic CHF: on lasix/Aldactone/ACEI *h/o & Prosthetic Mitral valve: -follows at [facility] Cardiology, has had discussion regarding TAVR, pt was not interested *CAD w/cabg: *DM: *HTN/HLD: *COPD w/ chronic hypoxia (2-3L@home): *PHOEBE: not on cpap *Oropharyngeal Dysphagia, mild: *Dementia: *Depression: *UR (h/o same): P: -Transition to oral Protonix 40 mg BID and continue for 2-3 months. -Follow hemoglobin. -Hold ASA/Plavix for now, cont statin. -Anticipate resuming Plavix soon but will likely hold Aspirin longer. -Avoid NSAIDs indefinitely. -Monitor electrolytes. -cont Diltiazem at lower than home dose (decrease for bradycardia) -Holding home potassium supp and aldactone -Hold ACEI for low BP and MYA/k -Continue home lasix. -bladder scan & prn straight cath given h/o UR -Lantus and SSI, hold metformin -pt/ot -ppx: SCD DNR Time Spent With Patient Time: Total time spent is greater than 50% in coordination of care (as documented) at patient's floor/unit and/or counseling patient:
[2021-05-01] MEDS: PANTOPRAZOLE 40 MG TABLET PO SCH (20:00)
[2021-05-01] MEDS: ATORVASTATIN 40 MG TABLET PO SCH (20:00)
[2021-05-01] MEDS: MELATONIN 3 MG TABLET PO PRN (20:00)
--- NOTE | 2021-05-01 21:08 | EKG ---
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
--- NOTE | 2021-05-01 21:12 | EKG ---
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
[2021-05-02] MEDS: SUCRALFATE 1 GM/10 ML ORAL.SUSP PO SCH ×3 (00:12→11:32)
[2021-05-02] MEDS: 0.9 % SODIUM CHLORIDE 10 ML SYRINGE IV SCH ×2 (05:30→13:54)
[2021-05-02 06:55] LABS: Basophils # (Auto) 0.05 K/mcL (0.00-0.30); Basophils % (Auto) 0.4 % (0.0-2.0); Eosinophils # (Auto) 0.66 K/mcL (0.00-0.70); Eosinophils % (Auto) 5.6 % (0.0-7.0); Hematocrit 27.8 % (40.1-51.0); Hemoglobin 9.1 g/dL (13.7-17.5); Lymphocytes # (Auto) 1.64 K/mcL (1.50-4.80); Lymphocytes % (Auto) 13.9 % (15.5-49.0); Mean Corpuscular HGB Conc 32.7 g/dL (31.0-36.0); Mean Platelet Volume 10.2 fL (7.4-10.4); Monocytes # (Auto) 1.09 K/mcL (0.10-0.90); Monocytes % (Auto) 9.2 % (1.0-12.0); Neutrophils % (Auto) 70.9 % (38.0-78.0); Platelet Count 186 K/mcL (140-440); RBC 3.16 M/mcL (4.63-6.08); WBC 11.8 K/mcL (4.5-11.0)
[2021-05-02 07:12] LABS: ALT/SGPT 12 U/L (<40); AST/SGOT 16 U/L (<40); Albumin 3.5 gm/dL (3.2-5.2); Albumin/Globulin Ratio 1.3 (1.0-2.3); Alkaline Phosphatase 59 U/L (39-117); Bilirubin,Direct < 0.2 mg/dL (0-0.3); Bilirubin,Total 0.5 mg/dL (0.1-1.0); Blood Urea Nitrogen 26 mg/dL (8-23); Calcium 8.5 mg/dL (8.6-10.4); Carbon Dioxide 29 mmol/L (22-30); Chloride 100 mmol/L (96-108); Globulin 2.6 gm/dL (2.2-3.7); Glomerular Filtration Rate 70; Glucose 128 mg/dL (70-105); Lactate Dehydrogenase 241 U/L (135-225); Triglycerides 108 mg/dL (<150); Uric Acid 6.2 mg/dL (2.5-8.0)
[2021-05-02] MEDS: INSULIN LISPRO 1 UNIT/0.01 ML UNIT SQ SCH ×2 (07:39→11:26)
[2021-05-02] MEDS: PANTOPRAZOLE 40 MG TABLET PO SCH (07:42)
[2021-05-02] MEDS: INSULIN GLARGINE, HUMAN 1 UNIT/0.01 ML SQ SCH (08:52)
[2021-05-02] MEDS: FOLIC ACID 1 MG TABLET PO SCH (08:53)
[2021-05-02] MEDS: GABAPENTIN 300 MG CAPSULE PO SCH ×2 (08:53→15:15)
[2021-05-02] MEDS: DILTIAZEM 180 MG CAP.XL.24H PO SCH (08:53)
[2021-05-02] MEDS: FUROSEMIDE 40 MG TABLET PO SCH (08:54)
[2021-05-02] MEDS: SERTRALINE 50 MG TABLET PO SCH (08:54)
[2021-05-02] MEDS: THIAMINE 100 MG TABLET PO SCH (08:54)
[2021-05-02] MEDS: MULTIVIT,THER IRON,CA,FA & MIN 1 TABLET PO SCH (08:54)
[2021-05-02] MEDS ORDERED: CLOPIDOGREL 75 MG TABLET PO SCH (09:00)
--- NOTE | 2021-05-02 11:54 | Internal Med Progress Note ---
SUBJECTIVE Subjective Patient information: Note initiated : 05/02/21 at 11:52 am Service Date, if different from initiated Date: [] Patient: Owen Van 81 y/o M admitted on 04/28/21 for fall/blood thinners. Chief Complaint: [] Principal diagnosis: Upper GI bleeding; duodenal ulcer; blood loss anemia Interval history: History of present illness: Mr. Van is a 81 year old male who presented to the ED from a care facility because he fekt nauseous, weak, and had surffered a ground level fall. The patient reported some recent dark tarry stools but no abdominal pain. He has a history of CHF, diabetes mellitus, COPD, and atrial flutter. The patient did hit his head and was on aspirin and Plavix. His just the day prior to presenting to the ED. In the ED the patient was found to have hyperkalemia with peaked T waves and what appeared to be heart block. His hyperkalemia was treated with calcium insulin glucose albuterol IV fluids. With resolution of the hyperkalemia has rhythm returned to sinus. He denied chest pain or shortness of breath. The patient was discussed with surgeon Dr. Braun as well as hospital medicine and admitted for further workup and management. The patient did get 2 units of blood in the ED as well as 1.5 L of fluid. 2 more prbc units on floor. 04/29 No overnight event or new complaints. Awaiting endoscopy. Creatinine significantly improved. Electrolytes within normal limits.. 04/30 EGD showed a duodenal ulcer per report, continues on protonix infusion. Received two more units RBC. 05/01 Hemoglobin stable. Started Protonix PO BID, discontinued Protonix infusion. On 1-2 L/min oxygen. 05/[address] Braun ok to resume Plavix now but will continue to hold aspirin. Hemoglobin 9.1 today. On 2 L/min oxygen, no respiratory distress. Chest xray ordered. Otherwise working on placement. Physical exam Head: Atraumatic, normal inspection. Eyes: normal appearance, no scleral icterus. Neck: full ROM Respiratory: nasal canula oxygen, no respiratory distress. Cardiovascular: normal rate and rhythm, S1, S2. GI/Abdominal: soft, nontender, no guarding. Extremities: full range of motion, nontender. Neurological: CN II-XII intact, intact motor, intact sensation. Psychiatric: normal mood. Skin: warm, normal color Constitutional Vitals: Vital Signs Temp Pulse Resp BP Pulse Ox 98.1 F 80 19 139/96 98 05/02/21 08:27 05/02/21 10:04 05/02/21 10:04 05/02/21 10:02 05/02/21 10:04 Period Temp Pulse Resp BP Sys/Rodriguez Pulse Ox Last 24 Hr 96.7 F-99.3 F 36-94 15-24 115-152/48-96 91-100 Intake and Output 05/01/21 05/02/21 05/02/21 21:59 05:59 13:59 Intake Total 1006 540 480 Output Total 376 275 250 Balance 630 265 230 Weight 87.453 kg Intake & Output: Intake & Output 05/01/21 05/02/21 05/02/21 21:59 05:59 13:59 Intake Total 1006 540 480 Output Total 376 275 250 Balance 630 265 230 Weight 87.453 kg Intake: Nourishment/Supplement quantity 240 (ml) IV 86 Protonix 80 mg In Sodium 86 Chloride 0.9% 100 ml @ 8 MG/HR 10 mls/hr IV Q10H [facility] Rx#: [id number] Oral 920 540 240 Output: Void Amount 375 275 250 # of times incontinent of urine 1 Other: Meal Dinner Breakfast Percent of Meal Consumed 100% 100% Feeding Ability Independent Nourishment/Supplement name Ensure [place] Urine Appearance Clear Clear Clear Urine Color Bright Yellow Dark Yellow Bright Yellow Urine Odor Normal Strong Normal # Voids 1 OBJ DATA Labs CBC & Chem 7: 05/02/21 05:58 05/02/21 05:58 Labs: Abnormal Lab Results 05/02/21 05/02/21 05/01/21 05:58 05:58 13:53 WBC 11.8 H RBC 3.16 L Hgb 9.1 L 9.4 L Hct 27.8 L RDW 17.0 H Lymph % (Auto) 13.9 L [place] # (Auto) 1.09 H Absolute Neutrophils 8.35 H BUN 26 H Glucose 128 H Calcium 8.5 L Lactate Dehydrogenase 241 H Total Protein 05/01/21 05/01/21 04/30/21 06:18 06:18 05:48 WBC 12.6 H RBC 3.16 L Hgb 8.9 L Hct 27.7 L RDW 17.1 H Lymph % (Auto) 14.7 L [place] # (Auto) 1.24 H Absolute Neutrophils 8.90 H BUN 42 H 60 H Glucose 118 H Calcium Lactate Dehydrogenase 247 H Total Protein 5.6 L 04/30/21 05:48 WBC 12.7 H RBC 2.89 L Hgb 8.2 L Hct 25.0 L RDW 17.3 H Lymph % (Auto) [place] # (Auto) 1.39 H Absolute Neutrophils 8.82 H BUN Glucose Calcium Lactate Dehydrogenase Total Protein Meds: Medications Acetaminophen (Acetaminophen 325 Mg Tablet) 650 mg PO Q6HP PRN; Protocol PRN Reason: Per Pain Protocol/Fever > 101 Last Admin: 04/29/21 18:35 Dose: 650 mg Documented by: Albuterol/Ipratropium (Ipratropium/Albuterol 3 Ml Ampul.Neb) 3 ml NEB Q4HP PRN PRN Reason: Shortness Of Breath Atorvastatin Calcium (Atorvastatin 40 Mg Tablet) 40 mg PO HS [facility] Last Admin: 05/01/21 20:00 Dose: 40 mg Documented by: Clopidogrel Bisulfate (Clopidogrel 75 Mg Tablet) 75 mg PO QDAY [facility] Last Admin: 05/02/21 08:54 Dose: 75 mg Documented by: Dextrose (Dextrose 50% 50 Ml Vial) 0 ml IV UD PRN PRN Reason: Hypoglycemia Diagnostic Test (Pha) (Accu-Chek 1 Each Strip) 1 each FS ACHS [facility] Last Admin: 05/02/21 11:26 Dose: 1 each Documented by: Diltiazem HCl (Diltiazem 180 Mg Cap.Xl.24h) 180 mg PO DAILY [facility] Last Admin: 05/02/21 08:53 Dose: 180 mg Documented by: Folic Acid (Folic Acid 1 Mg Tablet) 1 mg PO DAILY [facility] Last Admin: 05/02/21 08:53 Dose: 1 mg Documented by: Furosemide (Furosemide 40 Mg Tablet) 40 mg PO DAILY [facility] Last Admin: 05/02/21 08:54 Dose: 40 mg Documented by: Gabapentin (Gabapentin 300 Mg Capsule) 600 mg PO TID [facility] Last Admin: 05/02/21 08:53 Dose: 600 mg Documented by: Glucose (Dextrose 31 Gm Oral.Susp) 15 gm PO PRN PRN PRN Reason: Hypoglycemia Potassium Chloride 40 meq/ (Dextrose) 520 mls @ 130 mls/hr IV UD PRN PRN Reason: Potassium < 3 Magnesium Sulfate (Magnesium Sulfate) 2 gm in 50 mls @ 50 mls/hr IV UD PRN PRN Reason: Magnesium </= 1.6 Insulin Glargine (Insulin Glargine, Human 1 Unit/0.01 Ml) 14 unit SQ DAILY [facility] Last Admin: 05/02/21 08:52 Dose: 14 units Documented by: Insulin Glargine (Insulin Glargine, Human 1 Unit/0.01 Ml) 20 unit SQ [facility] Last Admin: 05/01/21 20:01 Dose: 20 unit Documented by: Insulin Human Lispro (Insulin Lispro 1 Unit/0.01 Ml Unit) 0 unit SQ [facility]; Protocol Last Admin: 05/02/21 11:26 Dose: 12 unit Documented by: Iron Carb/Multivit/[place]/Folic Acid (Multivit,Ther Iron,Ca,Fa & Min 1 Tablet) 1 tab PO DAILY [facility] Last Admin: 05/02/21 08:54 Dose: 1 tab Documented by: Meclizine HCl (Meclizine 25 Mg Tablet) 25 mg PO QIDP PRN PRN Reason: Vertigo Melatonin (Melatonin 3 Mg Tablet) 6 mg PO HSP PRN PRN Reason: Insomnia Last Admin: 05/01/21 20:00 Dose: 6 mg Documented by: Metoclopramide HCl (Metoclopramide 10 Mg/2 Ml Vial) 10 mg IV Q6HP PRN PRN Reason: Nausea And Vomiting Metoprolol Tartrate (Metoprolol Tartrate 5 Mg/5 Ml Vial) 5 mg IV Q2HP PRN PRN Reason: Tachyarrhythmias HR>110 Naloxone HCl (Naloxone Hcl 0.4 Mg/Ml Vial) 0.1 mg IV Q2MIN PRN PRN Reason: Opiate Reversal Ondansetron HCl (Ondansetron 4 Mg/2 Ml Vial) 4 mg IV Q4HP PRN PRN Reason: Nausea And Vomiting Pantoprazole Sodium (Pantoprazole 40 Mg Tablet) 40 mg PO BIDAC [facility] Last Admin: 05/02/21 07:42 Dose: 40 mg Documented by: Icosapent Ethyl [ Vascepa] 1 Gram Capsule 2 dose PO BID [facility] Last Admin: 05/02/21 08:54 Dose: Not Given Documented by: Polyethylene Glycol (Polyethylene Glycol 3350 17 Gm Packet) 17 gm PO DAILYP PRN PRN Reason: Constipation Potassium Chloride (Potassium Chloride 20 Meq Tablet) 40 meq PO UD PRN PRN Reason: Potssium is 3-3.5 Potassium Chloride (Potassium Chloride 20 Meq Tablet) 40 meq PO UD PRN PRN Reason: Potassium < 3 Sertraline HCl (Sertraline 50 Mg Tablet) 50 mg PO DAILY [facility] Last Admin: 05/02/21 08:54 Dose: 50 mg Documented by: Sodium Chloride (0.9 % Sodium Chloride 10 Ml Syringe) 10 ml IV Q8 [facility] Last Admin: 05/02/21 05:30 Dose: 10 ml Documented by: Sucralfate (Sucralfate 1 Gm/10 Ml Oral.Susp) 1 gm PO Q6 [facility] Last Admin: 05/02/21 11:32 Dose: 1 gm Documented by: Thiamine HCl (Thiamine 100 Mg Tablet) 100 mg PO QDAY [facility] Last Admin: 05/02/21 08:54 Dose: 100 mg Documented by: A/P Narrative A/P Narrative: A: *Upper GI bleed d/t duodenal ulcer *Acute blood loss anemia on chronic anemia: -6 units RBC since presentation to the ED *Hypoxia *Resolved lactic acidosis *Resolved hyperkalemia w/associated Arrhythmia(resolved) *Resolved MYA on CKD *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 *h/o systolic(50%)/diastolic CHF: on lasix/Aldactone/ACEI *h/o & Prosthetic Mitral valve: -follows at [facility], has had discussion regarding TAVR, pt was not interested *CAD w/cabg: *DM: *HTN/HLD: *COPD w/ chronic hypoxia (2-3L@home): *PHOEBE: not on cpap *Oropharyngeal Dysphagia, mild: *Dementia: *Depression: *UR (h/o same): P: -Oral Protonix 40 mg BID, continue for 2-3 months. -Follow hemoglobin daily. -Resume Plavix, holding home aspirin. -Avoid NSAIDs. -Monitor electrolytes. -Cont Diltiazem at lower than home dose (decrease for bradycardia) -Holding home potassium supp and aldactone -Hold ACEI for low BP and MYA/k -Continue home lasix. -bladder scan & prn straight cath given h/o UR -Lantus and SSI, hold metformin -pt/ot -ppx: SCD DNR Time Spent With Patient Time: Total time spent is greater than 50% in coordination of care (as documented) at patient's floor/unit and/or counseling patient:
--- NOTE | 2021-05-02 12:54 | XRay Report ---
CLINICAL INFORMATION: Trauma COMPARISON: 09/09/2020 TECHNIQUE: Portable FINDINGS: Moderate cardiomegaly is unchanged. TAVR in stable position without complication The mediastinum and pulmonary vessels are unremarkable. The lungs are clear. There are no effusions. The bones and soft tissues are within normal limits. Moderate elevation right diaphragm seen as before. IMPRESSION: Mild stable cardiomegaly. No acute disease stable Interpreted and Authenticated by: Abner Weems 05/02/21
--- NOTE | 2021-05-02 14:10 | General Surgery Progress Note ---
SUBJECTIVE Subjective Patient information: Note initiated : 05/02/21 at 2:05 pm Service Date, if different from initiated Date: [] Patient: Owen Van 81 y/o M admitted on 04/28/21 for fall/blood thinners. Chief Complaint: [] Principal diagnosis: Upper GI bleeding; duodenal ulcer; blood loss anemia Interval history: Patient is clinically stable. He has no abdominal discomfort and is tolerating diet. He has not had any melena over the past 36 hours. His hemoglobin remained stable. Clinically he is recovered and is stable for discharge home or to nursing care facility. He should remain on pantoprazole for at least 6 months and sucralfate for 3 months. I will follow him up in the office on an as-needed basis. Constitutional Vitals: Vital Signs Temp Pulse Resp BP Pulse Ox 98.5 F 59 L 20 110/71 85 L 05/02/21 11:27 05/02/21 12:02 05/02/21 12:10 05/02/21 12:02 05/02/21 12:02 Period Temp Pulse Resp BP Sys/Rodriguez Pulse Ox Last 24 Hr 96.7 F-99.3 F 36-94 15-24 110-152/48-96 85-100 Intake and Output 05/02/21 05/02/21 05/02/21 05:59 13:59 21:59 Intake Total 540 480 Output Total 275 625 Balance 265 -145 Intake & Output: Intake & Output 05/02/21 05/02/21 05/02/21 05:59 13:59 21:59 Intake Total 540 480 Output Total 275 625 Balance 265 -145 Intake: Nourishment/Supplement quantity 240 (ml) Oral 540 240 Output: Void Amount 275 625 Other: Meal Breakfast Percent of Meal Consumed 100% Feeding Ability Independent Nourishment/Supplement name Ensure Enlive Urine Appearance Clear Clear Urine Color Dark Yellow Bright Yellow Urine Odor Strong Normal # Voids 1 Neck Neck exam: Present full ROM and normal inspection; Absent tenderness Respiratory Respiratory exam: Present normal respiratory exam and CTAB Cardiovascular Cardiovascular exam: Present normal rate and rhythm, +S1 and +S2; Absent RRR GI/Abdominal GI/Abdominal exam: Present normal bowel sounds and soft; Absent distended or tenderness Extremities Exam Extremities exam: Present full ROM, pedal edema (Chronic stasis edema is stable) and neurovascular intact Neurological Exam Neurological exam: Present alert and normal gait; Absent motor sensory deficit Psychiatric Psychiatric exam: Present depressed and flat affect A/P Assessment and plan (1) Acute duodenal ulcer: Status: Acute (2) GIB (gastrointestinal bleeding): Status: Acute (3) Acute blood loss anemia: Status: Acute (4) MYA (acute kidney injury): Status: Acute Narrative A/P Narrative: Patient is clinically stable and can be discharged on pantoprazole and sucralfate. I will follow him up in the office on an as-needed basis. primary follow-up should be by his primary care provider Time Spent With Patient Time: Total time spent is greater than 50% in coordination of care (as documented) at patient's floor/unit and/or counseling patient:
--- NOTE | 2021-05-02 15:16 | Discharge Summary ---
Discharge Provider Provider Patient information: Note initiated : 05/02/21 at 3:09 pm Service Date, if different from initiated Date: [] Patient: Owen Van 81 y/o M admitted on 04/28/21 for fall/blood thinners. Chief Complaint: [] Date of admission: 04/28/21 06:05 Discharge date: 05/02/21 Primary care physician: Radha Braun Consults: 04/28/21 Consult to Physician [CONS] Stat Comment: Consulting Provider: Gildardo Ozuna Reason For Exam: Physician to Consult Consult to Physician [CONS] Stat Comment: Consulting Provider: Jolynn Braun Reason For Exam: Physician to Consult Discharge Meds Discharge Medications Home Medications acetaminophen 650 mg tablet,extended release See Rx Instructions .ROUTE .COMPLEX #90 each 04/11/21 [Rx Confirmed 04/28/21 Last Taken Unknown] atorvastatin 40 mg tablet (Lipitor) 40 mg PO HS #90 tab 04/11/21 [Rx Confirmed 04/28/21 Last Taken Unknown] clopidogrel 75 mg tablet 75 mg PO QDAY #90 tab 04/11/21 [Rx Confirmed 04/28/21 Last Taken Unknown] docusate sodium 100 mg capsule See Rx Instructions .ROUTE .COMPLEX #60 each 04/11/21 [Rx Confirmed 04/28/21 Last Taken Unknown] furosemide 40 mg tablet 40 mg PO DAILY #30 tab 04/11/21 [Rx Confirmed 04/28/21 Last Taken Unknown] gabapentin 300 mg capsule 600 mg PO TID #540 cap 04/11/21 [Rx Confirmed 04/28/21 Last Taken Unknown] icosapent ethyl 1 gram capsule (Vascepa) 2 g PO BID #360 cap 04/11/21 [Rx Confirmed 04/28/21 Last Taken Unknown] magnesium oxide 400 mg (241.3 mg magnesium) tablet See Rx Instructions .ROUTE .COMPLEX #30 each 04/11/21 [Rx Confirmed 04/28/21 Last Taken Unknown] meclizine 25 mg chewable tablet See Rx Instructions .ROUTE .COMPLEX #60 each 04/11/21 [Rx Confirmed 04/28/21 Last Taken Unknown] metformin 500 mg tablet,extended release 24 hr 1,000 mg PO BID #360 tab 04/11/21 [Rx Confirmed 04/28/21 Last Taken Unknown] multivitamin-iron 9 mg-folic acid 400 mcg-calcium and minerals tablet (Therems- M) See Rx Instructions .ROUTE .COMPLEX #30 each 04/11/21 [Rx Confirmed 04/28/21 Last Taken Unknown] ondansetron HCl 4 mg tablet See Rx Instructions .ROUTE .COMPLEX #30 each 04/11/21 [Rx Confirmed 04/28/21 Last Taken Unknown] pen needle, diabetic 31 gauge x 3/16" (Unifine Pentips) #100 ea 04/11/21 [Rx Confirmed 04/28/21 Last Taken Unknown] sertraline 50 mg tablet See Rx Instructions .ROUTE .COMPLEX #90 tab 04/11/21 [Rx Confirmed 04/28/21 Last Taken Unknown] ramipril 10 mg capsule See Rx Instructions .ROUTE .COMPLEX #180 cap 04/25/21 [Rx Confirmed 04/28/21 Last Taken Unknown] diltiazem HCl 180 mg capsule,extended release 24 hr 180 mg PO DAILY #60 cap 05/02/21 [Rx Last Taken Unknown] insulin glargine 100 unit/mL subcutaneous solution (Lantus U-100 Insulin) 14 unit (0.14 mL) SUBCUT .morning #10 ml 05/02/21 [Rx Last Taken Unknown] insulin glargine 100 unit/mL subcutaneous solution (Lantus U-100 Insulin) 20 unit (0.2 mL) SUBCUT HS #10 ml 05/02/21 [Rx Last Taken Unknown] pantoprazole 40 mg tablet,delayed release 40 mg PO BIDAC 90 Days #180 tab 05/02/21 [Rx Last Taken Unknown] polyethylene glycol 3350 17 gram oral powder packet (HealthyLax) 17 g PO DAILYP PRN #30 ea 05/02/21 [Rx Last Taken Unknown] sucralfate 100 mg/mL oral suspension 1 g (10 mL) PO Q6 90 Days #3600 ml 05/02/21 [Rx Last Taken Unknown] thiamine mononitrate (vit B1) 100 mg tablet 100 mg PO QDAY 30 Days #30 tab 05/02/21 [Rx Last Taken Unknown] COURSE Hospital Course Hospital course: Mr. Van is a 81 year old male who presented to the ED from a care facility because he fekt nauseous, weak, and had surffered a ground level fall. The patient reported some recent dark tarry stools but no abdominal pain. He has a history of CHF, diabetes mellitus, COPD, and atrial flutter. The patient did hit his head and was on aspirin and Plavix. His just the day prior to presenting to the ED. In the ED the patient was found to have hyperkalemia with peaked T waves and what appeared to be heart block. His hype rkalemia was treated with calcium insulin glucose albuterol IV fluids. With resolution of the hyperkalemia has rhythm returned to sinus. He denied chest pain or shortness of breath. The patient was discussed with surgeon Dr. Braun as well as hospital medicine and admitted for further workup and management. The patient did get 2 units of blood in the ED as well as 1.5 L of fluid. 2 more prbc units on floor. 04/29 No overnight event or new complaints. Awaiting endoscopy. Creatinine significantly improved. Electrolytes within normal limits.. 04/30 EGD showed a duodenal ulcer per report, continues on protonix infusion. Received two more units RBC. 05/01 Hemoglobin stable. Started Protonix PO BID, discontinued Protonix infusion. On 1-2 L/min oxygen. 05/[address] Braun, ok to resume Plavix now but will continue to hold aspirin. Hemoglobin 9.1 today. On 2 L/min oxygen, no respiratory distress. Chest xray ordered and showed that lungs were clear. Successfully profiled to SNF today for rehab. Discharged on Protonix BID and Sucralfate for duodenal ulcer. Important medication changes at discharge is discontinuation of prior aspirin and ibuprofen for the duodenal ulcer, also on lower dose of Cardizem for bradycardia during the hospitalization, holding spironolactone for recent hyperkalemia, discharged on lower dose of Lantus due to hypoglycemia during the hospital stay. Follow up with Dr. Braun for further management post upper GI bleed. Follow up with PCP for management of multiple medical comorbidities. Physical exam Head: Atraumatic, normal inspection. Eyes: normal appearance, no scleral icterus. Neck: full ROM Respiratory: nasal canula oxygen, no respiratory distress. Cardiovascular: normal rate and rhythm, S1, S2. GI/Abdominal: soft, nontender, no guarding. Extremities: full range of motion, nontender. Neurological: CN II-XII intact, intact motor, intact sensation. Psychiatric: normal mood. Skin: warm, normal color Discharge diagnosis: Upper GI bleed Secondary discharge diagnosis: Duodenal ulcers Time Spent with Patient Time attestation: Total time spent providing and/or coordinating discharge services: EXAM Constitutional Vitals: Temp Pulse Resp BP Pulse Ox 98.5 F 63 21 140/67 100 05/02/21 11:27 05/02/21 14:20 05/02/21 14:20 05/02/21 14:16 05/02/21 14:20 Discharge Data Data Completed and Pending Labs on day of discharge: Labs from last 24 hours 05/02/21 05/02/21 05:58 05:58 WBC 11.8 H RBC 3.16 L Hgb 9.1 L Hct 27.8 L MCV 88.0 MCH 28.8 MCHC 32.7 RDW 17.0 H Plt Count 186 MPV 10.2 Neut % (Auto) 70.9 Lymph % (Auto) 13.9 L Cache % (Auto) 9.2 Eos % (Auto) 5.6 Baso % (Auto) 0.4 Lymph # (Auto) 1.64 Cache # (Auto) 1.09 H Eos # (Auto) 0.66 Baso # (Auto) 0.05 Absolute Neutrophils 8.35 H Sodium 137 Potassium 4.0 Chloride 100 Carbon Dioxide 29 Anion Gap 8.0 BUN 26 H Creatinine 1.0 GFR Calculation 70 Glucose 128 H Uric Acid 6.2 Calcium 8.5 L Phosphorus 3.0 Magnesium 2.0 Total Bilirubin 0.5 Direct Bilirubin < 0.2 GGT 19 AST 16 ALT 12 Alkaline Phosphatase 59 Lactate Dehydrogenase 241 H Total Protein 6.1 Albumin 3.5 Globulin 2.6 Albumin/Globulin Ratio 1.3 Triglycerides 108 Discharge Plan Patient/Caregiver Discharge Instructions Activity: as per physical therapy Diet: Consistent Carbohydrate Prescriptions: New diltiazem HCl 180 mg Capsule,Extended Release 24hr 180 mg PO DAILY Qty: 60 4RF Lantus U-100 Insulin 100 unit/mL Solution 14 unit subcut .morning Qty: 10 6RF Lantus U-100 Insulin 100 unit/mL Solution 20 unit subcut HS Qty: 10 6RF pantoprazole 40 mg Tablet,Delayed Release (Dr/Ec) 40 mg PO BIDAC 90 Days Qty: 180 0RF polyethylene glycol 3350 [HealthyLax] 17 gram Powder In Packet 17 g PO DAILYP PRN (Reason: Constipation) Qty: 30 1RF sucralfate 100 mg/mL Suspension 1 g PO Q6 90 Days Qty: 3600 0RF thiamine mononitrate (vit B1) 100 mg Tablet 100 mg PO QDAY 30 Days Qty: 30 0RF Continued sertraline 50 mg tablet See Rx Instructions .ROUTE .COMPLEX Qty: 90 3RF Dose Instruction: TAKE 1 TABLET BY MOUTH EVERY DAY Rx Instructions: TAKE 1 TABLET BY MOUTH EVERY DAY metformin 500 mg tablet extended release 24 hr 1,000 mg PO BID Qty: 360 3RF atorvastatin [Lipitor] 40 mg tablet 40 mg PO HS Qty: 90 3RF clopidogrel 75 mg tablet 75 mg PO QDAY Qty: 90 3RF Vascepa 1 gram capsule 2 g PO BID Qty: 360 3RF gabapentin 300 mg capsule 600 mg PO TID Qty: 540 3RF furosemide 40 mg tablet 40 mg PO DAILY Qty: 30 3RF magnesium oxide 400 mg (241.3 mg magnesium) tablet See Rx Instructions .ROUTE .COMPLEX Qty: 30 10RF Dose Instruction: TAKE ONE TABLET BY MOUTH EVERY DAY AT BEDTIME Rx Instructions: TAKE ONE TABLET BY MOUTH EVERY DAY AT BEDTIME (DME) pen needle, diabetic [Unifine Pentips] 31 gauge x 3/16" needle See Rx Instructions .ROUTE .COMPLEX Qty: 100 10RF Dose Instruction: USE WITH LANTUS PEN Rx Instructions: USE WITH LANTUS PEN acetaminophen 650 mg tablet extended release See Rx Instructions .ROUTE .COMPLEX Qty: 90 10RF Dose Instruction: TAKE ONE TABLET BY MOUTH EVERY 8 HOURS NEEDED * DO NOT EXCEED 3000MG TYLENOL/24HRS Rx Instructions: TAKE ONE TABLET BY MOUTH EVERY 8 HOURS NEEDED * DO NOT EXCEED 3000MG TYLENOL/24HRS docusate sodium 100 mg capsule See Rx Instructions .ROUTE .COMPLEX Qty: 60 10RF Dose Instruction: TAKE ONE CAPSULE BY MOUTH TWO TIMES A DAY Rx Instructions: TAKE ONE CAPSULE BY MOUTH TWO TIMES A DAY ondansetron HCl 4 mg tablet See Rx Instructions .ROUTE .COMPLEX Qty: 30 10RF Dose Instruction: TAKE ONE TABLET BY MOUTH EVERY 8 HOURS NEEDED FOR NAUSEA/VOMITING Rx Instructions: TAKE ONE TABLET BY MOUTH EVERY 8 HOURS NEEDED FOR NAUSEA/VOMITING meclizine 25 mg tablet,chewable See Rx Instructions .ROUTE .COMPLEX Qty: 60 10RF Dose Instruction: TAKE ONE TABLET BY MOUTH FOUR TIMES PER DAY NEEDED VERTIGO Rx Instructions: TAKE ONE TABLET BY MOUTH FOUR TIMES PER DAY NEEDED VERTIGO Therems-M 9 mg iron-400 mcg tablet See Rx Instructions .ROUTE .COMPLEX Qty: 30 10RF Dose Instruction: TAKE ONE TABLET BY MOUTH EVERY DAY IN THE MORNING WITH FOOD Rx Instructions: TAKE ONE TABLET BY MOUTH EVERY DAY IN THE MORNING WITH FOOD ramipril 10 mg capsule See Rx Instructions .ROUTE .COMPLEX Qty: 180 0RF Dose Instruction: TAKE 1 CAPSULE BY MOUTH TWICE DAILY. GENERIC EQUIVALENT FOR ALTACE Rx Instructions: TAKE 1 CAPSULE BY MOUTH TWICE DAILY. GENERIC EQUIVALENT FOR ALTACE Discontinued hydrocodone-acetaminophen 5-325 mg tablet 1 tab PO Q6HP PRN (Reason: Pain) Qty: 120 0RF Rx Instructions: can fill spironolactone 50 mg tablet See Rx Instructions .ROUTE .COMPLEX Qty: 90 3RF Dose Instruction: TAKE 1 TABLET BY MOUTH DAILY Rx Instructions: TAKE 1 TABLET BY MOUTH DAILY diltiazem HCl 300 mg capsule,extended release 24 hr 300 mg PO QAM Qty: 90 3RF Lantus Solostar U-100 Insulin 100 unit/mL (3 mL) insulin pen See Rx Instructions SUB-Q QDAY Qty: 60 10RF Rx Instructions: 26 units in am and 40 units at night subcut daily; PLEASE PROVIDE 90 DAY SUPPLY AT A TIME. potassium chloride 10 mEq tablet,ER particles/crystals See Rx Instructions .ROUTE .COMPLEX Qty: 30 10RF Dose Instruction: TAKE ONE TABLET BY MOUTH EVERY DAY IN THE MORNING WITH FOOD Rx Instructions: TAKE ONE TABLET BY MOUTH EVERY DAY IN THE MORNING WITH FOOD ibuprofen 800 mg tablet See Rx Instructions .ROUTE .COMPLEX Qty: 90 10RF Dose Instruction: TAKE ONE TABLET BY MOUTH THREE TIMES PER DAY NEEDED FOR PAIN *TAKE WITH FOOD Rx Instructions: TAKE ONE TABLET BY MOUTH THREE TIMES PER DAY NEEDED FOR PAIN *TAKE WITH FOOD aspirin 162 mg Tablet,Delayed Release (Dr/Ec) 162.5 mg PO QDAY 0RF Other Ambulatory Orders: OT Discharge Order (Routine) Location: None Selected Ordered By: Jeff Ruiz Physical Therapy at Discharge - General (Routine) Location: None Selected Ordered By: Jeff Ruiz Follow Up Plan Follow up with: Jolynn Braun MD [Physician] - (Follow-up in the office in 2 weeks) Radha Braun ARNP [Primary Care Provider] - Patient Disposition: Xfer SNF Prognosis: Critical Rehab Potential: Fair I certify that the patient requires SNF services: Yes Overall status at discharge: patient is progressing back to baseline Discharge Orders: Discharge Order (Routine); Ordered 05/02/21 Ordered By: Jeff Ruiz
--- NOTE | 2021-05-03 13:15 | EKG ---
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
--- NOTE | 2021-05-13 13:45 | EGD Procedure Note ---
Date of procedure 04/29/21 PREOPERATIVE DIAGNOSIS: Upper GI bleeding with hemorrhagic anemia. POSTOPERATIVE DIAGNOSES: Large duodenal ulcer in duodenal bulb and mild antral gastritis. PROCEDURE: Esophagogastroduodenoscopy. SURGEON: Jolynn Braun M.D. DESCRIPTION OF PROCEDURE: Under general anesthesia, the patient turned to the left lateral decubitus position. Time-out procedure was carried out as per protocol. Bite block was placed. Scope was introduced through the bite block into the upper esophagus. The esophagus was normal down to the GE junction. There was no gastric web, ring, ulceration or inflammation. There was a small amount of old blood in the stomach. The gastric body and fundus showed mild erythema suggestive of gastritis. In the prepyloric antrum, there was increased erythema with mild friability. The pylorus was deformed. In the duodenal bulb, immediately distal to the pylorus, there was a very large ulcer crater with a forming adherent clot in the depth of the ulcer. There was also moderate edema of the duodenal bulb. In the second and third portions of the duodenum there was some old blood, but there was no evidence of fresh bleeding. It was elected not to treat the area as this bleeding had stopped and there was a definite well-adherent clot. Mild irrigation of the area did not reveal any fresh bleeding. Scope was pulled back and retroflex view was done. No other pathology was noted. Air was suctioned from the stomach and the scope was withdrawn. The patient tolerated the procedure well. He was awakened and transferred to the floor in satisfactory condition. RECOMMENDATION: The patient will continue with Protonix infusion and oral sucralfate. His hemoglobin will be monitored daily. As long as his hemoglobin is stable, he will be monitored for about 2-3 more days and if his hemoglobin continues to rise he will then be discharged home on sucralfate and pantoprazole orally. LCS:kira Job ID: [id number] Doc ID: [id number] Jolynn Braun M.D. MTDD
== END 2021-05-02 15:32 | DRG 378 ==
LOC: ED 23:20 → ICU 04-28 06:05
PROVIDERS: ADMIT Internal Medicine; ATTEND Internal Medicine

== ENCOUNTER 2021-12-27 09:06 | Inpatient (IN) ==
[2021-12-27] MEDS ORDERED: IPRATROPIUM/ALBUTEROL 3 ML AMPUL.NEB NEB ONE (09:38)
[2021-12-27] MEDS ORDERED: morphine 4 MG/ML VIAL IV ONE ×2 (10:19→11:28)
[2021-12-27] MEDS ORDERED: morphine 4 MG/ML VIAL ONE (10:32)
--- NOTE | 2021-12-27 10:46 | XRay Report ---
CLINICAL INFORMATION: Shortness of breath COMPARISON: 05/02/2021 TECHNIQUE: Portable FINDINGS: Heart is moderately enlarged-increased. 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 Mediastinum unremarkable. Pulmonary vessels are mildly distended. Mild patchy basilar infiltrate or atelectasis have developed. No definite effusions. IMPRESSION: Mild CHF or volume overload Mild bibasilar airspace disease: atelectasis or infiltrate Interpreted and Authenticated by: Abner Weems 12/27/21
[2021-12-27 10:49] LABS: Basophils # (Auto) 0.04 K/mcL (0.00-0.30); Basophils % (Auto) 0.6 % (0.0-2.0); Eosinophils # (Auto) 0.19 K/mcL (0.00-0.70); Eosinophils % (Auto) 2.8 % (0.0-7.0); Hematocrit 26.7 % (40.1-51.0); Hemoglobin 7.3 g/dL (13.7-17.5); Lymphocytes # (Auto) 1.05 K/mcL (1.50-4.80); Lymphocytes % (Auto) 15.7 % (15.5-49.0); Mean Cell Volume 75.9 fL (80.0-100.0); Mean Corpuscular HGB Conc 27.3 g/dL (31.0-36.0); Mean Platelet Volume 9.8 fL (7.4-10.4); Monocytes # (Auto) 0.56 K/mcL (0.10-0.90); Monocytes % (Auto) 8.4 % (1.0-12.0); Neutrophils % (Auto) 72.2 % (38.0-78.0); Platelet Count 234 K/mcL (140-440); RBC 3.52 M/mcL (4.63-6.08); Red Cell Distribution Width 20.8 % (11.5-14.5); WBC 6.7 K/mcL (4.5-11.0)
--- NOTE | 2021-12-27 10:52 | Cat Scan Report ---
CLINICAL INFORMATION: Trauma COMPARISON: 04/28/2021 TECHNIQUE: 2.5 mm helical slices were obtained in the skull base to vertex. Following reconstruction, axial reformatted images were reviewed at bone and parenchymal windows. The exam was performed using radiation dose optimization techniques including, but not limited to, automated exposure control, adjustment of the mA and/or kV according to patient size and use of iterative reconstruction technique. FINDINGS: The ventricles, sulci, fissures, and cisterns are symmetrically enlarged compatible with mild age-related atrophy. No extra-axial fluid collections are identified. Mild patchy chronic ischemic changes, in the deep cerebral white matter, are expected for age. 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 There is no hemorrhage, mass effect, or edema. Bone windows show no osseous abnormality. IMPRESSION: Mild atrophy and chronic ischemic changes in the deep cerebral white matter-expected for age. No acute findings Interpreted and Authenticated by: Abner Weems 12/27/21
[2021-12-27 11:06] LABS: Appearance,Urine Cloudy (Clear); Bacteria,Urine MOD /hpf (0); Bilirubin,Urine Negative (Negative); Color,Urine Yellow; Culture Indicated,Urine yes; Glucose,Urine (UA) Negative (Negative); Ketones,Urine Negative (Negative); Leukocyte Esterase,Urine Large /uL (Negative); Mucus,Urine FEW /hpf; Nitrate,Urine Negative (Negative); PH,Urine 5.5 (5.0-9.0); Specific Gravity,Urine 1.025 (1.000-1.035); Urine Blood Moderate ery/mcL (Negative); Urine RBC 22 /hpf (0-3); Urine Squamous Epithelial Cell 0 /hpf (0-4); Urine WBC 180 /hpf (0-4); Urobilinogen,Urine Normal
[2021-12-27 11:22] LABS: Blood Urea Nitrogen 18 mg/dL (8-23); Calcium 9.1 mg/dL (8.6-10.4); Carbon Dioxide 28 mmol/L (22-30); Chloride 107 mmol/L (96-108); Glomerular Filtration Rate 83; Glucose 69 mg/dL (70-105)
--- NOTE | 2021-12-27 11:54 | Cat Scan Report ---
CLINICAL INFORMATION: Abdominal pain COMPARISON: Abdomen and pelvic CT 06/30/2019 Chest abdomen and pelvic CT 04/28/2021 TECHNIQUE: 0.625 mm helical slices were obtained from the mid heart through the subtrochanteric regions. Following reconstruction, 2.5 mm sagittal, coronal and axial reformatted images were processed and reviewed at bone and soft tissue windows.The exam was performed using radiation dose optimization techniques including, but not limited to, automated exposure control, adjustment of the mA and/or kV according to patient size and use of iterative reconstruction technique. Intravenous contrast was withheld due to a current global shortage of intravenous contrast. The lack of intravenous contrast does reduce the sensitivity in pathology detection particularly lesions within solid abdominal organs such as the liver. FINDINGS: The lung bases show mild pulmonary vascular congestion and mild edema suggestive of CHF also noted on accompanying chest x-ray. Tiny right pleural effusion noted.. The visualized heart is moderately enlarged. Abdominal images show 2-3 small stones in the gallbladder neck. Gallbladder is, otherwise, no wall thickening to suggest cholecystitis. Intrahepatic and extrahepatic bile duct are normal caliber CBD is 6 mm. The noncontrasted liver, both kidneys, adrenal glands, spleen, and pancreas are normal in size, configuration and attenuation without focal lesion. Saccular infrarenal abdominal aortic aneurysm with associated dissection is unchanged: diameter 3 cm. Heavy calcific plaque seen throughout the abdominal aorta. Small amount of ascites is seen in the perihepatic and deep true pelvis region is new. There is no free air or adenopathy. Pelvic images show moderate prostate enlargement (transverse dimension 5.3 cm) no change. Lay catheter is properly positioned urinary bladder. The urinary bladder is decompressed. The stomach, small bowel, appendix region and large bowel are grossly normal. Bone windows show severe lumbar degeneration. At L3-4 and L4-5, there is marked broad disc protrusion and facet arthropathy resulting in severe bilateral IV foraminal narrowing. There is impingement of the exiting L5 3 and L4 nerve roots. IMPRESSION: 1. Small amount of ascites in the perihepatic and deep true pelvic regions. Etiology is uncertain. 2. Pulmonary vascular congestion in the lung bases with associated edema supportive of CHF. 3. 3 cm saccular aneurysm of the infrarenal abdominal aortic with associated dissection diameter unchanged.. 4. 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 Moderate prostate enlargement stable Interpreted and Authenticated by: Abner Weems 12/27/21
[2021-12-27] MEDS ORDERED: AZITHROMYCIN 500 MG in DEXTROSE 5% IN WATER 250 ML IV ONE (12:02)
[2021-12-27] MEDS ORDERED: cefTRIAXone 1 GM VIAL IV ONE ×2 (12:02→16:00)
[2021-12-27] MEDS ORDERED: ONDANSETRON 4 MG/2 ML VIAL IV PRN (13:30)
[2021-12-27] MEDS: 0.9 % SODIUM CHLORIDE 10 ML SYRINGE IV SCH ×4 (14:27→22:40)
[2021-12-27] MEDS ORDERED: FUROSEMIDE 20 MG/2 ML VIAL IV PRN (14:36)
[2021-12-27] MEDS ORDERED: PANTOPRAZOLE 40 MG VIAL IV ONE (14:38)
[2021-12-27] MEDS ORDERED: 0.9 % SODIUM CHLORIDE 250 ML IV SCH (14:45)
--- NOTE | 2021-12-27 14:52 | Emergency Department Note ---
HPI General Chief complaint: Trauma Stated complaint: trauma Time Seen by Provider: 12/27/21 09:20 Source: patient Mode of arrival: ambulatory Limitations: no limitations History of Present Illness HPI Narrative: Narrative: Presents emergency department for evaluation after fall. He fell out of bed this morning. He states he was trying to get up and get something he simply fell he is not really sure what happened did not lose consciousness did not strike head. Had a little bit of difficulty with word finding during triage. He appears to have labored breathing on arrival to the emergency department and admits that his breathing does not seem like he is doing well. No fever. No other complaints. Related Data Home Medications Medication Instructions Recorded Confirmed acetaminophen 650 mg 650 mg PO QAM 12/27/21 12/27/21 tablet,extended release meclizine 25 mg chewable tablet 25 mg PO Q6H PRN Dizziness 12/27/21 12/27/21 ondansetron HCl 4 mg tablet 4 mg PO Q8 PRN Nausea 12/27/21 12/27/21 ramipril 10 mg capsule 10 mg PO BID 12/27/21 12/27/21 thiamine mononitrate (vit B1) 100 100 mg PO QDAY 12/27/21 12/27/21 mg tablet Previous Rx's Medication Instructions Recorded multivitamin-iron 9 mg-folic acid See Rx Instructions .Route 04/11/21 400 mcg-calcium and minerals .COMPLEX #30 ea tablet (Therems-M) pen needle, diabetic 31 gauge x #100 ea 04/11/21 3/16" (Unifine Pentips) insulin glargine 100 unit/mL 14 unit (0.14 mL) subcut .morning 05/02/21 subcutaneous solution (Lantus #10 mL U-100 Insulin) insulin glargine 100 unit/mL 20 unit (0.2 mL) subcut HS #10 mL 05/02/21 subcutaneous solution (Lantus U-100 Insulin) polyethylene glycol 3350 17 gram 17 g PO DAILYP PRN Constipation 05/02/21 oral powder packet (HealthyLax) #30 ea metformin 500 mg tablet,extended 1,000 mg PO BID #360 tabs 06/15/21 release 24 hr sertraline 50 mg tablet 100 mg PO QHS #60 tabs 06/16/21 icosapent ethyl 1 gram capsule 2 g PO BID #360 caps 06/24/21 (Vascepa) sucralfate 1 gram tablet 1 g PO QID #120 tabs 09/09/21 pantoprazole 40 mg tablet,delayed 40 mg PO BIDAC #180 tabs 12/07/21 release Allergies Allergy/AdvReac Type Severity Reaction Status Date / Time No Known Drug Allergies Allergy Verified 12/27/21 09:16 Review of Systems ROS ROS Narrative: Narrative: As above, all other systems reviewed and negative. 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) Aortic stenosis, severe (Acute) COPD with exacerbation (Chronic) Shortness of breath (Chronic) Infiltrate of lower lobe of right lung present on imaging study (Chronic ~08/2018) Pulmonary congestion (Chronic ~08/2018) Heart failure (Chronic ~08/2018) PNA (pneumonia) (Chronic) Fatigue (Chronic) Hyperlipidemia, mixed (Chronic) Atherosclerotic cardiovascular disease (Chronic) Hypertension, essential, benign (Chronic) 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) Back pain (Chronic) AAA (abdominal aortic aneurysm) (Chronic) Restless leg syndrome (Chronic) Vertigo (Chronic) Diabetic neuropathy (Chronic) Heart murmur (Chronic) Acute exacerbation of chronic obstructive airways disease (Chronic) COPD (chronic obstructive pulmonary disease) (Chronic) Erectile dysfunction (Chronic) CHF (congestive heart failure) (Chronic) Atrial flutter (Chronic) Mitral valve prolapse (Chronic) Rhinorrhea (Chronic) Dizziness (Chronic) Chronic radicular pain of lower back (Chronic) Neck pain (Chronic) Shoulder pain, right (Chronic) CAD (coronary artery disease) (Chronic) Other hypertrophic cardiomyopathy (Chronic) Cellulitis (Chronic) Foot callus (Chronic) Constipation (Chronic) Anemia (Chronic) Cervical radiculopathy (Chronic) Seborrheic keratosis (Chronic) Obstructive sleep apnea of adult (Chronic) Diastolic dysfunction (Chronic) Peripheral edema (Chronic) Other specified metabolic disorders (Chronic) Daytime somnolence (Chronic) Insomnia (Chronic) Acute exacerbation of chronic obstructive airways disease (Acute) Orthostatic hypotension (Chronic) Community acquired pneumonia (Acute) Congestive heart failure (Acute) Pneumonia (Acute) Sepsis (Acute) Respiratory failure with hypoxia and hypercapnia (Acute) Cervical radiculopathy (Acute) Cervicalgia (Acute) Medical History AAA (abdominal aortic aneurysm) Acute exacerbation of chronic obstructive airways disease Acute exacerbation of chronic obstructive airways disease Anemia Appendicitis (~04/2019) Atherosclerotic cardiovascular disease Atrial flutter Back pain CAD (coronary artery disease) Cellulitis Cervical radiculopathy CHF (congestive heart failure) Chronic radicular pain of lower back Constipation COPD (chronic obstructive pulmonary disease) COPD with exacerbation Daytime somnolence Diabetic neuropathy Diastolic dysfunction Dizziness Erectile dysfunction Fatigue Foot callus Heart failure (~08/2018) Heart murmur Hyperlipidemia, mixed Hypertension, essential, benign Infiltrate of lower lobe of right lung present on imaging study (~08/2018) Insomnia Mitral valve prolapse Neck pain Obstructive sleep apnea of adult Orthostatic hypotension Other hypertrophic cardiomyopathy Other specified metabolic disorders Peripheral edema PNA (pneumonia) Pulmonary congestion (~08/2018) Restless leg syndrome Rhinorrhea Seborrheic keratosis Shortness of breath Shoulder pain, right Type 2 diabetes mellitus with polyneuropathy Vertigo Surgical History History of appendectomy 04/2019 History of laparoscopic appendectomy 08/10/2020 History of mitral valve repair History of surgery (~06/2013) 2 way bypass Family History Mother Heart disease Coronary heart disease Heart attack Daughter Drug abuse Type I diabetes mellitus Father Elevated PSA Social History Smoking Status: Former smoker Alcohol Intake Frequency: a few times a month Exam Narrative Narrative: Narrative: Blood pressure 148/72, respirations 22, temperature 97.2, O2 sat 96% on 3 L. General Limitations: no limitations General appearance: Present alert Head Head: Present atraumatic, normocephalic and normal inspection Eye Eye: Present normal appearance, PERRL and EOMI ENT ENT: Present normal exam Neck Neck: Present normal inspection and full ROM Respiratory Respiratory: Present other (Tachypnea) Extremities Extremities: Present pedal edema Neurological Neurological: Present alert, oriented X3 and CN II-XII intact; Absent motor sensory deficit Psychiatric Psychiatric: Present normal affect and normal mood Skin Skin: Present warm (WNL) and dry Course Vital Signs Vital signs: Vital Signs Temperature 97.9 F 12/27/21 09:12 Pulse Rate 82 12/27/21 09:12 Respiratory Rate 16 12/27/21 09:12 Blood Pressure 158/82 12/27/21 09:12 Pulse Oximetry (%) 89 L 12/27/21 09:12 Oxygen Delivery Method 12/27/21 09:12 Oxygen Flow Rate (L/min) 2 12/27/21 09:12 Temperature 97.2 F 12/27/21 13:15 Pulse Rate 94 H 12/27/21 13:01 Respiratory Rate 22 12/27/21 13:15 Blood Pressure 148/72 12/27/21 13:15 Pulse Oximetry (%) 96 12/27/21 13:15 Oxygen Delivery Method 12/27/21 13:15 Oxygen Flow Rate (L/min) 3 12/27/21 13:15 MDM MDM Narrative Medical decision making narrative: Narrative: Chest x-ray suspicious for infiltrates. EKG showed right bundle branch block, no acute schema changes, reveals otherwise normal. Blood cultures were ordered. Patient is given Rocephin and Zithromax. I spoke with the on- call hospitalist. Case reviewed in detail over phone. Hospitalist agreed with admission. Discussed findings with patient. His questions are answered. He is agreeable to plan Lab Data Result diagrams: 12/27/21 13:45 12/27/21 10:12 Labs: Lab Results 12/27/21 12/27/21 12/27/21 Range/Units 10:12 10:12 10:12 WBC 6.7 (4.5-11.0) K/mcL RBC 3.52 L (4.63-6.08) M/mcL Hgb 7.3 L (13.7-17.5) g/dL Hct 26.7 L (40.1-51.0) % MCV 75.9 L (80.0-100.0) fL MCH 20.7 L (26.0-34.0) pg MCHC 27.3 L (31.0-36.0) g/dL RDW 20.8 H (11.5-14.5) % Plt Count 234 (140-440) K/mcL MPV 9.8 (7.4-10.4) fL Immature Gran % (Auto) 0.3 (0.0-0.5) % Neut % (Auto) 72.2 (38.0-78.0) % Lymph % (Auto) 15.7 (15.5-49.0) % [place] % (Auto) 8.4 (1.0-12.0) % Eos % (Auto) 2.8 (0.0-7.0) % Baso % (Auto) 0.6 (0.0-2.0) % Lymph # (Auto) 1.05 L (1.50-4.80) K/mcL [place] # (Auto) 0.56 (0.10-0.90) K/mcL Eos # (Auto) 0.19 (0.00-0.70) K/mcL Baso # (Auto) 0.04 (0.00-0.30) K/mcL Immature Gran # 0.02 (0.00-0.05) K/mcl Absolute Neutrophils 4.83 (1.80-8.00) K/mcL Sodium 144 (133-145) mmol/L Potassium 4.3 (3.3-5.1) mmol/L Chloride 107 (96-108) mmol/L Carbon Dioxide 28 (22-30) mmol/L Anion Gap 9.0 (8.0-16.0) BUN 18 (8-23) mg/dL Creatinine 0.8 (0.7-1.2) mg/dL GFR Calculation 83 Glucose 69 L (70-105) mg/dL Calcium 9.1 (8.6-10.4) mg/dL Troponin T 0.02 (<0.03) ng/mL NT-Pro-B Natriuret Pep 1021.0 H (<450.0) pg/mL Procalcitonin (<0.10) ng/mL Urine Color Urine Appearance (Clear) Urine pH (5.0-9.0) Ur Specific [place] (1.000-1.035) Urine Protein (Negative) mg/dL Urine Glucose (UA) (Negative) mg/dL Urine Ketones (Negative) mg/dL Urine Occult Blood (Negative) jin/mcL Urine Nitrate (Negative) Urine Bilirubin (Negative) mg/dL Urine Urobilinogen mg/dL Ur Leukocyte Esterase (Negative) /uL Urine RBC (0-3) /hpf Urine WBC (0-4) /hpf Ur Squamous Epith Cells (0-4) /hpf Urine Bacteria (0) /hpf Urine Mucus (None) /hpf Ur Culture Indicated? 12/27/21 12/27/21 Range/Units 10:12 10:12 WBC (4.5-11.0) K/mcL RBC (4.63-6.08) M/mcL Hgb (13.7-17.5) g/dL Hct (40.1-51.0) % MCV (80.0-100.0) fL MCH (26.0-34.0) pg MCHC (31.0-36.0) g/dL RDW (11.5-14.5) % Plt Count (140-440) K/mcL MPV (7.4-10.4) fL Immature Gran % (Auto) (0.0-0.5) % Neut % (Auto) (38.0-78.0) % Lymph % (Auto) (15.5-49.0) % [place] % (Auto) (1.0-12.0) % Eos % (Auto) (0.0-7.0) % Baso % (Auto) (0.0-2.0) % Lymph # (Auto) (1.50-4.80) K/mcL [place] # (Auto) (0.10-0.90) K/mcL Eos # (Auto) (0.00-0.70) K/mcL Baso # (Auto) (0.00-0.30) K/mcL Immature Gran # (0.00-0.05) K/mcl Absolute Neutrophils (1.80-8.00) K/mcL Sodium (133-145) mmol/L Potassium (3.3-5.1) mmol/L Chloride (96-108) mmol/L Carbon Dioxide (22-30) mmol/L Anion Gap (8.0-16.0) BUN (8-23) mg/dL Creatinine (0.7-1.2) mg/dL GFR Calculation Glucose (70-105) mg/dL Calcium (8.6-10.4) mg/dL Troponin T (<0.03) ng/mL NT-Pro-B Natriuret Pep (<450.0) pg/mL Procalcitonin 0.07 (<0.10) ng/mL Urine Color Yellow Urine Appearance Cloudy A (Clear) Urine pH 5.5 (5.0-9.0) Ur Specific [place] 1.025 (1.000-1.035) Urine Protein 100 mg/dl A (Negative) mg/dL Urine Glucose (UA) Negative (Negative) mg/dL Urine Ketones Negative (Negative) mg/dL Urine Occult Blood Moderate A (Negative) jin/mcL Urine Nitrate Negative (Negative) Urine Bilirubin Negative (Negative) mg/dL Urine Urobilinogen Normal mg/dL Ur Leukocyte Esterase Large A (Negative) /uL Urine RBC 22 H (0-3) /hpf Urine WBC 180 H (0-4) /hpf Ur Squamous Epith Cells 0 (0-4) /hpf Urine Bacteria Mod A (0) /hpf Urine Mucus Few A (None) /hpf Ur Culture Indicated? yes Discharge Plan Patient/Caregiver Discharge Instructions Pt seen by OUTSIDE PLANT ENGINEER/PA only: No Clinical Impression: Pneumonia, CHF (congestive heart failure), Acute UTI, Hypoxia Patient Disposition: Xfer As Inpt ([facility]) Discharge Date/Time: 12/27/21 13:15
[2021-12-27] MEDS ORDERED: FUROSEMIDE 40 MG/4 ML VIAL IV ONE (15:16)
[2021-12-27] MEDS ORDERED: DEXTROSE 50% 50 ML VIAL IV PRN (15:20)
--- NOTE | 2021-12-27 15:20 | EKG ---
[facility] Test Date: 2021-12-27 Pat Name: Owen Van Department: ED Room: Gender: Male Manager Training: AW : 1940 Requested By: Justin So Order Number: [id number] Reading MD: Abner Coat M.D. Measurements Intervals [place] Rate: 93 P: -54 CA: 173 QRS: 45 QRSD: 137 T: -50 QT: 399 QTc: 497 Interpretive Statements Sinus or ectopic atrial rhythm Right bundle branch block Borderline ST depression, lateral leads PVCs Electronically Signed On 12-27-2021 15:20:43 PDT by Abner Cota M.D. /store/M0/[id number]
--- NOTE | 2021-12-27 15:22 | Internal Med History&Physical ---
HPI History of Present Illness Patient information: Note initiated : 12/27/21 at 3:19 pm Service Date, if different from initiated Date: [] Patient: Owen Van 81 y/o M admitted on 12/27/21 for trauma. Chief Complaint: [] History of present illness: Mr. Van is a 81 year old male with a history of hypertension, type 2 diabetes mellitus, chronic anemia, heart failure with preserved ejection fraction, severe aortic stenosis status post TAVR, atrial fibrillation, coronary artery disease, abdominal aortic aneurysm, obstructive sleep apnea, prior duodenal ulcer complicated by GI bleed who was brought into the emergency department for a fall. The patient reportedly fell out of his bed this morning. In the emergency department, the patient was tachypneic and had a heart rate in the 90s. The patient had a 2 to 3 L nasal oxygen requirement. Laboratory work-up was notable for acute on chronic anemia, elevated NT proBNP. Chest x- ray was suggestive of congestive heart failure, CT head without contrast did not show any acute changes, CT abdomen pelvis showed a small amount of ascites in the perihepatic and deep to pelvic regions, pulmonary vascular congestion in the lung bases bilaterally, a stable 3 cm saccular aneurysm in the infrarenal abdominal aorta, severe degenerative disc disease in the lumbar spine, moderate prostate enlargement. Patient is somewhat confused and unable to provide a coherent history at this time. Review of systems: Unable to obtain due to altered mental status. Physical exam Head: Atraumatic, normal inspection. Eyes: normal appearance, no scleral icterus. Neck: full ROM Respiratory: Tachypnea, 3 L/min nasal oxygen requirement, bilateral crackles. Cardiovascular: Regular tachycardia, S1, S2. GI/Abdominal: Obesely distended, soft, nontender, no guarding. Extremities: Bilateral Charcot foot deformity, bilateral ankle tenderness, no acute findings on exam. Neurological: CN II-XII intact, intact motor, intact sensation. Psychiatric: Anxious mood. 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) Aortic stenosis, severe (Acute) COPD with exacerbation (Chronic) Shortness of breath (Chronic) Infiltrate of lower lobe of right lung present on imaging study (Chronic ~08/2018) Pulmonary congestion (Chronic ~08/2018) Heart failure (Chronic ~08/2018) PNA (pneumonia) (Chronic) Fatigue (Chronic) Hyperlipidemia, mixed (Chronic) Atherosclerotic cardiovascular disease (Chronic) Hypertension, essential, benign (Chronic) 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) Back pain (Chronic) AAA (abdominal aortic aneurysm) (Chronic) Restless leg syndrome (Chronic) Vertigo (Chronic) Diabetic neuropathy (Chronic) Heart murmur (Chronic) Acute exacerbation of chronic obstructive airways disease (Chronic) COPD (chronic obstructive pulmonary disease) (Chronic) Erectile dysfunction (Chronic) CHF (congestive heart failure) (Chronic) Atrial flutter (Chronic) Mitral valve prolapse (Chronic) Rhinorrhea (Chronic) Dizziness (Chronic) Chronic radicular pain of lower back (Chronic) Neck pain (Chronic) Shoulder pain, right (Chronic) CAD (coronary artery disease) (Chronic) Other hypertrophic cardiomyopathy (Chronic) Cellulitis (Chronic) Foot callus (Chronic) Constipation (Chronic) Anemia (Chronic) Cervical radiculopathy (Chronic) Seborrheic keratosis (Chronic) Obstructive sleep apnea of adult (Chronic) Diastolic dysfunction (Chronic) Peripheral edema (Chronic) Other specified metabolic disorders (Chronic) Daytime somnolence (Chronic) Insomnia (Chronic) Acute exacerbation of chronic obstructive airways disease (Acute) Orthostatic hypotension (Chronic) Community acquired pneumonia (Acute) Congestive heart failure (Acute) Pneumonia (Acute) Sepsis (Acute) Respiratory failure with hypoxia and hypercapnia (Acute) Cervical radiculopathy (Acute) Cervicalgia (Acute) Medical History AAA (abdominal aortic aneurysm) Acute exacerbation of chronic obstructive airways disease Acute exacerbation of chronic obstructive airways disease Anemia Appendicitis (~04/2019) Atherosclerotic cardiovascular disease Atrial flutter Back pain CAD (coronary artery disease) Cellulitis Cervical radiculopathy CHF (congestive heart failure) Chronic radicular pain of lower back Constipation COPD (chronic obstructive pulmonary disease) COPD with exacerbation Daytime somnolence Diabetic neuropathy Diastolic dysfunction Dizziness Erectile dysfunction Fatigue Foot callus Heart failure (~08/2018) Heart murmur Hyperlipidemia, mixed Hypertension, essential, benign Infiltrate of lower lobe of right lung present on imaging study (~08/2018) Insomnia Mitral valve prolapse Neck pain Obstructive sleep apnea of adult Orthostatic hypotension Other hypertrophic cardiomyopathy Other specified metabolic disorders Peripheral edema PNA (pneumonia) Pulmonary congestion (~08/2018) Restless leg syndrome Rhinorrhea Seborrheic keratosis Shortness of breath Shoulder pain, right Type 2 diabetes mellitus with polyneuropathy Vertigo Surgical History History of appendectomy 04/2019 History of laparoscopic appendectomy 08/10/2020 History of mitral valve repair History of surgery (~06/2013) [address] way bypass Family History Mother Heart disease Coronary heart disease Heart attack Daughter Drug abuse Type I diabetes mellitus Father Elevated PSA Social History marital status: smoking status: Former smoker alcohol intake frequency: a few times a month seatbelt use: always MEDS/ALLERGIES Home Medications and Allergies Home Medications Medication Instructions Recorded Confirmed Type multivitamin-iron 9 mg-folic acid See Rx Instructions .Route 04/11/21 12/27/21 Rx 400 mcg-calcium and minerals .COMPLEX #30 ea tablet (Therems-M) pen needle, diabetic 31 gauge x #100 ea 04/11/21 12/27/21 Rx 3/16" (Unifine Pentips) insulin glargine 100 unit/mL 14 unit (0.14 mL) subcut .morning 05/02/21 12/27/21 Rx subcutaneous solution (Lantus #10 mL U-100 Insulin) insulin glargine 100 unit/mL 20 unit (0.2 mL) subcut HS #10 mL 05/02/21 12/27/21 Rx subcutaneous solution (Lantus U-100 Insulin) polyethylene glycol 3350 17 gram 17 g PO DAILYP PRN Constipation 05/02/21 12/27/21 Rx oral powder packet (HealthyLax) #30 ea metformin 500 mg tablet,extended 1,000 mg PO BID #360 tabs 06/15/21 12/27/21 Rx release 24 hr sertraline 50 mg tablet 100 mg PO QHS #60 tabs 06/16/21 12/27/21 Rx icosapent ethyl 1 gram capsule 2 g PO BID #360 caps 06/24/21 12/27/21 Rx (Vascepa) sucralfate 1 gram tablet 1 g PO QID #120 tabs 09/09/21 12/27/21 Rx pantoprazole 40 mg tablet,delayed 40 mg PO BIDAC #180 tabs 12/07/21 12/27/21 Rx release acetaminophen 650 mg 650 mg PO QAM 12/27/21 12/27/21 History tablet,extended release meclizine 25 mg chewable tablet 25 mg PO Q6H PRN Dizziness 12/27/21 12/27/21 History ondansetron HCl 4 mg tablet 4 mg PO Q8 PRN Nausea 12/27/21 12/27/21 History ramipril 10 mg capsule 10 mg PO BID 12/27/21 12/27/21 History thiamine mononitrate (vit B1) 100 100 mg PO QDAY 12/27/21 12/27/21 History mg tablet Allergies Allergy/AdvReac Type Severity Reaction Status Date / Time No Known Drug Allergies Allergy Verified 12/27/21 09:16 EXAM Constitutional Vitals: Temp Pulse Resp BP Pulse Ox O2 Del Method O2 Flow Rate 97.2 F 94 H 22 148/72 96 3 12/27/21 13:15 12/27/21 13:01 12/27/21 13:15 12/27/21 13:15 12/27/21 13:15 12/27/21 13:15 12/27/21 13:15 DATA Data Completed and Pending Labs: Labs from last 24 hours 12/27/21 12/27/21 12/27/21 13:45 10:12 10:12 WBC RBC Hgb 7.0 L* Hct MCV MCH MCHC RDW Plt Count MPV Immature Gran % (Auto) Neut % (Auto) Lymph % (Auto) [place] % (Auto) Eos % (Auto) Baso % (Auto) Lymph # (Auto) [place] # (Auto) Eos # (Auto) Baso # (Auto) Immature Gran # Absolute Neutrophils Sodium Potassium Chloride Carbon Dioxide Anion Gap BUN Creatinine GFR Calculation Glucose Calcium Troponin T NT-Pro-B Natriuret Pep Procalcitonin 0.07 Urine Color Yellow Urine Appearance Cloudy A Urine pH 5.5 Ur Specific [place] 1.025 Urine Protein 100 mg/dl A Urine Glucose (UA) Negative Urine Ketones Negative Urine Occult Blood Moderate A Urine Nitrate Negative Urine Bilirubin Negative Urine Urobilinogen Normal Ur Leukocyte Esterase Large A Urine RBC 22 H Urine WBC 180 H Ur Squamous Epith Cells 0 Urine Bacteria Mod A Urine Mucus Few A Ur Culture Indicated? yes 12/27/21 12/27/21 12/27/21 10:12 10:12 10:12 WBC 6.7 RBC 3.52 L Hgb 7.3 L Hct 26.7 L MCV 75.9 L MCH 20.7 L MCHC 27.3 L RDW 20.8 H Plt Count 234 MPV 9.8 Immature Gran % (Auto) 0.3 Neut % (Auto) 72.2 Lymph % (Auto) 15.7 [place] % (Auto) 8.4 Eos % (Auto) 2.8 Baso % (Auto) 0.6 Lymph # (Auto) 1.05 L [place] # (Auto) 0.56 Eos # (Auto) 0.19 Baso # (Auto) 0.04 Immature Gran # 0.02 Absolute Neutrophils 4.83 Sodium 144 Potassium 4.3 Chloride 107 Carbon Dioxide 28 Anion Gap 9.0 BUN 18 Creatinine 0.8 GFR Calculation 83 Glucose 69 L Calcium 9.1 Troponin T 0.02 NT-Pro-B Natriuret Pep 1021.0 H Procalcitonin Urine Color Urine Appearance Urine pH Ur Specific [place] Urine Protein Urine Glucose (UA) Urine Ketones Urine Occult Blood Urine Nitrate Urine Bilirubin Urine Urobilinogen Ur Leukocyte Esterase Urine RBC Urine WBC Ur Squamous Epith Cells Urine Bacteria Urine Mucus Ur Culture Indicated? A/P Narrative A/P Narrative: Assessment: 81-year-old male with multiple comorbidities per below admitted after a fall and found to have acute hypoxia, acute on chronic diastolic heart failure and acute on chronic anemia concerning for possible GI bleed. Patient has a history of upper GI bleed secondary to a large duodenal bulb ulcer. #Acute hypoxic respiratory failure #Acute on chronic anemia #Concern for upper GI bleed #Acute on chronic diastolic heart failure #Possible UTI #History of large duodenal bulb ulcer complicated by GI bleed #Coronary artery disease #History of atrial fibrillation #Abdominal aortic aneurysm, stable #Type 2 diabetes mellitus #Essential hypertension #Degenerative disc disease Plan -Lasix 40 mg IV twice daily. -Oxygen supplementation as needed. -Transfuse 1 unit RBC now. -Start Protonix infusion. -Trend hemoglobin, transfuse for hemoglobin less than 7 or symptomatic anemia. -Guaiac stool. -INR and PTT -Iron studies. -General surgery consult for possible EGD. -Empiric Ceftriaxone for now for possible UTI, follow urine culture. -Correction Humalog SSI-low. -Home medication reconciliation, continue important meds. -N.p.o. for now. -CODE STATUS: Full -Disposition: TBD Time Spent With Patient Time: Total time spent is greater than 50% in coordination of care (as documented) at patient's floor/unit and/or counseling patient: QUALITY VTE Deep Vein Thrombosis/Pulmonary Embolism Present on Admission: No
[2021-12-27] MEDS: PANTOPRAZOLE 80 MG in 0.9 % SODIUM CHLORIDE 100 ML IV SCH (15:40)
[2021-12-27] MEDS: DEXTROSE 31 GM ORAL.SUSP PO PRN (15:52)
[2021-12-27 16:27] LABS: Partial Thromboplastin Time 31.8 sec (20.0-37.0)
[2021-12-27 16:28] LABS: INR 1.2 (0.9-1.1); Prothrombin Time 15.4 sec (11.9-14.5)
[2021-12-27] MEDS ORDERED: LIDOCAINE 2% URO-JET 10 ML JEL.PF.APP UR ONE (16:48)
[2021-12-27] MEDS: INSULIN LISPRO 1 UNIT/0.01 ML UNIT SQ SCH ×2 (16:48→20:30)
--- NOTE | 2021-12-27 18:28 | General Surgery Consult Note ---
HPI Data of Consult Patient: known to practice within the last 3 years Consult date: 12/27/21 Primary Care Provider: Radha Braun Consult Narrative Patient Information: Note initiated : 12/27/21 at 6:27 pm Service Date, if different from initiated Date: [] Patient: Owen Van 81 y/o M admitted on 12/27/21 for trauma. Mr. Van is a 81 year old male with a history of hypertension, type 2 diabetes mellitus, chronic anemia, heart failure with preserved ejection fr action, severe aortic stenosis status post TAVR, atrial fibrillation, coronary artery disease, abdominal aortic aneurysm, obstructive sleep apnea, prior duodenal ulcer complicated by GI bleed who was brought into the emergency department for a fall. The patient reportedly fell out of his bed this m . In the emergency department, the patient was tachypneic and had a heart rate in the 90s. The patient had a 2 to 3 L nasal oxygen requirement. Laboratory work-up was notable for acute on chronic anemia, elevated NT proBNP. Chest x-ray was suggestive of congestive heart failure, CT head without contrast did not show any acute changes, CT abdomen pelvis showed a small amount of ascites in the perihepatic and deep to pelvic regions, pulmonary vascular congestion in the lung bases bilaterally, a stable 3 cm saccular aneurysm in the infrarenal abdominal aorta, severe degenerative disc disease in the lumbar spine, moderate prostate enlargement. Patient is somewhat confused and unable t o provide a coherent history at this time. I was asked to see the patient for EGD secondary to his anemia and history of duodenal ulcer. Chief Complaint: [] Chief complaint: Anemia Reason for consult: Anemia cc:: CC: Jeff Ruiz MD Review of Systems ROS unobtainable: due to mental status PFSH PFSH All Active Problems Pneumonia (Acute) CHF (congestive heart failure) (Acute) Acute UTI (Acute) Hypoxia (Acute) Acute duodenal ulcer (Acute) GIB (gastrointestinal bleeding) (Acute) Acute blood loss anemia (Acute) MYA (acute kidney injury) (Acute) Acute hyperkalemia (Acute) Arrhythmia (Acute) Near syncope (Acute) Left atrial enlargement (Acute) Bronchitis (Acute) Acute appendicitis (Acute) Depression (Acute) Erectile dysfunction (Acute) Head injury (Acute) Acute appendicitis (Acute) 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) Aortic stenosis, severe (Acute) COPD with exacerbation (Chronic) Shortness of breath (Chronic) Infiltrate of lower lobe of right lung present on imaging study (Chronic ~08/2018) Pulmonary congestion (Chronic ~08/2018) Heart failure (Chronic ~08/2018) PNA (pneumonia) (Chronic) Fatigue (Chronic) Hyperlipidemia, mixed (Chronic) Atherosclerotic cardiovascular disease (Chronic) Hypertension, essential, benign (Chronic) 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) Back pain (Chronic) AAA (abdominal aortic aneurysm) (Chronic) Restless leg syndrome (Chronic) Vertigo (Chronic) Diabetic neuropathy (Chronic) Heart murmur (Chronic) Acute exacerbation of chronic obstructive airways disease (Chronic) COPD (chronic obstructive pulmonary disease) (Chronic) Erectile dysfunction (Chronic) CHF (congestive heart failure) (Chronic) Atrial flutter (Chronic) Mitral valve prolapse (Chronic) Rhinorrhea (Chronic) Dizziness (Chronic) Chronic radicular pain of lower back (Chronic) Neck pain (Chronic) Shoulder pain, right (Chronic) CAD (coronary artery disease) (Chronic) Other hypertrophic cardiomyopathy (Chronic) Cellulitis (Chronic) Foot callus (Chronic) Constipation (Chronic) Anemia (Chronic) Cervical radiculopathy (Chronic) Seborrheic keratosis (Chronic) Obstructive sleep apnea of adult (Chronic) Diastolic dysfunction (Chronic) Peripheral edema (Chronic) Other specified metabolic disorders (Chronic) Daytime somnolence (Chronic) Insomnia (Chronic) Acute exacerbation of chronic obstructive airways disease (Acute) Orthostatic hypotension (Chronic) Community acquired pneumonia (Acute) Congestive heart failure (Acute) Pneumonia (Acute) Sepsis (Acute) Respiratory failure with hypoxia and hypercapnia (Acute) Cervical radiculopathy (Acute) Cervicalgia (Acute) Medical History AAA (abdominal aortic aneurysm) Acute exacerbation of chronic obstructive airways disease Acute exacerbation of chronic obstructive airways disease Anemia Appendicitis (~04/2019) Atherosclerotic cardiovascular disease Atrial flutter Back pain CAD (coronary artery disease) Cellulitis Cervical radiculopathy CHF (congestive heart failure) Chronic radicular pain of lower back Constipation COPD (chronic obstructive pulmonary disease) COPD with exacerbation Daytime somnolence Diabetic neuropathy Diastolic dysfunction Dizziness Erectile dysfunction Fatigue Foot callus Heart failure (~08/2018) Heart murmur Hyperlipidemia, mixed Hypertension, essential, benign Infiltrate of lower lobe of right lung present on imaging study (~08/2018) Insomnia Mitral valve prolapse Neck pain Obstructive sleep apnea of adult Orthostatic hypotension Other hypertrophic cardiomyopathy Other specified metabolic disorders Peripheral edema PNA (pneumonia) Pulmonary congestion (~08/2018) Restless leg syndrome Rhinorrhea Seborrheic keratosis Shortness of breath Shoulder pain, right Type 2 diabetes mellitus with polyneuropathy Vertigo Surgical History History of appendectomy 04/2019 History of laparoscopic appendectomy 08/10/2020 History of mitral valve repair History of surgery (~06/2013) 2 way bypass Family History Mother Heart disease Coronary heart disease Heart attack Daughter Drug abuse Type I diabetes mellitus Father Elevated PSA Social History marital status: smoking status: Former smoker alcohol intake frequency: a few times a month seatbelt use: always MEDS/ALLERGIES Home Medications and Allergies Home Medications Medication Instructions Recorded Confirmed Type pen needle, diabetic 31 gauge x #100 ea 04/11/21 12/27/21 Rx 3/16" (Unifine Pentips) insulin glargine 100 unit/mL 20 unit (0.2 mL) subcut HS #10 mL 05/02/21 12/27/21 Rx subcutaneous solution (Lantus U-100 Insulin) polyethylene glycol 3350 17 gram 17 g PO DAILYP PRN Constipation 05/02/21 12/27/21 Rx oral powder packet (HealthyLax) #30 ea metformin 500 mg tablet,extended 1,000 mg PO BID #360 tabs 06/15/21 12/27/21 Rx release 24 hr sertraline 50 mg tablet 100 mg PO QHS #60 tabs 06/16/21 12/27/21 Rx icosapent ethyl 1 gram capsule 2 g PO BID #360 caps 06/24/21 12/27/21 Rx (Vascepa) pantoprazole 40 mg tablet,delayed 40 mg PO BIDAC #180 tabs 12/07/21 12/27/21 Rx release acetaminophen 650 mg 650 mg PO Q8HP PRN Pain 12/27/21 12/27/21 History tablet,extended release insulin glargine 100 unit/mL 14 unit subcut QAM 12/27/21 12/27/21 History subcutaneous solution (Lantus U-100 Insulin) magnesium hydroxide 400 mg/5 mL 1,200 mg PO Q3D PRN Constipation 12/27/21 12/27/21 History oral suspension (Milk of Magnesia) meclizine 25 mg chewable tablet 25 mg PO Q6H PRN Dizziness 12/27/21 12/27/21 History multivitamin-iron 9 mg-folic acid 1 tab PO QDAY 12/27/21 12/27/21 History 400 mcg-calcium and minerals tablet (Therems-M) ondansetron HCl 4 mg tablet 4 mg PO Q8 PRN Nausea 12/27/21 12/27/21 History ramipril 10 mg capsule 10 mg PO BID 12/27/21 12/27/21 History sucralfate 100 mg/mL oral 10 ml PO Q6H 12/27/21 12/27/21 History suspension thiamine mononitrate (vit B1) 100 100 mg PO QDAY 12/27/21 12/27/21 History mg tablet Allergies Allergy/AdvReac Type Severity Reaction Status Date / Time No Known Drug Allergies Allergy Verified 12/27/21 09:16 Physical Examination Vital Signs Vital signs: Temp Pulse Resp BP Pulse Ox O2 Del Method O2 Flow Rate 98.2 F 95 H 21 131/78 93 2.5 12/27/21 17:31 12/27/21 18:12 12/27/21 18:12 12/27/21 18:12 12/27/21 18:12 12/27/21 18:12 12/27/21 18:12 General physical appearance General physical exam: well developed, well nourished, no distress, no pain and obese Eyes Eye exam: PERRL and normal ocular movement ENT ENT exam: normal mucosa and decreased hearing Head Head exam IM: Present atraumatic, normal inspection and normocephalic Neck Neck exam: no masses, no bruits, trachea midline, no lymphadenopathy and no venous distension Cardiovascular Cardiovascular exam IM: Present normal rate and rhythm, RRR, +S1 and +S2; Absent JVD or systolic murmur Type of murmur IM: Present systolic Intensity IM: 3/6 Respiratory Respiratory exam: normal expansion, normal respiratory effort and clear to auscultation Abdomen Abdomen: Present soft and non tender; Absent bowel sounds or organomegaly Rectum Rectum: Present normal sphincter tone, no hemorrhoids, no tenderness and no masses Hemorrhoids: Present mild Integumentary Integumentary: Present no rash, no growths and no abnormal pigmentation Neurologic Neurologic: Present normal coordination and normal sensation Musculoskeletal Musculoskeletal: Present normal gait and normal posture Psychiatric Psychiatric: Present oriented to person and speech is normal; Absent oriented to time or oriented to place Results Labs Result diagrams: 12/27/21 13:45 12/27/21 10:12 Labs: Abnormal lab results 12/27/21 12/27/21 12/27/21 Range/Units 10:12 10:12 10:12 RBC 3.52 L (4.63-6.08) M/mcL Hgb 7.3 L (13.7-17.5) g/dL Hct 26.7 L (40.1-51.0) % MCV 75.9 L (80.0-100.0) fL MCH 20.7 L (26.0-34.0) pg MCHC 27.3 L (31.0-36.0) g/dL RDW 20.8 H (11.5-14.5) % Lymph # (Auto) 1.05 L (1.50-4.80) K/mcL PT (11.9-14.5) sec INR (0.9-1.1) Glucose 69 L (70-105) mg/dL Iron (61-157) ug/dL Unsat Iron Binding (112-346) mcg/dL Transferrin % Sat (20-50) % NT-Pro-B Natriuret Pep 1021.0 H (<450.0) pg/mL Urine Appearance Cloudy A (Clear) Urine Protein 100 mg/dl A (Negative) mg/dL Urine Occult Blood Moderate A (Negative) jin/mcL Ur Leukocyte Esterase Large A (Negative) /uL Urine RBC 22 H (0-3) /hpf Urine WBC 180 H (0-4) /hpf Urine Bacteria Mod A (0) /hpf Urine Mucus Few A (None) /hpf 12/27/21 12/27/21 12/27/21 Range/Units 13:45 14:59 15:00 RBC (4.63-6.08) M/mcL Hgb 7.0 L* (13.7-17.5) g/dL Hct (40.1-51.0) % MCV (80.0-100.0) fL MCH (26.0-34.0) pg MCHC (31.0-36.0) g/dL RDW (11.5-14.5) % Lymph # (Auto) (1.50-4.80) K/mcL PT 15.4 H (11.9-14.5) sec INR 1.2 H (0.9-1.1) Glucose (70-105) mg/dL Iron 13 L (61-157) ug/dL Unsat Iron Binding 373 H (112-346) mcg/dL Transferrin % Sat 3 L (20-50) % NT-Pro-B Natriuret Pep (<450.0) pg/mL Urine Appearance (Clear) Urine Protein (Negative) mg/dL Urine Occult Blood (Negative) jin/mcL Ur Leukocyte Esterase (Negative) /uL Urine RBC (0-3) /hpf Urine WBC (0-4) /hpf Urine Bacteria (0) /hpf Urine Mucus (None) /hpf Diabetes panel 12/27/21 Range/Units 10:12 Sodium 144 (133-145) mmol/L Potassium 4.3 (3.3-5.1) mmol/L Chloride 107 (96-108) mmol/L Carbon Dioxide 28 (22-30) mmol/L BUN 18 (8-23) mg/dL Creatinine 0.8 (0.7-1.2) mg/dL Glucose 69 L (70-105) mg/dL Calcium 9.1 (8.6-10.4) mg/dL Calcium panel 12/27/21 Range/Units 10:12 Calcium 9.1 (8.6-10.4) mg/dL Pituitary panel 12/27/21 Range/Units 10:12 Sodium 144 (133-145) mmol/L Potassium 4.3 (3.3-5.1) mmol/L Chloride 107 (96-108) mmol/L Carbon Dioxide 28 (22-30) mmol/L BUN 18 (8-23) mg/dL Creatinine 0.8 (0.7-1.2) mg/dL Glucose 69 L (70-105) mg/dL Calcium 9.1 (8.6-10.4) mg/dL Adrenal panel 12/27/21 Range/Units 10:12 Sodium 144 (133-145) mmol/L Potassium 4.3 (3.3-5.1) mmol/L Chloride 107 (96-108) mmol/L Carbon Dioxide 28 (22-30) mmol/L BUN 18 (8-23) mg/dL Creatinine 0.8 (0.7-1.2) mg/dL Glucose 69 L (70-105) mg/dL Calcium 9.1 (8.6-10.4) mg/dL All other labs normal. A/P Assessment and plan (1) CHF (congestive heart failure): Status: Acute (2) GIB (gastrointestinal bleeding): Plan: Patient with history of upper GI bleed. hbg fell from 9 as outpatient to 7 on admission. Plan: EGD Status: Acute Time Spent With Patient Time: Total time spent is greater than 50% in coordination of care (as documented) at patient's floor/unit and/or counseling patient:
[2021-12-27] MEDS: DOCUSATE SODIUM 100 MG CAPSULE PO SCH (20:30)
[2021-12-27] MEDS: SENNOSIDES 1 TABLET PO SCH (20:30)
[2021-12-27] MEDS ORDERED: ACETAMINOPHEN 650 MG/65 ML BAG IV PRN (22:25)
[2021-12-27] MEDS ORDERED: HYDROcodone/APAP 5/325MG TABLET PO PRN (22:26)
[2021-12-27] MEDS ORDERED: HYDROmorphone 0.5 MG/0.5 ML SYRINGE IV PRN (22:27)
[2021-12-27] MEDS ORDERED: HYDROmorphone 0.5 MG/0.5 ML SYRINGE ONE (22:51)
[2021-12-28 06:52] LABS: Basophils # (Auto) 0.04 K/mcL (0.00-0.30); Basophils % (Auto) 0.6 % (0.0-2.0); Eosinophils # (Auto) 0.32 K/mcL (0.00-0.70); Eosinophils % (Auto) 4.9 % (0.0-7.0); Hematocrit 26.8 % (40.1-51.0); Hemoglobin 7.5 g/dL (13.7-17.5); Lymphocytes # (Auto) 1.06 K/mcL (1.50-4.80); Lymphocytes % (Auto) 16.3 % (15.5-49.0); Mean Cell Volume 78.8 fL (80.0-100.0); Mean Platelet Volume 10.4 fL (7.4-10.4); Monocytes # (Auto) 0.57 K/mcL (0.10-0.90); Monocytes % (Auto) 8.7 % (1.0-12.0); Neutrophils % (Auto) 69.3 % (38.0-78.0); Platelet Count 219 K/mcL (140-440); Red Cell Distribution Width 21.4 % (11.5-14.5); WBC 6.5 K/mcL (4.5-11.0)
[2021-12-28 07:02] LABS: ALT/SGPT 13 U/L (<40); AST/SGOT 24 U/L (<40); Albumin 3.8 gm/dL (3.2-5.2); Albumin/Globulin Ratio 1.5 (1.0-2.3); Alkaline Phosphatase 62 U/L (39-117); Bilirubin,Direct 0.2 mg/dL (<0.3); Bilirubin,Total 0.6 mg/dL (0.1-1.0); Blood Urea Nitrogen 13 mg/dL (8-23); Carbon Dioxide 30 mmol/L (22-30); Chloride 103 mmol/L (96-108); Globulin 2.6 gm/dL (2.2-3.7); Glomerular Filtration Rate 69; Glucose 63 mg/dL (70-105); Lactate Dehydrogenase 245 U/L (135-225); Phosphorous 3.5 mg/dL (2.5-4.5); Triglycerides 62 mg/dL (<150); Uric Acid 6.6 mg/dL (2.5-8.0)
[2021-12-28] MEDS: DEXTROSE 31 GM ORAL.SUSP PO PRN (07:26)
[2021-12-28] MEDS ORDERED: KETAMINE 50 MG/ML ML IV PRN ×2 (07:27→14:19)
[2021-12-28] MEDS: 0.9 % SODIUM CHLORIDE 10 ML SYRINGE IV SCH ×3 (07:27→19:50)
[2021-12-28] MEDS: INSULIN LISPRO 1 UNIT/0.01 ML UNIT SQ SCH ×4 (07:27→20:59)
[2021-12-28] MEDS ORDERED: MIDAZOLAM 2 MG/2 ML VIAL IV SCH ×2 (07:30→14:30)
[2021-12-28] MEDS ORDERED: PROPOFOL 200 MG/20 ML VIAL IV SCH ×2 (07:30→14:30)
[2021-12-28] MEDS: DOCUSATE SODIUM 100 MG CAPSULE PO SCH ×2 (08:38→21:47)
[2021-12-28] MEDS: FUROSEMIDE 40 MG/4 ML VIAL IV SCH ×2 (09:17→15:44)
[2021-12-28] MEDS: IRON SUCROSE COMPLEX 100 MG/5 ML VIAL IV SCH (09:17)
[2021-12-28] MEDS: cefTRIAXone 2 GM in DEXTROSE 5% IN WATER 50 ML IV SCH (09:17)
[2021-12-28] MEDS: PANTOPRAZOLE 80 MG in 0.9 % SODIUM CHLORIDE 100 ML IV SCH ×3 (10:36→22:10)
[2021-12-28] MEDS ORDERED: cefTRIAXone 2 GM VIAL IM SCH (11:45)
--- NOTE | 2021-12-28 13:31 | Internal Med Progress Note ---
SUBJECTIVE Subjective Patient information: Note initiated : 12/28/21 at 1:30 pm Service Date, if different from initiated Date: [] Patient: Owen Van 81 y/o M admitted on 12/27/21 for trauma. Chief Complaint: [] Interval history: Mr. Van is a 81 year old male with a history of hypertension, type 2 diabetes mellitus, chronic anemia, heart failure with preserved ejection fraction, severe aortic stenosis status post TAVR, atrial fibrillation, coronary artery disease, abdominal aortic aneurysm, obstructive sleep apnea, prior duodenal ulcer complicated by GI bleed who was brought into the emergency department for a fall. The patient reportedly fell out of his bed this morning. In the emergency department, the patient was tachypneic and had a heart rate in the 90s. The patient had a 2 to 3 L nasal oxygen requirement. Laboratory work-up was notable for acute on chronic anemia, elevated NT proBNP. Chest x-ray was suggestive of congestive heart failure, CT head without contrast did not show any acute changes, CT abdomen pelvis showed a small amount of ascites in the perihepatic and deep to pelvic regions, pulmonary vascular congestion in the lung bases bilaterally, a stable 3 cm saccular aneurysm in the infrarenal abdominal aorta, severe degenerative disc disease in the lumbar spine, moderate prostate enlargement. Patient is somewhat confused and unable to provide a coherent history at this time. 12/28: On 2 L/min nasal cannula oxygen. Patient received 1 unit of red blood cells yesterday for hemoglobin of 7, hemoglobin trend has been stable since transfusion. Iron studies consistent with iron deficiency, started Venofer IV. Tolerating diuresis well. Lay catheter placed for urinary retention. Transthoracic echocardiogram ordered. Awaiting EGD. Physical exam Head: Atraumatic, normal inspection. Eyes: normal appearance, no scleral icterus. Neck: full ROM Respiratory: Respiratory rate in the 20s, 2 L/min nasal oxygen requirement, bilateral crackles. Cardiovascular: Heart rate in the 90s, S1, S2. GI/Abdominal: Obesely distended, soft, nontender, no guarding. Extremities: Bilateral Charcot foot deformity, bilateral ankle tenderness, no acute findings on exam. Neurological: CN II-XII intact, intact motor, intact sensation. Psychiatric: Anxious mood. Skin: warm, normal color Constitutional Vitals: Vital Signs Temp Pulse Resp BP Pulse Ox O2 Del Method O2 Flow Rate 98.4 F 82 20 152/82 93 2 12/28/21 12:01 12/28/21 10:01 12/28/21 12:01 12/28/21 12:01 12/28/21 12:01 12/28/21 12:01 12/28/21 12:01 Period Temp Pulse Resp BP Sys/Rodriguez Pulse Ox O2 Del Method O2 Flow Rate Last 24 Hr 97.3 F-98.7 F 60-96 16-34 113-172/56-101 89-98 Nasal Cannula- Nasal Cannula 2-3 Intake and Output 12/27/21 12/28/21 12/28/21 21:59 05:59 13:59 Intake Total 42 423 150 Output Total 2425 1275 Balance -2383 -852 150 Weight 86.183 kg Intake & Output: Intake & Output 12/27/21 12/28/21 12/28/21 21:59 05:59 13:59 Intake Total 42 423 150 Output Total 2425 1275 Balance -2383 -852 150 Weight 86.183 kg Intake: IV 42 83 150 Sodium Chloride 0.9% 250 ml @ 42 20 mls/hr IV .[id number] YOU Rx#: [id number] Protonix 80 mg In Sodium 83 100 Chloride 0.9% 100 ml @ 8 MG/HR 10 mls/hr IV Q10H YOU Rx#: [id number] Rocephin 2 gm In Dextrose 5% in 50 Water 50 ml @ 100 mls/hr IV DAILY YOU Rx#:[id number] Blood Product 340 Output: Urine Catheter Amount 3093 3975 Other: Urine Appearance Clear Cloudy Urine Color Pale Bright Yellow Uretheral (Lay) Pale Urine Odor Normal OBJ DATA Labs CBC & Chem 7: 12/28/21 12:12 12/28/21 05:54 Labs: Abnormal Lab Results 12/28/21 12/28/21 12/28/21 12:12 05:54 05:54 RBC 3.40 L Hgb 8.0 L 7.5 L Hct 26.8 L MCV 78.8 L MCH 22.1 L MCHC 28.0 L RDW 21.4 H Lymph # (Auto) 1.06 L PT INR Glucose 63 L Iron Unsat Iron Binding Transferrin % Sat Lactate Dehydrogenase 245 H NT-Pro-B Natriuret Pep Urine Appearance Urine Protein Urine Occult Blood Ur Leukocyte Esterase Urine RBC Urine WBC Urine Bacteria Urine Mucus 12/27/21 12/27/21 12/27/21 20:02 15:00 14:59 RBC Hgb 7.6 L Hct MCV MCH MCHC RDW Lymph # (Auto) PT 15.4 H INR 1.2 H Glucose Iron 13 L Unsat Iron Binding 373 H Transferrin % Sat 3 L Lactate Dehydrogenase NT-Pro-B Natriuret Pep Urine Appearance Urine Protein Urine Occult Blood Ur Leukocyte Esterase Urine RBC Urine WBC Urine Bacteria Urine Mucus 12/27/21 12/27/21 12/27/21 13:45 10:12 10:12 RBC Hgb 7.0 L* Hct MCV MCH MCHC RDW Lymph # (Auto) PT INR Glucose 69 L Iron Unsat Iron Binding Transferrin % Sat Lactate Dehydrogenase NT-Pro-B Natriuret Pep 1021.0 H Urine Appearance Cloudy A Urine Protein 100 mg/dl A Urine Occult Blood Moderate A Ur Leukocyte Esterase Large A Urine RBC 22 H Urine WBC 180 H Urine Bacteria Mod A Urine Mucus Few A 12/27/21 10:12 RBC 3.52 L Hgb 7.3 L Hct 26.7 L MCV 75.9 L MCH 20.7 L MCHC 27.3 L RDW 20.8 H Lymph # (Auto) 1.05 L PT INR Glucose Iron Unsat Iron Binding Transferrin % Sat Lactate Dehydrogenase NT-Pro-B Natriuret Pep Urine Appearance Urine Protein Urine Occult Blood Ur Leukocyte Esterase Urine RBC Urine WBC Urine Bacteria Urine Mucus Meds: Medications Hydrocodone Bitart/Acetaminophen (Hydrocodone/Apap 5/325mg Tablet) 1 tab PO Q4HP PRN; Protocol PRN Reason: Per Pain Protocol Dextrose (Dextrose 50% 50 Ml Vial) 0 ml IV UD PRN PRN Reason: Per Sliding Scale Diagnostic Test (Pha) (Accu-Chek 1 Each Strip) 1 each FS ACHS [facility] Last Admin: 12/28/21 11:35 Dose: 1 each Docusate Sodium (Docusate Sodium 100 Mg Capsule) 100 mg PO BID [facility] Last Admin: 12/28/21 08:38 Dose: Not Given Furosemide (Furosemide 20 Mg/2 Ml Vial) 20 mg IV ONCE PRN PRN Reason: other Last Admin: 12/27/21 19:34 Dose: 20 mg Furosemide (Furosemide 40 Mg/4 Ml Vial) 40 mg IV BIDD [facility] Last Admin: 12/28/21 09:17 Dose: 40 mg Glucose (Dextrose 31 Gm Oral.Susp) 15 gm PO PRN PRN PRN Reason: Hypoglycemia Last Admin: 12/28/21 07:26 Dose: 15 gm Hydromorphone HCl (Hydromorphone 0.5 Mg/0.5 Ml Syringe) 0.5 mg IV Q2HP PRN; Protocol PRN Reason: Per Pain Protocol Last Admin: 12/27/21 22:50 Dose: 0.5 mg Pantoprazole Sodium 80 mg/ (Sodium Chloride) 100 mls @ 10 mls/hr IV Q10H YOU Last Admin: 12/28/21 10:36 Dose: 8 mg/hr, 10 mls/hr Ceftriaxone Sodium 2 gm/ (Dextrose) 50 mls @ 100 mls/hr IV DAILY [facility] Last Infusion: 12/28/21 10:00 Dose: Infused Acetaminophen (Ofirmev) 650 mg in 65 mls @ 130 mls/hr IV Q6HP PRN; Protocol PRN Reason: PAIN/FEVER > 101 Insulin Human Lispro (Insulin Lispro 1 Unit/0.01 Ml Unit) 0 unit SQ ACHS [facility]; Protocol Last Admin: 12/28/21 11:36 Dose: Not Given Iron Sucrose (Iron Sucrose Complex 100 Mg/5 Ml Vial) 200 mg IV DAILY [facility] Stop: 01/02/22 08:59 Last Admin: 12/28/21 09:17 Dose: 200 mg Ketamine HCl (Ketamine 50 Mg/Ml Ml) 50 mg IV ONCE PRN PRN Reason: Sedation Stop: 12/28/21 15:27 Midazolam HCl (Midazolam 2 Mg/2 Ml Vial) 0 mg IV ONCE [facility] Stop: 12/28/21 15:27 Ondansetron HCl (Ondansetron 4 Mg/2 Ml Vial) 4 mg IV Q6HP PRN PRN Reason: Nausea And Vomiting Propofol (Propofol 200 Mg/20 Ml Vial) 0 mg IV UD [facility] Stop: 12/28/21 15:27 Senna (Sennosides 1 Tablet) 2 tab PO HS [facility] Last Admin: 12/27/21 20:30 Dose: Not Given Sodium Chloride (0.9 % Sodium Chloride 10 Ml Syringe) 10 ml IV Q8 [facility] Last Admin: 12/28/21 07:27 Dose: 10 ml A/P Narrative A/P Narrative: Assessment: 81-year-old male with multiple comorbidities per below admitted after a fall and found to have acute hypoxia, acute on chronic diastolic heart failure and acute on chronic anemia concerning for possible GI bleed. Patient has a history of upper GI bleed secondary to a large duodenal bulb ulcer. #Acute hypoxic respiratory failure secondary to congestive heart failure #Acute on chronic anemia #Concern for upper GI bleed #Acute on chronic diastolic heart failure #Possible UTI #Iron deficiency #History of large duodenal bulb ulcer complicated by GI bleed #Coronary artery disease #History of atrial fibrillation #Abdominal aortic aneurysm, stable #Type 2 diabetes mellitus #Essential hypertension #Degenerative disc disease Plan -Lasix 40 mg IV twice daily. -Oxygen supplementation as needed. -Protonix infusion. -Trend hemoglobin, transfuse for hemoglobin less than 7 or symptomatic anemia. -General surgery consult for possible EGD. -Empiric Ceftriaxone for for possible UTI, follow urine culture. -Venofer 200 mg IV daily x5. -Correction Humalog SSI-low. -Continue home ramipril, sertraline, Carafate. -Holding home metformin. -N.p.o. for EGD. -CODE STATUS: Full -Disposition: TBD Time Spent With Patient Time: Total time spent is greater than 50% in coordination of care (as documented) at patient's floor/unit and/or counseling patient: QUALITY VTE Deep Vein Thrombosis/Pulmonary Embolism Present on Admission: No
--- NOTE | 2021-12-28 14:36 | EGD Procedure Note ---
EGD Procedure Notes Procedure Information Patient information: Note initiated : 12/28/21 at 2:34 pm Patient: Owen Van 81 y/o M admitted on 12/27/21 for trauma. Date of Procedure: 12/28/21 Pre-Op Diagnosis: Anemia Post-Op Diagnosis: Same Procedure: Esophagogastroduodenoscopy Procedure Narrative: After risk benefits and alternatives to the procedure were discussed with the patient at length he verbalized understanding and desire to continue with the procedure. Patient was taken to endoscopy. Surgical timeout was taken to verify patient an d procedure being performed sedation was administered with 1 mg of Versed and 70 mcg of propofol. An adult gastroscope was entered and advanced under direct vision into the second portion of the duodenum. The antrum was fully inspected, the scope was retroflexed in the stomach. Full examination revealed evidence of healing duodenal ulcer, no active bleed. Large hiatal hernia without evidence of Fabio ulcer or active bleed. The GE junction was at 35 cm and the esophagus was normal on full exam. EBL none. Patient tolerated procedure well. Findings: No evidence of active bleed Complications: none Surgeon: Lev Barcenas Assessment: Clear advance diet as tolerated. Recommend guaiac stools to determine need for possible colonoscopy.
[2021-12-28] MEDS: SUCRALFATE 1 GM/10 ML ORAL.SUSP PO SCH ×2 (15:44→20:59)
[2021-12-28] MEDS: SENNOSIDES 1 TABLET PO SCH (21:47)
[2021-12-28] MEDS: LISINOPRIL 20 MG TABLET PO SCH (21:47)
[2021-12-28] MEDS: SERTRALINE 50 MG TABLET PO SCH (21:47)
[2021-12-29] MEDS: SUCRALFATE 1 GM/10 ML ORAL.SUSP PO SCH ×4 (04:05→20:19)
[2021-12-29 04:56] LABS: Basophils # (Auto) 0.04 K/mcL (0.00-0.30); Basophils % (Auto) 0.5 % (0.0-2.0); Eosinophils # (Auto) 0.47 K/mcL (0.00-0.70); Eosinophils % (Auto) 6.4 % (0.0-7.0); Hematocrit 28.8 % (40.1-51.0); Hemoglobin 8.2 g/dL (13.7-17.5); Lymphocytes # (Auto) 1.13 K/mcL (1.50-4.80); Lymphocytes % (Auto) 15.5 % (15.5-49.0); Mean Cell Volume 76.4 fL (80.0-100.0); Mean Corpuscular HGB Conc 28.5 g/dL (31.0-36.0); Mean Platelet Volume 9.4 fL (7.4-10.4); Monocytes # (Auto) 0.71 K/mcL (0.10-0.90); Monocytes % (Auto) 9.7 % (1.0-12.0); Neutrophils % (Auto) 67.6 % (38.0-78.0); Platelet Count 240 K/mcL (140-440); RBC 3.77 M/mcL (4.63-6.08); Red Cell Distribution Width 21.1 % (11.5-14.5); WBC 7.3 K/mcL (4.5-11.0)
[2021-12-29 05:17] LABS: Blood Urea Nitrogen 15 mg/dL (8-23); Calcium 9.3 mg/dL (8.6-10.4); Carbon Dioxide 32 mmol/L (22-30); Chloride 98 mmol/L (96-108); Glomerular Filtration Rate 62; Glucose 122 mg/dL (70-105)
[2021-12-29] MEDS ORDERED: VANCOMYCIN PER PHARMACY IV SCH (05:23)
[2021-12-29] MEDS: 0.9 % SODIUM CHLORIDE 10 ML SYRINGE IV SCH ×3 (06:00→22:22)
--- NOTE | 2021-12-29 06:37 | XRay Report ---
CLINICAL INFORMATION: Hypoxia following diuresis COMPARISON: 12/27/2021. TECHNIQUE: Portable FINDINGS: Heart is moderately enlarged-increased. 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 Mediastinum unremarkable. Pulmonary vessels show slight decreased, but remain mildly distended. Mild peribronchovascular edema has improved. Atelectasis has resolved. No definite effusion. Right diaphragm elevated as before. IMPRESSION: Mild persistent CHF or volume overload. Slight improvement since predialysis film Interpreted and Authenticated by: Abner Weems 12/29/21
[2021-12-29] MEDS: INSULIN LISPRO 1 UNIT/0.01 ML UNIT SQ SCH ×4 (07:42→20:19)
[2021-12-29] MEDS ORDERED: VANCOMYCIN 1,500 MG in 0.9 % SODIUM CHLORIDE 500 ML IV ONE (08:00)
[2021-12-29] MEDS: PANTOPRAZOLE 80 MG in 0.9 % SODIUM CHLORIDE 100 ML IV SCH (08:18)
[2021-12-29] MEDS: FUROSEMIDE 40 MG/4 ML VIAL IV SCH ×2 (08:22→15:53)
[2021-12-29] MEDS: IRON SUCROSE COMPLEX 100 MG/5 ML VIAL IV SCH (08:23)
[2021-12-29] MEDS: LISINOPRIL 20 MG TABLET PO SCH ×2 (08:50→20:18)
[2021-12-29] MEDS: DOCUSATE SODIUM 100 MG CAPSULE PO SCH ×2 (08:50→20:18)
[2021-12-29] MEDS ORDERED: PNEUMOCOCCAL 23-VAL P-SAC VAC 0.5 ML SYRINGE IM ONE (09:00)
--- NOTE | 2021-12-29 09:05 | Internal Med Progress Note ---
SUBJECTIVE Subjective Patient information: Note initiated : 12/29/21 at 9:00 am Service Date, if different from initiated Date: [] Patient: Owen Van 81 y/o M admitted on 12/27/21 for trauma. Chief Complaint: [] Interval history: Mr. Van is a 81 year old male with a history of hypertension, type 2 diabetes mellitus, chronic anemia, heart failure with preserved ejection fraction, severe aortic stenosis status post TAVR, atrial fibrillation, coronary artery disease, abdominal aortic aneurysm, obstructive sleep apnea, prior duodenal ulcer complicated by GI bleed who was brought into the emergency department for a fall. The patient reportedly fell out of his bed this morning. In the emergency department, the patient was tachypneic and had a heart rate in the 90s. The patient had a 2 to 3 L nasal oxygen requirement. Laboratory work-up was notable for acute on chronic anemia, elevated NT proBNP. Chest x-ray was suggestive of congestive heart failure, CT head without contrast did not show any acute changes, CT abdomen pelvis showed a small amount of ascites in the perihepatic and deep to pelvic regions, pulmonary vascular congestion in the lung bases bilaterally, a stable 3 cm saccular aneurysm in the infrarenal abdominal aorta, severe degenerative disc disease in the lumbar spine, moderate prostate enlargement. Patient is somewhat confused and unable to provide a coherent history at this time. 12/28: On 2 L/min nasal cannula oxygen. Patient received 1 unit of red blood cells yesterday for hemoglobin of 7, hemoglobin trend has been stable since transfusion. Iron studies consistent with iron deficiency, started Venofer IV. Tolerating diuresis well. Lay catheter placed for urinary retention. Transthoracic echocardiogram ordered. Awaiting EGD. 12/29: Patient was on 3 L/min nasal cannula oxygen overnight, vitals otherwise stable. EGD yesterday did not show any source of bleeding, the duodenal ulcer healing well. Hemoglobin 8.2 this morning. Urine culture growing Enterococcus faecalis. Started vancomycin IV for now and until final antibiotic sensitivities available, discontinued ceftriaxone. Continue Lasix IV for diuresis today, possibly transition to oral Lasix tomorrow. Remove Lay catheter. Transthoracic echocardiogram report pending. Transition to MedSur status. Physical exam Head: Atraumatic, normal inspection. Eyes: normal appearance, no scleral icterus. Neck: full ROM Respiratory: 3 L/min nasal oxygen requirement, bilateral crackles. Cardiovascular: Normal heart rate, S1, S2. GI/Abdominal: soft, nontender, no guarding. Extremities: Bilateral Charcot foot deformity, bilateral ankle tenderness, no acute findings on exam. Neurological: CN II-XII intact, intact motor, intact sensation. Psychiatric: Normal mood. Skin: warm, normal color Constitutional Vitals: Vital Signs Temp Pulse Resp BP Pulse Ox O2 Del Method O2 Flow Rate 98.4 F 64 18 149/66 98 3 12/29/21 04:03 12/29/21 06:03 12/29/21 06:03 12/29/21 06:03 12/29/21 06:03 12/29/21 06:47 12/29/21 06:47 Period Temp Pulse Resp BP Sys/Rodriguez Pulse Ox O2 Del Method O2 Flow Rate Last 24 Hr 98.3 F-98.9 F 62-115 16-28 112-168/53-103 90-98 Nasal Cannula- Nasal Cannula 2-6 Intake and Output 12/28/21 12/29/21 12/29/21 21:59 05:59 13:59 Intake Total 537 303 100 Output Total 1999 525 Balance -1463 -222 100 Weight 79.288 kg Intake & Output: Intake & Output 12/28/21 12/29/21 12/29/21 21:59 05:59 13:59 Intake Total 537 303 100 Output Total 2000 525 Balance -1463 -222 100 Weight 79.288 kg Intake: IV 37 63 100 Protonix 80 mg In Sodium 37 63 100 Chloride 0.9% 100 ml @ 8 MG/HR 10 mls/hr IV Q10H [facility] Rx#: [id number] Oral 500 240 Output: Urine Catheter Amount 1999 525 Other: Urine Appearance Clear Sediment Uretheral (Lay) Clear Urine Color Bright Yellow Bright Yellow Uretheral (Lay) Bright Yellow Urine Odor Normal Stool Size Small Stool Color Brown Green Stool Consistency Formed # Bowel Movements 1 OBJ DATA Labs CBC & Chem 7: 12/29/21 04:13 12/29/21 04:12 Labs: Abnormal Lab Results 12/29/21 12/29/21 12/28/21 04:13 04:12 17:55 RBC 3.77 L Hgb 8.2 L 8.4 L Hct 28.8 L MCV 76.4 L MCH 21.8 L MCHC 28.5 L RDW 21.1 H Lymph # (Auto) 1.13 L PT INR Carbon Dioxide 32 H Glucose 122 H Iron Unsat Iron Binding Transferrin % Sat Lactate Dehydrogenase NT-Pro-B Natriuret Pep Urine Appearance Urine Protein Urine Occult Blood Ur Leukocyte Esterase Urine RBC Urine WBC Urine Bacteria Urine Mucus 12/28/21 12/28/21 12/28/21 12:12 05:54 05:54 RBC 3.40 L Hgb 8.0 L 7.5 L Hct 26.8 L MCV 78.8 L MCH 22.1 L MCHC 28.0 L RDW 21.4 H Lymph # (Auto) 1.06 L PT INR Carbon Dioxide Glucose 63 L Iron Unsat Iron Binding Transferrin % Sat Lactate Dehydrogenase 245 H NT-Pro-B Natriuret Pep Urine Appearance Urine Protein Urine Occult Blood Ur Leukocyte Esterase Urine RBC Urine WBC Urine Bacteria Urine Mucus 12/27/21 12/27/21 12/27/21 20:02 15:00 14:59 RBC Hgb 7.6 L Hct MCV MCH MCHC RDW Lymph # (Auto) PT 15.4 H INR 1.2 H Carbon Dioxide Glucose Iron 13 L Unsat Iron Binding 373 H Transferrin % Sat 3 L Lactate Dehydrogenase NT-Pro-B Natriuret Pep Urine Appearance Urine Protein Urine Occult Blood Ur Leukocyte Esterase Urine RBC Urine WBC Urine Bacteria Urine Mucus 12/27/21 12/27/21 12/27/21 13:45 10:12 10:12 RBC Hgb 7.0 L* Hct MCV MCH MCHC RDW Lymph # (Auto) PT INR Carbon Dioxide Glucose 69 L Iron Unsat Iron Binding Transferrin % Sat Lactate Dehydrogenase NT-Pro-B Natriuret Pep 1021.0 H Urine Appearance Cloudy A Urine Protein 100 mg/dl A Urine Occult Blood Moderate A Ur Leukocyte Esterase Large A Urine RBC 22 H Urine WBC 180 H Urine Bacteria Mod A Urine Mucus Few A 12/27/21 10:12 RBC 3.52 L Hgb 7.3 L Hct 26.7 L MCV 75.9 L MCH 20.7 L MCHC 27.3 L RDW 20.8 H Lymph # (Auto) 1.05 L PT INR Carbon Dioxide Glucose Iron Unsat Iron Binding Transferrin % Sat Lactate Dehydrogenase NT-Pro-B Natriuret Pep Urine Appearance Urine Protein Urine Occult Blood Ur Leukocyte Esterase Urine RBC Urine WBC Urine Bacteria Urine Mucus Meds: Medications Hydrocodone Bitart/Acetaminophen (Hydrocodone/Apap 5/325mg Tablet) 1 tab PO Q4HP PRN; Protocol PRN Reason: Per Pain Protocol Last Admin: 12/28/21 22:10 Dose: 1 tab Dextrose (Dextrose 50% 50 Ml Vial) 0 ml IV UD PRN PRN Reason: Per Sliding Scale Diagnostic Test (Pha) (Accu-Chek 1 Each Strip) 1 each FS ACHS [facility] Last Admin: 12/29/21 07:40 Dose: 1 each Docusate Sodium (Docusate Sodium 100 Mg Capsule) 100 mg PO BID [facility] Last Admin: 12/29/21 08:50 Dose: 100 mg Furosemide (Furosemide 20 Mg/2 Ml Vial) 20 mg IV ONCE PRN PRN Reason: other Last Admin: 12/27/21 19:34 Dose: 20 mg Furosemide (Furosemide 40 Mg/4 Ml Vial) 40 mg IV BIDD [facility] Last Admin: 12/29/21 08:22 Dose: 40 mg Glucose (Dextrose 31 Gm Oral.Susp) 15 gm PO PRN PRN PRN Reason: Hypoglycemia Last Admin: 12/28/21 07:26 Dose: 15 gm Hydromorphone HCl (Hydromorphone 0.5 Mg/0.5 Ml Syringe) 0.5 mg IV Q2HP PRN; Protocol PRN Reason: Per Pain Protocol Last Admin: 12/27/21 22:50 Dose: 0.5 mg Pantoprazole Sodium 80 mg/ (Sodium Chloride) 100 mls @ 10 mls/hr IV Q10H [facility] Last Admin: 12/29/21 08:18 Dose: 8 mg/hr, 10 mls/hr Ceftriaxone Sodium 2 gm/ (Dextrose) 50 mls @ 100 mls/hr IV DAILY [facility] Last Infusion: 12/28/21 10:00 Dose: Infused Acetaminophen (Ofirmev) 650 mg in 65 mls @ 130 mls/hr IV Q6HP PRN; Protocol PRN Reason: PAIN/FEVER > 101 Vancomycin HCl 1,500 mg/ (Sodium Chloride) 500 mls @ 333.3 mls/hr IV ONCE ONE Stop: 12/29/21 09:30 Last Admin: 12/29/21 08:23 Dose: 333.3 mls/hr Vancomycin HCl 1,500 mg/ (Sodium Chloride) 500 mls @ 333.3 mls/hr IV Q24H [facility] Insulin Human Lispro (Insulin Lispro 1 Unit/0.01 Ml Unit) 0 unit SQ ACHS [facility]; Protocol Last Admin: 12/29/21 07:42 Dose: Not Given Iron Sucrose (Iron Sucrose Complex 100 Mg/5 Ml Vial) 200 mg IV DAILY [facility] Stop: 01/02/22 08:59 Last Admin: 12/29/21 08:23 Dose: 200 mg Lisinopril (Lisinopril 20 Mg Tablet) 20 mg PO BID [facility] Last Admin: 12/29/21 08:50 Dose: 20 mg Ondansetron HCl (Ondansetron 4 Mg/2 Ml Vial) 4 mg IV Q6HP PRN PRN Reason: Nausea And Vomiting Pneumococcal Polyvalent Vaccine (Pneumococcal 23-Kavitha P-Sac Vac 0.5 Ml Syringe) 0.5 ml IM .ONCE ONE Stop: 12/29/21 09:01 Senna (Sennosides 1 Tablet) 2 tab PO [facility] Last Admin: 12/28/21 21:47 Dose: 2 tab Sertraline HCl (Sertraline 50 Mg Tablet) 100 mg PO QHS [facility] Last Admin: 12/28/21 21:47 Dose: 100 mg Sodium Chloride (0.9 % Sodium Chloride 10 Ml Syringe) 10 ml IV Q8 [facility] Last Admin: 12/29/21 06:00 Dose: 10 ml Sucralfate (Sucralfate 1 Gm/10 Ml Oral.Susp) 1 gm PO Q6H [facility] Last Admin: 12/29/21 08:19 Dose: 1 gm Vancomycin HCl (Vancomycin Per Pharmacy) 1 order IV UD [facility]; Protocol A/P Narrative A/P Narrative: Assessment: 81-year-old male with multiple comorbidities per below admitted after a fall and found to have acute hypoxia, acute on chronic diastolic heart failure. Initially there was concern for a possible GI bleed however the patient underwent an EGD which did not show any evidence of bleeding. Urine culture grew Enterococcus faecalis. The cause of the patient's acute illness is felt to be acute on chronic heart failure probably secondary to UTI. Patient was also found to have iron deficiency anemia and started on IV iron supplementation. #Acute hypoxic respiratory failure secondary to congestive heart failure #Acute on chronic diastolic heart failure #Enterococcus faecalis UTI #Iron deficiency anemia #And generalized weakness #History of duodenal bulb ulcer, healing well per EGD report #Coronary artery disease #History of atrial fibrillation #Abdominal aortic aneurysm, stable #Type 2 diabetes mellitus #Essential hypertension #Degenerative disc disease Plan -Start vancomycin IV per pharmacy for Enterococcus UTI, discontinue ceftriaxone, await antibiotic sensitivities. -Continue Lasix 40 mg IV twice daily today, possibly transition to oral Lasix tomorrow. -Monitor daily weight, fluid I&O, volume status. -Oxygen supplementation as needed, wean as tolerated. -Monitor electrolytes, renal function, hemoglobin. -Repeat 1 view chest x-ray today. -Transthoracic echocardiogram. -Venofer 200 mg IV daily x5. -Correction Humalog SSI-low. -Continue home Protonix, ramipril, sertraline, Carafate. -Discontinue Protonix infusion. -Holding home metformin. -Consistent carbohydrate diet. -PT and OT consult. -Remove Lay catheter. -CODE STATUS: Full -Disposition: TBD Time Spent With Patient Time: Total time spent is greater than 50% in coordination of care (as documented) at patient's floor/unit and/or counseling patient: QUALITY VTE Deep Vein Thrombosis/Pulmonary Embolism Present on Admission: No
[2021-12-29] MEDS: cefTRIAXone 2 GM in DEXTROSE 5% IN WATER 50 ML IV SCH (10:01)
--- NOTE | 2021-12-29 14:25 | Internal Med Progress Note ---
SUBJECTIVE Subjective Patient information: Note initiated : 12/29/21 at 2:18 pm Service Date, if different from initiated Date: [] Patient: Owen Van 81 y/o M admitted on 12/27/21 for trauma. Chief Complaint: [] Interval history: Mr. Van is a 81 year old male with a history of hypertension, type 2 diabetes mellitus, chronic anemia, heart failure with preserved ejection fraction, severe aortic stenosis status post TAVR, atrial fibrillation, coronary artery disease, abdominal aortic aneurysm, obstructive sleep apnea, prior duodenal ulcer complicated by GI bleed who was brought into the emergency department for a fall. The patient reportedly fell out of his bed this morning. In the emergency department, the patient was tachypneic and had a heart rate in the 90s. The patient had a 2 to 3 L nasal oxygen requirement. Laboratory work-up was notable for acute on chronic anemia, elevated NT proBNP. Chest x-ray was suggestive of congestive heart failure, CT head without contrast did not show any acute changes, CT abdomen pelvis showed a small amount of ascites in the perihepatic and deep to pelvic regions, pulmonary vascular congestion in the lung bases bilaterally, a stable 3 cm saccular aneurysm in the infrarenal abdominal aorta, severe degenerative disc disease in the lumbar spine, moderate prostate enlargement. Patient is somewhat confused and unable to provide a coherent history at this time. 12/28: On 2 L/min nasal cannula oxygen. Patient received 1 unit of red blood cells yesterday for hemoglobin of 7, hemoglobin trend has been stable since transfusion. Iron studies consistent with iron deficiency, started Venofer IV. Tolerating diuresis well. Lay catheter placed for urinary retention. Transthoracic echocardiogram ordered. Awaiting EGD. 12/29: Patient was on 3 L/min nasal cannula oxygen overnight, vitals otherwise stable. EGD yesterday did not show any source of bleeding, the duodenal ulcer healing well. Hemoglobin 8.2 this morning. Urine culture growing Enterococcus faecalis. Started vancomycin IV for now and until final antibiotic sensitivities available, discontinued ceftriaxone. Continue Lasix IV for diuresis today, possibly transition to oral Lasix tomorrow. Remove Lay catheter. Transthoracic echocardiogram report pending. Transition to MedSurg status. 12/30 Constitutional Vitals: Vital Signs Temp Pulse Resp BP Pulse Ox O2 Del Method O2 Flow Rate 97.6 F 62 31 H 148/63 96 4 12/29/21 12:01 12/29/21 12:01 12/29/21 10:01 12/29/21 12:01 12/29/21 12:01 12/29/21 12:01 12/29/21 12:01 Period Temp Pulse Resp BP Sys/Rodriguez Pulse Ox O2 Del Method O2 Flow Rate Last 24 Hr 97.6 F-98.9 F 62-115 12-31 112-168/55-103 90-98 Nasal Cannula- Nasal Cannula 2-6 Intake and Output 12/29/21 12/29/21 12/29/21 05:59 13:59 21:59 Intake Total 303 972 Output Total 525 Balance -222 972 Intake & Output: Intake & Output 12/29/21 12/29/21 12/29/21 05:59 13:59 21:59 Intake Total 303 972 Output Total 525 Balance -222 972 Intake: IV 63 612 Protonix 80 mg In Sodium 63 112 Chloride 0.9% 100 ml @ 8 MG/HR 10 mls/hr IV Q10H [facility] Rx#: [id number] Vancomycin 1,500 mg In Sodium 500 Chloride 0.9% 500 ml @ 333.3 mls/hr IV ONCE ONE Rx#: [id number] Oral 240 360 Output: Urine Catheter Amount 525 Other: Meal Breakfast Percent of Meal Consumed 100% Feeding Ability Assist with Tray Set Up Urine Appearance Sediment Urine Color Bright Yellow Stool Size Small Stool Color Brown Green Stool Consistency Formed # Bowel Movements 1 Exam: General: Alert, Awake, No acute Distress Eyes/N/T: EOMI, Head/Neck: neck supple, CV: RRR, No murmurs, Pulm: rales b/l, no wheezing Abd: soft, nontender, +BS x4 Ext: no clubbing/cyanosis/ . Bilateral Charcot foot deformity, bilateral ankle tenderness, no acute findings on exam Neuro: Alert, no focal deficits, moves all extremities, Skin: warm/dry OBJ DATA Labs CBC & Chem 7: 12/29/21 04:13 12/29/21 04:12 Labs: Abnormal Lab Results 12/29/21 12/29/21 12/28/21 04:13 04:12 17:55 RBC 3.77 L Hgb 8.2 L 8.4 L Hct 28.8 L MCV 76.4 L MCH 21.8 L MCHC 28.5 L RDW 21.1 H Lymph # (Auto) 1.13 L PT INR Carbon Dioxide 32 H Glucose 122 H Iron Unsat Iron Binding Transferrin % Sat Lactate Dehydrogenase NT-Pro-B Natriuret Pep Urine Appearance Urine Protein Urine Occult Blood Ur Leukocyte Esterase Urine RBC Urine WBC Urine Bacteria Urine Mucus 12/28/21 12/28/21 12/28/21 12:12 05:54 05:54 RBC 3.40 L Hgb 8.0 L 7.5 L Hct 26.8 L MCV 78.8 L MCH 22.1 L MCHC 28.0 L RDW 21.4 H Lymph # (Auto) 1.06 L PT INR Carbon Dioxide Glucose 63 L Iron Unsat Iron Binding Transferrin % Sat Lactate Dehydrogenase 245 H NT-Pro-B Natriuret Pep Urine Appearance Urine Protein Urine Occult Blood Ur Leukocyte Esterase Urine RBC Urine WBC Urine Bacteria Urine Mucus 12/27/21 12/27/21 12/27/21 20:02 15:00 14:59 RBC Hgb 7.6 L Hct MCV MCH MCHC RDW Lymph # (Auto) PT 15.4 H INR 1.2 H Carbon Dioxide Glucose Iron 13 L Unsat Iron Binding 373 H Transferrin % Sat 3 L Lactate Dehydrogenase NT-Pro-B Natriuret Pep Urine Appearance Urine Protein Urine Occult Blood Ur Leukocyte Esterase Urine RBC Urine WBC Urine Bacteria Urine Mucus 12/27/21 12/27/21 12/27/21 13:45 10:12 10:12 RBC Hgb 7.0 L* Hct MCV MCH MCHC RDW Lymph # (Auto) PT INR Carbon Dioxide Glucose 69 L Iron Unsat Iron Binding Transferrin % Sat Lactate Dehydrogenase NT-Pro-B Natriuret Pep 1021.0 H Urine Appearance Cloudy A Urine Protein 100 mg/dl A Urine Occult Blood Moderate A Ur Leukocyte Esterase Large A Urine RBC 22 H Urine WBC 180 H Urine Bacteria Mod A Urine Mucus Few A 12/27/21 10:12 RBC 3.52 L Hgb 7.3 L Hct 26.7 L MCV 75.9 L MCH 20.7 L MCHC 27.3 L RDW 20.8 H Lymph # (Auto) 1.05 L PT INR Carbon Dioxide Glucose Iron Unsat Iron Binding Transferrin % Sat Lactate Dehydrogenase NT-Pro-B Natriuret Pep Urine Appearance Urine Protein Urine Occult Blood Ur Leukocyte Esterase Urine RBC Urine WBC Urine Bacteria Urine Mucus Meds: Medications Hydrocodone Bitart/Acetaminophen (Hydrocodone/Apap 5/325mg Tablet) 1 tab PO Q4HP PRN; Protocol PRN Reason: Per Pain Protocol Last Admin: 12/28/21 22:10 Dose: 1 tab Dextrose (Dextrose 50% 50 Ml Vial) 0 ml IV UD PRN PRN Reason: Per Sliding Scale Diagnostic Test (Pha) (Accu-Chek 1 Each Strip) 1 each FS ACHS [facility] Last Admin: 12/29/21 12:02 Dose: 1 each Docusate Sodium (Docusate Sodium 100 Mg Capsule) 100 mg PO BID [facility] Last Admin: 12/29/21 08:50 Dose: 100 mg Furosemide (Furosemide 40 Mg/4 Ml Vial) 40 mg IV BIDD [facility] Last Admin: 12/29/21 08:22 Dose: 40 mg Glucose (Dextrose 31 Gm Oral.Susp) 15 gm PO PRN PRN PRN Reason: Hypoglycemia Last Admin: 12/28/21 07:26 Dose: 15 gm Acetaminophen (Ofirmev) 650 mg in 65 mls @ 130 mls/hr IV Q6HP PRN; Protocol PRN Reason: PAIN/FEVER > 101 Vancomycin HCl 1,500 mg/ (Sodium Chloride) 500 mls @ 333.3 mls/hr IV Q24H [facility] Insulin Human Lispro (Insulin Lispro 1 Unit/0.01 Ml Unit) 0 unit SQ [facility]; Protocol Last Admin: 12/29/21 12:44 Dose: 3 unit Iron Sucrose (Iron Sucrose Complex 100 Mg/5 Ml Vial) 200 mg IV DAILY [facility] Stop: 01/02/22 08:59 Last Admin: 12/29/21 08:23 Dose: 200 mg Lisinopril (Lisinopril 20 Mg Tablet) 20 mg PO BID [facility] Last Admin: 12/29/21 08:50 Dose: 20 mg Ondansetron HCl (Ondansetron 4 Mg/2 Ml Vial) 4 mg IV Q6HP PRN PRN Reason: Nausea And Vomiting Pantoprazole Sodium (Pantoprazole 40 Mg Tablet) 40 mg PO BIDAC [facility] Pneumococcal Polyvalent Vaccine (Pneumococcal 23-Kavitha P-Sac Vac 0.5 Ml Syringe) 0.5 ml IM .ONCE ONE Stop: 12/31/21 09:01 Senna (Sennosides 1 Tablet) 2 tab PO HS [facility] Last Admin: 09/07/22 21:47 Dose: 2 tab Sertraline HCl (Sertraline 50 Mg Tablet) 100 mg PO QHS [facility] Last Admin: 12/28/21 21:47 Dose: 100 mg Sodium Chloride (0.9 % Sodium Chloride 10 Ml Syringe) 10 ml IV Q8 [facility] Last Admin: 12/29/21 13:45 Dose: 10 ml Sucralfate (Sucralfate 1 Gm/10 Ml Oral.Susp) 1 gm PO Q6H [facility] Last Admin: 12/29/21 13:45 Dose: 1 gm Vancomycin HCl (Vancomycin Per Pharmacy) 1 order IV UD [facility]; Protocol A/P Narrative A/P Narrative: A: #Acute on chronic hypoxic respiratory failure: 2/2 CHF #Acute on chronicdiastolic CHF: #UTI (Enterococcus faecalis): #Generalized weakness/deconditioning: #h/o PUD, healing well per EGD report: #CAD w/cabg: #Paroxysmal Atrial fibrillation: -old records from [employer] state on ASA & did not want to consider Anticoagulation as discussed on several occasions. *h/o & Prosthetic Mitral valve: -follows at [facility] Cardiology, has had discussion regarding TAVR, pt was not interested #Abdominal aortic aneurysm, stable: #CKD II: #Iron deficiency anemia: #DM 2: #HTN/HLD: #COPD (3L@home): #PHOEBE: not on cpap #Oropharyngeal Dysphagia, mild: #Dementia: #Depression: #UR (h/o same): Plan -Start vancomycin IV per pharmacy for Enterococcus UTI, discontinue ceftriaxone, await antibiotic sensitivities. -Continue Lasix 40 mg IV twice daily today, possibly transition to oral Lasix tomorrow. -Monitor daily weight, fluid I&O, volume status. -Oxygen supplementation as needed, wean as tolerated. -Monitor electrolytes, renal function, hemoglobin. -Transthoracic echocardiogram pending -Venofer 200 mg IV daily x5 -SSI, hold metformin -Continue home ramipril, sertraline, Carafate. -PT and OT consult. -ppx: SCD /ome ppi CODE STATUS: Cd Technician Spent With Patient Time: Total time spent is greater than 50% in coordination of care (as documented) at patient's floor/unit and/or counseling patient: QUALITY VTE Deep Vein Thrombosis/Pulmonary Embolism Present on Admission: No
[2021-12-29] MEDS: PANTOPRAZOLE 40 MG TABLET PO SCH (17:03)
[2021-12-29] MEDS: SERTRALINE 50 MG TABLET PO SCH (20:18)
[2021-12-29] MEDS: SENNOSIDES 1 TABLET PO SCH (20:18)
[2021-12-30] MEDS: SUCRALFATE 1 GM/10 ML ORAL.SUSP PO SCH ×4 (01:54→20:59)
[2021-12-30] MEDS: 0.9 % SODIUM CHLORIDE 10 ML SYRINGE IV SCH ×2 (05:57→13:43)
[2021-12-30 06:55] LABS: Basophils # (Auto) 0.07 K/mcL (0.00-0.30); Eosinophils # (Auto) 0.45 K/mcL (0.00-0.70); Eosinophils % (Auto) 6.1 % (0.0-7.0); Hematocrit 31.4 % (40.1-51.0); Hemoglobin 8.5 g/dL (13.7-17.5); Lymphocytes # (Auto) 1.04 K/mcL (1.50-4.80); Lymphocytes % (Auto) 14.2 % (15.5-49.0); Mean Cell Volume 79.7 fL (80.0-100.0); Mean Corpuscular HGB Conc 27.1 g/dL (31.0-36.0); Mean Platelet Volume 9.8 fL (7.4-10.4); Monocytes # (Auto) 0.62 K/mcL (0.10-0.90); Monocytes % (Auto) 8.5 % (1.0-12.0); Neutrophils % (Auto) 69.9 % (38.0-78.0); Platelet Count 258 K/mcL (140-440); RBC 3.94 M/mcL (4.63-6.08); Red Cell Distribution Width 20.9 % (11.5-14.5); WBC 7.3 K/mcL (4.5-11.0)
[2021-12-30] MEDS ORDERED: METOPROLOL TARTRATE 5 MG/5 ML VIAL IV PRN (07:52)
[2021-12-30 07:56] LABS: Blood Urea Nitrogen 23 mg/dL (8-23); Calcium 9.6 mg/dL (8.6-10.4); Carbon Dioxide 30 mmol/L (22-30); Chloride 96 mmol/L (96-108); Glomerular Filtration Rate 56; Glucose 147 mg/dL (70-105)
[2021-12-30] MEDS ORDERED: HYDROCHLOROTHIAZIDE 12.5 MG CAPSULE PO ONE (07:57)
--- NOTE | 2021-12-30 08:02 | Internal Med Progress Note ---
SUBJECTIVE Subjective Patient information: Note initiated : 12/30/21 at 7:51 am Service Date, if different from initiated Date: [] Patient: Owen Van 81 y/o M admitted on 12/27/21 for trauma. Chief Complaint: [] Interval history: Mr. Van is a 81 year old male with a history of hypertension, type 2 diabetes mellitus, chronic anemia, heart failure with preserved ejection fraction, severe aortic stenosis status post TAVR, atrial fibrillation, coronary artery disease, abdominal aortic aneurysm, obstructive sleep apnea, prior duodenal ulcer complicated by GI bleed who was brought into the emergency department for a fall. The patient reportedly fell out of his bed this morning. In the emergency department, the patient was tachypneic and had a heart rate in the 90s. The patient had a 2 to 3 L nasal oxygen requirement. Laboratory work-up was notable for acute on chronic anemia, elevated NT proBNP. Chest x-ray was suggestive of congestive heart failure, CT head without contrast did not show any acute changes, CT abdomen pelvis showed a small amount of ascites in the perihepatic and deep to pelvic regions, pulmonary vascular congestion in the lung bases bilaterally, a stable 3 cm saccular aneurysm in the infrarenal abdominal aorta, severe degenerative disc disease in the lumbar spine, moderate prostate enlargement. Patient is somewhat confused and unable to provide a coherent history at this time. 12/28: On 2 L/min nasal cannula oxygen. Patient received 1 unit of red blood cells yesterday for hemoglobin of 7, hemoglobin trend has been stable since transfusion. Iron studies consistent with iron deficiency, started Venofer IV. Tolerating diuresis well. Lay catheter placed for urinary retention. Transthoracic echocardiogram ordered. Awaiting EGD. 12/29: Patient was on 3 L/min nasal cannula oxygen overnight, vitals otherwise stable. EGD yesterday did not show any source of bleeding, the duodenal ulcer healing well. Hemoglobin 8.2 this morning. Urine culture growing Enterococcus faecalis. Started vancomycin IV for now and until final antibiotic sensitivities available, discontinued ceftriaxone. Continue Lasix IV for diuresis today, possibly transition to oral Lasix tomorrow. Remove Lay catheter. Transthoracic echocardiogram report pending. Transition to MedSurg status. 12/30 No overnight event or new complaints. Anemia stable labs. Follow-up chest x- ray in the morning. Patient is on chronic oxygen use at home. Pending echocardiogram. Review of Systems: denies headache/fever/chills/nausea/vomiting/chest or abdominal pain/diarrhea. Otherwise see above. Constitutional Vitals: Vital Signs Temp Pulse Resp BP Pulse Ox O2 Del Method O2 Flow Rate 98.4 F 66 18 142/66 95 4 12/30/21 00:00 12/30/21 00:00 12/30/21 00:00 12/30/21 00:00 12/30/21 00:00 12/30/21 06:16 12/30/21 06:16 Period Temp Pulse Resp BP Sys/Rodriguez Pulse Ox O2 Del Method O2 Flow Rate Last 24 Hr 97.6 F-98.6 F 62-68 12-31 124-148/56-78 94-96 Nasal Cannula-Nasal Cannula 3-4 Intake and Output 12/29/21 12/30/21 12/30/21 21:59 05:59 13:59 Intake Total 600 Output Total 550 500 Balance 50 -500 Weight 78.109 kg Intake & Output: Intake & Output 12/29/21 12/30/21 12/30/21 21:59 05:59 13:59 Intake Total 600 Output Total 550 500 Balance 50 -500 Weight 78.109 kg Intake: Oral 600 Output: Urine Catheter Amount 325 500 Void Amount 225 Other: Meal Lunch Percent of Meal Consumed 75% Urine Appearance Sediment Clear Straight Cath #2 Clear Urine Color Yellow Pale Straight Cath #2 Pale Urine Odor Normal Exam: General: Alert, Awake, No acute Distress Eyes/N/T: EOMI, Head/Neck: neck supple, CV: RRR, 2/6SM Pulm: rales b/l, no wheezing Abd: soft, nontender, +BS x4 Ext: no clubbing/cyanosis/edema. Bilateral Charcot foot deformity, bilateral ankle tenderness, no acute findings on exam Neuro: Alert, no focal deficits, moves all extremities, Skin: warm/dry OBJ DATA Labs CBC & Chem 7: 12/30/21 06:10 12/30/21 06:09 Labs: Abnormal Lab Results 12/30/21 12/29/21 12/29/21 06:10 04:13 04:12 RBC 3.94 L 3.77 L Hgb 8.5 L 8.2 L Hct 31.4 L 28.8 L MCV 79.7 L 76.4 L MCH 21.6 L 21.8 L MCHC 27.1 L 28.5 L RDW 20.9 H 21.1 H Lymph % (Auto) 14.2 L Lymph # (Auto) 1.04 L 1.13 L PT INR Carbon Dioxide 32 H Glucose 122 H Iron Unsat Iron Binding Transferrin % Sat Lactate Dehydrogenase NT-Pro-B Natriuret Pep Urine Appearance Urine Protein Urine Occult Blood Ur Leukocyte Esterase Urine RBC Urine WBC Urine Bacteria Urine Mucus 12/28/21 12/28/21 12/28/21 17:55 12:12 05:54 RBC Hgb 8.4 L 8.0 L Hct MCV MCH MCHC RDW Lymph % (Auto) Lymph # (Auto) PT INR Carbon Dioxide Glucose 63 L Iron Unsat Iron Binding Transferrin % Sat Lactate Dehydrogenase 245 H NT-Pro-B Natriuret Pep Urine Appearance Urine Protein Urine Occult Blood Ur Leukocyte Esterase Urine RBC Urine WBC Urine Bacteria Urine Mucus 12/28/21 12/27/21 12/27/21 05:54 20:02 15:00 RBC 3.40 L Hgb 7.5 L 7.6 L Hct 26.8 L MCV 78.8 L MCH 22.1 L MCHC 28.0 L RDW 21.4 H Lymph % (Auto) Lymph # (Auto) 1.06 L PT INR Carbon Dioxide Glucose Iron 13 L Unsat Iron Binding 373 H Transferrin % Sat 3 L Lactate Dehydrogenase NT-Pro-B Natriuret Pep Urine Appearance Urine Protein Urine Occult Blood Ur Leukocyte Esterase Urine RBC Urine WBC Urine Bacteria Urine Mucus 12/27/21 12/27/21 12/27/21 14:59 13:45 10:12 RBC Hgb 7.0 L* Hct MCV MCH MCHC RDW Lymph % (Auto) Lymph # (Auto) PT 15.4 H INR 1.2 H Carbon Dioxide Glucose Iron Unsat Iron Binding Transferrin % Sat Lactate Dehydrogenase NT-Pro-B Natriuret Pep Urine Appearance Cloudy A Urine Protein 100 mg/dl A Urine Occult Blood Moderate A Ur Leukocyte Esterase Large A Urine RBC 22 H Urine WBC 180 H Urine Bacteria Mod A Urine Mucus Few A 12/27/21 12/27/21 10:12 10:12 RBC 3.52 L Hgb 7.3 L Hct 26.7 L MCV 75.9 L MCH 20.7 L MCHC 27.3 L RDW 20.8 H Lymph % (Auto) Lymph # (Auto) 1.05 L PT INR Carbon Dioxide Glucose 69 L Iron Unsat Iron Binding Transferrin % Sat Lactate Dehydrogenase NT-Pro-B Natriuret Pep 1021.0 H Urine Appearance Urine Protein Urine Occult Blood Ur Leukocyte Esterase Urine RBC Urine WBC Urine Bacteria Urine Mucus Meds: Medications Hydrocodone Bitart/Acetaminophen (Hydrocodone/Apap 5/325mg Tablet) 1 tab PO Q4HP PRN; Protocol PRN Reason: Per Pain Protocol Last Admin: 12/28/21 22:10 Dose: 1 tab Dextrose (Dextrose 50% 50 Ml Vial) 0 ml IV UD PRN PRN Reason: Per Sliding Scale Diagnostic Test (Pha) (Accu-Chek 1 Each Strip) 1 each FS [facility] Last Admin: 12/29/21 20:19 Dose: 1 each Docusate Sodium (Docusate Sodium 100 Mg Capsule) 100 mg PO BID [facility] Last Admin: 12/29/21 20:18 Dose: 100 mg Furosemide (Furosemide 40 Mg/4 Ml Vial) 40 mg IV BIDD [facility] Last Admin: 12/29/21 15:53 Dose: 40 mg Glucose (Dextrose 31 Gm Oral.Susp) 15 gm PO PRN PRN PRN Reason: Hypoglycemia Last Admin: 12/28/21 07:26 Dose: 15 gm Acetaminophen (Ofirmev) 650 mg in 65 mls @ 130 mls/hr IV Q6HP PRN; Protocol PRN Reason: PAIN/FEVER > 101 Vancomycin HCl 1,500 mg/ (Sodium Chloride) 500 mls @ 333.3 mls/hr IV Q24H [facility] Insulin Human Lispro (Insulin Lispro 1 Unit/0.01 Ml Unit) 0 unit SQ [facility]; Protocol Last Admin: 12/29/21 20:19 Dose: Not Given Iron Sucrose (Iron Sucrose Complex 100 Mg/5 Ml Vial) 200 mg IV DAILY [facility] Stop: 01/02/22 08:59 Last Admin: 12/29/21 08:23 Dose: 200 mg Lisinopril (Lisinopril 20 Mg Tablet) 20 mg PO BID [facility] Last Admin: 12/29/21 20:18 Dose: 20 mg Ondansetron HCl (Ondansetron 4 Mg/2 Ml Vial) 4 mg IV Q6HP PRN PRN Reason: Nausea And Vomiting Pantoprazole Sodium (Pantoprazole 40 Mg Tablet) 40 mg PO BIDAC [facility] Last Admin: 12/29/21 17:03 Dose: 40 mg Pneumococcal Polyvalent Vaccine (Pneumococcal 23-Kavitha P-Sac Vac 0.5 Ml Syringe) 0.5 ml IM .ONCE ONE Stop: 12/31/21 09:01 Senna (Sennosides 1 Tablet) 2 tab PO HS [facility] Last Admin: 12/29/21 20:18 Dose: 2 tab Sertraline HCl (Sertraline 50 Mg Tablet) 100 mg PO QHS [facility] Last Admin: 12/29/21 20:18 Dose: 100 mg Sodium Chloride (0.9 % Sodium Chloride 10 Ml Syringe) 10 ml IV Q8 [facility] Last Admin: 12/30/21 05:57 Dose: 10 ml Sucralfate (Sucralfate 1 Gm/10 Ml Oral.Susp) 1 gm PO Q6H [facility] Last Admin: 12/30/21 01:54 Dose: 1 gm Vancomycin HCl (Vancomycin Per Pharmacy) 1 order IV UD [facility]; Protocol A/P Narrative A/P Narrative: A: #Acute on chronic hypoxic respiratory failure: 2/2 CHF -on 4L NC #Acute on chronicdiastolic CHF: -echo EF 55-60, sever hypokinesis of basal/mid inferior wall #UTI (Enterococcus faecalis): #Generalized weakness/deconditioning: #h/o PUD, healing well per EGD report: #Iron deficiency anemia: #CAD w/cabg: #Paroxysmal Atrial fibrillation: -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 *h/o with TAVR: #Abdominal aortic aneurysm, stable: #CKD II: #DM 2: #COPD (3L@home): #PHOEBE: not on cpap #Dementia: #Depression: Plan -IV Lasix to prn -f/u cxr in AM -Monitor daily weight, fluid I&O, volume status. -Oxygen supplementation as needed, wean as tolerated. -on vancomycin, will transition to Amoxicillin for upon d/c -Monitor electrolytes, renal function, hemoglobin. -Venofer 200 mg IV daily x5 -SSI, hold metformin -Continue home ramipril, sertraline, Carafate. -PT and OT consult. -ppx: SCD / home ppi CODE STATUS: Opal Miner Spent With Patient Time: Total time spent is greater than 50% in coordination of care (as documented) at patient's floor/unit and/or counseling patient: Total time spent with greater than 50% in coordination of care (as documented) at patient's floor/unit and/or counseling patient:: 25 - 35 minutes QUALITY VTE Deep Vein Thrombosis/Pulmonary Embolism Present on Admission: No
[2021-12-30] MEDS: INSULIN LISPRO 1 UNIT/0.01 ML UNIT SQ SCH ×4 (08:14→21:20)
[2021-12-30] MEDS: PANTOPRAZOLE 40 MG TABLET PO SCH ×2 (08:14→16:49)
[2021-12-30] MEDS: FUROSEMIDE 40 MG/4 ML VIAL IV SCH (09:18)
[2021-12-30] MEDS: IRON SUCROSE COMPLEX 100 MG/5 ML VIAL IV SCH (09:18)
[2021-12-30] MEDS: DOCUSATE SODIUM 100 MG CAPSULE PO SCH ×2 (09:18→20:59)
[2021-12-30] MEDS: VANCOMYCIN 1,500 MG in 0.9 % SODIUM CHLORIDE 500 ML IV SCH (09:18)
[2021-12-30] MEDS: LISINOPRIL 20 MG TABLET PO SCH ×2 (10:58→21:02)
--- NOTE | 2021-12-30 12:22 | Discharge Summary ---
Discharge Provider Provider IMPORTANT FOLLOW-UP INFORMATION FOR PCP: Patient information: Note initiated : 12/30/21 at 12:20 pm Service Date, if different from initiated Date: [] Patient: Owen Van 81 y/o M admitted on 12/27/21 for trauma. Chief Complaint: [] Date of admission: 12/27/21 13:15 Discharge date: 01/02/22 Primary care physician: Radha Braun Consults: 12/27/21 Consult to Physician [CONS] Stat Comment: Consulting Provider: Jeff Ruiz Reason For Exam: Physician to Consult 12/27/21 17:18 Consult to Physician [CONS] Routine Comment: Consulting Provider: Lev Barcenas Reason For Exam: Physician to Consult COURSE Hospital Course Hospital course: Chief Complaint: [] Interval history: Mr. Van is a 81 year old male with a history of hypertension, type 2 diabetes mellitus, chronic anemia, heart failure with preserved ejection fraction, severe aortic stenosis status post TAVR, atrial fibrillation, coronary artery disease, abdominal aortic aneurysm, obstructive sleep apnea, prior duodenal ulcer complicated by GI bleed who was brought into the emergency department for a fall. The patient reportedly fell out of his bed this morning. In the emergency department, the patient was tachypneic and had a heart rate in the 90s. The patient had a 2 to 3 L nasal oxygen requirement. Laboratory work-up was notable for acute on chronic anemia, elevated NT proBNP. Chest x-ray was suggestive of congestive heart failure, CT head without contrast did not show any acute changes, CT abdomen pelvis showed a small amount of ascites in the perihepatic and deep to pelvic regions, pulmonary vascular congestion in the lung bases bilaterally, a stable 3 cm saccular aneurysm in the infrarenal abdominal aorta, severe degenerative disc disease in the lumbar spine, moderate prostate enlargement. Patient is somewhat confused and unable to provide a coherent history at this time. 12/28: On 2 L/min nasal cannula oxygen. Patient received 1 unit of red blood cells yesterday for hemoglobin of 7, hemoglobin trend has been stable since transfusion. Iron studies consistent with iron deficiency, started Venofer IV. Tolerating diuresis well. Lay catheter placed for urinary retention. Transthoracic echocardiogram ordered. Awaiting EGD. 12/29: Patient was on 3 L/min nasal cannula oxygen overnight, vitals otherwise stable. EGD yesterday did not show any source of bleeding, the duodenal ulcer healing well. Hemoglobin 8.2 this morning. Urine culture growing Enterococcus faecalis. Started vancomycin IV for now and until final antibiotic sensit ivities available, discontinued ceftriaxone. Continue Lasix IV for diuresis today, possibly transition to oral Lasix tomorrow. Remove Lay catheter. Transthoracic echocardiogram report pending. Transition to MedSurg status. 12/30 No overnight event or new complaints. Anemia stable labs. Follow-up chest x- ray in the morning. Patient is on chronic oxygen use at home. Pending echocardiogram. 12/31 Patient says he feels so-so, little bit depressed but would not go into detail. Down to 3 L nasal cannula which I believe is his baseline, and he feels like his shortness of breath is at baseline. Chest x-ray with resolution of pulmonary edema. BUN starting to creep up as well as uric acid and bicarb, will hold further diuresis for now. proBNP also dropped by half. 01/01 Patient sitting up eating breakfast. States he is feeling pretty good today. 01/02 No overnight event or new complaints. Stable for discharge. 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 *h/o with TAVR: #Abdominal aortic aneurysm, stable: #CKD II: #DM 2: #COPD (3L@home): #PHOEBE: not on cpap #Dementia: #Depression: Plan -finish Amoxicillin -Iron supp Discharge diagnosis: Acute hypoxic respite failure on chronic acute on chronic diastolic heart f Secondary discharge diagnosis: Acute on chronic diastolic heart failure Enterococcus UTI iron deficiency anemia peptic ulcer disease generalized weakness CAD paroxysmal A. fib chronic kidney disease stage II diabetes COPD with 3 L nasal cannula of oxygen required at home obstructive sleep apnea dementia depression Time Spent with Patient Time attestation: Total time spent providing and/or coordinating discharge services: Time spent: Greater than 30 minutes EXAM Constitutional Vitals: Temp Pulse Resp BP Pulse Ox O2 Del Method O2 Flow Rate 98.2 F 63 18 111/58 97 3 12/30/21 12:00 12/30/21 12:00 12/30/21 12:00 12/30/21 12:00 12/30/21 12:00 12/30/21 12:00 12/30/21 12:00 Discharge Data Data Completed and Pending Labs on day of discharge: Labs from last 24 hours 12/30/21 12/30/21 12/30/21 06:10 06:09 06:09 WBC 7.3 RBC 3.94 L Hgb 8.5 L Hct 31.4 L MCV 79.7 L MCH 21.6 L MCHC 27.1 L RDW 20.9 H Plt Count 258 MPV 9.8 Immature Gran % (Auto) 0.3 Neut % (Auto) 69.9 Lymph % (Auto) 14.2 L [place] % (Auto) 8.5 Eos % (Auto) 6.1 Baso % (Auto) 1.0 Lymph # (Auto) 1.04 L [place] # (Auto) 0.62 Eos # (Auto) 0.45 Baso # (Auto) 0.07 Immature Gran # 0.02 Absolute Neutrophils 5.12 Sodium 141 Potassium 3.7 Chloride 96 Carbon Dioxide 30 Anion Gap 15.0 BUN 23 Creatinine 1.2 GFR Calculation 56 Glucose 147 H Uric Acid 9.1 H Calcium 9.6 Preliminary micro results at discharge 12/27/21 12:40 Blood Culture - Preliminary Blood 12/27/21 12:30 Blood Culture - Preliminary Blood Discharge Plan Patient/Caregiver Discharge Instructions Activity: increase activity as tolerated Diet: Consistent Carbohydrate Prescriptions: New polysaccharide iron complex 200 mg iron capsule 200 mg PO QDAY Qty: 20 0RF amoxicillin 250 mg Capsule 500 mg PO TID Qty: 6 0RF Continued (DME) pen needle, diabetic [Unifine Pentips] 31 gauge x 3/16" needle See Rx Instructions .ROUTE .COMPLEX Qty: 100 10RF Dose Instruction: USE WITH LANTUS PEN Rx Instructions: USE WITH LANTUS PEN metformin 500 mg tablet extended release 24 hr 1,000 mg PO BID Qty: 360 3RF Vascepa 1 gram capsule 2 g PO BID Qty: 360 3RF pantoprazole 40 mg tablet,delayed release (DR/EC) 40 mg PO BIDAC Qty: 180 0RF sertraline 50 mg tablet 100 mg PO QHS Qty: 60 6RF insulin glargine [Lantus U-100 Insulin] 100 unit/mL Solution 20 unit subcut HS Qty: 10 6RF polyethylene glycol 3350 [HealthyLax] 17 gram Powder In Packet 17 g PO DAILYP PRN (Reason: Constipation) Qty: 30 1RF ondansetron HCl 4 mg tablet 4 mg PO Q8 PRN (Reason: Nausea) acetaminophen 650 mg tablet extended release 650 mg PO Q8HP PRN (Reason: Pain) ramipril 10 mg capsule 10 mg PO BID meclizine 25 mg tablet,chewable 25 mg PO Q6H PRN (Reason: Dizziness) thiamine mononitrate (vit B1) 100 mg Tablet 100 mg PO QDAY insulin glargine [Lantus U-100 Insulin] 100 unit/mL solution 14 unit subcut QAM Therems-M 9 mg iron-400 mcg tablet 1 tab PO QDAY sucralfate 100 mg/mL Suspension 10 ml PO Q6H Rx Instructions: swish in mouth and swallow; use after food/drink magnesium hydroxide [Milk of Magnesia] 400 mg/5 mL Suspension 1,200 mg PO Q3D PRN (Reason: Constipation) Follow Up Plan Follow up with: Radha Braun ARNP [Primary Care Provider] - Patient Disposition: Xfer Assisted Living Facility Prognosis: Fair Rehab Potential: Fair Overall status at discharge: patient is progressing back to baseline Discharge Orders: Discharge Order (Routine); Ordered 01/02/22 Ordered By: Gildardo Ozuna [facility] VTE Deep Vein Thrombosis/Pulmonary Embolism Present on Admission: No
[2021-12-30] MEDS: SERTRALINE 50 MG TABLET PO SCH (21:00)
[2021-12-30] MEDS: SENNOSIDES 1 TABLET PO SCH (21:00)
[2021-12-31] MEDS: SUCRALFATE 1 GM/10 ML ORAL.SUSP PO SCH ×4 (00:41→18:54)
[2021-12-31] MEDS: 0.9 % SODIUM CHLORIDE 10 ML SYRINGE IV SCH ×4 (00:42→22:40)
[2021-12-31 06:58] LABS: proBNP 451.3 pg/mL (<450.0)
[2021-12-31 07:05] LABS: ALT/SGPT 13 U/L (<40); AST/SGOT 19 U/L (<40); Albumin 3.5 gm/dL (3.2-5.2); Alkaline Phosphatase 71 U/L (39-117); Bilirubin,Direct < 0.2 mg/dL (0-0.3); Bilirubin,Total 0.4 mg/dL (0.1-1.0); Blood Urea Nitrogen 26 mg/dL (8-23); Calcium 9.2 mg/dL (8.6-10.4); Carbon Dioxide 36 mmol/L (22-30); Chloride 99 mmol/L (96-108); Globulin 3.4 gm/dL (2.2-3.7); Glomerular Filtration Rate 56; Glucose 145 mg/dL (70-105); Lactate Dehydrogenase 241 U/L (135-225); Phosphorous 2.8 mg/dL (2.5-4.5); Triglycerides 122 mg/dL (<150); Uric Acid 9.7 mg/dL (2.5-8.0)
--- NOTE | 2021-12-31 07:34 | XRay Report ---
CLINICAL INFORMATION: Hypoxia COMPARISON: Portable chest 12/29/2021 TECHNIQUE: Portable FINDINGS: Heart is mildly enlarged-slightly decreased.. 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 Mediastinum unremarkable. Pulmonary vascularity has returned to normal in caliber. Interstitial edema is almost entirely clear with very minimal residual perihilar region and right base. Tiny right pleural effusion noted. Right diaphragm mildly elevated as before. IMPRESSION: Interval resolution in CHF or volume overload Interpreted and Authenticated by: Abner Weems 12/31/21
[2021-12-31] MEDS: INSULIN LISPRO 1 UNIT/0.01 ML UNIT SQ SCH ×4 (07:44→20:28)
[2021-12-31] MEDS: PANTOPRAZOLE 40 MG TABLET PO SCH ×2 (07:44→16:55)
--- NOTE | 2021-12-31 07:49 | Internal Med Progress Note ---
SUBJECTIVE Subjective Patient information: Note initiated : 12/31/21 at 7:46 am Service Date, if different from initiated Date: [] Patient: Owen Van 81 y/o M admitted on 12/27/21 for trauma. Chief Complaint: [] Interval history: Mr. Van is a 81 year old male with a history of hypertension, type 2 diabetes mellitus, chronic anemia, heart failure with preserved ejection fraction, severe aortic stenosis status post TAVR, atrial fibrillation, coronary artery disease, abdominal aortic aneurysm, obstructive sleep apnea, prior duodenal ulcer complicated by GI bleed who was brought into the emergency department for a fall. The patient reportedly fell out of his bed this morning. In the emergency department, the patient was tachypneic and had a heart rate in the 90s. The patient had a 2 to 3 L nasal oxygen requirement. Laboratory work-up was notable for acute on chronic anemia, elevated NT proBNP. Chest x-ray was suggestive of congestive heart failure, CT head without contrast did not show any acute changes, CT abdomen pelvis showed a small amount of ascites in the perihepatic and deep to pelvic regions, pulmonary vascular congestion in the lung bases bilaterally, a stable 3 cm saccular aneurysm in the infrarenal abdominal aorta, severe degenerative disc disease in the lumbar spine, moderate prostate enlargement. Patient is somewhat confused and unable to provide a coherent history at this time. 12/28: On 2 L/min nasal cannula oxygen. Patient received 1 unit of red blood cells yesterday for hemoglobin of 7, hemoglobin trend has been stable since transfusion. Iron studies consistent with iron deficiency, started Venofer IV. Tolerating diuresis well. Lay catheter placed for urinary retention. Transthoracic echocardiogram ordered. Awaiting EGD. 12/29: Patient was on 3 L/min nasal cannula oxygen overnight, vitals otherwise stable. EGD yesterday did not show any source of bleeding, the duodenal ulcer healing well. Hemoglobin 8.2 this morning. Urine culture growing Enterococcus faecalis. Started vancomycin IV for now and until final antibiotic sensitivities available, discontinued ceftriaxone. Continue Lasix IV for diuresis today, possibly transition to oral Lasix tomorrow. Remove Lay catheter. Transthoracic echocardiogram report pending. Transition to MedSurg status. 12/30 No overnight event or new complaints. Anemia stable labs. Follow-up chest x- ray in the morning. Patient is on chronic oxygen use at home. Pending echocardiogram. 12/31 Patient says he feels so-so, little bit depressed but would not go into detail. Down to 3 L nasal cannula which I believe is his baseline, and he feels like his shortness of breath is at baseline. Chest x-ray with resolution of pulmonary edema. BUN starting to creep up as well as uric acid and bicarb, will hold further diuresis for now. proBNP also dropped by half. Review of Systems: denies headache/fever/chills/nausea/vomiting/chest or abdominal pain/diarrhea. Otherwise see above. Constitutional Vitals: Vital Signs Temp Pulse Resp BP Pulse Ox O2 Del Method O2 Flow Rate 97.1 F 63 16 113/45 95 3 12/31/21 04:17 12/31/21 04:17 12/31/21 04:17 12/31/21 04:17 12/31/21 04:17 12/31/21 04:12/31/21 04:17 Period Temp Pulse Resp BP Sys/Rodriguez Pulse Ox O2 Del Method O2 Flow Rate Last 24 Hr 97.1 F-98.2 F 61-74 16-20 99-152/45-87 93-97 Nasal Cannula- Room Air 3-4 Intake and Output 12/30/21 12/31/21 12/31/21 21:59 05:59 13:59 Intake Total 480 Output Total 175 150 Balance 305 -150 Weight 78.67 kg Intake & Output: Intake & Output 12/30/21 12/31/21 12/31/21 21:59 05:59 13:59 Intake Total 480 Output Total 175 150 Balance 305 -150 Weight 78.67 kg Intake: Oral 480 Output: Void Amount 175 150 Other: Meal Dinner Percent of Meal Consumed 100% Urine Appearance Clear Clear Urine Color Yellow Light Felicia # Voids 2 Exam: General: Alert, Awake, No acute Distress Eyes/N/T: EOMI, Head/Neck: neck supple, CV: RRR, 2/6SM Pulm: rales b/l improving, no wheezing Abd: soft, nontender, +BS x4 Ext: no clubbing/cyanosis/edema. Bilateral Charcot foot deformity, bilateral ankle tenderness, no acute findings on exam Neuro: Alert, no focal deficits, moves all extremities, Skin: warm/dry OBJ DATA Labs CBC & Chem 7: 12/30/21 06:22 05:39 Labs: Abnormal Lab Results 12/31/21 12/30/21 12/30/21 05:39 06:10 06:09 RBC 3.94 L Hgb 8.5 L Hct 31.4 L MCV 79.7 L MCH 21.6 L MCHC 27.1 L RDW 20.9 H Lymph % (Auto) 14.2 L Lymph # (Auto) 1.04 L Carbon Dioxide 36 H BUN 26 H Glucose 145 H Uric Acid 9.7 H 9.1 H Lactate Dehydrogenase 241 H NT-Pro-B Natriuret Pep 451.3 H 12/30/21 12/29/21 12/29/21 06:09 04:13 04:12 RBC 3.77 L Hgb 8.2 L Hct 28.8 L MCV 76.4 L MCH 21.8 L MCHC 28.5 L RDW 21.1 H Lymph % (Auto) Lymph # (Auto) 1.13 L Carbon Dioxide 32 H BUN Glucose 147 H 122 H Uric Acid Lactate Dehydrogenase NT-Pro-B Natriuret Pep 12/28/21 12/28/21 17:55 12:12 RBC Hgb 8.4 L 8.0 L Hct MCV MCH MCHC RDW Lymph % (Auto) Lymph # (Auto) Carbon Dioxide BUN Glucose Uric Acid Lactate Dehydrogenase NT-Pro-B Natriuret Pep Meds: Medications Hydrocodone Bitart/Acetaminophen (Hydrocodone/Apap 5/325mg Tablet) 1 tab PO Q4HP PRN; Protocol PRN Reason: Per Pain Protocol Last Admin: 12/28/21 22:10 Dose: 1 tab Dextrose (Dextrose 50% 50 Ml Vial) 0 ml IV UD PRN PRN Reason: Per Sliding Scale Diagnostic Test (Pha) (Accu-Chek 1 Each Strip) 1 each FS ACHS YOU Last Admin: 12/31/21 07:44 Dose: 1 each Docusate Sodium (Docusate Sodium 100 Mg Capsule) 100 mg PO BID YOU Last Admin: 12/30/21 20:59 Dose: 100 mg Glucose (Dextrose 31 Gm Oral.Susp) 15 gm PO PRN PRN PRN Reason: Hypoglycemia Last Admin: 12/28/21 07:26 Dose: 15 gm Acetaminophen (Ofirmev) 650 mg in 65 mls @ 130 mls/hr IV Q6HP PRN; Protocol PRN Reason: PAIN/FEVER > 101 Vancomycin HCl 1,500 mg/ (Sodium Chloride) 500 mls @ 333.3 mls/hr IV Q24H [facility] Last Infusion: 12/30/21 10:55 Dose: Infused Insulin Human Lispro (Insulin Lispro 1 Unit/0.01 Ml Unit) 0 unit SQ ACHS [facility]; Protocol Last Admin: 12/31/21 07:44 Dose: Not Given Iron Sucrose (Iron Sucrose Complex 100 Mg/5 Ml Vial) 200 mg IV DAILY [facility] Stop: 01/02/22 08:59 Last Admin: 12/30/21 09:18 Dose: 200 mg Lisinopril (Lisinopril 20 Mg Tablet) 20 mg PO BID [facility] Last Admin: 12/30/21 21:02 Dose: 20 mg Metoprolol Tartrate (Metoprolol Tartrate 5 Mg/5 Ml Vial) 5 mg IV Q2HP PRN PRN Reason: Tachyarrhythmias HR>110 Ondansetron HCl (Ondansetron 4 Mg/2 Ml Vial) 4 mg IV Q6HP PRN PRN Reason: Nausea And Vomiting Pantoprazole Sodium (Pantoprazole 40 Mg Tablet) 40 mg PO BIDAC [facility] Last Admin: 12/31/21 07:44 Dose: 40 mg Pneumococcal Polyvalent Vaccine (Pneumococcal 23-Kavitha P-Sac Vac 0.5 Ml Syringe) 0.5 ml IM .ONCE ONE Stop: 12/31/21 09:01 Senna (Sennosides 1 Tablet) 2 tab PO HS [facility] Last Admin: 12/30/21 21:00 Dose: 2 tab Sertraline HCl (Sertraline 50 Mg Tablet) 100 mg PO QHS [facility] Last Admin: 12/30/21 21:00 Dose: 100 mg Sodium Chloride (0.9 % Sodium Chloride 10 Ml Syringe) 10 ml IV Q8 [facility] Last Admin: 12/31/21 05:39 Dose: 10 ml Sucralfate (Sucralfate 1 Gm/10 Ml Oral.Susp) 1 gm PO Q6H [facility] Last Admin: 12/31/21 07:44 Dose: 1 gm Vancomycin HCl (Vancomycin Per Pharmacy) 1 order IV UD [facility]; Protocol A/P Narrative A/P Narrative: A: #Acute on chronic hypoxic respiratory failure w/pulm edema: 2/2 CHF. 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 *h/o with TAVR: #Abdominal aortic aneurysm, stable: #CKD II: #DM 2: #COPD (3L@home): #PHOEBE: not on cpap #Dementia: #Depression: Plan -hold diuresis for now, Lasix prn -Monitor daily weight, fluid I&O, volume status. -Oxygen supplementation as needed, wean as tolerated. -on vancomycin, will transition to Amoxicillin -Monitor electrolytes, renal function, -Venofer 200 mg IV daily x5 -SSI, hold metformin -Continue home ramipril, sertraline, Carafate. -PT and OT consult. -ppx: SCD / home ppi CODE STATUS: It Architect Spent With Patient Time: Total time spent is greater than 50% in coordination of care (as documented) at patient's floor/unit and/or counseling patient: Total time spent with greater than 50% in coordination of care (as documented) at patient's floor/unit and/or counseling patient:: 25 - 35 minutes QUALITY VTE Deep Vein Thrombosis/Pulmonary Embolism Present on Admission: No
[2021-12-31] MEDS ORDERED: PNEUMOCOCCAL 23-VAL P-SAC VAC 0.5 ML SYRINGE IM ONE (09:00)
[2021-12-31] MEDS: DOCUSATE SODIUM 100 MG CAPSULE PO SCH ×2 (10:44→20:13)
[2021-12-31] MEDS: IRON SUCROSE COMPLEX 100 MG/5 ML VIAL IV SCH (10:44)
[2021-12-31] MEDS: LISINOPRIL 20 MG TABLET PO SCH ×2 (10:44→20:13)
[2021-12-31] MEDS: AMOXICILLIN 250 MG CAPSULE PO SCH ×2 (15:39→20:14)
[2021-12-31] MEDS: VANCOMYCIN 1,500 MG in 0.9 % SODIUM CHLORIDE 500 ML IV SCH (16:44)
[2021-12-31] MEDS: SERTRALINE 50 MG TABLET PO SCH (20:14)
[2021-12-31] MEDS: SENNOSIDES 1 TABLET PO SCH (20:14)
[2022-01-01] MEDS: SUCRALFATE 1 GM/10 ML ORAL.SUSP PO SCH ×4 (01:16→20:17)
[2022-01-01] MEDS: 0.9 % SODIUM CHLORIDE 10 ML SYRINGE IV SCH ×3 (05:35→21:24)
--- NOTE | 2022-01-01 07:46 | Internal Med Progress Note ---
SUBJECTIVE Subjective Patient information: Note initiated : 01/01/22 at 7:43 am Service Date, if different from initiated Date: [] Patient: Owen Van 81 y/o M admitted on 12/27/21 for trauma. Chief Complaint: [] Interval history: Mr. Van is a 81 year old male with a history of hypertension, type 2 diabetes mellitus, chronic anemia, heart failure with preserved ejection fraction, severe aortic stenosis status post TAVR, atrial fibrillation, coronary artery disease, abdominal aortic aneurysm, obstructive sleep apnea, prior duodenal ulcer complicated by GI bleed who was brought into the emergency department for a fall. The patient reportedly fell out of his bed this morning. In the emergency department, the patient was tachypneic and had a heart rate in the 90s. The patient had a 2 to 3 L nasal oxygen requirement. Laboratory work-up was notable for acute on chronic anemia, elevated NT proBNP. Chest x-ray was suggestive of congestive heart failure, CT head without contrast did not show any acute changes, CT abdomen pelvis showed a small amount of ascites in the perihepatic and deep to pelvic regions, pulmonary vascular congestion in the lung bases bilaterally, a stable 3 cm saccular aneurysm in the infrarenal abdominal aorta, severe degenerative disc disease in the lumbar spine, moderate prostate enlargement. Patient is somewhat confused and unable to provide a coherent history at this time. 12/28: On 2 L/min nasal cannula oxygen. Patient received 1 unit of red blood cells yesterday for hemoglobin of 7, hemoglobin trend has been stable since transfusion. Iron studies consistent with iron deficiency, started Venofer IV. Tolerating diuresis well. Lay catheter placed for urinary retention. Transthoracic echocardiogram ordered. Awaiting EGD. 12/29: Patient was on 3 L/min nasal cannula oxygen overnight, vitals otherwise stable. EGD yesterday did not show any source of bleeding, the duodenal ulcer healing well. Hemoglobin 8.2 this morning. Urine culture growing Enterococcus faecalis. Started vancomycin IV for now and until final antibiotic sensitivities available, discontinued ceftriaxone. Continue Lasix IV for diuresis today, possibly transition to oral Lasix tomorrow. Remove Lay catheter. Transthoracic echocardiogram report pending. Transition to MedSurg status. 12/30 No overnight event or new complaints. Anemia stable labs. Follow-up chest x- ray in the morning. Patient is on chronic oxygen use at home. Pending echocardiogram. 12/31 Patient says he feels so-so, little bit depressed but would not go into detail. Down to 3 L nasal cannula which I believe is his baseline, and he feels like his shortness of breath is at baseline. Chest x-ray with resolution of pulmonary edema. BUN starting to creep up as well as uric acid and bicarb, will hold further diuresis for now. proBNP also dropped by half. 01/01 Patient sitting up eating breakfast. States he is feeling pretty good today. Review of Systems: denies headache/fever/chills/nausea/vomiting/chest or abdominal pain/diarrhea. Otherwise see above. Constitutional Vitals: Vital Signs Temp Pulse Resp BP Pulse Ox O2 Del Method O2 Flow Rate 97.9 F 63 16 106/52 96 3 12/31/21 23:26 12/31/21 23:26 12/31/21 23:26 12/31/21 23:26 12/31/21 23:26 12/31/21 23:12/31/21 23:26 Period Temp Pulse Resp BP Sys/Rodriguez Pulse Ox O2 Del Method O2 Flow Rate Last 24 Hr 96.9 F-98.7 F 62-64 14-18 106-154/52-71 91-97 Nasal Cannula- Nasal Cannula 3-3 Intake and Output 12/31/21 01/01/22 01/01/22 21:59 05:59 13:59 Intake Total 600 Output Total 975 175 Balance -375 -175 Weight 79.095 kg Intake & Output: Intake & Output 12/31/21 01/01/22 01/01/22 21:59 05:59 13:59 Intake Total 600 Output Total 975 175 Balance -375 -175 Weight 79.095 kg Intake: GI Tube Flush 600 Output: Void Amount 975 175 Other: Urine Appearance Clear Clear Urine Color Light Felicia Light Felicia Urine Odor Normal Normal Exam: General: Alert, Awake, No acute Distress Eyes/N/T: EOMI, Head/Neck: neck supple, CV: RRR, 2/6SM Pulm: no rales b/l but mildly diminished at bases, no wheezing Abd: soft, nontender, +BS x4 Ext: no clubbing/cyanosis/edema. Bilateral Charcot foot deformity, bilateral ankle tenderness, no acute findings on exam Neuro: Alert, no focal deficits, moves all extremities, Skin: warm/dry OBJ DATA Labs CBC & Chem 7: 12/30/21 06:10 12/31/21 05:39 Labs: Abnormal Lab Results 12/31/21 12/30/21 12/30/21 05:39 06:10 06:09 RBC 3.94 L Hgb 8.5 L Hct 31.4 L MCV 79.7 L MCH 21.6 L MCHC 27.1 L RDW 20.9 H Lymph % (Auto) 14.2 L Lymph # (Auto) 1.04 L Carbon Dioxide 36 H BUN 26 H Glucose 145 H Uric Acid 9.7 H 9.1 H Lactate Dehydrogenase 241 H NT-Pro-B Natriuret Pep 451.3 H 12/30/21 06:09 RBC Hgb Hct MCV MCH MCHC RDW Lymph % (Auto) Lymph # (Auto) Carbon Dioxide BUN Glucose 147 H Uric Acid Lactate Dehydrogenase NT-Pro-B Natriuret Pep Meds: Medications Hydrocodone Bitart/Acetaminophen (Hydrocodone/Apap 5/325mg Tablet) 1 tab PO Q4HP PRN; Protocol PRN Reason: Per Pain Protocol Last Admin: 12/28/21 22:10 Dose: 1 tab Amoxicillin (Amoxicillin 250 Mg Capsule) 500 mg PO TID YOU; Protocol Last Admin: 12/31/21 20:14 Dose: 500 mg Dextrose (Dextrose 50% 50 Ml Vial) 0 ml IV UD PRN PRN Reason: Per Sliding Scale Diagnostic Test (Pha) (Accu-Chek 1 Each Strip) 1 each FS ACHS YOU Last Admin: 12/31/21 20:08 Dose: 1 each Docusate Sodium (Docusate Sodium 100 Mg Capsule) 100 mg PO BID YOU Last Admin: 12/31/21 20:13 Dose: 100 mg Glucose (Dextrose 31 Gm Oral.Susp) 15 gm PO PRN PRN PRN Reason: Hypoglycemia Last Admin: 12/28/21 07:26 Dose: 15 gm Acetaminophen (Ofirmev) 650 mg in 65 mls @ 130 mls/hr IV Q6HP PRN; Protocol PRN Reason: PAIN/FEVER > 101 Insulin Human Lispro (Insulin Lispro 1 Unit/0.01 Ml Unit) 0 unit SQ ACHS [facility]; Protocol Last Admin: 12/31/21 20:28 Dose: 2 unit Iron Sucrose (Iron Sucrose Complex 100 Mg/5 Ml Vial) 200 mg IV DAILY [facility] Stop: 01/02/22 08:59 Last Admin: 12/31/21 10:44 Dose: 200 mg Lisinopril (Lisinopril 20 Mg Tablet) 20 mg PO BID [facility] Last Admin: 12/31/21 20:13 Dose: 20 mg Metoprolol Tartrate (Metoprolol Tartrate 5 Mg/5 Ml Vial) 5 mg IV Q2HP PRN PRN Reason: Tachyarrhythmias HR>110 Ondansetron HCl (Ondansetron 4 Mg/2 Ml Vial) 4 mg IV Q6HP PRN PRN Reason: Nausea And Vomiting Pantoprazole Sodium (Pantoprazole 40 Mg Tablet) 40 mg PO BIDAC [facility] Last Admin: 12/31/21 16:55 Dose: 40 mg Senna (Sennosides 1 Tablet) 2 tab PO HS [facility] Last Admin: 12/31/21 20:14 Dose: 2 tab Sertraline HCl (Sertraline 50 Mg Tablet) 100 mg PO QHS [facility] Last Admin: 12/31/21 20:14 Dose: 100 mg Sodium Chloride (0.9 % Sodium Chloride 10 Ml Syringe) 10 ml IV Q8 [facility] Last Admin: 01/01/22 05:35 Dose: 10 ml Sucralfate (Sucralfate 1 Gm/10 Ml Oral.Susp) 1 gm PO Q6H [facility] Last Admin: 01/01/22 01:16 Dose: 1 gm A/P Narrative A/P Narrative: A: #Acute on chronic hypoxic respiratory failure w/pulm edema: 2/2 CHF. 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 *h/o with TAVR: #Abdominal aortic aneurysm, stable: #CKD II: #DM 2: #COPD (3L@home): #PHOEBE: not on cpap #Dementia: #Depression: Plan -hold diuresis for now, Lasix prn -Monitor daily weight, fluid I&O, volume status. -Oxygen supplementation as needed, wean as tolerated. -Amoxicillin -Monitor electrolytes, renal function, -Venofer 200 mg IV daily x5 -SSI, hold metformin -Continue home ramipril(decrease), sertraline, Carafate. -PT and OT consult. 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
[2022-01-01] MEDS: INSULIN LISPRO 1 UNIT/0.01 ML UNIT SQ SCH ×4 (08:01→20:37)
[2022-01-01] MEDS: PANTOPRAZOLE 40 MG TABLET PO SCH ×2 (08:01→17:14)
[2022-01-01] MEDS: DOCUSATE SODIUM 100 MG CAPSULE PO SCH ×2 (09:31→20:16)
[2022-01-01] MEDS: IRON SUCROSE COMPLEX 100 MG/5 ML VIAL IV SCH (09:31)
[2022-01-01] MEDS: LISINOPRIL 20 MG TABLET PO SCH ×2 (09:32→20:16)
[2022-01-01] MEDS: AMOXICILLIN 250 MG CAPSULE PO SCH ×3 (09:32→20:16)
[2022-01-01] MEDS: SERTRALINE 50 MG TABLET PO SCH (20:15)
[2022-01-01] MEDS: SENNOSIDES 1 TABLET PO SCH (20:16)
[2022-01-02] MEDS: SUCRALFATE 1 GM/10 ML ORAL.SUSP PO SCH ×3 (02:40→13:32)
[2022-01-02] MEDS: 0.9 % SODIUM CHLORIDE 10 ML SYRINGE IV SCH (05:17)
[2022-01-02] MEDS: PANTOPRAZOLE 40 MG TABLET PO SCH (07:25)
[2022-01-02] MEDS: INSULIN LISPRO 1 UNIT/0.01 ML UNIT SQ SCH ×2 (07:34→11:34)
[2022-01-02] MEDS: AMOXICILLIN 250 MG CAPSULE PO SCH (09:02)
[2022-01-02] MEDS: DOCUSATE SODIUM 100 MG CAPSULE PO SCH (09:03)
[2022-01-02] MEDS: LISINOPRIL 20 MG TABLET PO SCH (09:04)
== END 2022-01-02 14:00 | DRG 291 ==
LOC: ED 09:06 → MEDSUR 13:15 → ICU 15:20 → MEDSUR 12-30 15:05
PROVIDERS: ADMIT Internal Medicine; ATTEND Internal Medicine